=== PATIENT | female | born 1955 | race African-American/Black ===

== ENCOUNTER 2017-09-07 11:23 | Inpatient (IN) | payer OTHER ==
--- NOTE | 2017-09-07 12:08 | PDOC ---
History of Present Illness - General History Source: Patient Exam Limitations: No Limitations - History of Present Illness Initial Comments: 09/07/17 14:24 The patient is a 62 year old female with past medical history of hypertension, scleroderma, and emphysema who presents to the ED with complaints of chest pain for the past week. The patient complains of a sharp, burning pain to her left chest that is a 10/10 in severity and is felt upon movement of her left arm. She reports taking tramadol for her pain at 6 am today which gave no relief. She reports also a productive cough with thick green/yellow sputum for the past few days as well as decreased appetite and lethargy. The patient denies having any sick contacts and denies any fevers, chills, vomiting, diarrhea, SOB. She denies any urinary complaints. Patient is a former smoker who quit 20 years ago. She reports frequent marijuana use. No incarcerations or recent travel. <Jen Diaz - Last Filed: 09/07/17 16:53> <Vy Anne - Last Filed: 09/07/17 20:28> <Pernell Pope - Last Filed: 09/11/17 06:36> - General Chief Complaint: Chest Pain Stated Complaint: CHEST PAIN Time Seen by Provider: 09/07/17 12:08 Past History <Jen Diaz - Last Filed: 09/07/17 16:53> <Vy Anne - Last Filed: 09/07/17 20:28> - Past Medical History GI Disorders: Yes (gastric ulcer) HTN: Yes - Immunization History Immunization Up to Date: Yes - Suicide/Smoking/Psychosocial Hx Smoking History: Former smoker Have you smoked in the past 12 months: Yes Number of Cigarettes Smoked Daily: 15 If you are a former smoker, when did you quit?: t-10 Information on smoking cessation initiated: No 'Breaking Loose' booklet given: 10/07/14 Hx Alcohol Use: No Drug/Substance Use Hx: No Substance Use Type: Heroin, Marijuana Hx Substance Use Treatment: No <Pernell Pope - Last Filed: 09/11/17 06:36> - Past Medical History Allergies/Adverse Reactions: Allergies Allergy/AdvReac Type Severity Reaction Status Date / Time aspirin Allergy Mild n/v Verified 11/19/14 03:06 Home Medications: Ambulatory Orders Omeprazole [Prilosec (RX)] 40 mg PO DAILY 03/29/14 Hydroxychloroquine Sulfate 200 mg PO BID 10/07/14 Mycophenolate Mofetil [Cellcept -] 500 mg PO AM 10/07/14 Ondansetron [Zofran Odt -] 4 mg SL TID #10 od.tablet 11/19/14 Oxycodone HCl 20 mg PO Q4H PRN 11/19/14 traMADol HCL [Ultram] 50 mg PO Q6H PRN 11/19/14 traZODone HCL [Desyrel -] 50 mg PO HS 11/19/14 Gabapentin [Neurontin -] 200 mg PO Q8H 09/08/17 Losartan Potassium [Cozaar -] 12.5 mg PO DAILY 09/08/17 Amlodipine Besylate [Norvasc -] 5 mg PO DAILY 09/11/17 Methotrexate Sodium/Pf [Methotrexate 25 mg/ml Vial] 25 mg SQ WEEKLY 09/11/17 Umeclidinium [place] [Incruse Ellipta] 62.5 mcg IH DAILY 09/11/17 Review of Systems - Review of Systems Able to Perform ROS?: Yes Comments:: 09/07/17 14:24 GENERAL/CONSTITUTIONAL: No fever or chills. No weakness. HEAD, EYES, EARS, NOSE AND THROAT: No change in vision. No ear pain or discharge. No sore throat. GASTROINTESTINAL: Present: nausea No vomiting, diarrhea or constipation. GENITOURINARY: No dysuria, frequency, or change in urination. CARDIOVASCULAR: Present: chest pain No shortness of breath. RESPIRATORY: Present: productive cough No wheezing, or hemoptysis. MUSCULOSKELETAL: No joint or muscle swelling or pain. No neck or back pain. SKIN: No rash NEUROLOGIC: No headache, vertigo, loss of consciousness, or change in strength/ sensation. ENDOCRINE: No increased thirst. No abnormal weight change. HEMATOLOGIC/LYMPHATIC: No anemia, easy bleeding, or history of blood clots. ALLERGIC/IMMUNOLOGIC: No hives or skin allergy. All Other Systems: Reviewed and Negative <Jen Diaz - Last Filed: 09/07/17 16:53> *Physical Exam - Vital Signs Last Vital Signs Temp Pulse Resp BP Pulse Ox 98.1 F 129 H 24 111/70 98 09/07/17 11:52 09/07/17 11:52 09/07/17 11:52 09/07/17 11:52 09/07/17 11:52 - Physical Exam Comments: 09/07/17 14:25 GENERAL: Awake, alert, and fully oriented, in no acute distress HEAD: No signs of trauma EYES: PERRLA, EOMI, sclera anicteric, conjunctiva clear ENT: Auricles normal inspection, hearing grossly normal, nares patent, oropharynx clear without exudates. Moist mucosa NECK: Normal ROM, supple, no lymphadenopathy, JVD, or masses LUNGS: diminished BS on the L, no increased WOB HEART: Regular rate and rhythm, normal S1 and S2, no murmurs, rubs or gallops ABDOMEN: Soft, nontender, normoactive bowel sounds. No guarding, no rebound. No masses EXTREMITIES: Normal range of motion, no edema. No clubbing or cyanosis. No cords, erythema, or tenderness NEUROLOGICAL: Normal speech, cranial nerves intact, negative pronator drift, 5/ 5 strength in all 4 extremities, normal sensation to light touch in all 4 extremities, normal cerebellar exam, normal gait, normal reflexes and tone SKIN: Warm, Dry, normal turgor, no rashes or lesions noted. <Jen Diaz - Last Filed: 09/07/17 16:53> - Vital Signs Last Vital Signs Temp Pulse Resp BP Pulse Ox 98.1 F 129 H 24 111/70 98 09/07/17 11:52 09/07/17 11:52 09/07/17 11:52 09/07/17 11:52 09/07/17 11:52 <Vy Anne - Last Filed: 09/07/17 20:28> - Vital Signs Last Vital Signs Temp Pulse Resp BP Pulse Ox 98.1 F 129 H 24 111/70 98 09/07/17 11:52 09/07/17 11:52 09/07/17 11:52 09/07/17 11:52 09/07/17 11:52 <Pernell Pope - Last Filed: 09/11/17 06:36> ED Treatment Course - LABORATORY CBC & Chemistry Diagram: 09/07/17 13:30 09/07/17 15:33 - ADDITIONAL ORDERS Additional order review: 09/07/17 13:30 RBC 4.21 MCV 85.7 MCHC 33.1 RDW 14.9 MPV 9.4 Neutrophils % 93.4 H Lymphocytes % 3.5 L D Monocytes % 2.6 L Eosinophils % 0.0 D Basophils % 0.5 - RADIOLOGY Radiograph Interpretation: 09/07/17 15:07 Chest X-ray as reviewed by Dr. Jordan reports airspace disease/pneumonia with questionable cystic changes in the left upper lobe for which close follow up or correlation with CT scan of the chest is recommended. - Medications Given in the ED: ED Medications Discontinued Medications Generic Name Dose Route Start Last Admin Trade Name Saadq PRN Reason Stop Dose Admin Acetaminophen 1,000 mg 09/07/17 13:13 09/07/17 13:35 Ofirmev Injection - IVPB 09/07/17 13:14 1,000 mg ONCE ONE Administration Sodium Chloride 1,000 mls @ 1,000 mls/hr 09/07/17 12:09 09/07/17 13:35 Normal Saline - IV 09/07/17 13:08 1,000 mls/hr ASDIR STA Administration <Rust - Last Filed: 09/07/17 16:53> - LABORATORY CBC & Chemistry Diagram: 09/07/17 13:30 09/07/17 15:33 - ADDITIONAL ORDERS Additional order review: Laboratory Results 09/07/17 09/07/17 09/07/17 15:33 15:30 15:00 PT with INR INR PTT (Actin FS) VBG pH POC VBG pCO2 POC VBG pO2 Mixed VBG HCO3 Sodium 140 Potassium 4.0 Chloride 103 Carbon Dioxide 22 Anion Gap 15 BUN 38 H Creatinine 1.1 H Creat Clearance w eGFR 50.67 Random Glucose 146 H Lactic Acid 2.3 H* Calcium 7.8 L Total Bilirubin 2.2 H D AST 42 H ALT 23 Alkaline Phosphatase 178 H Troponin I B-Natriuretic Peptide Total Protein 5.7 L Albumin 1.6 L Urine Color Radha Urine Appearance Slcloudy Urine pH 5.0 Ur Specific [place] 1.023 Urine Protein 2+ H Urine Glucose (UA) Negative Urine Ketones Trace H Urine Blood Negative Urine Nitrite Negative Urine Bilirubin 4.0 Urine Urobilinogen 4.0 e.u/dl H Ur Leukocyte Esterase Negative Urine WBC (Auto) 2 Urine RBC (Auto) 21 Ur Epithelial Cells Rare Hyaline Casts 6 Granular Casts 17 Urine Mucus Rare 09/07/17 09/07/17 09/07/17 13:30 13:30 13:30 PT with INR 17.00 H INR 1.50 H PTT (Actin FS) 30.5 VBG pH 7.41 POC VBG pCO2 35.9 L POC VBG pO2 36.5 Mixed VBG HCO3 22.5 Sodium Cancelled Potassium Cancelled Chloride Cancelled Carbon Dioxide Cancelled Anion Gap Cancelled BUN Cancelled Creatinine Cancelled Creat Clearance w eGFR Cancelled Random Glucose Cancelled Lactic Acid Calcium Cancelled Total Bilirubin Cancelled AST Cancelled ALT Cancelled Alkaline Phosphatase Cancelled Troponin I Cancelled B-Natriuretic Peptide Cancelled Total Protein Cancelled Albumin Cancelled Urine Color Urine Appearance Urine pH Ur Specific [place] Urine Protein Urine Glucose (UA) Urine Ketones Urine Blood Urine Nitrite Urine Bilirubin Urine Urobilinogen Ur Leukocyte Esterase Urine WBC (Auto) Urine RBC (Auto) Ur Epithelial Cells Hyaline Casts Granular Casts Urine Mucus 09/07/17 13:00 PT with INR INR PTT (Actin FS) VBG pH POC VBG pCO2 POC VBG pO2 Mixed VBG HCO3 Sodium Potassium Chloride Carbon Dioxide Anion Gap BUN Creatinine Creat Clearance w eGFR Random Glucose Lactic Acid 2.3 H* Calcium Total Bilirubin AST ALT Alkaline Phosphatase Troponin I B-Natriuretic Peptide Total Protein Albumin Urine Color Urine Appearance Urine pH Ur Specific [place] Urine Protein Urine Glucose (UA) Urine Ketones Urine Blood Urine Nitrite Urine Bilirubin Urine Urobilinogen Ur Leukocyte Esterase Urine WBC (Auto) Urine RBC (Auto) Ur Epithelial Cells Hyaline Casts Granular Casts Urine Mucus 09/07/17 13:30 RBC 4.21 MCV 85.7 MCHC 33.1 RDW 14.9 MPV 9.4 Neutrophils % 93.4 H Lymphocytes % 3.5 L D Monocytes % 2.6 L Eosinophils % 0.0 D Basophils % 0.5 - Medications Given in the ED: ED Medications Discontinued Medications Generic Name Dose Route Start Last Admin Trade Name Freq PRN Reason Stop Dose Admin Acetaminophen 1,000 mg 09/07/17 13:13 09/07/17 13:35 Ofirmev Injection - IVPB 09/07/17 13:14 1,000 mg ONCE ONE Administration Sodium Chloride 1,000 mls @ 1,000 mls/hr 09/07/17 12:09 09/07/17 13:35 Normal Saline - IV 09/07/17 13:08 1,000 mls/hr ASDIR STA Administration Azithromycin 500 mg/ Dextrose 250 mls @ 250 mls/hr 09/07/17 14:43 09/07/17 15 :08 IVPB 09/07/17 15:42 250 mls/hr ONCE ONE Administration Ceftriaxone Sodium 1 gm/ 50 mls @ 100 mls/hr 09/07/17 14:43 09/07/17 15:23 Dextrose IVPB 09/07/17 15:12 100 mls/hr ONCE ONE Administration <Vy Anne - Last Filed: 09/07/17 20:28> - LABORATORY CBC & Chemistry Diagram: 09/10/17 06:30 09/10/17 06:30 - RADIOLOGY Radiology Studies Ordered: Category Date Time Status CHEST X-RAY PORTABLE* [RAD] Stat Radiology 09/07/17 12:06 Ordered <Pernell Pope - Last Filed: 09/11/17 06:36> Medical Decision Making - Medical Decision Making 09/11/17 06:35 CTA + for lobar infiltrate, neg for large PE. Pt admitted for further mgmt. <Pernell Pope - Last Filed: 09/11/17 06:36> *DC/Admit/Observation/Transfer - Attestations Scribe Attestion: 09/07/17 14:25 Documentation prepared by Jen Diaz, acting as lead medical technologist for Pernell Pope MD. <Jen Diaz - Last Filed: 09/07/17 16:53> - Discharge Dispostion Admit: Yes <Vy Anne - Last Filed: 09/07/17 20:28> <Pernell Pope - Last Filed: 09/11/17 06:36> Diagnosis at time of Disposition: Scleroderma Pneumonia Qualifiers: Pneumonia type: due to unspecified organism Laterality: unspecified laterality Lung location: lower lobe of lung Qualified Code(s): J18.1 - Lobar pneumonia, unspecified organism
[2017-09-07] MEDS ORDERED: SODIUM CHLORIDE 1,000 ML IV STA ×2 (12:09→21:14)
[2017-09-07] MEDS ORDERED: ACETAMINOPHEN 1000 MG/100 ML VIAL (NON FORMULARY) IVPB ONE (13:13)
[2017-09-07] MEDS ORDERED: ACETAMINOPHEN INJECTION 100 ML IVPB ONE (13:40)
[2017-09-07 13:49] LABS: BASO % 0.5 % (0-2.0); HEMATOCRIT 36.1 % (32.4-45.2); HEMOGLOBIN 11.9 GM/dL (10.7-15.3); LYMPH % 3.5 % (8-40); MCH 28.4 pg (25.7-33.7); MCHC 33.1 g/dl (32.0-36.0); MEAN CELL VOLUME 85.7 fl (80-96); MEAN PLT VOLUME 9.4 fl (7.5-11.1); MONO % 2.6 % (3.8-10.2); NEUT % 93.4 % (42.8-82.8); PLATELET COUNT 494 K/MM3 (134-434); RBC 4.21 M/mm3 (3.60-5.2); RDW 14.9 % (11.6-15.6); WHITE BLOOD COUNT 28.5 K/mm3 (4.0-10.0)
[2017-09-07 14:06] LABS: INR 1.5 (0.82-1.09)
[2017-09-07 14:09] LABS: ACTIVATED PTT 30.5 SECONDS (26.9-34.4)
[2017-09-07 14:43] LABS: VENOUS PC02 35.9 mmHg (38-52); VENOUS PH 7.41 (7.32-7.42); VENOUS PO2 36.5 mmHg (28-48)
[2017-09-07] MEDS ORDERED: AZITHROMYCIN IVPB 500 MG in DEXTROSE 5%-WATER - 250 ML IVPB ONE (14:43)
[2017-09-07] MEDS ORDERED: CEFTRIAXONE 1 GM in DEXTROSE 5%-WATER - 50 ML IVPB ONE (14:43)
[2017-09-07] MEDS ORDERED: CEFTRIAXONE 1 GM/50 ML BAG ONE ×2 (15:09→15:10)
[2017-09-07] MEDS ORDERED: AZITHROMYCIN IVPB 250 ML IVPB ONE (15:09)
[2017-09-07 15:31] LABS: URINE APPEARANCE SLCLOUDY; URINE COLOR AMBER; URINE GLUCOSE (UA) NEGATIVE (NEGATIVE); URINE KETONE TRACE (NEGATIVE); URINE LEUK ESTERASE NEGATIVE (NEGATIVE); URINE NITRITE NEGATIVE (NEGATIVE); URINE UROBILINOGEN 4.0 E.U/dl mg/dL (0.2-1.0)
[2017-09-07 15:33] LABS: URINE PROTEIN 2+ (NEGATIVE)
[2017-09-07 15:37] LABS: EPI CELLS RARE /HPF (FEW); GRANULAR CASTS 17 /lpf; URINE HYALINE CAST 6 /lpf; URINE MUCUS RARE
[2017-09-07 16:31] LABS: ALBUMIN 1.6 g/dl (3.4-5.0); ANION GAP 15 (8-16); BLOOD UREA NITROGEN 38 mg/dL (7-18); CALCIUM 7.8 mg/dL (8.5-10.1); CHLORIDE 103 mmol/L (98-107); CO2 22 mmol/L (21-32); CREATININE 1.1 mg/dL (0.55-1.02); GLUCOSE,RANDOM 146 mg/dL (74-106); SGPT/ALT 23 U/L (12-78); SODIUM 140 mmol/L (136-145)
[2017-09-07 16:32] LABS: ALK PHOS 178 U/L (45-117); BILIRUBIN,TOTAL 2.2 mg/dL (0.2-1.0); TOT PROT 5.7 g/dl (6.4-8.2)
[2017-09-07 16:40] LABS: SGOT/AST 42 U/L (15-37)
--- NOTE | 2017-09-07 16:53 | EKG ---
Test Reason : Blood Pressure : / mmHG Vent. Rate : 130 BPM Atrial Rate : 130 BPM P-R Int : 124 ms QRS Dur : 074 ms QT Int : 322 ms P-R-T Axes : 076 078 082 degrees QTc Int : 473 ms SINUS TACHYCARDIA SEPTAL INFARCT , AGE UNDETERMINED ABNORMAL ECG WHEN COMPARED WITH ECG OF 06-OCT-2014 20:33, VENT. RATE HAS INCREASED BY 48 BPM Confirmed by MD Lina, Yomi ([id number]) on 09/07/2017 4:53:28 PM Referred By: Confirmed By:Yomi Mills MD
[2017-09-07] MEDS ORDERED: morphine CARPU-JECT 2 MG/1 ML DISP.SYRIN IVPUSH ONE (20:38)
[2017-09-07] MEDS ORDERED: HEPARIN NA (PORCINE) 5,000 UNITS/ML 1ML VIAL ONE (20:44)
[2017-09-07] MEDS: HEPARIN NA (PORCINE) 5,000 UNITS/ML 1ML VIAL SQ SCH (21:00)
[2017-09-07] MEDS: SODIUM CHLORIDE 1,000 ML IV SCH (21:00)
[2017-09-07] MEDS ORDERED: PIPERACILLIN/TAZOB 4.5 GM/100 ML PRE-DOCKED IVPB SCH (21:15)
[2017-09-07] MEDS ORDERED: VANCOMYCIN 1,250 MG in DEXTROSE 5%-WATER - 250 ML IVPB SCH (21:15)
[2017-09-07] MEDS ORDERED: PIPERACILLIN/TAZOB 4.5 GM 4.5 GM/100 ML BAG IVPB ONE (21:22)
[2017-09-07] MEDS ORDERED: VANCOMYCIN 500 MG VIAL (RESTRICTED TO ID ONLY) ONE (21:22)
--- NOTE | 2017-09-07 21:22 | HP ---
CHIEF COMPLAINT: chest pain, cough PCP: none HISTORY OF PRESENT ILLNESS: 62 year old female with a past medical history of HTN, Scleroderma, emphysema presents to the hospital for 1 week history of L sided chest pain 10/10 in severity. The patient describes the pain as sharp, stabbing and pressure. Patient took tramadal at home with no symptom relief. Patient also reports 1 week history of cough productive of green/brown sputum. She arrived to the ED today because her chest pain became significantly worse this AM. She reports associated shortness of breath, decreased appetite, lethargy, nausea (no vomiting), abdominal pain with coughing. Denies fevers, chills, vomiting, headache, arm pain, neck pain. Patient is treated for scleroderma at [facility] with infusions every 6 months. She denies any acute skin conditions, current difficulty swallowing (but states that occasionally has issues when throat swells up). ER course was notable for: (1) WBC 28.5 (2) LA 2.3 (3) CXR YOKO infiltrate Recent Travel: none PAST MEDICAL HISTORY: HTN, Scleroderma, emphysema PAST SURGICAL HISTORY: none Social History: Smoking: quit 7 days ago, smoked 3 cigs a day Alcohol: unknown Drugs: unknown Family History: none Allergies aspirin Allergy (Mild, Verified 11/19/14 03:06) n/v HOME MEDICATIONS: Home Medications Medication Instructions Recorded Lisinopril [Prinivil] 10 mg PO DAILY 03/29/14 Omeprazole [Prilosec (RX)] 40 mg PO DAILY 03/29/14 Hydroxychloroquine Sulfate 200 mg PO BID 10/07/14 Mycophenolate Mofetil [Cellcept -] 2 tab PO AM 10/07/14 Metoclopramide HCl 5 mg PO Q6H PRN 11/19/14 Mycophenolate Mofetil [Cellcept -] 500 mg PO HS 11/19/14 Ondansetron [Zofran Odt -] 4 mg SL TID #10 od.tablet 11/19/14 Oxycodone HCl 20 mg PO Q4H PRN 11/19/14 traMADol HCL [Ultram] 50 mg PO Q6H PRN 11/19/14 traZODone HCL [Desyrel -] 50 mg PO HS 11/19/14 REVIEW OF SYSTEMS CONSTITUTIONAL: generalized weakness, loss of appetite Absent: fever, chills, diaphoresis, malaise, weight change HEENT: Absent: rhinorrhea, nasal congestion, throat pain, throat swelling, difficulty swallowing, mouth swelling, ear pain, eye pain, visual changes CARDIOVASCULAR: chest pain Absent:syncope, palpitations, irregular heart rate, lightheadedness, peripheral edema RESPIRATORY: cough, shortness of breath Absent: ,, dyspnea with exertion, orthopnea, wheezing, stridor, hemoptysis GASTROINTESTINAL: Absent: abdominal pain, abdominal distension, nausea, vomiting, diarrhea, constipation, melena, hematochezia GENITOURINARY: Absent: dysuria, frequency, urgency, hesitancy, hematuria, flank pain, genital pain MUSCULOSKELETAL: Absent: myalgia, arthralgia, joint swelling, back pain, neck pain SKIN: Absent: rash, itching, pallor HEMATOLOGIC/IMMUNOLOGIC: Absent: easy bleeding, easy bruising, lymphadenopathy, frequent infections ENDOCRINE: Absent: unexplained weight gain, unexplained weight loss, heat intolerance, cold intolerance NEUROLOGIC: Absent: headache, focal weakness or paresthesias, dizziness, unsteady gait, seizure, mental status changes, bladder or bowel incontinence PSYCHIATRIC: Absent: anxiety, depression, suicidal or homicidal ideation, hallucinations. PHYSICAL EXAMINATION Vital Signs - 24 hr 09/07/17 11:52 Temperature 98.1 F Pulse Rate 129 H Respiratory 24 Rate Blood Pressure 111/70 O2 Sat by Pulse 98 Oximetry (%) GENERAL: A&Ox3, no acute distress EYES: PERRLA, EOMI ENT: Dry mucus membranes NECK: No JVD LUNGS: Decreased breath sounds in [place], mild diffuse scattered rhales noted on exam HEART: tachycardic, no murmurs, PMI 5th intercostal space on L midclavicular line ABDOMEN: Soft, nontender, BS present MUSCULOSKELETAL: Mild chest wall tenderness noted on exam EXTREMITIES: 2+ pulses, no edema. NEUROLOGICAL: Cranial nerves II-XII intact. Laboratory Results - last 24 hr 09/07/17 09/07/17 09/07/17 13:00 13:30 13:30 WBC 28.5 H D RBC 4.21 Hgb 11.9 D Hct 36.1 D MCV 85.7 MCH 28.4 MCHC 33.1 RDW 14.9 Plt Count 494 H D MPV 9.4 Neutrophils % 93.4 H Lymphocytes % 3.5 L D Monocytes % 2.6 L Eosinophils % 0.0 D Basophils % 0.5 PT with INR 17.00 H INR 1.50 H PTT (Actin FS) 30.5 VBG pH POC VBG pCO2 POC VBG pO2 Mixed VBG HCO3 Sodium Potassium Chloride Carbon Dioxide Anion Gap BUN Creatinine Creat Clearance w eGFR Random Glucose Lactic Acid 2.3 H* Calcium Total Bilirubin AST ALT Alkaline Phosphatase Troponin I B-Natriuretic Peptide Total Protein Albumin Urine Color Urine Appearance Urine pH Ur Specific [place] Urine Protein Urine Glucose (UA) Urine Ketones Urine Blood Urine Nitrite Urine Bilirubin Urine Urobilinogen Ur Leukocyte Esterase Urine WBC (Auto) Urine RBC (Auto) Ur Epithelial Cells Hyaline Casts Granular Casts Urine Mucus 09/07/17 09/07/17 09/07/17 13:30 13:30 15:00 WBC RBC Hgb Hct MCV MCH MCHC RDW Plt Count MPV Neutrophils % Lymphocytes % Monocytes % Eosinophils % Basophils % PT with INR INR PTT (Actin FS) VBG pH 7.41 POC VBG pCO2 35.9 L POC VBG pO2 36.5 Mixed VBG HCO3 22.5 Sodium Cancelled Potassium Cancelled Chloride Cancelled Carbon Dioxide Cancelled Anion Gap Cancelled BUN Cancelled Creatinine Cancelled Creat Clearance w eGFR Cancelled Random Glucose Cancelled Lactic Acid Calcium Cancelled Total Bilirubin Cancelled AST Cancelled ALT Cancelled Alkaline Phosphatase Cancelled Troponin I Cancelled B-Natriuretic Peptide Cancelled Total Protein Cancelled Albumin Cancelled Urine Color Radha Urine Appearance Slcloudy Urine pH 5.0 Ur Specific [place] 1.023 Urine Protein 2+ H Urine Glucose (UA) Negative Urine Ketones Trace H Urine Blood Negative Urine Nitrite Negative Urine Bilirubin 4.0 Urine Urobilinogen 4.0 e.u/dl H Ur Leukocyte Esterase Negative Urine WBC (Auto) 2 Urine RBC (Auto) 21 Ur Epithelial Cells Rare Hyaline Casts 6 Granular Casts 17 Urine Mucus Rare 09/07/17 09/07/17 15:30 15:33 WBC RBC Hgb Hct MCV MCH MCHC RDW Plt Count MPV Neutrophils % Lymphocytes % Monocytes % Eosinophils % Basophils % PT with INR INR PTT (Actin FS) VBG pH POC VBG pCO2 POC VBG pO2 Mixed VBG HCO3 Sodium 140 Potassium 4.0 Chloride 103 Carbon Dioxide 22 Anion Gap 15 BUN 38 H Creatinine 1.1 H Creat Clearance w eGFR 50.67 Random Glucose 146 H Lactic Acid 2.3 H* Calcium 7.8 L Total Bilirubin 2.2 H D AST 42 H ALT 23 Alkaline Phosphatase 178 H Troponin I B-Natriuretic Peptide Total Protein 5.7 L Albumin 1.6 L Urine Color Urine Appearance Urine pH Ur Specific [place] Urine Protein Urine Glucose (UA) Urine Ketones Urine Blood Urine Nitrite Urine Bilirubin Urine Urobilinogen Ur Leukocyte Esterase Urine WBC (Auto) Urine RBC (Auto) Ur Epithelial Cells Hyaline Casts Granular Casts Urine Mucus IMAGING: CXR on admission: YOKO opacity suspect for pneumonia Chest CTA on admission: YOKO infiltrate, emphysematous changes noted bilaterally ASSESSMENT/PLAN: 62 year old female with a history of scleroderma, hypertension, and emphysema presented to the ED with chest pain, cough productive of green sputum, and admitted for the treatment of severe sepsis 2/2 pneumonia #Severe Sepsis 2/2 Pneumonia: patient has clinically improved since initial presentation, still tachycardic -admit to med-surg -WBC 28.5, monitor in AM -Lactate 2.3, repeat lactate now -ID consult Dr. Gan appreciated -repeat CXR in AM -sputum culture -blood culture -urine culture -1 liter of fluid in ED given, give 1 more bolus and then start 100cc/hr of NS maintenance -patient likely immunocompromised given scleroderma status, will cover broadly with Vancomycin 1250 QD and Zosyn 4.5g Q6H -strict I's/O's -2L nasal cannula if needed #ALLIE: likely prerenal due to severe sepsis -fluid hydration, repeat BMP in AM #Scleroderma: not an acute issue -continue chronic prednisone 20mg QD -previous visit had mycophenolate listed as well as hydroxychloroquine - please confirm medications in the morning #Emphysema: not an acute issue -patient is on Incruse Ellipta at home, consider starting during admission #Hypertension: patient is normotensive, however due to history of hypertension, her blood pressure is likely low compared to baseline, will hold antihypertensives in the setting of severe sepsis. -hold amlodipine 5mg QD -hold losartan 12.5 QD #Smoking Cessation: -nicotine patch #Nausea: no vomiting -hold antiemetics due to QTc -consider compazine #FEN NS @ 100cc/hr Replete lytes in AM Sodium controlled diet #Prophylaxis -heparin 5000 subq TID #Disposition -admit to med surg Visit type - Emergency Visit Emergency Visit: Yes Care time: The patient presented to the Emergency Department on the above date and was hospitalized for further evaluation of their emergent condition. - New Patient This patient is new to me today: Yes Date on this admission: 09/07/17 - Critical Care Critical Care patient: No Hospitalist Screening - Colonoscopy Questionnaire Colonoscopy Questionnaire: Colonoscopy Questionnaire - Patient: 50 - 75 years old and never had a screening colonoscopy: Unknown History of colon or rectal polyps, or CA: Unknown History of IBD, Crohn's disease or UC: Unknown History of abdominal radiation therapy as a child: Unknown - Relative: 1 with colon or rectal CA, or polyps at age 60 or younger: Unknown Colon or rectal CA diagnosed at age 45 or younger: Unknown Multiple relatives with colon or rectal CA: Unknown - Outcome: Screening Result: Negative Screen
[2017-09-07] MEDS ORDERED: VANCOMYCIN 1 GRAM (PRE-DOCKED) 1,000 MG/250 ML BAG IVPB ONE (21:23)
[2017-09-07] MEDS ORDERED: traMADol HCL 50 MG TABLET PO PRN (21:28)
[2017-09-07] MEDS ORDERED: MYCOPHENOLATE MOFETIL 500 MG TABLET PO SCH (22:00)
--- NOTE | 2017-09-07 22:21 | PN ---
Teaching Attending Note Name of Resident: Torsten Jauregui ATTENDING PHYSICIAN STATEMENT I saw and evaluated the patient. I reviewed the resident's note and discussed the case with the resident. I agree with the resident's findings and plan as documented. SUBJECTIVE: 62 F with pmhx of HTN, Scleroderma, empysema, who presents with 1 week of chest pain. Notes chest pain started on her left side. States pain is 10/10 in severity. Pain is sharp in nature and non-radiating. Also with associated cough and green sputum. States her chest pain worse upon inspiration and with associated shortness of breath. OBJECTIVE: Physical: VS: Initial Vital Signs Temp Pulse Resp BP Pulse Ox 98.1 F 129 H 24 111/70 98 09/07/17 11:52 09/07/17 11:52 09/07/17 11:52 09/07/17 11:52 09/07/17 11:52 GEN: NAD, Resting in bed, AA0X3 HEENT: NCAT, PERRl, Throat without erythema or exudates CARD: RRR S1, S2 RESP: Decreased breath sounds bases bilaterally ABD: BSx4, NTD to palpation EXT: - C/C/E CBCD WBC 28.5 K/mm3 (4.0-10.0) H D 09/07/17 13:30 RBC 4.21 M/mm3 (3.60-5.2) 09/07/17 13:30 Hgb 11.9 GM/dL (10.7-15.3) D 09/07/17 13:30 Hct 36.1 % (32.4-45.2) D 09/07/17 13:30 MCV 85.7 fl (80-96) 09/07/17 13:30 MCHC 33.1 g/dl (32.0-36.0) 09/07/17 13:30 RDW 14.9 % (11.6-15.6) 09/07/17 13:30 Plt Count 494 K/MM3 (134-434) H D 09/07/17 13:30 MPV 9.4 fl (7.5-11.1) 09/07/17 13:30 CMP Sodium 140 mmol/L (136-145) 09/07/17 15:33 Potassium 4.0 mmol/L (3.5-5.1) 09/07/17 15:33 Chloride 103 mmol/L (98-107) 09/07/17 15:33 Carbon Dioxide 22 mmol/L (21-32) 09/07/17 15:33 Anion Gap 15 (8-16) 09/07/17 15:33 BUN 38 mg/dL (7-18) H 09/07/17 15:33 Creatinine 1.1 mg/dL (0.55-1.02) H 09/07/17 15:33 Creat Clearance w eGFR 50.67 (>60) 09/07/17 15:33 Random Glucose 146 mg/dL (74-106) H 09/07/17 15:33 Calcium 7.8 mg/dL (8.5-10.1) L 09/07/17 15:33 Total Bilirubin 2.2 mg/dL (0.2-1.0) H D 09/07/17 15:33 AST 42 U/L (15-37) H 09/07/17 15:33 ALT 23 U/L (12-78) 09/07/17 15:33 Alkaline Phosphatase 178 U/L (45-117) H 09/07/17 15:33 Total Protein 5.7 g/dl (6.4-8.2) L 09/07/17 15:33 Albumin 1.6 g/dl (3.4-5.0) L 09/07/17 15:33 CARDIAC ENZYMES Troponin I Cancelled 09/07/17 13:30 Home Medications Medication Instructions Recorded Lisinopril [Prinivil] 10 mg PO DAILY 03/29/14 Omeprazole [Prilosec (RX)] 40 mg PO DAILY 03/29/14 Hydroxychloroquine Sulfate 200 mg PO BID 10/07/14 Mycophenolate Mofetil [Cellcept -] 2 tab PO AM 10/07/14 Metoclopramide HCl 5 mg PO Q6H PRN 11/19/14 Mycophenolate Mofetil [Cellcept -] 500 mg PO HS 11/19/14 Ondansetron [Zofran Odt -] 4 mg SL TID #10 od.tablet 11/19/14 Oxycodone HCl 20 mg PO Q4H PRN 11/19/14 traMADol HCL [Ultram] 50 mg PO Q6H PRN 11/19/14 traZODone HCL [Desyrel -] 50 mg PO HS 11/19/14 EKG:S Tach ASSESSMENT AND PLAN: 62 F with pmhx of HTN, Scleroderma, empysema, who presents with 1 week of chest pain, being admitted for pneumonia 1.) Sepsis due to Pneumonia in Immunocompromised pt. - Tinoo/Herven - Laws cx - IVF - REPEAT LA - ID consult 2.) Chest Pain- Atypical - Most likely from PNA - Trend Trop/EKG 2.) Scleroderma - C/W CellCept/Plaquenil 3.) HTN - BP controlled - Cont. in AM 5.) ALLIE - IVF - Trend - U lytes in Am 6.) Empysema - C/W Home meds 7.) Increase T. Bili - Check D. Dillon - Trend 8.) Hypoalbuminemia - Nutrition Consult 9.) Dvt Ppx - Heparin [address] in Med-Tele
[2017-09-07] MEDS ORDERED: PIPERACILLIN/TAZOB 4.5 GM/100 ML PRE-DOCKED IVPB ONE (22:29)
[2017-09-07] MEDS: NICOTINE 7 MG/24 HOURS TOPICAL PATCH TD SCH (23:20)
[2017-09-08] MEDS: HEPARIN NA (PORCINE) 5,000 UNITS/ML 1ML VIAL SQ SCH ×3 (01:58→14:44)
[2017-09-08] MEDS: traZODone HCL 50 MG TABLET (FP) PO SCH ×2 (03:05→21:24)
[2017-09-08] MEDS: PANTOPRAZOLE 40 MG TABLET (FP) PO SCH ×2 (03:05→10:03)
[2017-09-08] MEDS: BENZOCAINE/MENTH/CETYLPYRD CL 1 EACH LOZENGE MM PRN (04:31)
[2017-09-08] MEDS ORDERED: HEPARIN NA (PORCINE) 5,000 UNITS/ML 1ML VIAL ONE ×2 (05:58→14:46)
--- NOTE | 2017-09-08 06:28 | PN ---
Physical Exam: SUBJECTIVE: Patient seen and examined by me this AM - Pt complaining of L chest wall pain, with no radiation, 12/21. Endorses one week of productive cough, green sputum and occasional SOB; BL ab/back pain from persistent coughing; States she also experiences pain with crying but normally takes artifical tears for this OBJECTIVE: Vital Signs Intake & Output 09/05/17 09/06/17 09/07/17 09/08/17 23:59 23:59 23:59 23:59 Intake Total 1250 Balance 1250 Weight 68.039 kg Period Temp Pulse Resp BP Sys/Hoyt Pulse Ox Last 24 Hr 97.8 F-98.8 F 119-129 20-24 111-115/66-70 98-100 GENERAL: Elderly woman lying in bed, anxious, A&Ox3 HEAD: Normal with no signs of trauma. EYES: Pinpoint pupils. extraocular movements intact, sclera anicteric, conjunctiva clear. No ptosis. ENT: Ears normal, nares patent, oropharynx clear without exudates, moist mucous membranes, no exudate or erythema NECK: Trachea midline, full range of motion, supple. LUNGS: BL upper lung carckles, L>R. Trace wheezing noted BL in mid/upper lung emerson. HEART: Regular rate and rhythm, S1, S2 without murmur, rub or gallop. Pain on palpation of L chest wall inferior to L breast, no gross fx's noted. ABDOMEN: Mild ttp in all four quadrants. Soft, nondistended, normoactive bowel sounds, no guarding, no rebound, no hepatosplenomegaly, no masses. BL CVA tenderness+ EXTREMITIES: 2+ pulses, warm, well-perfused, no edema. NEUROLOGICAL: Cranial nerves II through XII grossly intact. Normal speech, gait not observed. PSYCH: Normal mood, normal affect. SKIN: Warm, dry, normal turgor, no rashes or lesions noted Laboratory Results - last 24 hr CBC, BMP 09/08/17 06:32 09/08/17 06:32 09/07/17 13:30 09/07/17 15:33 09/07/17 09/07/17 09/07/17 13:00 13:30 13:30 WBC 28.5 H D RBC 4.21 Hgb 11.9 D Hct 36.1 D MCV 85.7 MCH 28.4 MCHC 33.1 RDW 14.9 Plt Count 494 H D MPV 9.4 Neutrophils % 93.4 H Lymphocytes % 3.5 L D Monocytes % 2.6 L Eosinophils % 0.0 D Basophils % 0.5 PT with INR 17.00 H INR 1.50 H PTT (Actin FS) 30.5 VBG pH POC VBG pCO2 POC VBG pO2 Mixed VBG HCO3 Sodium Potassium Chloride Carbon Dioxide Anion Gap BUN Creatinine Creat Clearance w eGFR Random Glucose Lactic Acid 2.3 H* Calcium Total Bilirubin AST ALT Alkaline Phosphatase Troponin I B-Natriuretic Peptide Total Protein Albumin Urine Color Urine Appearance Urine pH Ur Specific [place] Urine Protein Urine Glucose (UA) Urine Ketones Urine Blood Urine Nitrite Urine Bilirubin Urine Urobilinogen Ur Leukocyte Esterase Urine WBC (Auto) Urine RBC (Auto) Ur Epithelial Cells Hyaline Casts Granular Casts Urine Mucus 09/07/17 09/07/17 09/07/17 13:30 13:30 15:00 WBC RBC Hgb Hct MCV MCH MCHC RDW Plt Count MPV Neutrophils % Lymphocytes % Monocytes % Eosinophils % Basophils % PT with INR INR PTT (Actin FS) VBG pH 7.41 POC VBG pCO2 35.9 L POC VBG pO2 36.5 Mixed VBG HCO3 22.5 Sodium Cancelled Potassium Cancelled Chloride Cancelled Carbon Dioxide Cancelled Anion Gap Cancelled BUN Cancelled Creatinine Cancelled Creat Clearance w eGFR Cancelled Random Glucose Cancelled Lactic Acid Calcium Cancelled Total Bilirubin Cancelled AST Cancelled ALT Cancelled Alkaline Phosphatase Cancelled Troponin I Cancelled B-Natriuretic Peptide Cancelled Total Protein Cancelled Albumin Cancelled Urine Color Radha Urine Appearance Slcloudy Urine pH 5.0 Ur Specific [place] 1.023 Urine Protein 2+ H Urine Glucose (UA) Negative Urine Ketones Trace H Urine Blood Negative Urine Nitrite Negative Urine Bilirubin 4.0 Urine Urobilinogen 4.0 e.u/dl H Ur Leukocyte Esterase Negative Urine WBC (Auto) 2 Urine RBC (Auto) 21 Ur Epithelial Cells Rare Hyaline Casts 6 Granular Casts 17 Urine Mucus Rare 09/07/17 09/07/17 15:30 15:33 WBC RBC Hgb Hct MCV MCH MCHC RDW Plt Count MPV Neutrophils % Lymphocytes % Monocytes % Eosinophils % Basophils % PT with INR INR PTT (Actin FS) VBG pH POC VBG pCO2 POC VBG pO2 Mixed VBG HCO3 Sodium 140 Potassium 4.0 Chloride 103 Carbon Dioxide 22 Anion Gap 15 BUN 38 H Creatinine 1.1 H Creat Clearance w eGFR 50.67 Random Glucose 146 H Lactic Acid 2.3 H* Calcium 7.8 L Total Bilirubin 2.2 H D AST 42 H ALT 23 Alkaline Phosphatase 178 H Troponin I B-Natriuretic Peptide Total Protein 5.7 L Albumin 1.6 L Urine Color Urine Appearance Urine pH Ur Specific [place] Urine Protein Urine Glucose (UA) Urine Ketones Urine Blood Urine Nitrite Urine Bilirubin Urine Urobilinogen Ur Leukocyte Esterase Urine WBC (Auto) Urine RBC (Auto) Ur Epithelial Cells Hyaline Casts Granular Casts Urine Mucus Active Medications Generic Name Dose Route Start Last Admin Trade Name Freq PRN Reason Stop Dose Admin Benzocaine/Menthol 1 each 09/08/17 03:24 09/08/17 04:31 Cepacol Lozenge - MM 1 each PRN PRN Administration SORE THROAT Heparin Sodium (Porcine) 5,000 unit 09/08/17 06:00 09/08/17 06:19 Heparin - SQ 5,000 unit TID ALEXIS Administration Sodium Chloride 1,000 mls @ 100 mls/hr 09/07/17 20:30 09/07/17 21:00 Normal Saline - IV 100 mls/hr ASDIR [facility] Administration Vancomycin HCl 1,250 mg/ 250 mls @ 250 mls/2 hr 09/07/17 21:15 09/07/17 21:45 Dextrose IVPB 250 mls/2 hr Q24H [facility] Administration Metoclopramide HCl 5 mg 09/07/17 21:28 Reglan - PO Q6H PRN NAUSEA AND/OR VOMITING Nicotine 7 mg 09/07/17 21:45 09/07/17 23:20 Nicoderm Patch - TD 7 mg DAILY [facility] Administration Oxycodone HCl 20 mg 09/07/17 21:28 Roxicodone - PO Q4H PRN PAIN LEVEL 7 - 10 Pantoprazole Sodium 40 mg 09/07/17 21:45 09/08/17 03:05 Protonix - PO Not Given DAILY [facility] Tramadol HCl 50 mg 09/07/17 21:28 Ultram - PO Q6H PRN PAIN LEVEL 4 - 6 Trazodone HCl 50 mg 09/07/17 22:00 09/08/17 03:05 Desyrel - PO Not Given [facility] Microbiology 09/08/17 20:16 Nasopharyngeal Swab Influenza Types A,B Antigen (ENRIQUE) - Final 09/08/17 20:16 Nasopharyngeal Swab - Final 09/08/17 06:45 Sputum - Expectorated Gram Stain - Final 09/07/17 12:06 Blood - Peripheral Venous Blood Culture - Preliminary NO GROWTH OBTAINED AFTER 24 HOURS, INCUBATION TO CONTINUE FOR 4 DAYS. 09/07/17 12:06 Blood - Peripheral Venous Blood Culture - Preliminary NO GROWTH OBTAINED AFTER 24 HOURS, INCUBATION TO CONTINUE FOR 4 DAYS. CXR 09/07 - YOKO opacity suspect for pneumonia Chest CTA 09/07 - YOKO infiltrate, emphysematous changes noted bilaterally CXR 09/08 - no change EKG: NSR, rate of 130, QTC 473 ASSESSMENT/PLAN: 62 year old female with a history of scleroderma, hypertension, and emphysema presented to the ED with chest pain, cough productive of green sputum, and admitted for the treatment of severe sepsis 2/2 pneumonia. Per ID, will treat as CAP with rocephin/AZA. #Severe Sepsis 2/2 Pneumonia - WBC decreased from 28 -> 18; no fever, tachy to 130s overnight; repeat LA 2.3 -> 1.2 today -ID consult, Dr. Gan - f/u alexander culture - flu negative -IVFs - Trend WBC, fever curve -hold cellcept/hydroxychloroquine -O2 support as needed - f/u urine PNA antigens - Rocephin/AZA day 1 for suspected CAP per ID #ALLIE - prerenal 2/2 sepsis; 1.1 -> 0.8; resolved - IVFs - Trend Cr #Scleroderma - chronic -unable to obtain record of immunomodulators at pharmacy, will need to confirm - hold cellcept/hydroxy currently #Emphysema-chronic -duonebs PRN - O2 support - consider pulm consult if symptoms still persist #Hypertension-holding antihypertensives in the setting of severe sepsis. -hold amlodipine 5mg QD -hold losartan 12.5 QD #GERD - PPI #Chronic pain -ultram - tylenol #Smoking Cessation: -nicotine patch - counseling #Nausea - well controlled -reglan #FEN NS @ 100cc/hr Daily lytes Sodium controlled diet #Prophylaxis Lovenox #Disposition M/S Plan discussed with attending, Dr. Boris Phelps, PGY1 Visit type - Emergency Visit Emergency Visit: Yes ED Registration Date: 09/07/17 Care time: The patient presented to the Emergency Department on the above date and was hospitalized for further evaluation of their emergent condition. - New Patient This patient is new to me today: Yes Date on this admission: 09/09/17 - Critical Care Critical Care patient: No
[2017-09-08] MEDS ORDERED: oxyCODONE HCL 5 MG TABLET ONE ×2 (06:40→14:50)
[2017-09-08] MEDS ORDERED: PANTOPRAZOLE 40 MG TABLET (FP) ONE ×2 (06:50→09:54)
[2017-09-08] MEDS: oxyCODONE HCL 5 MG TABLET PO PRN ×3 (06:52→21:24)
--- NOTE | 2017-09-08 07:48 | PN ---
Progress Note, Physician Chief Complaint: ID Full note dictated - Current Medication List Current Medications: Active Medications Benzocaine/Menthol (Cepacol Lozenge -) 1 each MM PRN PRN PRN Reason: SORE THROAT Last Admin: 09/08/17 04:31 Dose: 1 each Heparin Sodium (Porcine) (Heparin -) 5,000 unit SQ TID [facility] Last Admin: 09/08/17 06:19 Dose: 5,000 unit Sodium Chloride (Normal Saline -) 1,000 mls @ 100 mls/hr IV ASDIR [facility] Last Admin: 09/07/17 21:00 Dose: 100 mls/hr Vancomycin HCl 1,250 mg/ (Dextrose) 250 mls @ 250 mls/2 hr IVPB Q24H [facility] Last Admin: 09/07/17 21:45 Dose: 250 mls/2 hr Metoclopramide HCl (Reglan -) 5 mg PO Q6H PRN PRN Reason: NAUSEA AND/OR VOMITING Nicotine (Nicoderm Patch -) 7 mg TD DAILY [facility] Last Admin: 09/07/17 23:20 Dose: 7 mg Oxycodone HCl (Roxicodone -) 20 mg PO Q4H PRN PRN Reason: PAIN LEVEL 7 - 10 Last Admin: 09/08/17 06:52 Dose: 20 mg Pantoprazole Sodium (Protonix -) 40 mg PO DAILY [facility] Last Admin: 09/08/17 03:05 Dose: Not Given Tramadol HCl (Ultram -) 50 mg PO Q6H PRN PRN Reason: PAIN LEVEL 4 - 6 Trazodone HCl (Desyrel -) [address] [facility] Last Admin: 09/08/17 03:05 Dose: Not Given - Objective Vital Signs: Vital Signs Temperature 99.0 F 09/08/17 06:58 Pulse Rate 129 H 09/08/17 06:58 Respiratory Rate 16 09/08/17 06:58 Blood Pressure 128/67 09/08/17 06:58 O2 Sat by Pulse Oximetry (%) 99 09/08/17 06:58 Constitutional: Yes: No Distress Neck: Yes: WNL, Supple Cardiovascular: Yes: S1, S2 Respiratory: Yes: WNL, Regular, CTA Bilaterally Gastrointestinal: Yes: WNL, Normal Bowel Sounds, Soft Edema: No Labs: INR, PTT INR 1.50 (0.82-1.09) H 09/07/17 13:30 Problem List - Problems (1) Pneumonia Code(s): J18.9 - PNEUMONIA, UNSPECIFIED ORGANISM Qualifiers: Pneumonia type: due to unspecified organism Laterality: unspecified laterality Lung location: lower lobe of lung Qualified Code(s): J18.1 - Lobar pneumonia, unspecified organism (2) Scleroderma Code(s): M34.9 - SYSTEMIC SCLEROSIS, UNSPECIFIED Assessment/Plan Microbiology Laboratory Tests 09/07/17 09/07/17 13:30 15:33 WBC 28.5 H D Hgb 11.9 D Hct 36.1 D Plt Count 494 H D ALT 23 Alkaline Phosphatase 178 H Assessment Empysema smoker Pneumonia Scleroderma Plan Cultures sputum Ceftriaxone and Azithromycin LGA Sonogram liver Malik PATEL
[2017-09-08 07:54] LABS: HEMATOCRIT 35.1 % (32.4-45.2); HEMOGLOBIN 11.4 GM/dL (10.7-15.3); MCH 28.2 pg (25.7-33.7); MCHC 32.6 g/dl (32.0-36.0); MEAN CELL VOLUME 86.6 fl (80-96); MEAN PLT VOLUME 9.3 fl (7.5-11.1); PLATELET COUNT 467 K/MM3 (134-434); RBC 4.06 M/mm3 (3.60-5.2); RDW 14.9 % (11.6-15.6); WHITE BLOOD COUNT 17.7 K/mm3 (4.0-10.0)
[2017-09-08 08:11] LABS: ANION GAP 9 (8-16); BLOOD UREA NITROGEN 25 mg/dL (7-18); CALCIUM 7.8 mg/dL (8.5-10.1); CHLORIDE 108 mmol/L (98-107); CO2 24 mmol/L (21-32); CREATININE 0.8 mg/dL (0.55-1.02); GLUCOSE,RANDOM 95 mg/dL (74-106); PHOSPHOROUS 2.4 mg/dL (2.5-4.9); POTASSIUM 3.7 mmol/L (3.5-5.1); SODIUM 141 mmol/L (136-145)
--- NOTE | 2017-09-08 08:33 | CONS ---
DATE OF CONSULTATION: DATE OF DICTATION: 09/08/2017 INFECTIOUS DISEASE CONSULTATION HISTORY OF PRESENT ILLNESS: This is a 62-year-old -[place] female who presents with a 1-week history of increasing shortness of breath, productive cough, and pleuritic-type chest pain in her left side. She also noted fever with chills at home and thick green sputum production. She is a heavy smoker for many years, and denies substance abuse or alcohol history. She does have a past medical history of scleroderma, emphysema, hypertension. Here she was noted to have a large pulmonary infiltrate, and she was empirically treated with vancomycin and Zosyn in the emergency room. She has not been recently hospitalized. She lives at home with her children. No one else at home is sick. There is no known history of communicable illness, recent travel or unusual hobbies, and she is unemployed. PAST MEDICAL HISTORY: As noted above. MEDICATIONS: Lisinopril, omeprazole, Plaquenil, CellCept, tramadol. ALLERGIES: ASPIRIN. SOCIAL HISTORY: Smoker. No alcohol use. Occasional marijuana. FAMILY HISTORY: Reviewed and noncontributory. REVIEW OF SYSTEMS: Respiratory: Pleuritic pain, shortness of breath, productive cough with sputum. No hemoptysis. Cardiac: No palpitations or murmur. Gastrointestinal: No weight loss, abdominal pain, nausea, vomiting or diarrhea. Genitourinary: No dysuria or hematuria. PHYSICAL EXAMINATION: General: An alert woman sitting on a stretcher, in no acute distress. Vital Signs: Temperature 99, pulse 129, blood pressure 128/67, respirations 16, O2 saturation 99%. Neck: Supple. No adenopathy. Lungs: No wheezes, rales or rhonchi. Heart: S1, S2. Regular rhythm without audible. murmur. Abdomen: Soft, nontender. Normoactive bowel sounds. No guarding or rebound. Extremities: No clubbing, cyanosis or edema. DIAGNOSTIC STUDIES: White count 28.5, hemoglobin 11.9, platelets 494. INR 1.5. BUN 38, creatinine 1.1, lactic acid 2.3, total bilirubin 2.2, alkaline phosphatase 178, AST 42. Urinalysis with 2 WBCs, 21 RBCs. Two sets of blood cultures and urine culture pending. ASSESSMENT: A 62-year-old female with a history of scleroderma and emphysema, presents with respiratory complaints with leukocytosis and computerized axial tomography scan of the chest showing extensive cystic lung disease with consolidation throughout the majority of the left upper lobe. Elevated liver enzymes noted. RECOMMENDATIONS: I would treat for community-acquired pneumonia with a combination of ceftriaxone and azithromycin. Obtain cultures of blood, urine and sputum, Legionella urinary antigen with pneumococcal antigen, and sonogram of the liver. FOREST ANDREWS M.D. [id number]
[2017-09-08] MEDS ORDERED: AZITHROMYCIN IVPB 250 ML IVPB ONE (09:54)
[2017-09-08] MEDS ORDERED: CEFTRIAXONE 1 GM/50 ML BAG ONE (09:54)
[2017-09-08] MEDS: CEFTRIAXONE 1 GM in DEXTROSE 5%-WATER - 50 ML IVPB SCH (10:03)
[2017-09-08] MEDS: NICOTINE 7 MG/24 HOURS TOPICAL PATCH TD SCH (10:03)
[2017-09-08] MEDS: AZITHROMYCIN IVPB 500 MG in DEXTROSE 5%-WATER - 250 ML IVPB SCH (10:43)
[2017-09-08] MEDS ORDERED: ALBUTEROL SO4 2.5/IPRATROPIUM 0.5 INH SOL 3 ML VIAL.NEB. NEB PRN (14:21)
--- NOTE | 2017-09-08 18:10 | PN ---
Teaching Attending Note Name of Resident: Jenaro Phelps ATTENDING PHYSICIAN STATEMENT I saw and evaluated the patient. I reviewed the resident's note and discussed the case with the resident. I agree with the resident's findings and plan as documented with exceptions mentioned below. SUBJECTIVE: Patient seen and examined. breathing improved, still with cough, reports sick contact at home but no URI prodrome. No other complaints. OBJECTIVE: Vital Signs Period Temp Pulse Resp BP Sys/Hoyt Pulse Ox Last 24 Hr 97.8 F-99.0 F 119-129 16-20 112-128/66-68 99-100 Intake & Output 09/05/17 09/06/17 09/07/17 09/08/17 23:59 23:59 23:59 23:59 Intake Total 1250 Balance 1250 Weight 150 lb General: sitting in stretcher in no acute distress Chest: left upper rales, decreased air entry all over, no wheezing Abdomen: soft, NT, ND, positive bowel sounds Home Medication List Medication Instructions Recorded Confirmed Type Omeprazole [Prilosec (RX)] 40 mg PO DAILY 03/29/14 09/08/17 History Hydroxychloroquine Sulfate 200 mg PO BID 10/07/14 11/19/14 History Mycophenolate Mofetil [Cellcept -] 2 tab PO AM 10/07/14 11/19/14 History Mycophenolate Mofetil [Cellcept -] 500 mg PO HS 11/19/14 11/19/14 History Oxycodone HCl 20 mg PO Q4H PRN 11/19/14 09/08/17 History traMADol HCL [Ultram] 50 mg PO Q6H PRN 11/19/14 09/08/17 History traZODone HCL [Desyrel -] 50 mg PO HS 11/19/14 09/08/17 History Gabapentin [Neurontin -] 100 mg PO Q8H 09/08/17 09/08/17 History Losartan Potassium [Cozaar -] 25 mg PO DAILY 09/08/17 09/08/17 History Active Medications Generic Name Dose Route Start Last Admin Trade Name Freq PRN Reason Stop Dose Admin Albuterol/Ipratropium 1 amp 09/08/17 14:21 Duoneb - NEB Q4H PRN SHORTNESS OF BREATH Benzocaine/Menthol 1 each 09/08/17 03:24 09/08/17 04:31 Cepacol Lozenge - MM 1 each PRN PRN Administration SORE THROAT Enoxaparin Sodium 40 mg 09/09/17 10:00 Lovenox - SQ DAILY [facility] Sodium Chloride 1,000 mls @ 100 mls/hr 09/07/17 20:30 09/07/17 21:00 Normal Saline - IV 100 mls/hr ASDIR [facility]LEX[facility] Administration Ceftriaxone Sodium 1 gm/ 50 mls @ 100 mls/hr 09/08/17 10:00 09/08/17 10:03 Dextrose IVPB 100 mls/hr DAILY [facility] Administration Azithromycin 500 mg/ Dextrose 250 mls @ 250 mls/hr 09/08/17 10:00 09/08/17 10 :43 IVPB 250 mls/hr DAILY [facility] Administration Metoclopramide HCl 5 mg 09/07/17 21:28 Reglan - PO Q6H PRN NAUSEA AND/OR VOMITING Nicotine 7 mg 09/07/17 21:45 09/08/17 10:03 Nicoderm Patch - TD Not Given DAILY [facility] Oxycodone HCl 20 mg 09/07/17 21:28 09/08/17 14:56 Roxicodone - PO 20 mg Q4H PRN Administration PAIN LEVEL 7 - 10 Pantoprazole Sodium 40 mg 09/07/17 21:45 09/08/17 10:03 Protonix - PO 40 mg DAILY [facility] Administration Tramadol HCl 50 mg 09/07/17 21:28 Ultram - PO Q6H PRN PAIN LEVEL 4 - 6 Trazodone HCl 50 mg 09/07/17 22:00 09/08/17 03:05 Desyrel - PO Not Given [facility] Laboratory Results - last 24 hr 09/07/17 09/08/17 09/08/17 15:30 06:32 06:32 WBC 17.7 H D RBC 4.06 Hgb 11.4 Hct 35.1 MCV 86.6 MCH 28.2 MCHC 32.6 RDW 14.9 Plt Count 467 H MPV 9.3 Sodium 141 Potassium 3.7 Chloride 108 H Carbon Dioxide 24 Anion Gap 9 BUN 25 H Creatinine 0.8 Random Glucose 95 Lactic Acid 2.3 H* Calcium 7.8 L Phosphorus 2.4 L Magnesium 2.0 Troponin I 09/08/17 09/08/17 06:32 06:32 WBC RBC Hgb Hct MCV MCH MCHC RDW Plt Count MPV Sodium Potassium Chloride Carbon Dioxide Anion Gap BUN Creatinine Random Glucose Lactic Acid 1.2 Calcium Phosphorus Magnesium Troponin I < 0.02 Microbiology 09/08/17 06:45 Sputum - Expectorated Gram Stain - Final 09/07/17 12:06 Blood - Peripheral Venous Blood Culture - Preliminary NO GROWTH OBTAINED AFTER 24 HOURS, INCUBATION TO CONTINUE FOR 4 DAYS. 09/07/17 12:06 Blood - Peripheral Venous Blood Culture - Preliminary NO GROWTH OBTAINED AFTER 24 HOURS, INCUBATION TO CONTINUE FOR 4 DAYS. CTA results reviewed ASSESSMENT AND PLAN: 62 yof with PMHx of HTN, Scleroderma, emphysema, tobacco abuse, admitted with YOKO CAP with sepsis -YOKO CAP with sepsis -Elevated INR with mild LFT abnormalities -Scleroderma -COPD/emphysema -Tobacco abuse Plan: ID input appreciated. Ceftriaxone/azithromycin day 1. Follow up blood/sputum cultures, urine legionella ag/PNA studies. Flu swab but low suspicion. Abdominal ultrasound. Hold cellcept/plaquenil Smoking cessation counseling. Nebs prn, no indication for steroid currently [id number] with lovenox Dispo pending clinical improvement. Anticipate home d/c unless new events. Plan discussed with patient in detail, all questions answered.
[2017-09-08] MEDS ORDERED: SODIUM CHLORIDE 1,000 ML IV STA (21:06)
[2017-09-08] MEDS: ACETAMINOPHEN 325 MG TABLET (FP) PO PRN (21:24)
[2017-09-08] MEDS: SODIUM CHLORIDE 1,000 ML IV SCH (22:00)
[2017-09-09 00:47] VITALS: BMI 23.9
[2017-09-09] MEDS: oxyCODONE HCL 5 MG TABLET PO PRN ×3 (04:36→17:36)
--- NOTE | 2017-09-09 06:18 | PN ---
Physical Exam: SUBJECTIVE: Patient seen and examined by me this AM - Pt in more distress this morning; Complaining of pain "all over"; Still with persistent, productive cough, greenish sputum; Endorses diffuse pain in abdomen , back, chest and mouth with coughing; No BM overnight; fever overnight to 102.8 ; States that daughter will bring home weekly injection into hospital today for SS; pain controlled with oxycodone OBJECTIVE: Vital Signs Intake & Output 09/06/17 09/07/17 09/08/17 09/09/17 23:59 23:59 23:59 23:59 Intake Total 1250 1200 Output Total 200 Balance 1250 1000 Weight 68.039 kg 67.313 kg Period Temp Pulse Resp BP Sys/Hoyt Pulse Ox Last 24 Hr 98.8 F-102.8 F 110-129 16-20 94-128/54-67 95-99 GENERAL: Elderly woman lying in bed, mild distress, A&Ox3 HEAD: Normal with no signs of trauma. EYES: Still w/ Pinpoint pupils. extraocular movements intact, sclera anicteric, conjunctiva clear. No ptosis. ENT: Poor dentition. Ears normal, nares patent, oropharynx clear without exudates, moist mucous membranes, no exudate or erythema NECK: Trachea midline, full range of motion, supple. LUNGS: Trace BL upper lung crackles, L>R. No wheezing, rhonchi noted today HEART: Regular rate and rhythm, S1, S2 without murmur, rub or gallop. Pain on palpation of L chest wall inferior to L breast, no gross fx's noted. ABDOMEN: TTP in all four quadrants. Soft, nondistended, normoactive bowel sounds , no guarding, no rebound, no hepatosplenomegaly, no masses. BL CVA tenderness+ EXTREMITIES: 2+ pulses, warm, well-perfused, no edema. Desiccated skin BL in feet. NEUROLOGICAL: Cranial nerves II through XII grossly intact. Normal speech, gait not observed. PSYCH: Normal mood, normal affect. SKIN: Warm, dry, normal turgor, no rashes or lesions noted Laboratory Results - last 24 hr CBC, BMP 09/08/17 06:32 09/08/17 06:32 09/08/17 09/08/17 09/08/17 06:32 06:32 06:32 WBC 17.7 H D RBC 4.06 Hgb 11.4 Hct 35.1 MCV 86.6 MCH 28.2 MCHC 32.6 RDW 14.9 Plt Count 467 H MPV 9.3 Sodium 141 Potassium 3.7 Chloride 108 H Carbon Dioxide 24 Anion Gap 9 BUN 25 H Creatinine 0.8 Random Glucose 95 Lactic Acid 1.2 Calcium 7.8 L Phosphorus 2.4 L Magnesium 2.0 Troponin I 09/08/17 09/08/17 06:32 22:00 WBC RBC Hgb Hct MCV MCH MCHC RDW Plt Count MPV Sodium Potassium Chloride Carbon Dioxide Anion Gap BUN Creatinine Random Glucose Lactic Acid 1.5 Calcium Phosphorus Magnesium Troponin I < 0.02 Active Medications Generic Name Dose Route Start Last Admin Trade Name Freq PRN Reason Stop Dose Admin Acetaminophen 650 mg 09/08/17 21:07 09/08/17 21:24 Tylenol - PO 650 mg Q4H PRN Administration FEVER Albuterol/Ipratropium 1 amp 09/08/17 14:21 Duoneb - NEB Q4H PRN SHORTNESS OF BREATH Benzocaine/Menthol 1 each 09/08/17 03:24 09/08/17 04:31 Cepacol Lozenge - MM 1 each PRN PRN Administration SORE THROAT Enoxaparin Sodium 40 mg 09/09/17 10:00 Lovenox - SQ DAILY [facility] Sodium Chloride 1,000 mls @ 100 mls/hr 09/07/17 20:30 09/08/17 22:00 Normal Saline - IV 100 mls/hr ASDIR [facility] Administration Ceftriaxone Sodium 1 gm/ 50 mls @ 100 mls/hr 09/08/17 10:00 09/08/17 10:03 Dextrose IVPB 100 mls/hr DAILY [facility] Administration Azithromycin 500 mg/ Dextrose 250 mls @ 250 mls/hr 09/08/17 10:00 09/08/17 10 :43 IVPB 250 mls/hr DAILY [facility] Administration Metoclopramide HCl 5 mg 09/07/17 21:28 Reglan - PO Q6H PRN NAUSEA AND/OR VOMITING Nicotine 7 mg 09/07/17 21:45 09/08/17 10:03 Nicoderm Patch - TD Not Given DAILY [facility] Oxycodone HCl 20 mg 09/07/17 21:28 09/09/17 04:36 Roxicodone - PO 20 mg Q4H PRN Administration PAIN LEVEL 7 - 10 Pantoprazole Sodium 40 mg 09/07/17 21:45 09/08/17 10:03 Protonix - PO 40 mg DAILY [facility] Administration Tramadol HCl 50 mg 09/07/17 21:28 Ultram - PO Q6H PRN PAIN LEVEL 4 - 6 Trazodone HCl 50 mg 09/07/17 22:00 09/08/17 21:24 Desyrel - PO 50 mg HS [facility] Administration Microbiology 09/08/17 20:16 Nasopharyngeal Swab Influenza Types A,B Antigen (ENRIQUE) - Final 09/08/17 20:16 Nasopharyngeal Swab - Final 09/08/17 06:45 Sputum - Expectorated Gram Stain - Final 09/07/17 12:06 Blood - Peripheral Venous Blood Culture - Preliminary NO GROWTH OBTAINED AFTER 24 HOURS, INCUBATION TO CONTINUE FOR 4 DAYS. 09/07/17 12:06 Blood - Peripheral Venous Blood Culture - Preliminary NO GROWTH OBTAINED AFTER 24 HOURS, INCUBATION TO CONTINUE FOR 4 DAYS. CXR 09/07 - YOKO opacity suspect for pneumonia Chest CTA 09/07 - YOKO infiltrate, emphysematous changes noted bilaterally CXR 09/08 - YOKO infiltrate EKG: NSR, rate of 130, QTC 473 ASSESSMENT/PLAN: 62 year old female with a history of scleroderma, hypertension, and emphysema presented to the ED with chest pain, cough productive of green sputum, and admitted for the treatment of severe sepsis 2/2 pneumonia. Per ID, will treat as CAP with rocephin/AZA. Pt still with significant productive cough and dyspnea , consider expanding abx coverage but will defer to ID recs. #Severe Sepsis 2/2 Pneumonia - WBC 18 today; fever to 102.8 overnight with bp in 90s systolic; consider fluid bolus and expanding abx -ID consult, Dr. Gan - will f/u recs - monitor for hypotension - f/u alexander culture - flu negative -IVFs - Trend WBC, fever curve -hold cellcept/hydroxychloroquine -O2 support as needed - urine PNA antigens negative - Rocephin/AZA day 2 for suspected CAP per ID #ALLIE - prerenal 2/2 sepsis; 1.1 -> 0.8; resolved - IVFs - Trend Cr #Scleroderma - chronic -unable to obtain record of immunomodulators at pharmacy, will need to confirm - hold cellcept/hydroxy currently #Emphysema-chronic -duonebs PRN - O2 support - consider pulm consult if symptoms still persist #Hypertension-holding antihypertensives in the setting of severe sepsis. -hold amlodipine 5mg QD -hold losartan 12.5 QD #GERD - PPI #Chronic pain -ultram - tylenol #Smoking Cessation: -nicotine patch - counseling #Nausea - well controlled -reglan #FEN NS @ 100cc/hr Daily lytes Sodium controlled diet #Prophylaxis Lovenox #Disposition M/S Plan discussed with attending, Dr. Boris Phelps, PGY1 Visit type - Emergency Visit Emergency Visit: Yes ED Registration Date: 09/07/17 Care time: The patient presented to the Emergency Department on the above date and was hospitalized for further evaluation of their emergent condition. - New Patient This patient is new to me today: No - Critical Care Critical Care patient: No
[2017-09-09] MEDS ORDERED: SODIUM CHLORIDE 1,000 ML IV STA (07:49)
--- NOTE | 2017-09-09 07:51 | PN ---
Teaching Attending Note Name of Resident: Jenaro Phelps ATTENDING PHYSICIAN STATEMENT I saw and evaluated the patient. I reviewed the resident's note and discussed the case with the resident. I agree with the resident's findings and plan as documented with exceptions mentioned below. SUBJECTIVE: Patient seen and examined.breathing a little better, overall pain with coughing left sided unchanged.positive greenish yellow sputum. OBJECTIVE: Vital Signs Period Temp Pulse Resp BP Sys/Hoyt Pulse Ox Last 24 Hr 98.8 F-102.8 F 110-129 20-20 94-122/54-61 95 Intake & Output 09/06/17 09/07/17 09/08/17 09/09/17 23:59 23:59 23:59 23:59 Intake Total 1250 1200 760 Output Total 200 300 Balance 1250 1000 460 Weight 150 lb 148 lb 6.4 oz General sitting in bed, mild use of acessory muscles of respiration Chest Left upper and basilar rales, no wheezing, decreased air entry all over. Abdomen soft, NT, ND Extremities no edema CVS S1S2 regular, tachycardic Home Medication List Medication Instructions Recorded Confirmed Type Omeprazole [Prilosec (RX)] 40 mg PO DAILY 03/29/14 09/08/17 History Hydroxychloroquine Sulfate 200 mg PO BID 10/07/14 11/19/14 History Mycophenolate Mofetil [Cellcept -] 2 tab PO AM 10/07/14 11/19/14 History Mycophenolate Mofetil [Cellcept -] 500 mg PO HS 11/19/14 11/19/14 History Oxycodone HCl 20 mg PO Q4H PRN 11/19/14 09/08/17 History traMADol HCL [Ultram] 50 mg PO Q6H PRN 11/19/14 09/08/17 History traZODone HCL [Desyrel -] 50 mg PO HS 11/19/14 09/08/17 History Gabapentin [Neurontin -] 100 mg PO Q8H 09/08/17 09/08/17 History Losartan Potassium [Cozaar -] 25 mg PO DAILY 09/08/17 09/08/17 History Active Medications Generic Name Dose Route Start Last Admin Trade Name Freq PRN Reason Stop Dose Admin Acetaminophen 650 mg 09/08/17 21:07 09/08/17 21:24 Tylenol - PO 650 mg Q4H PRN Administration FEVER Albuterol/Ipratropium 1 amp 09/08/17 14:21 09/09/17 07:38 Duoneb - NEB 1 amp Q4H PRN Administration SHORTNESS OF BREATH Benzocaine/Menthol 1 each 09/08/17 03:24 09/08/17 04:31 Cepacol Lozenge - MM 1 each PRN PRN Administration SORE THROAT Enoxaparin Sodium 40 mg 09/09/17 10:00 Lovenox - SQ DAILY ALEXIS Sodium Chloride 1,000 mls @ 100 mls/hr 09/07/17 20:30 09/08/17 22:00 Normal Saline - IV 100 mls/hr ASDIR ALEXIS Administration Ceftriaxone Sodium 1 gm/ 50 mls @ 100 mls/hr 09/08/17 10:00 09/08/17 10:03 Dextrose IVPB 100 mls/hr DAILY ALEXIS Administration Azithromycin 500 mg/ Dextrose 250 mls @ 250 mls/hr 09/08/17 10:00 09/08/17 10 :43 IVPB 250 mls/hr DAILY ALEXIS Administration Sodium Chloride 1,000 mls @ 1,000 mls/hr 09/09/17 07:49 Normal Saline - IV 09/09/17 08:48 ASDIR STA Metoclopramide HCl 5 mg 09/07/17 21:28 Reglan - PO Q6H PRN NAUSEA AND/OR VOMITING Nicotine 7 mg 09/07/17 21:45 09/08/17 10:03 Nicoderm Patch - TD Not Given DAILY ALEXIS Oxycodone HCl 20 mg 09/07/17 21:28 09/09/17 04:36 Roxicodone - PO 20 mg Q4H PRN Administration PAIN LEVEL 7 - 10 Pantoprazole Sodium 40 mg 09/07/17 21:45 09/08/17 10:03 Protonix - PO 40 mg DAILY ALEXIS Administration Tramadol HCl 50 mg 09/07/17 21:28 Ultram - PO Q6H PRN PAIN LEVEL 4 - 6 Trazodone HCl 50 mg 09/07/17 22:00 09/08/17 21:24 Desyrel - PO 50 mg HS ALEXIS Administration Microbiology 09/08/17 20:16 Nasopharyngeal Swab Influenza Types A,B Antigen (ENRIQUE) - Final 09/08/17 20:16 Nasopharyngeal Swab - Final 09/08/17 06:45 Sputum - Expectorated Gram Stain - Final 09/07/17 12:06 Blood - Peripheral Venous Blood Culture - Preliminary NO GROWTH OBTAINED AFTER 24 HOURS, INCUBATION TO CONTINUE FOR 4 DAYS. 09/07/17 12:06 Blood - Peripheral Venous Blood Culture - Preliminary NO GROWTH OBTAINED AFTER 24 HOURS, INCUBATION TO CONTINUE FOR 4 DAYS. ASSESSMENT AND PLAN: 62 yof with PMHx of HTN, Scleroderma, emphysema, tobacco abuse, admitted with YOKO CAP with sepsis -YOKO CAP with severe sepsis -Elevated INR with mild LFT abnormalities -Scleroderma -COPD/emphysema -Tobacco abuse Plan: ID input appreciated. Ceftriaxone/azithromycin day 2. Follow up blood/sputum cultures, urine legionella ag/PNA studies. Flu swab neg. Aggressive hydration, low threshold to broaden antibiotic coverage. Pulmonary consult. Follow up with ID for antibiotic escalation based on clinical course. Abdominal ultrasound. Hold cellcept/plaquenil Smoking cessation counseling. Nebs prn, change to standing and prn address steroids if persistent dyspnea/ tachypnea. DVTPPX with lovenox Dispo pending clinical improvement. Plan discussed with patient in detail, all questions answered
[2017-09-09 08:54] LABS: HEMATOCRIT 30.5 % (32.4-45.2); HEMOGLOBIN 10.2 GM/dL (10.7-15.3); MCH 28.8 pg (25.7-33.7); MCHC 33.4 g/dl (32.0-36.0); MEAN CELL VOLUME 86.1 fl (80-96); MEAN PLT VOLUME 8.9 fl (7.5-11.1); PLATELET COUNT 493 K/MM3 (134-434); RBC 3.55 M/mm3 (3.60-5.2); RDW 15.1 % (11.6-15.6); WHITE BLOOD COUNT 18.5 K/mm3 (4.0-10.0)
[2017-09-09 09:19] LABS: ANION GAP 7 (8-16); BLOOD UREA NITROGEN 18 mg/dL (7-18); CALCIUM 7.7 mg/dL (8.5-10.1); CHLORIDE 108 mmol/L (98-107); CO2 24 mmol/L (21-32); CREATININE 0.8 mg/dL (0.55-1.02); GLUCOSE,RANDOM 96 mg/dL (74-106); POTASSIUM 3.9 mmol/L (3.5-5.1); SODIUM 139 mmol/L (136-145)
[2017-09-09] MEDS ORDERED: PT OWN MED DRAWER 7, Y5N ONE (09:44)
[2017-09-09] MEDS ORDERED: cefTRIAXone SODIUM 1 GM VIAL ONE (09:45)
[2017-09-09] MEDS ORDERED: DEXTROSE 5%-WATER - 50 ML IVPB ONE (09:45)
[2017-09-09] MEDS: CEFTRIAXONE 1 GM in DEXTROSE 5%-WATER - 50 ML IVPB SCH (10:12)
[2017-09-09] MEDS: ENOXAPARIN NA (PORCINE) 40 MG/0.4 ML DISP.SYRIN SQ SCH (10:13)
[2017-09-09] MEDS: NICOTINE 7 MG/24 HOURS TOPICAL PATCH TD SCH (10:13)
[2017-09-09] MEDS: PANTOPRAZOLE 40 MG TABLET (FP) PO SCH (10:14)
[2017-09-09] MEDS: AZITHROMYCIN IVPB 500 MG in DEXTROSE 5%-WATER - 250 ML IVPB SCH (11:42)
--- NOTE | 2017-09-09 13:41 | CON.PULM ---
Consult Consult Specialty:: PULMONARY Referred by:: Dr. Escalante Reason for Consultation:: pneumonia - History of Present Illness Chief Complaint: left sided chest pain History of Present Illness: 62yo female with h/o HTN, scleroderma, COPD who was admitted with left sided chest pain x 1 week. Reports subjective fevers and chills. Also with a cough productive of green/brown sputum which is now thick yellow. Some shortness of breath, wheezing and a decreased appetite. CXR showing a left upper lobe infiltrate confirmed by CT chest. She is on immunosuppressive therapy with cellcept. Last pneumonia was remote, no recent hospitalizations or antibiotic course. Stopped smoking 7 days ago, started as a teenager, smoked 3 cigarettes/ day when she quit. Recently started on Incruse as an outpt. No family history of lung cancer, brother of colon cancer. - History Source History Provided By: Patient, Medical Record Limitations to Obtaining History: No Limitations - Past Medical History Cardio/Vascular: Yes: HTN Gastrointestinal: Yes: GERD, Peptic Ulcer Disease Dermatology: Yes: Other (Scleroderma) - Past Surgical History Past Surgical History: Yes: None - Alcohol/Substance Use Hx Alcohol Use: No History of Substance Use: reports: None - Smoking History Smoking history: Former smoker Have you smoked in the past 12 months: Yes Aproximately how many cigarettes per day: 15 If you are a former smoker, when did you quit?: 7 days ago - Social History ADL: Independent History of Recent Travel: No Home Medications - Allergies Allergies/Adverse Reactions: Allergies Allergy/AdvReac Type Severity Reaction Status Date / Time aspirin Allergy Mild n/v Verified 11/19/14 03:06 - Home Medications Home Medications: Ambulatory Orders Omeprazole [Prilosec (RX)] 40 mg PO DAILY 03/29/14 Hydroxychloroquine Sulfate 200 mg PO BID 10/07/14 Mycophenolate Mofetil [Cellcept -] 2 tab PO AM 10/07/14 Mycophenolate Mofetil [Cellcept -] 500 mg PO HS 11/19/14 Ondansetron [Zofran Odt -] 4 mg SL TID #10 od.tablet 11/19/14 Oxycodone HCl 20 mg PO Q4H PRN 11/19/14 traMADol HCL [Ultram] 50 mg PO Q6H PRN 11/19/14 traZODone HCL [Desyrel -] 50 mg PO HS 11/19/14 Gabapentin [Neurontin -] 100 mg PO Q8H 09/08/17 Losartan Potassium [Cozaar -] 25 mg PO DAILY 09/08/17 Review of Systems - Review of Systems Constitutional: reports: Chills, Fever, Malaise, Weakness Eyes: denies: Recent Change in Vision HENT: denies: Nasal Congestion, Throat Pain Neck: denies: Stiffness, Tenderness Cardiovascular: reports: Chest Pain, Shortness of Breath. denies: Edema, Palpitations Respiratory: reports: Cough, SOB on Exertion, Wheezing. denies: Hemoptysis Gastrointestinal: denies: Abdominal Pain, Nausea, Vomiting Genitourinary: denies: Dysuria, Hematuria Neurological: denies: Dizziness, Headache Physical Exam Vital Sings: Vital Signs Temperature 98.8 F 09/09/17 06:00 Pulse Rate 129 H 09/09/17 06:00 Respiratory Rate 20 09/09/17 06:00 Blood Pressure 113/61 09/09/17 06:00 O2 Sat by Pulse Oximetry (%) 95 09/08/17 21:00 Constitutional: Yes: Anxious Eyes: Yes: Conjunctiva Clear, EOM Intact HENT: Yes: Atraumatic, Normocephalic Neck: Yes: Supple, Trachea Midline Cardiovascular: Yes: Regular Rate and Rhythm Respiratory: Yes: Rales (left), Rhonchi ...Clubbing: No Gastrointestinal: Yes: Normal Bowel Sounds, Soft. No: Tenderness Edema: No Labs: CBC, BMP 09/09/17 07:46 09/09/17 07:46 Imaging - Results Cat Scan: Report Reviewed, Image Reviewed (extensive YOKO infiltrate/ consolidation) Problem List - Problems (1) Pneumonia Code(s): J18.9 - PNEUMONIA, UNSPECIFIED ORGANISM Qualifiers: Pneumonia type: due to unspecified organism Laterality: unspecified laterality Lung location: lower lobe of lung Qualified Code(s): J18.1 - Lobar pneumonia, unspecified organism (2) Sepsis Code(s): A41.9 - SEPSIS, UNSPECIFIED ORGANISM (3) COPD (chronic obstructive pulmonary disease) Code(s): J44.9 - CHRONIC OBSTRUCTIVE PULMONARY DISEASE, UNSPECIFIED (4) Hypertension Code(s): I10 - ESSENTIAL (PRIMARY) HYPERTENSION Qualifiers: Hypertension type: essential hypertension Qualified Code(s): I10 - Essential (primary) hypertension Assessment/Plan Left Upper Lobe Pneumonia Sepsis Lactic Acidosis resolved Scleroderma on Immunosuppressives HTN COPD - agree with community acquired coverage - f/u sputum cultures - inhaled bronchodilators, will change to standing and PRN - if remains short of breath, can start systemic steroids 24-48hrs - O2 to keep SpO2 >90% - IVF - PO as tolerated - DVT prophylaxis - will need outpt f/u of chest imaging in 6-8 weeks to ensure resolution of infiltrate - outpt PFTs Thank you for this consult Bigg Ramirez MD
[2017-09-09] MEDS ORDERED: ALBUTEROL SO4 0.083% IH SOL 2.5 MG/3 ML VIAL.NEB. NEB PRN (13:55)
[2017-09-09] MEDS: ACETAMINOPHEN 325 MG TABLET (FP) PO PRN ×2 (14:45→19:33)
[2017-09-09] MEDS: ALBUTEROL SO4 2.5/IPRATROPIUM 0.5 INH SOL 3 ML VIAL.NEB. NEB SCH ×2 (15:00→19:05)
[2017-09-09 15:35] LABS: ALBUMIN 1.6 g/dl (3.4-5.0); MAGNESIUM 1.6 mg/dL (1.8-2.4)
[2017-09-09 15:39] LABS: ALK PHOS 186 U/L (45-117); BILIRUBIN,DIRECT 1.2 mg/dL (0.0-0.2); BILIRUBIN,TOTAL 1.4 mg/dL (0.2-1.0); SGOT/AST 34 U/L (15-37); SGPT/ALT 22 U/L (12-78); TOT PROT 5.3 g/dl (6.4-8.2)
--- NOTE | 2017-09-09 16:12 | PN ---
Progress Note, Physician History of Present Illness: Temp now 102.9 C/O cough productive of green sputum, L pleuritic chest pain Slightly tachypneic at rest WBC remains elevated Cultures pending - Current Medication List Current Medications: Active Medications Acetaminophen (Tylenol -) 650 mg PO Q4H PRN PRN Reason: FEVER Last Admin: 09/09/17 14:45 Dose: 650 mg Albuterol Sulfate (Ventolin 0.083% Nebulizer Soln -) 1 amp NEB Q4H PRN PRN Reason: SHORT OF BREATH/WHEEZING Albuterol/Ipratropium (Duoneb -) 1 amp NEB RQID ALEXIS Benzocaine/Menthol (Cepacol Lozenge -) 1 each MM PRN PRN PRN Reason: SORE THROAT Last Admin: 09/08/17 04:31 Dose: 1 each Enoxaparin Sodium (Lovenox -) 40 mg SQ DAILY [facility] Last Admin: 09/09/17 10:13 Dose: 40 mg Sodium Chloride (Normal Saline -) 1,000 mls @ 100 mls/hr IV ASDIR [facility] Last Admin: 09/08/17 22:00 Dose: 100 mls/hr Ceftriaxone Sodium 1 gm/ (Dextrose) 50 mls @ 100 mls/hr IVPB DAILY [facility] Last Admin: 09/09/17 10:12 Dose: 100 mls/hr Azithromycin 500 mg/ Dextrose 250 mls @ 250 mls/hr IVPB DAILY [facility] Last Admin: 09/09/17 11:42 Dose: 250 mls/hr Metoclopramide HCl (Reglan -) 5 mg PO Q6H PRN PRN Reason: NAUSEA AND/OR VOMITING Nicotine (Nicoderm Patch -) 7 mg TD DAILY [facility] Last Admin: 09/09/17 10:13 Dose: 7 mg Oxycodone HCl (Roxicodone -) 20 mg PO Q4H PRN PRN Reason: PAIN LEVEL 7 - 10 Last Admin: 09/09/17 10:14 Dose: 20 mg Pantoprazole Sodium (Protonix -) 40 mg PO DAILY [facility] Last Admin: 09/09/17 10:14 Dose: 40 mg Trazodone HCl (Desyrel -) 50 mg PO HS [facility] Last Admin: 09/08/17 21:24 Dose: 50 mg - Objective Vital Signs: Vital Signs Temperature 102.9 F H 09/09/17 15:00 Pulse Rate 123 H 09/09/17 15:00 Respiratory Rate 18 09/09/17 15:00 Blood Pressure 123/67 09/09/17 15:00 O2 Sat by Pulse Oximetry (%) 96 09/09/17 09:00 Constitutional: Yes: No Distress, Thin Eyes: Yes: Conjunctiva Clear Cardiovascular: Yes: Regular Rate and Rhythm, S1, S2 Respiratory: Yes: Rhonchi Gastrointestinal: Yes: Normal Bowel Sounds, Soft. No: Tenderness Edema: No Labs: CBC, BMP 09/09/17 07:46 09/09/17 07:46 INR, PTT INR 1.50 (0.82-1.09) H 09/07/17 13:30 Assessment/Plan YOKO pneumonia Possible sepsis secondary to pneumonia COPD Scleroderma Will substitute zosyn pending c/s
[2017-09-09] MEDS: PIPERACILLIN/TAZOB 3.375 GM 50 ML IVPB SCH (17:36)
[2017-09-09] MEDS: SODIUM CHLORIDE 1,000 ML IV SCH (21:54)
[2017-09-09] MEDS: traZODone HCL 50 MG TABLET (FP) PO SCH (21:55)
[2017-09-10] MEDS ORDERED: PT OWN MED DRAWER 7, Y5N ONE ×4 (01:12→20:00)
[2017-09-10] MEDS ORDERED: guaiFENesin 200 MG/10 ML 10 ML UNIT-DOSE CUPS PO ONE (01:42)
[2017-09-10] MEDS: oxyCODONE HCL 5 MG TABLET PO PRN ×5 (01:51→22:24)
[2017-09-10] MEDS: PIPERACILLIN/TAZOB 3.375 GM 50 ML IVPB SCH ×3 (01:52→17:14)
[2017-09-10] MEDS: ACETAMINOPHEN 325 MG TABLET (FP) PO PRN ×2 (05:45→15:09)
[2017-09-10] MEDS ORDERED: MAGNESIUM SULF 50% (8.12 MEQ/2 ML-1 GM VIAL) IVPB ONE (06:00)
--- NOTE | 2017-09-10 06:22 | PN ---
Physical Exam: SUBJECTIVE: Patient seen and examined by me this AM - Febrile to 102.9 overnight again. Still with persistent productive cough, copious green sputum. Endorses pain in anterior chest, back, abdomen and mouth with persistent coughing. Pt states she has pain in eyes with tearing, ordered for artificial tears. Denies n/v/d, KELLY, dizziness, dysuria, rashes, peripheral numbness/weakness. No BM for last two days. OBJECTIVE: Vital Signs Intake & Output 09/07/17 09/08/17 09/09/17 09/10/17 23:59 23:59 23:59 23:59 Intake Total 1250 1200 2570 850 Output Total 200 1100 Balance 1250 1000 1470 850 Weight 68.039 kg 67.313 kg Period Temp Pulse Resp BP Sys/Hoyt Pulse Ox Last 24 Hr 98.1 F-102.9 F 108-125 18-20 102-123/55-72 96-96 GENERAL: Elderly woman lying in bed, appears uncomfotable, A&Ox3 HEAD: Normal with no signs of trauma. EYES: Pinpoint pupils, extraocular movements intact, sclera anicteric, conjunctiva clear. No ptosis. ENT: Poor dentition. Ears normal, nares patent, oropharynx clear without exudates, moist mucous membranes, no exudate or erythema NECK: Trachea midline, full range of motion, supple. LUNGS: Trace YOKO crackles, good air entry, No wheezing, rhonchi noted. HEART: Regular rate and rhythm, S1, S2 without murmur, rub or gallop. Still with pain on palpation of anterior chest wall. ABDOMEN: Slight discomfort to deep palpation of abdomen. Soft, nondistended, normoactive bowel sounds, no guarding, no rebound, no hepatosplenomegaly, no masses. Mild BL CVA tenderness+ EXTREMITIES: 2+ pulses, warm, well-perfused, no edema. Dry skin in feet BL. NEUROLOGICAL: Cranial nerves II through XII grossly intact. Normal speech, gait not observed. PSYCH: Normal mood, normal affect. SKIN: Warm, dry, normal turgor, no rashes or lesions noted Laboratory Results - last 24 hr CBC, BMP 09/10/17 06:30 09/10/17 06:30 09/09/17 07:46 09/09/17 07:46 09/09/17 09/09/1718 07:46 07:46 07:46 WBC 18.5 H RBC 3.55 L Hgb 10.2 L D Hct 30.5 L MCV 86.1 MCH 28.8 MCHC 33.4 RDW 15.1 Plt Count 493 H MPV 8.9 Sodium 139 Potassium 3.9 Chloride 108 H Carbon Dioxide 24 Anion Gap 7 L BUN 18 Creatinine 0.8 Random Glucose 96 Calcium 7.7 L Magnesium 1.6 L Cancelled Total Bilirubin 1.4 H D Cancelled Direct Bilirubin 1.2 H Cancelled AST 34 Cancelled ALT 22 Cancelled Alkaline Phosphatase 186 H Cancelled Total Protein 5.3 L Cancelled Albumin 1.6 L Cancelled Active Medications Generic Name Dose Route Start Last Admin Trade Name Freq PRN Reason Stop Dose Admin Acetaminophen 650 mg 09/08/17 21:07 09/10/17 05:45 Tylenol - PO 650 mg Q4H PRN Administration FEVER Albuterol Sulfate 1 amp 09/09/17 13:55 Ventolin 0.083% Nebulizer Soln - NEB Q4H PRN SHORT OF BREATH/WHEEZING Albuterol/Ipratropium 1 amp 09/09/17 16:00 09/09/17 19:05 Duoneb - NEB 1 amp RQID ALEXIS Administration Benzocaine/Menthol 1 each 09/08/17 03:24 09/08/17 04:31 Cepacol Lozenge - MM 1 each PRN PRN Administration SORE THROAT Enoxaparin Sodium 40 mg 09/09/17 10:00 09/09/17 10:13 Lovenox - SQ 40 mg DAILY ALEXIS Administration Sodium Chloride 1,000 mls @ 100 mls/hr 09/07/17 20:30 09/09/17 21:54 Normal Saline - IV 100 mls/hr ASDIR ALEXIS Administration Azithromycin 500 mg/ Dextrose 250 mls @ 250 mls/hr 09/08/17 10:00 09/09/17 11 :42 IVPB 250 mls/hr DAILY ALEXIS Administration Piperacillin/Tazobactam/Dextrose 50 mls @ 100 mls/hr 09/09/17 18:00 09/10/17 01:52 Zosyn 3.375gm Ivpb (Premix) IVPB 100 mls/hr Q8H-IV ALEXIS Administration Protocol Metoclopramide HCl 5 mg 09/07/17 21:28 Reglan - PO Q6H PRN NAUSEA AND/OR VOMITING Nicotine 7 mg 09/07/17 21:45 09/09/17 10:13 Nicoderm Patch - TD 7 mg DAILY ALEXIS Administration Oxycodone HCl 20 mg 09/07/17 21:28 09/10/17 01:51 Roxicodone - PO 20 mg Q4H PRN Administration PAIN LEVEL 7 - 10 Pantoprazole Sodium 40 mg 09/07/17 21:45 09/09/17 10:14 Protonix - PO 40 mg DAILY ALEXIS Administration Trazodone HCl 50 mg 09/07/17 22:00 09/09/17 21:55 Desyrel - PO 50 mg HS ALEXIS Administration Microbiology 09/08/17 22:00 Blood - Peripheral Venous Blood Culture - Preliminary NO GROWTH OBTAINED AFTER 24 HOURS, INCUBATION TO CONTINUE FOR 4 DAYS. 09/07/17 12:06 Blood - Peripheral Venous Blood Culture - Preliminary NO GROWTH OBTAINED AFTER 48 HOURS, INCUBATION TO CONTINUE FOR 3 DAYS. 09/07/17 12:06 Blood - Peripheral Venous Blood Culture - Preliminary NO GROWTH OBTAINED AFTER 48 HOURS, INCUBATION TO CONTINUE FOR 3 DAYS. 09/08/17 06:45 Sputum - Expectorated Gram Stain - Final 09/08/17 06:45 Sputum - Expectorated Sputum Culture - Preliminary NORMAL RESPIRATORY FABIAN 09/07/17 15:00 Urine - Urine Clean Catch Urine Culture - Final 09/08/17 23:00 Urine - Urine Clean Catch Legionella Antigen - Final 09/08/17 23:00 Urine - Urine Clean Catch Streptococcus pneumoniae Antigen ( M - Final 09/08/17 20:16 Nasopharyngeal Swab Influenza Types A,B Antigen (ENRIQUE) - Final 09/08/17 20:16 Nasopharyngeal Swab - Final CXR 09/07 - YOKO opacity suspect for pneumonia Chest CTA 09/07 - YOKO infiltrate, emphysematous changes noted bilaterally CXR 09/08 - YOKO infiltrate EKG: NSR, rate of 130, QTC 473 RUQ US 09/09 - Biliary sludge, no stones noted, mild hepatomegaly CXR 09/10 - Persistent YOKO infiltrate with increased vascular markings at bases. ASSESSMENT/PLAN: 62 year old female with a history of scleroderma, hypertension, and emphysema presented to the ED with chest pain, cough productive of green sputum, and admitted for the treatment of severe sepsis 2/2 pneumonia. Per ID, started on Zosyn today, day 3 AZA. Pulm following. Pt with increase in WBC, fevers overnight. Cultures pending. Still with persistent CP, ab pain secondary to coughing. Hemo stable. #Severe Sepsis 2/2 Pneumonia - WBC increased from 18 -> 23 today; fever to 102.9 overnight, BP stable; lactate normalized -ID following, recs apprecaited - monitor for hypotension; if BP <90, bolus 1L - f/u cultures, pending - flu negative - c/w IVFs - Trend WBC, fever curve -hold cellcept/hydroxychloroquine/methotrexate. Will call timber surveyor to confirm outpt regimen, as pharmacy with incomplete record -O2 support as needed - urine PNA antigens negative - AZA day 3. Zosyn added today per ID recs; will adjust to sensitivities - Pulm consulted, recs appreciated; recommend again bronch at this point. - short course of IV steroids per pulm recs; recommend repeat imaging in 48 hours #ALLIE - resolved; cr 0,7 today - IVFs - Trend Cr #Chest pain secondary to chronic cough - robitussin PRN - oxy 20mg for breakthrough pain - tylenol prn #elevated Alk phos - RUQ u/s with hepatomeagly, biliary sludge; likely secondary to decreased Po intake - trend #Scleroderma - chronic -unable to obtain record of immunomodulators at pharmacy, will need to confirm - hold cellcept/hydroxy/methotrexate currently #Emphysema-chronic -duonebs QID; ventolin q4h PRN - O2 support - Pulm consulted #Hypertension-cont holding home HTN meds -hold amlodipine 5mg QD -hold losartan 12.5 QD #GERD - PPI #Chronic pain -ultram - tylenol #Smoking Cessation: -nicotine patch - counseling #Nausea - well controlled -reglan prn #FEN NS @ 100cc/hr Daily lytes Sodium controlled diet #Prophylaxis Lovenox #Disposition M/S Plan discussed with attending, Dr. Boris Phelps, PGY1 Visit type - Emergency Visit Emergency Visit: Yes ED Registration Date: 09/07/17 Care time: The patient presented to the Emergency Department on the above date and was hospitalized for further evaluation of their emergent condition. - New Patient This patient is new to me today: No - Critical Care Critical Care patient: No - Discharge Referral Referred to [facility] Med P.C.: No
[2017-09-10] MEDS: ALBUTEROL SO4 2.5/IPRATROPIUM 0.5 INH SOL 3 ML VIAL.NEB. NEB SCH ×4 (07:32→20:30)
[2017-09-10 08:07] LABS: HEMATOCRIT 28.2 % (32.4-45.2); HEMOGLOBIN 9.2 GM/dL (10.7-15.3); MCH 28.1 pg (25.7-33.7); MCHC 32.6 g/dl (32.0-36.0); MEAN CELL VOLUME 86.1 fl (80-96); MEAN PLT VOLUME 8.5 fl (7.5-11.1); PLATELET COUNT 416 K/MM3 (134-434); RBC 3.27 M/mm3 (3.60-5.2); RDW 15.4 % (11.6-15.6); WHITE BLOOD COUNT 23.6 K/mm3 (4.0-10.0)
[2017-09-10 08:40] LABS: CHLORIDE 107 mmol/L (98-107); POTASSIUM 3.8 mmol/L (3.5-5.1); SODIUM 143 mmol/L (136-145)
[2017-09-10 08:53] LABS: ALBUMIN 1.4 g/dl (3.4-5.0); ALK PHOS 190 U/L (45-117); ANION GAP 13 (8-16); BILIRUBIN,TOTAL 1.4 mg/dL (0.2-1.0); BLOOD UREA NITROGEN 10 mg/dL (7-18); CALCIUM 7.6 mg/dL (8.5-10.1); CO2 23 mmol/L (21-32); CREATININE 0.7 mg/dL (0.55-1.02); GLUCOSE,RANDOM 79 mg/dL (74-106); MAGNESIUM 2.6 mg/dL (1.8-2.4); PHOSPHOROUS 1.8 mg/dL (2.5-4.9); SGOT/AST 67 U/L (15-37); SGPT/ALT 27 U/L (12-78); TOT PROT 5.1 g/dl (6.4-8.2)
[2017-09-10] MEDS: NICOTINE 7 MG/24 HOURS TOPICAL PATCH TD SCH (09:31)
[2017-09-10] MEDS: PANTOPRAZOLE 40 MG TABLET (FP) PO SCH (09:31)
[2017-09-10] MEDS: ENOXAPARIN NA (PORCINE) 40 MG/0.4 ML DISP.SYRIN SQ SCH (09:31)
[2017-09-10] MEDS: AZITHROMYCIN IVPB 500 MG in DEXTROSE 5%-WATER - 250 ML IVPB SCH (09:32)
[2017-09-10 11:04] LABS: ANISOCYTOSIS 1+; PLATELET ESTIMATE NORMAL; TARGET CELLS 2+
--- NOTE | 2017-09-10 12:20 | PN ---
Progress Note, Physician History of Present Illness: pulmonary alert,c/o sob,+ cough - Current Medication List Current Medications: Active Medications Acetaminophen (Tylenol -) 650 mg PO Q4H PRN PRN Reason: FEVER Last Admin: 09/10/17 05:45 Dose: 650 mg Albuterol Sulfate (Ventolin 0.083% Nebulizer Soln -) 1 amp NEB Q4H PRN PRN Reason: SHORT OF BREATH/WHEEZING Albuterol/Ipratropium (Duoneb -) 1 amp NEB RQID [facility] Last Admin: 09/10/17 11:08 Dose: 1 amp Benzocaine/Menthol (Cepacol Lozenge -) 1 each MM PRN PRN PRN Reason: SORE THROAT Last Admin: 09/08/17 04:31 Dose: 1 each Enoxaparin Sodium (Lovenox -) 40 mg SQ DAILY [facility] Last Admin: 09/10/17 09:31 Dose: 40 mg Sodium Chloride (Normal Saline -) 1,000 mls @ 100 mls/hr IV ASDIR [facility] Last Admin: 09/09/17 21:54 Dose: 100 mls/hr Azithromycin 500 mg/ Dextrose 250 mls @ 250 mls/hr IVPB DAILY [facility] Last Admin: 09/10/17 09:32 Dose: 250 mls/hr Piperacillin/Tazobactam/Dextrose (Zosyn 3.375gm Ivpb (Premix)) 50 mls @ 100 mls /hr IVPB Q8H-IV ALEXIS PRN Reason: Protocol Last Admin: 09/10/17 11:58 Dose: 100 mls/hr Metoclopramide HCl (Reglan -) 5 mg PO Q6H PRN PRN Reason: NAUSEA AND/OR VOMITING Nicotine (Nicoderm Patch -) 7 mg TD DAILY [facility] Last Admin: 09/10/17 09:31 Dose: 7 mg Oxycodone HCl (Roxicodone -) 20 mg PO Q4H PRN PRN Reason: PAIN LEVEL 7 - 10 Last Admin: 09/10/17 08:16 Dose: 20 mg Pantoprazole Sodium (Protonix -) 40 mg PO DAILY [facility] Last Admin: 09/10/17 09:31 Dose: 40 mg Trazodone HCl (Desyrel -) 50 mg PO HS [facility] Last Admin: 09/09/17 21:55 Dose: 50 mg - Objective Vital Signs: Vital Signs Temperature 98.1 F 09/10/17 11:21 Pulse Rate 118 H 09/10/17 11:21 Respiratory Rate 23 09/10/17 11:21 Blood Pressure 112/68 09/10/17 11:21 O2 Sat by Pulse Oximetry (%) 90 L 09/10/17 09:00 Constitutional: Yes: Well Nourished, Calm Eyes: Yes: WNL HENT: Yes: WNL Neck: Yes: WNL Cardiovascular: Yes: Regular Rate and Rhythm, S1, S2 Respiratory: Yes: Rhonchi (scattered pedro rhonchi) Gastrointestinal: Yes: Normal Bowel Sounds, Soft Extremities: Yes: WNL Edema: No Labs: CBC, BMP 09/10/17 06:30 09/10/17 06:30 INR, PTT INR 1.50 (0.82-1.09) H 09/07/17 13:30 - ....Imaging Chest X-ray: Report Reviewed, Image Reviewed Assessment/Plan bertinm List - Problems (1) Pneumonia Code(s): J18.9 - PNEUMONIA, UNSPECIFIED ORGANISM Qualifiers: Pneumonia type: due to unspecified organism Laterality: unspecified laterality Lung location: lower lobe of lung Qualified Code(s): J18.1 - Lobar pneumonia, unspecified organism (2) Sepsis Code(s): A41.9 - SEPSIS, UNSPECIFIED ORGANISM (3) COPD (chronic obstructive pulmonary disease) Code(s): J44.9 - CHRONIC OBSTRUCTIVE PULMONARY DISEASE, UNSPECIFIED (4) Hypertension Code(s): I10 - ESSENTIAL (PRIMARY) HYPERTENSION Qualifiers: Hypertension type: essential hypertension Qualified Code(s): I10 - Essential (primary) hypertension Assessment/Plan Left Upper Lobe Pneumonia Sepsis Lactic Acidosis resolved Scleroderma on Immunosuppressives HTN COPD - abx - inhaled bronchodilators, will change to standing and PRN - medrol x 24-48hrs - O2 to keep SpO2 >90% - IVF - PO as tolerated - DVT prophylaxis - outpt f/u of chest imaging in 6-8 weeks to ensure resolution of infiltrate - PFTs DR GALLEGO
--- NOTE | 2017-09-10 13:11 | PN ---
Progress Note, Physician History of Present Illness: Reports feeling better today remains febrile C/O cough productive of green sputum, L pleuritic chest pain Slightly tachypneic at rest WBC increased BC no growth Sputum c/s nornmal sangeetha - Current Medication List Current Medications: Active Medications Acetaminophen (Tylenol -) 650 mg PO Q4H PRN PRN Reason: FEVER Last Admin: 09/10/17 05:45 Dose: 650 mg Albuterol Sulfate (Ventolin 0.083% Nebulizer Soln -) 1 amp NEB Q4H PRN PRN Reason: SHORT OF BREATH/WHEEZING Albuterol/Ipratropium (Duoneb -) 1 amp NEB RQID [facility] Last Admin: 09/10/17 11:08 Dose: 1 amp Benzocaine/Menthol (Cepacol Lozenge -) 1 each MM PRN PRN PRN Reason: SORE THROAT Last Admin: 09/08/17 04:31 Dose: 1 each Enoxaparin Sodium (Lovenox -) 40 mg SQ DAILY [facility] Last Admin: 09/10/17 09:31 Dose: 40 mg Sodium Chloride (Normal Saline -) 1,000 mls @ 100 mls/hr IV ASDIR [facility] Last Admin: 09/09/17 21:54 Dose: 100 mls/hr Azithromycin 500 mg/ Dextrose 250 mls @ 250 mls/hr IVPB DAILY [facility] Last Admin: 09/10/17 09:32 Dose: 250 mls/hr Piperacillin/Tazobactam/Dextrose (Zosyn 3.375gm Ivpb (Premix)) 50 mls @ 100 mls /hr IVPB Q8H-IV [facility] PRN Reason: Protocol Last Admin: 09/10/17 11:58 Dose: 100 mls/hr Methylprednisolone Sodium Succinate (Solu-Medrol -) 40 mg IVPUSH Q6H-IV [facility] Metoclopramide HCl (Reglan -) 5 mg PO Q6H PRN PRN Reason: NAUSEA AND/OR VOMITING Nicotine (Nicoderm Patch -) 7 mg TD DAILY [facility] Last Admin: 09/10/17 09:31 Dose: 7 mg Oxycodone HCl (Roxicodone -) 20 mg PO Q4H PRN PRN Reason: PAIN LEVEL 7 - 10 Last Admin: 09/10/17 08:16 Dose: 20 mg Pantoprazole Sodium (Protonix -) 40 mg PO DAILY [facility] Last Admin: 09/10/17 09:31 Dose: 40 mg Trazodone HCl (Desyrel -) 50 mg PO [facility] Last Admin: 09/09/17 21:55 Dose: 50 mg - Objective Vital Signs: Vital Signs Temperature 98.1 F 09/10/17 11:21 Pulse Rate 118 H 09/10/17 11:21 Respiratory Rate 23 09/10/17 11:21 Blood Pressure 112/68 09/10/17 11:21 O2 Sat by Pulse Oximetry (%) 90 L 09/10/17 09:00 Constitutional: Yes: No Distress, Thin Eyes: Yes: Conjunctiva Clear Cardiovascular: Yes: Regular Rate and Rhythm, S1, S2 Respiratory: Yes: Rhonchi (L Upper lung field) Gastrointestinal: Yes: Normal Bowel Sounds, Soft Edema: No Labs: CBC, BMP 09/10/17 06:30 09/10/17 06:30 INR, PTT INR 1.50 (0.82-1.09) H 09/07/17 13:30 Assessment/Plan YOKO pneumonia Possible sepsis secondary to pneumonia COPD Scleroderma Continue zosyn/ zithromax Quantiferon Declines HIV testing
[2017-09-10] MEDS ORDERED: POTASSIUM PHOSPHATE 15 MM in DEXTROSE 5%-WATER - 250 ML IVPB ONE (14:02)
--- NOTE | 2017-09-10 14:25 | PN ---
Teaching Attending Note Name of Resident: Jenaro Phelps ATTENDING PHYSICIAN STATEMENT I saw and evaluated the patient. I reviewed the resident's note and discussed the case with the resident. I agree with the resident's findings and plan as documented with exceptions mentioned below. SUBJECTIVE: Patient seen and examined. breathing overall unchanged, still with coughing and left sided chest pain related the same. OBJECTIVE: Vital Signs Period Temp Pulse Resp BP Sys/Hoyt Pulse Ox Last 24 Hr 98.1 F-102.9 F 108-125 18-23 105-123/55-72 90-96 Intake & Output 09/07/17 09/08/17 09/09/17 09/10/17 23:59 23:59 23:59 23:59 Intake Total 1250 1200 2570 1050 Output Total 200 1100 Balance 1250 1000 1470 1050 Weight 150 lb 148 lb 6.4 oz General: sitting in bed in no acute distress Chest: left upper and lower basilar rales, improved air entry, no wheezing today Tenderness over left chest wall area ( reports from coughing) Home Medication List Medication Instructions Recorded Confirmed Type Omeprazole [Prilosec (RX)] 40 mg PO DAILY 03/29/14 09/08/17 History Hydroxychloroquine Sulfate 200 mg PO BID 10/07/14 11/19/14 History Mycophenolate Mofetil [Cellcept -] 2 tab PO AM 10/07/14 11/19/14 History Mycophenolate Mofetil [Cellcept -] 500 mg PO HS 11/19/14 11/19/14 History Oxycodone HCl 20 mg PO Q4H PRN 11/19/14 09/08/17 History traMADol HCL [Ultram] 50 mg PO Q6H PRN 11/19/14 09/08/17 History traZODone HCL [Desyrel -] 50 mg PO HS 11/19/14 09/08/17 History Gabapentin [Neurontin -] 100 mg PO Q8H 09/08/17 09/08/17 History Losartan Potassium [Cozaar -] 25 mg PO DAILY 09/08/17 09/08/17 History Active Medications Generic Name Dose Route Start Last Admin Trade Name Freq PRN Reason Stop Dose Admin Acetaminophen 650 mg 09/08/17 21:07 09/10/17 05:45 Tylenol - PO 650 mg Q4H PRN Administration FEVER Albuterol Sulfate 1 amp 09/09/17 13:55 Ventolin 0.083% Nebulizer Soln - NEB Q4H PRN SHORT OF BREATH/WHEEZING Albuterol/Ipratropium 1 amp 09/09/17 16:00 09/10/17 11:08 Duoneb - NEB 1 amp RQID [facility] Administration Benzocaine/Menthol 1 each 09/08/17 03:24 09/08/17 04:31 Cepacol Lozenge - MM 1 each PRN PRN Administration SORE THROAT Enoxaparin Sodium 40 mg 09/09/17 10:00 09/10/17 09:31 Lovenox - SQ 40 mg DAILY [facility] Administration Sodium Chloride 1,000 mls @ 100 mls/hr 09/07/17 20:30 09/09/17 21:54 Normal Saline - IV 100 mls/hr ASDIR [facility] Administration Azithromycin 500 mg/ Dextrose 250 mls @ 250 mls/hr 09/08/17 10:00 09/10/17 09 :32 IVPB 250 mls/hr DAILY [facility] Administration Piperacillin/Tazobactam/Dextrose 50 mls @ 100 mls/hr 09/09/17 18:00 09/10/17 11:58 Zosyn 3.375gm Ivpb (Premix) IVPB 100 mls/hr Q8H-IV [facility] Administration Protocol Potassium Phosphate 15 mm/ 255 mls @ 62.5 mls/hr 09/10/17 14:02 Dextrose IVPB 09/10/17 18:06 ONCE ONE Methylprednisolone Sodium Succinate 40 mg 09/10/17 12:30 Solu-Medrol - IVPUSH Q6H-IV [facility] Metoclopramide HCl 5 mg 09/07/17 21:28 Reglan - PO Q6H PRN NAUSEA AND/OR VOMITING Nicotine 7 mg 09/07/17 21:45 09/10/17 09:31 Nicoderm Patch - TD 7 mg DAILY [facility] Administration Oxycodone HCl 20 mg 09/07/17 21:28 09/10/17 13:23 Roxicodone - PO 20 mg Q4H PRN Administration PAIN LEVEL 7 - 10 Pantoprazole Sodium 40 mg 09/07/17 21:45 09/10/17 09:31 Protonix - PO 40 mg DAILY [facility] Administration Trazodone HCl 50 mg 09/07/17 22:00 09/09/17 21:55 Desyrel - PO 50 mg HS [facility] Administration Laboratory Results - last 24 hr 09/09/17 09/10/17 09/10/17 07:46 06:30 06:30 WBC 23.6 H RBC 3.27 L Hgb 9.2 L Hct 28.2 L MCV 86.1 MCH 28.1 MCHC 32.6 RDW 15.4 Plt Count 416 MPV 8.5 Neutrophils % No Result Required. Neutrophils % (Manual) 89.9 H Band Neutrophils % 1.0 Lymphocytes % No Result Required. Lymphocytes % (Manual) 5.1 L Monocytes % (Manual) 4 Eosinophils % (Manual) 0.0 Basophils % (Manual) 0.0 Myelocytes % (Man) 0 Promyelocytes % (Man) 0 Blast Cells % (Manual) 0 Nucleated RBC % 0 Metamyelocytes 0 Hypochromia 2+ Platelet Estimate Normal Anisocytosis 1+ Microcytosis 1+ Target Cells 2+ Sodium 143 Potassium 3.8 Chloride 107 Carbon Dioxide 23 Anion Gap 13 BUN 10 Creatinine 0.7 Creat Clearance w eGFR > 60 Random Glucose 79 Calcium 7.6 L Phosphorus 1.8 L Magnesium 1.6 L 2.6 H Total Bilirubin 1.4 H D 1.4 H Direct Bilirubin 1.2 H AST 34 67 H ALT 22 27 Alkaline Phosphatase 186 H 190 H Total Protein 5.3 L 5.1 L Albumin 1.6 L 1.4 L Microbiology 09/07/17 12:06 Blood - Peripheral Venous Blood Culture - Preliminary NO GROWTH OBTAINED AFTER 72 HOURS, INCUBATION TO CONTINUE FOR 2 DAYS. 09/07/17 12:06 Blood - Peripheral Venous Blood Culture - Preliminary NO GROWTH OBTAINED AFTER 72 HOURS, INCUBATION TO CONTINUE FOR 2 DAYS. 09/08/17 06:45 Sputum - Expectorated Gram Stain - Final 09/08/17 06:45 Sputum - Expectorated Sputum Culture - Final NORMAL RESPIRATORY FABIAN 09/08/17 23:00 Sputum - Expectorated Sputum Culture - Preliminary NORMAL RESPIRATORY FABIAN 09/08/17 23:00 Urine - Urine Clean Catch Urine Culture - Final NO GROWTH OBTAINED 09/08/17 22:00 Blood - Peripheral Venous Blood Culture - Preliminary NO GROWTH OBTAINED AFTER 24 HOURS, INCUBATION TO CONTINUE FOR 4 DAYS. 09/07/17 15:00 Urine - Urine Clean Catch Urine Culture - Final 09/08/17 23:00 Urine - Urine Clean Catch Legionella Antigen - Final 09/08/17 23:00 Urine - Urine Clean Catch Streptococcus pneumoniae Antigen ( M - Final 09/08/17 20:16 Nasopharyngeal Swab Influenza Types A,B Antigen (ENRIQUE) - Final 09/08/17 20:16 Nasopharyngeal Swab - Final ASSESSMENT AND PLAN: 62 yof with PMHx of HTN, Scleroderma, emphysema, tobacco abuse, admitted with YOKO CAP with sepsis -YOKO CAP with severe sepsis -Elevated INR with mild LFT abnormalities -Scleroderma -COPD/emphysema -Tobacco abuse Plan: ID input appreciated. zosyn day 1, azithromycin day 3. sputum cultures noted, follow up with ID ? Vancomycin. Pulmonary input noted. Placed on solumedrol. Standing nebs. Will need bronchoscopy if fails to improve. Flu swab neg. Aggressive hydration, low threshold to broaden antibiotic coverage. Abdominal ultrasound noted, monitor LFts. Hold cellcept/plaquenil. ?patient on methotrexate. Discuss with outpatient tool dispatcher. Smoking cessation counseling. DVTPPX with lovenox Dispo pending clinical improvement. Plan discussed with patient in detail, all questions answered
[2017-09-10] MEDS: methylPREDNISolone NA SUCC 40 MG/1 ML VIAL IVPUSH SCH ×3 (14:36→21:07)
[2017-09-10] MEDS ORDERED: ARTIFICIAL TEARS (POLYVINYL ALCOHOL 1.4%) OPTH DROPS OU PRN (16:38)
[2017-09-10] MEDS: METOCLOPRAMIDE HCL 10 MG TABLET (FP) PO PRN (17:53)
[2017-09-10] MEDS: traZODone HCL 50 MG TABLET (FP) PO SCH (21:08)
[2017-09-10] MEDS: SODIUM CHLORIDE 1,000 ML IV SCH (21:08)
[2017-09-11] MEDS ORDERED: PT OWN MED DRAWER 7, Y5N ONE ×3 (00:53→16:39)
[2017-09-11] MEDS: PIPERACILLIN/TAZOB 3.375 GM 50 ML IVPB SCH ×3 (01:10→17:23)
[2017-09-11] MEDS: methylPREDNISolone NA SUCC 40 MG/1 ML VIAL IVPUSH SCH ×3 (03:08→17:23)
[2017-09-11] MEDS: oxyCODONE HCL 5 MG TABLET PO PRN ×4 (03:32→20:20)
--- NOTE | 2017-09-11 06:41 | PN ---
Physical Exam: SUBJECTIVE: Patient seen and examined - no overnight events. fever to 101.4. States cough is improved, pain is better controlled with oxy. Endorses mild nausea after eating dinner, resolved after taking reglan. Still with cp, ab pain and back pain with cough, but improved. Artificial tears ordered, less eye pain with tearing. OBJECTIVE: Vital Signs Intake & Output 09/08/17 09/09/17 09/10/17 09/11/17 23:59 23:59 23:59 23:59 Intake Total 1200 2570 3070 Output Total 200 1100 Balance 1000 1470 3070 Weight 67.313 kg Period Temp Pulse Resp BP Sys/Hoyt Pulse Ox Last 24 Hr 97.9 F-101.4 F 88-118 20-23 110-131/64-83 90-92 GENERAL: Elderly woman lying in bed, NAD, A&Ox3 HEAD: Normal with no signs of trauma. EYES: Pinpoint pupils, extraocular movements intact, sclera anicteric, conjunctiva clear. No ptosis. ENT: Poor dentition. Ears normal, nares patent, oropharynx clear without exudates, moist mucous membranes, no exudate or erythema NECK: Trachea midline, full range of motion, supple. LUNGS: trace crackles in L upper and mid lung field, good air entry, No wheezing , rhonchi noted. HEART: Regular rate and rhythm, S1, S2 without murmur, rub or gallop. Still with pain on palpation of anterior chest wall. ABDOMEN: Tender to deep palpation of abdomen. Soft, nondistended, normoactive bowel sounds, no guarding, no rebound, no hepatosplenomegaly, no masses. still with BL CVA tenderness+ EXTREMITIES: 2+ pulses, warm, well-perfused, no edema. Dry skin in feet BL. NEUROLOGICAL: Cranial nerves II through XII grossly intact. Normal speech, gait not observed. PSYCH: Normal mood, normal affect. SKIN: Warm, dry, normal turgor, no rashes or lesions noted Laboratory Results - last 24 hr CBC, BMP 09/11/17 06:00 09/11/17 06:00 09/10/17 06:30 09/10/17 06:30 09/10/17 09/10/17 06:30 06:30 WBC 23.6 H RBC 3.27 L Hgb 9.2 L Hct 28.2 L MCV 86.1 MCH 28.1 MCHC 32.6 RDW 15.4 Plt Count 416 MPV 8.5 Neutrophils % No Result Required. Neutrophils % (Manual) 89.9 H Band Neutrophils % 1.0 Lymphocytes % No Result Required. Lymphocytes % (Manual) 5.1 L Monocytes % (Manual) 4 Eosinophils % (Manual) 0.0 Basophils % (Manual) 0.0 Myelocytes % (Man) 0 Promyelocytes % (Man) 0 Blast Cells % (Manual) 0 Nucleated RBC % 0 Metamyelocytes 0 Hypochromia 2+ Platelet Estimate Normal Anisocytosis 1+ Microcytosis 1+ Target Cells 2+ Sodium 143 Potassium 3.8 Chloride 107 Carbon Dioxide 23 Anion Gap 13 BUN 10 Creatinine 0.7 Creat Clearance w eGFR > 60 Random Glucose 79 Calcium 7.6 L Phosphorus 1.8 L Magnesium 2.6 H Total Bilirubin 1.4 H AST 67 H ALT 27 Alkaline Phosphatase 190 H Total Protein 5.1 L Albumin 1.4 L Active Medications Generic Name Dose Route Start Last Admin Trade Name Freq PRN Reason Stop Dose Admin Acetaminophen 650 mg 09/08/17 21:07 09/10/17 15:09 Tylenol - PO 650 mg Q4H PRN Administration FEVER Albuterol Sulfate 1 amp 09/09/17 13:55 Ventolin 0.083% Nebulizer Soln - NEB Q4H PRN SHORT OF BREATH/WHEEZING Albuterol/Ipratropium 1 amp 09/09/17 16:00 09/10/17 20:30 Duoneb - NEB 1 amp RQID [facility] Administration Artificial Tears 1 drop 09/10/17 16:38 Artificial Tears OU BID PRN DRY EYES Benzocaine/Menthol 1 each 09/08/17 03:24 09/08/17 04:31 Cepacol Lozenge - MM 1 each PRN PRN Administration SORE THROAT Enoxaparin Sodium 40 mg 09/09/17 10:00 09/10/17 09:31 Lovenox - SQ 40 mg DAILY [facility] Administration Guaifenesin 10 ml 09/10/17 22:33 Robitussin - PO Q6H PRN COUGH Sodium Chloride 1,000 mls @ 100 mls/hr 09/07/17 20:30 09/10/17 21:08 Normal Saline - IV 100 mls/hr ASDIR [facility] Administration Azithromycin 500 mg/ Dextrose 250 mls @ 250 mls/hr 09/08/17 10:00 09/10/17 09 :32 IVPB 250 mls/hr DAILY [facility] Administration Piperacillin/Tazobactam/Dextrose 50 mls @ 100 mls/hr 09/09/17 18:00 09/11/17 01:10 Zosyn 3.375gm Ivpb (Premix) IVPB 100 mls/hr Q8H-IV [facility] Administration Protocol Methylprednisolone Sodium Succinate 40 mg 09/10/17 12:30 09/11/17 03:08 Solu-Medrol - IVPUSH 40 mg Q6H-IV [facility] Administration Metoclopramide HCl 5 mg 09/07/17 21:28 09/10/17 17:53 Reglan - PO 5 mg Q6H PRN Administration NAUSEA AND/OR VOMITING Nicotine 7 mg 09/07/17 21:45 09/10/17 09:31 Nicoderm Patch - TD 7 mg DAILY [facility] Administration Oxycodone HCl 20 mg 09/07/17 21:28 09/11/17 03:32 Roxicodone - PO 20 mg Q4H PRN Administration PAIN LEVEL 7 - 10 Pantoprazole Sodium 40 mg 09/07/17 21:45 09/10/17 09:31 Protonix - PO 40 mg DAILY [facility] Administration Trazodone HCl 50 mg 09/07/17 22:00 09/10/17 21:08 Desyrel - PO 50 mg HS [facility] Administration Microbiology 09/08/17 22:00 Blood - Peripheral Venous Blood Culture - Preliminary NO GROWTH OBTAINED AFTER 48 HOURS, INCUBATION TO CONTINUE FOR 3 DAYS. 09/08/17 23:00 Sputum - Expectorated Gram Stain - Final 09/08/17 23:00 Sputum - Expectorated Sputum Culture - Preliminary NORMAL RESPIRATORY FABIAN 09/07/17 12:06 Blood - Peripheral Venous Blood Culture - Preliminary NO GROWTH OBTAINED AFTER 72 HOURS, INCUBATION TO CONTINUE FOR 2 DAYS. 09/07/17 12:06 Blood - Peripheral Venous Blood Culture - Preliminary NO GROWTH OBTAINED AFTER 72 HOURS, INCUBATION TO CONTINUE FOR 2 DAYS. 09/08/17 06:45 Sputum - Expectorated Gram Stain - Final 09/08/17 06:45 Sputum - Expectorated Sputum Culture - Final NORMAL RESPIRATORY FABIAN 09/08/17 23:00 Urine - Urine Clean Catch Urine Culture - Final NO GROWTH OBTAINED 09/07/17 15:00 Urine - Urine Clean Catch Urine Culture - Final 09/08/17 23:00 Urine - Urine Clean Catch Legionella Antigen - Final 09/08/17 23:00 Urine - Urine Clean Catch Streptococcus pneumoniae Antigen ( M - Final 09/08/17 20:16 Nasopharyngeal Swab Influenza Types A,B Antigen (ENRIQUE) - Final 09/08/17 20:16 Nasopharyngeal Swab - Final CXR 09/07 - YOKO opacity suspect for pneumonia Chest CTA 09/07 - YOKO infiltrate, emphysematous changes noted bilaterally CXR 09/08 - YOKO infiltrate EKG: NSR, rate of 130, QTC 473 RUQ US 09/09 - Biliary sludge, no stones noted, mild hepatomegaly CXR 09/10 - Persistent YOKO infiltrate with increased vascular markings at bases. ASSESSMENT/PLAN: 62 year old female with a history of scleroderma, hypertension, and emphysema presented to the ED with chest pain, cough productive of green sputum, and admitted for the treatment of severe sepsis 2/2 pneumonia. Pt improved today, pain better controlled, WBC downtrending. Per ID, c/w zosyn, AZA. Repeat imaging tomorrow. #Severe Sepsis 2/2 Pneumonia - WBC 23-> 18 today; fever to 101.4 overnight, BP stable -ID following, recs appreciated - monitor for hypotension; if BP <90, bolus 1L - f/u cultures still pending, no growth - flu negative - c/w IVFs - Trend WBC, fever curve - hold cellcept/hydroxychloroquine/methotrexate. Will call tooling specialist to confirm outpt regimen, as pharmacy with incomplete record - O2 support as needed - urine PNA antigens negative - AZA day 4. Zosyn day 2 per ID recs; will adjust to sensitivities - Pulm consulted, recs appreciated; will possibly need bronch if no improvement - short course of IV steroids per pulm recs; recommend repeat imaging in 48 hours #ALLIE - resolved; cr 0.6 today - IVFs - Trend Cr #Chest pain secondary to chronic cough - robitussin PRN - oxy 20mg for breakthrough pain - tylenol prn #elevated Alk phos/T bili - RUQ u/s with hepatomeagly, biliary sludge; likely secondary to decreased Po intake - T bili 0.8 today; resolved - Alk phos 190; trend #Scleroderma - chronic -unable to obtain record of immunomodulators at pharmacy, will need to confirm - hold cellcept/hydroxy/methotrexate currently - Will need to f/u with outpt tooling specialist of actual regimen #Emphysema-chronic -duonebs QID; ventolin q4h PRN - O2 support - Pulm consulted #Hypertension-cont holding home HTN meds as still normotensive -hold amlodipine 5mg QD -hold losartan 12.5 QD #GERD - PPI #Chronic pain -ultram - tylenol #Smoking Cessation: -nicotine patch - counseling #Nausea - well controlled -reglan prn #FEN NS @ 100cc/hr Daily lytes Sodium controlled diet #Prophylaxis Lovenox #Disposition M/S Plan discussed with attending, Dr. Boris Phelps, PGY1 Visit type - Emergency Visit Emergency Visit: Yes ED Registration Date: 09/07/17 Care time: The patient presented to the Emergency Department on the above date and was hospitalized for further evaluation of their emergent condition. - New Patient This patient is new to me today: No - Critical Care Critical Care patient: No
[2017-09-11 07:22] LABS: BASO % 0.1 % (0-2.0); HEMOGLOBIN 9.8 GM/dL (10.7-15.3); LYMPH % 3.2 % (8-40); MCH 28.7 pg (25.7-33.7); MCHC 32.8 g/dl (32.0-36.0); MEAN CELL VOLUME 87.4 fl (80-96); MEAN PLT VOLUME 8.6 fl (7.5-11.1); MONO % 2.2 % (3.8-10.2); NEUT % 94.5 % (42.8-82.8); PLATELET COUNT 424 K/MM3 (134-434); RBC 3.44 M/mm3 (3.60-5.2); RDW 15.8 % (11.6-15.6); WHITE BLOOD COUNT 18.6 K/mm3 (4.0-10.0)
[2017-09-11 07:49] LABS: ALBUMIN 1.5 g/dl (3.4-5.0); ALK PHOS 197 U/L (45-117); ANION GAP 8 (8-16); BILIRUBIN,TOTAL 0.8 mg/dL (0.2-1.0); BLOOD UREA NITROGEN 11 mg/dL (7-18); CALCIUM 7.3 mg/dL (8.5-10.1); CHLORIDE 107 mmol/L (98-107); CO2 25 mmol/L (21-32); CREATININE 0.6 mg/dL (0.55-1.02); GLUCOSE,RANDOM 150 mg/dL (74-106); MAGNESIUM 1.8 mg/dL (1.8-2.4); PHOSPHOROUS 2.6 mg/dL (2.5-4.9); POTASSIUM 4.3 mmol/L (3.5-5.1); SGOT/AST 55 U/L (15-37); SGPT/ALT 32 U/L (12-78); SODIUM 140 mmol/L (136-145)
[2017-09-11] MEDS: ALBUTEROL SO4 2.5/IPRATROPIUM 0.5 INH SOL 3 ML VIAL.NEB. NEB SCH ×4 (07:50→20:25)
[2017-09-11] MEDS: PANTOPRAZOLE 40 MG TABLET (FP) PO SCH (09:28)
[2017-09-11] MEDS: METOCLOPRAMIDE HCL 10 MG TABLET (FP) PO PRN ×2 (09:28→21:15)
[2017-09-11] MEDS: NICOTINE 7 MG/24 HOURS TOPICAL PATCH TD SCH (09:29)
[2017-09-11] MEDS: AZITHROMYCIN IVPB 500 MG in DEXTROSE 5%-WATER - 250 ML IVPB SCH (09:29)
[2017-09-11] MEDS: ENOXAPARIN NA (PORCINE) 40 MG/0.4 ML DISP.SYRIN SQ SCH (09:30)
--- NOTE | 2017-09-11 10:38 | PN ---
Progress Note, Physician History of Present Illness: Reports feeling better today remains febrile C/O cough productive of green sputum, L pleuritic chest pain Slightly tachypneic at rest WBC increased BC no growth Sputum c/s nornmal sangeetha - Current Medication List Current Medications: Active Medications Acetaminophen (Tylenol -) 650 mg PO Q4H PRN PRN Reason: FEVER Last Admin: 09/10/17 15:09 Dose: 650 mg Albuterol Sulfate (Ventolin 0.083% Nebulizer Soln -) 1 amp NEB Q4H PRN PRN Reason: SHORT OF BREATH/WHEEZING Albuterol/Ipratropium (Duoneb -) 1 amp NEB RQID [facility] Last Admin: 09/10/17 20:30 Dose: 1 amp Artificial Tears (Artificial Tears) 1 drop OU BID PRN PRN Reason: DRY EYES Benzocaine/Menthol (Cepacol Lozenge -) 1 each MM PRN PRN PRN Reason: SORE THROAT Last Admin: 09/08/17 04:31 Dose: 1 each Enoxaparin Sodium (Lovenox -) 40 mg SQ DAILY [facility] Last Admin: 09/11/17 09:30 Dose: 40 mg Guaifenesin (Robitussin -) 10 ml PO Q6H PRN PRN Reason: COUGH Sodium Chloride (Normal Saline -) 1,000 mls @ 100 mls/hr IV ASDIR [facility] Last Admin: 09/10/17 21:08 Dose: 100 mls/hr Azithromycin 500 mg/ Dextrose 250 mls @ 250 mls/hr IVPB DAILY [facility] Last Admin: 09/11/17 09:29 Dose: 250 mls/hr Piperacillin/Tazobactam/Dextrose (Zosyn 3.375gm Ivpb (Premix)) 50 mls @ 100 mls /hr IVPB Q8H-IV [facility] PRN Reason: Protocol Last Admin: 09/11/17 09:29 Dose: 100 mls/hr Methylprednisolone Sodium Succinate (Solu-Medrol -) 40 mg IVPUSH Q6H-IV [facility] Last Admin: 09/11/17 09:29 Dose: 40 mg Metoclopramide HCl (Reglan -) 5 mg PO Q6H PRN PRN Reason: NAUSEA AND/OR VOMITING Last Admin: 09/11/17 09:28 Dose: 5 mg Nicotine (Nicoderm Patch -) 7 mg TD DAILY [facility] Last Admin: 09/11/17 09:29 Dose: 7 mg Oxycodone HCl (Roxicodone -) 20 mg PO Q4H PRN PRN Reason: PAIN LEVEL 7 - 10 Last Admin: 09/11/17 07:44 Dose: 20 mg Pantoprazole Sodium (Protonix -) 40 mg PO DAILY [facility] Last Admin: 09/11/17 09:28 Dose: 40 mg Trazodone HCl (Desyrel -) 50 mg PO HS [facility] Last Admin: 09/10/17 21:08 Dose: 50 mg - Objective Vital Signs: Vital Signs Temperature 98.2 F 09/11/17 09:25 Pulse Rate 90 09/11/17 09:25 Respiratory Rate 19 09/11/17 09:25 Blood Pressure 133/69 09/11/17 09:25 O2 Sat by Pulse Oximetry (%) 92 L 09/10/17 21:00 Labs: CBC, BMP 09/11/17 06:00 09/11/17 06:00 INR, PTT INR 1.50 (0.82-1.09) H 09/07/17 13:30
--- NOTE | 2017-09-11 10:42 | PN ---
Progress Note, Physician History of Present Illness: Sitting upright in bed Reports less cough, now productive of brownish sputum L pleuritic chest pain with cough Less tachypneic at rest Temps down WBC improved BC no growth Sputum c/s nornmal sangeetha - Current Medication List Current Medications: Active Medications Acetaminophen (Tylenol -) 650 mg PO Q4H PRN PRN Reason: FEVER Last Admin: 09/10/17 15:09 Dose: 650 mg Albuterol Sulfate (Ventolin 0.083% Nebulizer Soln -) 1 amp NEB Q4H PRN PRN Reason: SHORT OF BREATH/WHEEZING Albuterol/Ipratropium (Duoneb -) 1 amp NEB RQID [facility] Last Admin: 09/10/17 20:30 Dose: 1 amp Artificial Tears (Artificial Tears) 1 drop OU BID PRN PRN Reason: DRY EYES Benzocaine/Menthol (Cepacol Lozenge -) 1 each MM PRN PRN PRN Reason: SORE THROAT Last Admin: 09/08/17 04:31 Dose: 1 each Enoxaparin Sodium (Lovenox -) 40 mg SQ DAILY [facility] Last Admin: 09/11/17 09:30 Dose: 40 mg Guaifenesin (Robitussin -) 10 ml PO Q6H PRN PRN Reason: COUGH Sodium Chloride (Normal Saline -) 1,000 mls @ 100 mls/hr IV ASDIR [facility] Last Admin: 09/10/17 21:08 Dose: 100 mls/hr Azithromycin 500 mg/ Dextrose 250 mls @ 250 mls/hr IVPB DAILY [facility] Last Admin: 09/11/17 09:29 Dose: 250 mls/hr Piperacillin/Tazobactam/Dextrose (Zosyn 3.375gm Ivpb (Premix)) 50 mls @ 100 mls /hr IVPB Q8H-IV [facility] PRN Reason: Protocol Last Admin: 09/11/17 09:29 Dose: 100 mls/hr Methylprednisolone Sodium Succinate (Solu-Medrol -) 40 mg IVPUSH Q6H-IV [facility] Last Admin: 09/11/17 09:29 Dose: 40 mg Metoclopramide HCl (Reglan -) 5 mg PO Q6H PRN PRN Reason: NAUSEA AND/OR VOMITING Last Admin: 09/11/17 09:28 Dose: 5 mg Nicotine (Nicoderm Patch -) 7 mg TD DAILY [facility] Last Admin: 09/11/17 09:29 Dose: 7 mg Oxycodone HCl (Roxicodone -) 20 mg PO Q4H PRN PRN Reason: PAIN LEVEL 7 - 10 Last Admin: 09/11/17 07:44 Dose: 20 mg Pantoprazole Sodium (Protonix -) 40 mg PO DAILY [facility] Last Admin: 09/11/17 09:28 Dose: 40 mg Trazodone HCl (Desyrel -) 50 mg PO HS [facility] Last Admin: 09/10/17 21:08 Dose: 50 mg - Objective Vital Signs: Vital Signs Temperature 98.2 F 09/11/17 09:25 Pulse Rate 90 09/11/17 09:25 Respiratory Rate 19 09/11/17 09:25 Blood Pressure 133/69 09/11/17 09:25 O2 Sat by Pulse Oximetry (%) 92 L 09/10/17 21:00 Constitutional: Yes: No Distress Eyes: Yes: Conjunctiva Clear Cardiovascular: Yes: Regular Rate and Rhythm, S1, S2 Respiratory: Yes: Rhonchi Gastrointestinal: Yes: Normal Bowel Sounds, Soft. No: Tenderness Edema: No Labs: CBC, BMP 09/11/17 06:00 09/11/17 06:00 INR, PTT INR 1.50 (0.82-1.09) H 09/07/17 13:30 Assessment/Plan YOKO pneumonia Possible sepsis secondary to pneumonia COPD Scleroderma Continue zosyn/ zithromax Quantiferon Declines HIV testing
[2017-09-11] MEDS ORDERED: KETOROLAC TROMETHAMINE 15 MG/ML VIAL IVPUSH PRN (10:52)
--- NOTE | 2017-09-11 10:54 | PN ---
Teaching Attending Note Name of Resident: Jenaro Phelps ATTENDING PHYSICIAN STATEMENT I saw and evaluated the patient. I reviewed the resident's note and discussed the case with the resident. I agree with the resident's findings and plan as documented with exceptions below. SUBJECTIVE: patient seen and examined, breathing improved, coughing sputum, overall with improvement, worried that with her scleroderma meds off, increased symptoms in her extremities, explained risks of continuation in the setting of concerning PNA/sepsis and assured will be monitoring her closely. OBJECTIVE: Vital Signs Period Temp Pulse Resp BP Sys/Hoyt Pulse Ox Last 24 Hr 97.9 F-101.4 F 88-118 19-23 110-133/64-83 92 Intake & Output 09/08/17 09/09/17 09/10/17 09/11/17 23:59 23:59 23:59 23:59 Intake Total 1200 2570 3070 1280 Output Total 200 1100 Balance 1000 1470 3070 1280 Weight 148 lb 6.4 oz General: sitting in bed in no acute distress Chest: improved rales, and air entry, no wheezing today Abdomen:soft, NT, ND extremities: no edema Home Medication List Medication Instructions Recorded Confirmed Type Omeprazole [Prilosec (RX)] 40 mg PO DAILY 03/29/14 09/08/17 History Hydroxychloroquine Sulfate 200 mg PO BID 10/07/14 09/11/17 History Mycophenolate Mofetil [Cellcept -] 500 mg PO AM 10/07/14 09/11/17 History Oxycodone HCl 20 mg PO Q4H PRN 11/19/14 09/08/17 History traMADol HCL [Ultram] 50 mg PO Q6H PRN 11/19/14 09/08/17 History traZODone HCL [Desyrel -] 50 mg PO HS 11/19/14 09/08/17 History Gabapentin [Neurontin -] 200 mg PO Q8H 09/08/17 09/11/17 History Losartan Potassium [Cozaar -] 12.5 mg PO DAILY 09/08/17 09/11/17 History Amlodipine Besylate [Norvasc -] 5 mg PO DAILY 09/11/17 09/11/17 History Methotrexate Sodium/Pf 25 mg SQ WEEKLY 09/11/17 09/11/17 History [Methotrexate 25 mg/ml Vial] Umeclidinium [place] [Incruse 62.5 mcg IH DAILY 09/11/17 09/11/17 History Ellipta] Active Medications Generic Name Dose Route Start Last Admin Trade Name Freq PRN Reason Stop Dose Admin Acetaminophen 650 mg 09/08/17 21:07 09/10/17 15:09 Tylenol - PO 650 mg Q4H PRN Administration FEVER Albuterol Sulfate 1 amp 09/09/17 13:55 Ventolin 0.083% Nebulizer Soln - NEB Q4H PRN SHORT OF BREATH/WHEEZING Albuterol/Ipratropium 1 amp 09/09/17 16:00 09/10/17 20:30 Duoneb - NEB 1 amp RQID ALEXIS Administration Artificial Tears 1 drop 09/10/17 16:38 Artificial Tears OU BID PRN DRY EYES Benzocaine/Menthol 1 each 09/08/17 03:24 09/08/17 04:31 Cepacol Lozenge - MM 1 each PRN PRN Administration SORE THROAT Enoxaparin Sodium 40 mg 09/09/17 10:00 09/11/17 09:30 Lovenox - SQ 40 mg DAILY A[facility]IS Administration Guaifenesin 10 ml 09/10/17 22:33 Robitussin - PO Q6H PRN COUGH Sodium Chloride 1,000 mls @ 100 mls/hr 09/07/17 20:30 09/10/17 21:08 Normal Saline - IV 100 mls/hr ASDIR ALEXIS Administration Azithromycin 500 mg/ Dextrose 250 mls @ 250 mls/hr 09/08/17 10:00 09/11/17 09 :29 IVPB 250 mls/hr DAILY ALEXIS Administration Piperacillin/Tazobactam/Dextrose 50 mls @ 100 mls/hr 09/09/17 18:00 09/11/17 09:29 Zosyn 3.375gm Ivpb (Premix) IVPB 100 mls/hr Q8H-IV A[facility]IS Administration Protocol Methylprednisolone Sodium Succinate 40 mg 09/11/17 11:00 Solu-Medrol - IVPUSH Q8H A[facility]IS Metoclopramide HCl 5 mg 09/07/17 21:28 09/11/17 09:28 Reglan - PO 5 mg Q6H PRN Administration NAUSEA AND/OR VOMITING Nicotine 7 mg 09/07/17 21:45 09/11/17 09:29 Nicoderm Patch - TD 7 mg DAILY [facility] Administration Oxycodone HCl 20 mg 09/07/17 21:28 09/11/17 07:44 Roxicodone - PO 20 mg Q4H PRN Administration PAIN LEVEL 7 - 10 Pantoprazole Sodium 40 mg 09/07/17 21:45 09/11/17 09:28 Protonix - PO 40 mg DAILY A[facility]IS Administration Trazodone HCl 50 mg 09/07/17 22:00 09/10/17 21:08 Desyrel - PO 50 mg HS ALEXIS Administration Laboratory Results - last 24 hr 09/10/17 09/11/17 09/11/17 06:30 06:00 06:00 WBC 18.6 H RBC 3.44 L Hgb 9.8 L Hct 30.0 L MCV 87.4 MCH 28.7 MCHC 32.8 RDW 15.8 H Plt Count 424 MPV 8.6 Neutrophils % 94.5 H Neutrophils % (Manual) 89.9 H Band Neutrophils % 1.0 Lymphocytes % 3.2 L Lymphocytes % (Manual) 5.1 L Monocytes % 2.2 L Monocytes % (Manual) 4 Eosinophils % 0.0 Eosinophils % (Manual) 0.0 Basophils % 0.1 Basophils % (Manual) 0.0 Myelocytes % (Man) 0 Promyelocytes % (Man) 0 Blast Cells % (Manual) 0 Nucleated RBC % 0 Metamyelocytes 0 Hypochromia 2+ Platelet Estimate Normal Anisocytosis 1+ Microcytosis 1+ Target Cells 2+ Sodium 140 Potassium 4.3 Chloride 107 Carbon Dioxide 25 Anion Gap 8 BUN 11 Creatinine 0.6 Creat Clearance w eGFR > 60 Random Glucose 150 H Calcium 7.3 L Phosphorus 2.6 Magnesium 1.8 Total Bilirubin 0.8 D AST 55 H ALT 32 Alkaline Phosphatase 197 H Total Protein 5.0 L Albumin 1.5 L Microbiology 09/08/17 22:00 Blood - Peripheral Venous Blood Culture - Preliminary NO GROWTH OBTAINED AFTER 48 HOURS, INCUBATION TO CONTINUE FOR 3 DAYS. 09/08/17 23:00 Sputum - Expectorated Gram Stain - Final 09/08/17 23:00 Sputum - Expectorated Sputum Culture - Preliminary NORMAL RESPIRATORY FABIAN 09/07/17 12:06 Blood - Peripheral Venous Blood Culture - Preliminary NO GROWTH OBTAINED AFTER 72 HOURS, INCUBATION TO CONTINUE FOR 2 DAYS. 09/07/17 12:06 Blood - Peripheral Venous Blood Culture - Preliminary NO GROWTH OBTAINED AFTER 72 HOURS, INCUBATION TO CONTINUE FOR 2 DAYS. 09/08/17 06:45 Sputum - Expectorated Gram Stain - Final 09/08/17 06:45 Sputum - Expectorated Sputum Culture - Final NORMAL RESPIRATORY FABIAN 09/08/17 23:00 Urine - Urine Clean Catch Urine Culture - Final NO GROWTH OBTAINED 09/07/17 15:00 Urine - Urine Clean Catch Urine Culture - Final 09/08/17 23:00 Urine - Urine Clean Catch Legionella Antigen - Final 09/08/17 23:00 Urine - Urine Clean Catch Streptococcus pneumoniae Antigen ( M - Final 09/08/17 20:16 Nasopharyngeal Swab Influenza Types A,B Antigen (ENRIQUE) - Final 09/08/17 20:16 Nasopharyngeal Swab - Final ASSESSMENT AND PLAN: 62 yof with PMHx of HTN, Scleroderma, emphysema, tobacco abuse, admitted with YOKO CAP with sepsis -YOKO CAP with severe sepsis -Elevated INR with mild LFT abnormalities -Scleroderma -COPD/emphysema -Tobacco abuse Plan: ID input appreciated. zosyn day 2, azithromycin day 4. sputum cultures noted, clinically improved. WBC improved inspite of steroids. Pulmonary input noted. Change solumedrol to 40 mg IV q8h, standing and prn nebs. Humidified air. Will need bronchoscopy if fails to improve. Flu swab neg. Aggressive hydration, low threshold to broaden antibiotic coverage. Pain control with oxycodone/tylenol. Abdominal ultrasound noted, monitor LFts. Hold cellcept/plaquenil. ?patient on methotrexate. Discuss with outpatient supervisor machine workers. Hold for now. Smoking cessation counseling. DVTPPX with lovenox Dispo pending clinical improvement. Plan discussed with patient in detail, all questions answered
[2017-09-11] MEDS ORDERED: oxyCODONE HCL 5 MG TABLET PO ONE (14:45)
--- NOTE | 2017-09-11 15:25 | PN ---
Progress Note (short form) - Note Progress Note: PULMONARY States breathing is improving. +cough now with yellow sputum. Fever curve trending down. Last Vital Signs Temp Pulse Resp BP Pulse Ox 98.2 F 90 19 133/69 96 09/11/17 09:25 09/11/17 09:25 09/11/17 09:25 09/11/17 09:25 09/11/17 09:30 Intake & Output 09/08/17 09/09/17 09/10/17 09/11/17 23:59 23:59 23:59 23:59 Intake Total 1200 2570 3070 1680 Output Total 200 1100 Balance 1000 1470 3070 1680 Weight 67.313 kg Gen: NAD at rest Heart: RRR Lung: less rhonchi Abd: soft, nontender Ext: no edema CBC, BMP 09/11/17 06:00 09/11/17 06:00 Active Medications Acetaminophen (Tylenol -) 650 mg PO Q4H PRN PRN Reason: FEVER Last Admin: 09/10/17 15:09 Dose: 650 mg Albuterol Sulfate (Ventolin 0.083% Nebulizer Soln -) 1 amp NEB Q4H PRN PRN Reason: SHORT OF BREATH/WHEEZING Albuterol/Ipratropium (Duoneb -) 1 amp NEB RQID [facility] Last Admin: 09/11/17 12:40 Dose: 1 amp Artificial Tears (Artificial Tears) 1 drop OU BID PRN PRN Reason: DRY EYES Benzocaine/Menthol (Cepacol Lozenge -) 1 each MM PRN PRN PRN Reason: SORE THROAT Last Admin: 09/08/17 04:31 Dose: 1 each Enoxaparin Sodium (Lovenox -) 40 mg SQ DAILY [facility] Last Admin: 09/11/17 09:30 Dose: 40 mg Guaifenesin (Robitussin -) 10 ml PO Q6H PRN PRN Reason: COUGH Sodium Chloride (Normal Saline -) 1,000 mls @ 100 mls/hr IV ASDIR [facility] Last Admin: 09/10/17 21:08 Dose: 100 mls/hr Azithromycin 500 mg/ Dextrose 250 mls @ 250 mls/hr IVPB DAILY [facility] Last Admin: 09/11/17 09:29 Dose: 250 mls/hr Piperacillin/Tazobactam/Dextrose (Zosyn 3.375gm Ivpb (Premix)) 50 mls @ 100 mls /hr IVPB Q8H-IV ALEXIS PRN Reason: Protocol Last Admin: 09/11/17 09:29 Dose: 100 mls/hr Methylprednisolone Sodium Succinate (Solu-Medrol -) 40 mg IVPUSH Q8H-IV [facility]IS Metoclopramide HCl (Reglan -) 5 mg PO Q6H PRN PRN Reason: NAUSEA AND/OR VOMITING Last Admin: 09/11/17 09:28 Dose: 5 mg Nicotine (Nicoderm Patch -) 7 mg TD DAILY [facility] Last Admin: 09/11/17 09:29 Dose: 7 mg Oxycodone HCl (Roxicodone -) 20 mg PO Q4H PRN PRN Reason: PAIN LEVEL 7 - 10 Last Admin: 09/11/17 11:55 Dose: 20 mg Pantoprazole Sodium (Protonix -) 40 mg PO DAILY [facility] Last Admin: 09/11/17 09:28 Dose: 40 mg Trazodone HCl (Desyrel -) 50 mg PO HS [facility] Last Admin: 09/10/17 21:08 Dose: 50 mg A/P Left Upper Lobe Pneumonia Sepsis Lactic Acidosis resolved Scleroderma on Immunosuppressives HTN COPD - continue antibiotics - f/u sputum cultures - inhaled bronchodilators, will change to standing and PRN - continue medrol - O2 to keep SpO2 >90% - IVF - PO as tolerated - DVT prophylaxis - will need outpt f/u of chest imaging in 6-8 weeks to ensure resolution of infiltrate - outpt PFTs Problem List - Problems (1) Pneumonia Code(s): J18.9 - PNEUMONIA, UNSPECIFIED ORGANISM Qualifiers: Pneumonia type: due to unspecified organism Laterality: unspecified laterality Lung location: lower lobe of lung Qualified Code(s): J18.1 - Lobar pneumonia, unspecified organism (2) Sepsis Code(s): A41.9 - SEPSIS, UNSPECIFIED ORGANISM (3) COPD (chronic obstructive pulmonary disease) Code(s): J44.9 - CHRONIC OBSTRUCTIVE PULMONARY DISEASE, UNSPECIFIED (4) Hypertension Code(s): I10 - ESSENTIAL (PRIMARY) HYPERTENSION Qualifiers: Hypertension type: essential hypertension Qualified Code(s): I10 - Essential (primary) hypertension
[2017-09-11] MEDS: SODIUM CHLORIDE 1,000 ML IV SCH ×2 (17:23→21:15)
[2017-09-11] MEDS: traZODone HCL 50 MG TABLET (FP) PO SCH (21:15)
[2017-09-12] MEDS: oxyCODONE HCL 5 MG TABLET PO PRN ×6 (00:49→22:09)
[2017-09-12] MEDS: methylPREDNISolone NA SUCC 40 MG/1 ML VIAL IVPUSH SCH ×3 (00:59→17:11)
[2017-09-12] MEDS: PIPERACILLIN/TAZOB 3.375 GM 50 ML IVPB SCH ×3 (02:16→17:11)
[2017-09-12] MEDS: guaiFENesin 200 MG/10 ML 10 ML UNIT-DOSE CUPS PO PRN (02:17)
[2017-09-12] MEDS: BENZOCAINE/MENTH/CETYLPYRD CL 1 EACH LOZENGE MM PRN (02:17)
[2017-09-12] MEDS: METOCLOPRAMIDE HCL 10 MG TABLET (FP) PO PRN (04:36)
[2017-09-12] MEDS: ALBUTEROL SO4 2.5/IPRATROPIUM 0.5 INH SOL 3 ML VIAL.NEB. NEB SCH ×4 (08:00→20:00)
--- NOTE | 2017-09-12 08:23 | PN ---
Teaching Attending Note Name of Resident: Jenaro Phelps SUBJECTIVE: Patient seen and examined. breathing improved, reports constipation, no c/o dizziness, palpitations, chest pain or concerns while straining at stool earlier today. OBJECTIVE: Vital Signs Period Temp Pulse Resp BP Sys/Hoyt Pulse Ox Last 24 Hr 97 F-98.2 F 84-93 19-20 108-133/69-86 95-96 Intake & Output 09/09/17 09/10/17 09/11/17 09/12/17 23:59 23:59 23:59 23:59 Intake Total 2570 3070 3550 870 Output Total 1100 Balance 1470 3070 3550 870 General sitting in bed, improved, Chest left sided rales and air entry improved Abdomen soft, NT, ND, positive bowel sounds Extremities no edema Home Medication List Medication Instructions Recorded Confirmed Type Omeprazole [Prilosec (RX)] 40 mg PO DAILY 03/29/14 09/08/17 History Hydroxychloroquine Sulfate 200 mg PO BID 10/07/14 09/11/17 History Mycophenolate Mofetil [Cellcept -] 500 mg PO AM 10/07/14 09/11/17 History Oxycodone HCl 20 mg PO Q4H PRN 11/19/14 09/08/17 History traMADol HCL [Ultram] 50 mg PO Q6H PRN 11/19/14 09/08/17 History traZODone HCL [Desyrel -] 50 mg PO HS 11/19/14 09/08/17 History Gabapentin [Neurontin -] 200 mg PO Q8H 09/08/17 09/11/17 History Losartan Potassium [Cozaar -] 12.5 mg PO DAILY 09/08/17 09/11/17 History Amlodipine Besylate [Norvasc -] 5 mg PO DAILY 09/11/17 09/11/17 History Methotrexate Sodium/Pf 25 mg SQ WEEKLY 09/11/17 09/11/17 History [Methotrexate 25 mg/ml Vial] Umeclidinium [place] [Incruse 62.5 mcg IH DAILY 09/11/17 09/11/17 History Ellipta] Active Medications Generic Name Dose Route Start Last Admin Trade Name Freq PRN Reason Stop Dose Admin Acetaminophen 650 mg 09/08/17 21:07 09/10/17 15:09 Tylenol - PO 650 mg Q4H PRN Administration FEVER Albuterol Sulfate 1 amp 09/09/17 13:55 Ventolin 0.083% Nebulizer Soln - NEB Q4H PRN SHORT OF BREATH/WHEEZING Albuterol/Ipratropium 1 amp 09/09/17 16:00 09/11/17 20:25 Duoneb - NEB 1 amp RQID ALEXIS Administration Artificial Tears 1 drop 09/10/17 16:38 09/12/17 02:17 Artificial Tears OU 1 drop BID PRN Administration DRY EYES Benzocaine/Menthol 1 each 09/08/17 03:24 09/12/17 02:17 Cepacol Lozenge - MM 1 each PRN PRN Administration SORE THROAT Enoxaparin Sodium 40 mg 09/09/17 10:00 09/11/17 09:30 Lovenox - SQ 40 mg DAILY ALEXIS Administration Guaifenesin 10 ml 09/10/17 22:33 09/12/17 02:17 Robitussin - PO 10 ml Q6H PRN Administration COUGH Sodium Chloride 1,000 mls @ 100 mls/hr 09/07/17 20:30 09/11/17 21:15 Normal Saline - IV 100 mls/hr ASDIR ALEXIS Administration Azithromycin 500 mg/ Dextrose 250 mls @ 250 mls/hr 09/08/17 10:00 09/11/17 09 :29 IVPB 250 mls/hr DAILY ALEXIS Administration Piperacillin/Tazobactam/Dextrose 50 mls @ 100 mls/hr 09/09/17 18:00 09/12/17 02:16 Zosyn 3.375gm Ivpb (Premix) IVPB 100 mls/hr Q8H-IV ALEXIS Administration Protocol Methylprednisolone Sodium Succinate 40 mg 09/11/17 18:00 09/12/17 00:59 Solu-Medrol - IVPUSH 40 mg Q8H-IV ALEXIS Administration Metoclopramide HCl 5 mg 09/07/17 21:28 09/12/17 04:36 Reglan - PO 5 mg Q6H PRN Administration NAUSEA AND/OR VOMITING Nicotine 7 mg 09/07/17 21:45 09/11/17 09:29 Nicoderm Patch - TD 7 mg DAILY ALEXIS Administration Oxycodone HCl 20 mg 09/07/17 21:28 09/12/17 04:36 Roxicodone - PO 20 mg Q4H PRN Administration PAIN LEVEL 7 - 10 Pantoprazole Sodium 40 mg 09/07/17 21:45 09/11/17 09:28 Protonix - PO 40 mg DAILY ALEXIS Administration Trazodone HCl 50 mg 09/07/17 22:00 09/11/17 21:15 Desyrel - PO 50 mg HS ALEXIS Administration Laboratory Results - last 24 hr 09/12/17 09/12/17 08:00 08:00 WBC 18.8 H RBC 3.34 L Hgb 9.4 L Hct 28.7 L MCV 85.9 MCH 28.3 MCHC 32.9 RDW 15.3 Plt Count 631 H D MPV 8.4 Neutrophils % 88.5 H Lymphocytes % 6.1 L D Monocytes % 5.2 D Eosinophils % 0.0 Basophils % 0.2 Sodium 142 Potassium 4.1 Chloride 110 H Carbon Dioxide 24 Anion Gap 8 BUN 15 Creatinine 0.5 L Creat Clearance w eGFR > 60 Random Glucose 127 H Calcium 8.1 L Total Bilirubin 0.6 D AST 119 H ALT 58 Alkaline Phosphatase 223 H Total Protein 5.2 L Albumin 1.7 L Microbiology 09/08/17 22:00 Blood - Peripheral Venous Blood Culture - Preliminary NO GROWTH OBTAINED AFTER 72 HOURS, INCUBATION TO CONTINUE FOR 2 DAYS. 09/07/17 12:06 Blood - Peripheral Venous Blood Culture - Preliminary NO GROWTH OBTAINED AFTER 96 HOURS, INCUBATION TO CONTINUE FOR 1 DAYS. 09/07/17 12:06 Blood - Peripheral Venous Blood Culture - Preliminary NO GROWTH OBTAINED AFTER 96 HOURS, INCUBATION TO CONTINUE FOR 1 DAYS. 09/08/17 23:00 Sputum - Expectorated Gram Stain - Final 09/08/17 23:00 Sputum - Expectorated Sputum Culture - Final NORMAL RESPIRATORY FABIAN 09/08/17 06:45 Sputum - Expectorated Gram Stain - Final 09/08/17 06:45 Sputum - Expectorated Sputum Culture - Final NORMAL RESPIRATORY FABIAN 09/08/17 23:00 Urine - Urine Clean Catch Urine Culture - Final NO GROWTH OBTAINED 09/07/17 15:00 Urine - Urine Clean Catch Urine Culture - Final 09/08/17 23:00 Urine - Urine Clean Catch Legionella Antigen - Final 09/08/17 23:00 Urine - Urine Clean Catch Streptococcus pneumoniae Antigen ( M - Final 09/08/17 20:16 Nasopharyngeal Swab Influenza Types A,B Antigen (ENRIQUE) - Final 09/08/17 20:16 Nasopharyngeal Swab - Final ASSESSMENT AND PLAN: 62 yof with PMHx of HTN, Scleroderma, emphysema, tobacco abuse, admitted with YOKO CAP with sepsis -YOKO CAP with severe sepsis -NSVT while straining at stool on 09/12 -Thrombocytosis,likely from infection, ?from underlying rheumatological process -Elevated INR with mild LFT abnormalities -Scleroderma -COPD/emphysema -Tobacco abuse -Constipation Plan: ID input appreciated. zosyn day 3, azithromycin day 5. Sputum cultures noted, clinically improved. Pulmonary input noted.Solumedrol to 40 mg IV q8h, standing and prn nebs. Humidified air. Will need bronchoscopy if fails to improve. Flu swab neg. Pain control with oxycodone/tylenol. Asymptomatic NSVT while straining at stools today. Check 2D echo, continue Telemetry. Trend platelets, hematology input if fails to improve. Abdominal ultrasound noted, monitor LFts. Hold cellcept/plaquenil. ?patient on methotrexate. Discuss with outpatient business development recruiter. Hold for now. Smoking cessation counseling. Dulcolax per patient request. DVTPPX with lovenox Dispo pending clinical improvement. Will need oxygen needs assessment prior to d/c and follow up imaging in 6-8 weeks to ensure resolution. Plan discussed with patient in detail, all questions answered
[2017-09-12 08:38] LABS: BASO % 0.2 % (0-2.0); HEMATOCRIT 28.7 % (32.4-45.2); HEMOGLOBIN 9.4 GM/dL (10.7-15.3); LYMPH % 6.1 % (8-40); MCH 28.3 pg (25.7-33.7); MCHC 32.9 g/dl (32.0-36.0); MEAN CELL VOLUME 85.9 fl (80-96); MEAN PLT VOLUME 8.4 fl (7.5-11.1); MONO % 5.2 % (3.8-10.2); NEUT % 88.5 % (42.8-82.8); RBC 3.34 M/mm3 (3.60-5.2); RDW 15.3 % (11.6-15.6); WHITE BLOOD COUNT 18.8 K/mm3 (4.0-10.0)
[2017-09-12 08:45] LABS: ALBUMIN 1.7 g/dl (3.4-5.0); ALK PHOS 223 U/L (45-117); ANION GAP 8 (8-16); BILIRUBIN,TOTAL 0.6 mg/dL (0.2-1.0); BLOOD UREA NITROGEN 15 mg/dL (7-18); CALCIUM 8.1 mg/dL (8.5-10.1); CHLORIDE 110 mmol/L (98-107); CO2 24 mmol/L (21-32); CREATININE 0.5 mg/dL (0.55-1.02); GLUCOSE,RANDOM 127 mg/dL (74-106); POTASSIUM 4.1 mmol/L (3.5-5.1); SGOT/AST 119 U/L (15-37); SGPT/ALT 58 U/L (12-78); SODIUM 142 mmol/L (136-145); TOT PROT 5.2 g/dl (6.4-8.2)
[2017-09-12 09:14] LABS: PLATELET COUNT 631 K/MM3 (134-434)
--- NOTE | 2017-09-12 09:50 | PN ---
Progress Note, Physician History of Present Illness: Sitting upright in bed Feeling better Reports less cough and L pleuritic chest pain Breathing non-labored at rest Temps down on steroids WBC remains elevated BC no growth Sputum c/s nornmal sangeetha - Current Medication List Current Medications: Active Medications Acetaminophen (Tylenol -) 650 mg PO Q4H PRN PRN Reason: FEVER Last Admin: 09/10/17 15:09 Dose: 650 mg Albuterol Sulfate (Ventolin 0.083% Nebulizer Soln -) 1 amp NEB Q4H PRN PRN Reason: SHORT OF BREATH/WHEEZING Albuterol/Ipratropium (Duoneb -) 1 amp NEB RQID [facility] Last Admin: 09/11/17 20:25 Dose: 1 amp Artificial Tears (Artificial Tears) 1 drop OU BID PRN PRN Reason: DRY EYES Last Admin: 09/12/17 02:17 Dose: 1 drop Benzocaine/Menthol (Cepacol Lozenge -) 1 each MM PRN PRN PRN Reason: SORE THROAT Last Admin: 09/12/17 02:17 Dose: 1 each Enoxaparin Sodium (Lovenox -) 40 mg SQ DAILY [facility] Last Admin: 09/11/17 09:30 Dose: 40 mg Guaifenesin (Robitussin -) 10 ml PO Q6H PRN PRN Reason: COUGH Last Admin: 09/12/17 02:17 Dose: 10 ml Sodium Chloride (Normal Saline -) 1,000 mls @ 100 mls/hr IV ASDIR [facility] Last Admin: 09/11/17 21:15 Dose: 100 mls/hr Azithromycin 500 mg/ Dextrose 250 mls @ 250 mls/hr IVPB DAILY [facility] Last Admin: 09/11/17 09:29 Dose: 250 mls/hr Piperacillin/Tazobactam/Dextrose (Zosyn 3.375gm Ivpb (Premix)) 50 mls @ 100 mls /hr IVPB Q8H-IV ALEXIS PRN Reason: Protocol Last Admin: 09/12/17 02:16 Dose: 100 mls/hr Methylprednisolone Sodium Succinate (Solu-Medrol -) 40 mg IVPUSH Q8H-IV [facility] Last Admin: 09/12/17 00:59 Dose: 40 mg Metoclopramide HCl (Reglan -) 5 mg PO Q6H PRN PRN Reason: NAUSEA AND/OR VOMITING Last Admin: 09/12/17 04:36 Dose: 5 mg Nicotine (Nicoderm Patch -) 7 mg TD DAILY [facility] Last Admin: 09/11/17 09:29 Dose: 7 mg Oxycodone HCl (Roxicodone -) 20 mg PO Q4H PRN PRN Reason: PAIN LEVEL 7 - 10 Last Admin: 09/12/17 08:28 Dose: 20 mg Pantoprazole Sodium (Protonix -) 40 mg PO DAILY [facility] Last Admin: 09/11/17 09:28 Dose: 40 mg Trazodone HCl (Desyrel -) 50 mg PO HS [facility] Last Admin: 09/11/17 21:15 Dose: 50 mg - Objective Vital Signs: Vital Signs Temperature 97.4 F L 09/12/17 06:46 Pulse Rate 85 09/12/17 06:46 Respiratory Rate 20 09/12/17 06:46 Blood Pressure 133/86 09/12/17 06:46 O2 Sat by Pulse Oximetry (%) 95 09/11/17 21:00 Constitutional: Yes: No Distress Eyes: Yes: Conjunctiva Clear Cardiovascular: Yes: Regular Rate and Rhythm, S1, S2 Respiratory: Yes: Rhonchi Gastrointestinal: Yes: Normal Bowel Sounds, Soft. No: Tenderness Edema: Yes Edema: LLE: 1+, RLE: 1+ Labs: CBC, BMP 09/12/17 08:00 09/12/17 08:00 INR, PTT INR 1.50 (0.82-1.09) H 09/07/17 13:30 Assessment/Plan YOKO pneumonia Possible sepsis secondary to pneumonia COPD Scleroderma Continue zosyn/ zithromax Quantiferon
[2017-09-12] MEDS ORDERED: PT OWN MED DRAWER 7, Y5N ONE ×2 (10:17→16:45)
[2017-09-12] MEDS: NICOTINE 7 MG/24 HOURS TOPICAL PATCH TD SCH (10:18)
[2017-09-12] MEDS: ENOXAPARIN NA (PORCINE) 40 MG/0.4 ML DISP.SYRIN SQ SCH (10:18)
[2017-09-12] MEDS: AZITHROMYCIN IVPB 500 MG in DEXTROSE 5%-WATER - 250 ML IVPB SCH (10:18)
[2017-09-12] MEDS: PANTOPRAZOLE 40 MG TABLET (FP) PO SCH (10:18)
--- NOTE | 2017-09-12 13:31 | PN ---
Progress Note (short form) - Note Progress Note: PULMONARY States breathing is slowly improving. +cough with yellow sputum. No further fevers. Last Vital Signs Temp Pulse Resp BP Pulse Ox 98.2 F 92 H 19 129/72 98 09/12/17 09:10 09/12/17 09:10 09/12/17 09:10 09/12/17 09:10 09/12/17 09:10 Gen: NAD at rest Heart: RRR Lung: less YOKO rhonchi Abd: soft, nontender Ext: no edema CBC, BMP 09/12/17 08:00 09/12/17 08:00 Active Medications Acetaminophen (Tylenol -) 650 mg PO Q4H PRN PRN Reason: FEVER Last Admin: 09/10/17 15:09 Dose: 650 mg Albuterol Sulfate (Ventolin 0.083% Nebulizer Soln -) 1 amp NEB Q4H PRN PRN Reason: SHORT OF BREATH/WHEEZING Albuterol/Ipratropium (Duoneb -) 1 amp NEB RQID [facility] Last Admin: 09/12/17 08:00 Dose: 1 amp Artificial Tears (Artificial Tears) 1 drop OU BID PRN PRN Reason: DRY EYES Last Admin: 09/12/17 02:17 Dose: 1 drop Benzocaine/Menthol (Cepacol Lozenge -) 1 each MM PRN PRN PRN Reason: SORE THROAT Last Admin: 09/12/17 02:17 Dose: 1 each Enoxaparin Sodium (Lovenox -) 40 mg SQ DAILY [facility] Last Admin: 09/12/17 10:18 Dose: 40 mg Guaifenesin (Robitussin -) 10 ml PO Q6H PRN PRN Reason: COUGH Last Admin: 09/12/17 02:17 Dose: 10 ml Sodium Chloride (Normal Saline -) 1,000 mls @ 100 mls/hr IV ASDIR [facility] Last Admin: 09/11/17 21:15 Dose: 100 mls/hr Azithromycin 500 mg/ Dextrose 250 mls @ 250 mls/hr IVPB DAILY [facility] Last Admin: 09/12/17 10:18 Dose: 250 mls/hr Piperacillin/Tazobactam/Dextrose (Zosyn 3.375gm Ivpb (Premix)) 50 mls @ 100 mls /hr IVPB Q8H-IV [facility] PRN Reason: Protocol Last Admin: 09/12/17 10:18 Dose: 100 mls/hr Methylprednisolone Sodium Succinate (Solu-Medrol -) 40 mg IVPUSH Q8H-IV [facility] Last Admin: 09/12/17 10:18 Dose: 40 mg Metoclopramide HCl (Reglan -) 5 mg PO Q6H PRN PRN Reason: NAUSEA AND/OR VOMITING Last Admin: 09/12/17 04:36 Dose: 5 mg Nicotine (Nicoderm Patch -) 7 mg TD DAILY [facility] Last Admin: 09/12/17 10:18 Dose: 7 mg Oxycodone HCl (Roxicodone -) 20 mg PO Q4H PRN PRN Reason: PAIN LEVEL 7 - 10 Last Admin: 09/12/17 12:32 Dose: 20 mg Pantoprazole Sodium (Protonix -) 40 mg PO DAILY [facility] Last Admin: 09/12/17 10:18 Dose: 40 mg Trazodone HCl (Desyrel -) 50 mg PO HS [facility] Last Admin: 09/11/17 21:15 Dose: 50 mg A/P Left Upper Lobe Pneumonia Sepsis Lactic Acidosis resolved Scleroderma on Immunosuppressives HTN COPD - continue antibiotics - f/u sputum cultures - inhaled bronchodilators - continue medrol, can start to taper in AM if continues to improve - O2 to keep SpO2 >90% - IVF - PO as tolerated - DVT prophylaxis - will need outpt f/u of chest imaging in 6-8 weeks to ensure resolution of infiltrate - outpt PFTs Problem List - Problems (1) Pneumonia Code(s): J18.9 - PNEUMONIA, UNSPECIFIED ORGANISM Qualifiers: Pneumonia type: due to unspecified organism Laterality: unspecified laterality Lung location: lower lobe of lung Qualified Code(s): J18.1 - Lobar pneumonia, unspecified organism (2) Sepsis Code(s): A41.9 - SEPSIS, UNSPECIFIED ORGANISM (3) COPD (chronic obstructive pulmonary disease) Code(s): J44.9 - CHRONIC OBSTRUCTIVE PULMONARY DISEASE, UNSPECIFIED (4) Hypertension Code(s): I10 - ESSENTIAL (PRIMARY) HYPERTENSION Qualifiers: Hypertension type: essential hypertension Qualified Code(s): I10 - Essential (primary) hypertension
[2017-09-12] MEDS ORDERED: BISACODYL 10 MG SUPP.RECT RC ONE (14:32)
[2017-09-12] MEDS: SODIUM CHLORIDE 1,000 ML IV SCH ×2 (18:03→21:47)
[2017-09-12] MEDS ORDERED: PROCHLORPERAZINE MALEATE 5 MG TABLET PO ONE (20:49)
[2017-09-12] MEDS ORDERED: MELATONIN 5 MG TABLETS PO ONE (20:51)
[2017-09-12] MEDS: traZODone HCL 50 MG TABLET (FP) PO SCH (21:47)
[2017-09-12] MEDS: MAG HYDROX/AL HYDROX/SIMETH 30 ML UNIT-DOSE CUP PO PRN (21:47)
[2017-09-13] MEDS ORDERED: PT OWN MED DRAWER 7, Y5N ONE ×4 (00:27→17:05)
[2017-09-13] MEDS: PIPERACILLIN/TAZOB 3.375 GM 50 ML IVPB SCH ×3 (02:51→17:08)
[2017-09-13] MEDS: methylPREDNISolone NA SUCC 40 MG/1 ML VIAL IVPUSH SCH ×3 (02:51→21:24)
[2017-09-13] MEDS: oxyCODONE HCL 5 MG TABLET PO PRN ×4 (04:54→20:03)
--- NOTE | 2017-09-13 05:51 | PN ---
Physical Exam: SUBJECTIVE: Patient seen and examined - Pt coughing up foaming expectorate overnight per nursing. Ordered for compazine, mylanta by night team. Pt also complaining of insomnia, order melatonin 10mg. Afebrile, VSS. Pt with persistent Oxycodone use for pain control overnight. All cultures negative to date, still with elevated WBC 18. - Still with cough, less sputum production; endorses less chest, ab pain with coughing; multiple BMs overnight; Endorsing some subjective chills, dry throat and LE swelling; denies f/n/v/d, SOB, dizziness, KELLY, vision changes, dysuria, peripheral numbness/weakness OBJECTIVE: Vital Signs Intake & Output 09/10/17 09/11/17 09/12/17 09/13/17 23:59 23:59 23:59 23:59 Intake Total 3070 3550 3283 Balance 3070 3550 3283 Period Temp Pulse Resp BP Sys/Hoyt Pulse Ox Last 24 Hr 97.4 F-98.7 F 82-92 19-20 112-133/59-86 98-98 GENERAL: Elderly woman lying in bed, NAD, A&Ox3 HEAD: Normal with no signs of trauma. EYES: Pinpoint pupils, extraocular movements intact, sclera anicteric, conjunctiva clear. No ptosis. ENT: Poor dentition. Ears normal, nares patent, oropharynx clear without exudates, moist mucous membranes, no exudate or erythema NECK: Trachea midline, full range of motion, supple. LUNGS: Trace crackles in YOKO, trace expiratory in LLL, good air entry, No wheezing, rhonchi noted. HEART: Regular rate and rhythm, S1, S2 without murmur, rub or gallop. Still with pain on palpation of anterior chest wall. ABDOMEN: Slightly TTP in all 4 quadrants. Soft, nondistended, normoactive bowel sounds, no guarding, no rebound, no hepatosplenomegaly, no masses. Mild BL CVA tenderness EXTREMITIES: 2+ pulses, warm, well-perfused. Dry skin in feet BL. 1+ BL nonpitting edema in LEs. NEUROLOGICAL: Cranial nerves II through XII grossly intact. Normal speech, gait not observed. PSYCH: Normal mood, normal affect. Pleasant SKIN: Warm, dry, normal turgor, no rashes or lesions noted Laboratory Results - last 24 hr CBC, BMP 09/13/17 07:35 09/13/17 07:35 09/12/17 08:00 09/12/17 08:00 09/12/17 09/12/17 08:00 08:00 WBC 18.8 H RBC 3.34 L Hgb 9.4 L Hct 28.7 L MCV 85.9 MCH 28.3 MCHC 32.9 RDW 15.3 Plt Count 631 H D MPV 8.4 Neutrophils % 88.5 H Lymphocytes % 6.1 L D Monocytes % 5.2 D Eosinophils % 0.0 Basophils % 0.2 Sodium 142 Potassium 4.1 Chloride 110 H Carbon Dioxide 24 Anion Gap 8 BUN 15 Creatinine 0.5 L Creat Clearance w eGFR > 60 Random Glucose 127 H Calcium 8.1 L Total Bilirubin 0.6 D AST 119 H ALT 58 Alkaline Phosphatase 223 H Total Protein 5.2 L Albumin 1.7 L Active Medications Generic Name Dose Route Start Last Admin Trade Name Freq PRN Reason Stop Dose Admin Acetaminophen 650 mg 09/08/17 21:07 09/10/17 15:09 Tylenol - PO 650 mg Q4H PRN Administration FEVER Al Hydroxide/Mg Hydroxide 30 ml 09/12/17 20:49 09/12/17 21:47 Mylanta Oral Suspension - PO 30 ml Q6H PRN Administration DYSPEPSIA Albuterol Sulfate 1 amp 09/09/17 13:55 Ventolin 0.083% Nebulizer Soln - NEB Q4H PRN SHORT OF BREATH/WHEEZING Albuterol/Ipratropium 1 amp 09/09/17 16:00 09/12/17 20:00 Duoneb - NEB 1 amp RQID ALEXIS Administration Artificial Tears 1 drop 09/10/17 16:38 09/12/17 02:17 Artificial Tears OU 1 drop BID PRN Administration DRY EYES Benzocaine/Menthol 1 each 09/08/17 03:24 09/12/17 02:17 Cepacol Lozenge - MM 1 each PRN PRN Administration SORE THROAT Enoxaparin Sodium 40 mg 09/09/17 10:00 09/12/17 10:18 Lovenox - SQ 40 mg DAILY ALEXIS Administration Guaifenesin 10 ml 09/10/17 22:33 09/12/17 02:17 Robitussin - PO 10 ml Q6H PRN Administration COUGH Sodium Chloride 1,000 mls @ 100 mls/hr 09/07/17 20:30 09/12/17 21:47 Normal Saline - IV 100 mls/hr ASDIR ALEXIS Administration Azithromycin 500 mg/ Dextrose 250 mls @ 250 mls/hr 09/08/17 10:00 09/12/17 10 :18 IVPB 250 mls/hr DAILY ALEXIS Administration Piperacillin/Tazobactam/Dextrose 50 mls @ 100 mls/hr 09/09/17 18:00 09/13/17 02:51 Zosyn 3.375gm Ivpb (Premix) IVPB 100 mls/hr Q8H-IV ALEXIS Administration Protocol Methylprednisolone Sodium Succinate 40 mg 09/11/17 18:00 09/13/17 02:51 Solu-Medrol - IVPUSH 40 mg Q8H-IV ALEXIS Administration Metoclopramide HCl 5 mg 09/07/17 21:28 09/12/17 04:36 Reglan - PO 5 mg Q6H PRN Administration NAUSEA AND/OR VOMITING Nicotine 7 mg 09/07/17 21:45 09/12/17 10:18 Nicoderm Patch - TD 7 mg DAILY ALEXIS Administration Oxycodone HCl 20 mg 09/07/17 21:28 09/13/17 04:54 Roxicodone - PO 20 mg Q4H PRN Administration PAIN LEVEL 7 - 10 Pantoprazole Sodium 40 mg 09/07/17 21:45 09/12/17 10:18 Protonix - PO 40 mg DAILY ALEXIS Administration Trazodone HCl 50 mg 09/07/17 22:00 09/12/17 21:47 Desyrel - PO 50 mg HS ALEXIS Administration Microbiology 09/08/17 22:00 Blood - Peripheral Venous Blood Culture - Preliminary NO GROWTH OBTAINED AFTER 96 HOURS, INCUBATION TO CONTINUE FOR 1 DAYS. 09/07/17 12:06 Blood - Peripheral Venous Blood Culture - Final NO GROWTH AFTER 5 DAYS INCUBATION 09/07/17 12:06 Blood - Peripheral Venous Blood Culture - Final NO GROWTH AFTER 5 DAYS INCUBATION 09/08/17 23:00 Sputum - Expectorated Gram Stain - Final 09/08/17 23:00 Sputum - Expectorated Sputum Culture - Final NORMAL RESPIRATORY FABIAN 09/08/17 06:45 Sputum - Expectorated Gram Stain - Final 09/08/17 06:45 Sputum - Expectorated Sputum Culture - Final NORMAL RESPIRATORY FABIAN 09/08/17 23:00 Urine - Urine Clean Catch Urine Culture - Final NO GROWTH OBTAINED 09/07/17 15:00 Urine - Urine Clean Catch Urine Culture - Final 09/08/17 23:00 Urine - Urine Clean Catch Legionella Antigen - Final 09/08/17 23:00 Urine - Urine Clean Catch Streptococcus pneumoniae Antigen ( M - Final 09/08/17 20:16 Nasopharyngeal Swab Influenza Types A,B Antigen (ENRIQUE) - Final 09/08/17 20:16 Nasopharyngeal Swab - Final CXR 09/07 - YOKO opacity suspect for pneumonia Chest CTA 09/07 - YOKO infiltrate, emphysematous changes noted bilaterally CXR 09/08 - YOKO infiltrate EKG: NSR, rate of 130, QTC 473 RUQ US 09/09 - Biliary sludge, no stones noted, mild hepatomegaly CXR 09/10 - Persistent YOKO infiltrate with increased vascular markings at bases. CXR 09/12 - Still with YOKO infiltrate ASSESSMENT/PLAN: 62 year old female with a history of scleroderma, hypertension, and emphysema presented to the ED with chest pain, cough productive of green sputum, and admitted for the treatment of severe sepsis 2/2 pneumonia. Pt continues improving, however possible AI flare in setting of held IS. #Severe Sepsis 2/2 Pneumonia - No fever overnight; still with productive cough -ID following, recs appreciated - monitor for hypotension; if BP <90, bolus 1L - all cultures negative to date - flu negative - c/w IVFs - Trend WBC, fever curve - hold cellcept/hydroxychloroquine/methotrexate - O2 support as needed - urine PNA antigens negative - Zosyn day 4, completed 5 day course of AZA - Pulm consulted, recs appreciated; will possibly need bronch if no improvement - short course of IV steroids; switch to PO steroids tomorrow - repeat outpt cxr in 6-8 weeks #Chest pain secondary to chronic cough - robitussin PRN - cepacol lozenges - oxy 20mg prn for breakthrough pain - tylenol prn #elevated Alk phos/T bili - RUQ u/s with hepatomeagay, biliary sludge; likely secondary to decreased Po intake - T bili normalized, LFTs uptrending - continue to monitor #Scleroderma - chronic -Rheum consulted - trial of flexeril - hold cellcept/hydroxy/methotrexate currently - Will need to f/u with outpt labor and delivery nurse for further management #Emphysema-chronic -duonebs QID; ventolin q4h PRN - O2 support - Pulm consulted #Hypertension-cont holding home HTN meds as still normotensive -hold amlodipine 5mg QD -hold losartan 12.5 QD #constipation -dulcolax #GERD - PPI #Chronic pain -ultram - tylenol #Smoking Cessation: -nicotine patch - counseling #Nausea - well controlled -reglan prn #FEN PO hydration Daily lytes Sodium controlled diet #Prophylaxis Lovenox #Disposition M/S Plan discussed with attending, Dr. Boris Phelps, PGY1 Visit type - Emergency Visit Emergency Visit: Yes ED Registration Date: 09/07/17 Care time: The patient presented to the Emergency Department on the above date and was hospitalized for further evaluation of their emergent condition. - New Patient This patient is new to me today: No - Critical Care Critical Care patient: No
[2017-09-13 08:07] LABS: BASO % 0.5 % (0-2.0); HEMATOCRIT 27.4 % (32.4-45.2); LYMPH % 6.7 % (8-40); MCH 28.6 pg (25.7-33.7); MCHC 32.7 g/dl (32.0-36.0); MEAN CELL VOLUME 87.2 fl (80-96); MEAN PLT VOLUME 8.3 fl (7.5-11.1); NEUT % 87.8 % (42.8-82.8); PLATELET COUNT 578 K/MM3 (134-434); RBC 3.14 M/mm3 (3.60-5.2); WHITE BLOOD COUNT 14.3 K/mm3 (4.0-10.0)
--- NOTE | 2017-09-13 08:10 | PN ---
Teaching Attending Note Name of Resident: Jenaro Phelps ATTENDING PHYSICIAN STATEMENT I saw and evaluated the patient. I reviewed the resident's note and discussed the case with the resident. I agree with the resident's findings and plan as documented with exceptions mentioned below. SUBJECTIVE: Patient seen and examined. reports generalized pain and spasms which are intermittent and attributes to her autoimmune disease and improved with ambulation. breathing has improved. OBJECTIVE: Vital Signs Period Temp Pulse Resp BP Sys/Hoyt Pulse Ox Last 24 Hr 98 F-98.7 F 80-92 19-20 112-129/59-74 98-98 Intake & Output 09/10/17 09/11/17 09/12/17 09/13/17 23:59 23:59 23:59 23:59 Intake Total 3070 3550 3283 870 Balance 3070 3550 3283 870 General: sitting in bed in no acute distress Chest: improved rales and air entry Abdomen: soft, NT, ND, positive bowel sounds, Neg Marks's sign Home Medication List Medication Instructions Recorded Confirmed Type Omeprazole [Prilosec (RX)] 40 mg PO DAILY 03/29/14 09/08/17 History Hydroxychloroquine Sulfate 200 mg PO BID 10/07/14 09/11/17 History Mycophenolate Mofetil [Cellcept -] 500 mg PO AM 10/07/14 09/11/17 History Oxycodone HCl 20 mg PO Q4H PRN 11/19/14 09/08/17 History traMADol HCL [Ultram] 50 mg PO Q6H PRN 11/19/14 09/08/17 History traZODone HCL [Desyrel -] 50 mg PO HS 11/19/14 09/08/17 History Gabapentin [Neurontin -] 200 mg PO Q8H 09/08/17 09/11/17 History Losartan Potassium [Cozaar -] 12.5 mg PO DAILY 09/08/17 09/11/17 History Amlodipine Besylate [Norvasc -] 5 mg PO DAILY 09/11/17 09/11/17 History Methotrexate Sodium/Pf 25 mg SQ WEEKLY 09/11/17 09/11/17 History [Methotrexate 25 mg/ml Vial] Umeclidinium [place] [Incruse 62.5 mcg IH DAILY 09/11/17 09/11/17 History Ellipta] Active Medications Generic Name Dose Route Start Last Admin Trade Name Freq PRN Reason Stop Dose Admin Acetaminophen 650 mg 09/08/17 21:07 09/10/17 15:09 Tylenol - PO 650 mg Q4H PRN Administration FEVER Al Hydroxide/Mg Hydroxide 30 ml 09/12/17 20:49 09/12/17 21:47 Mylanta Oral Suspension - PO 30 ml Q6H PRN Administration DYSPEPSIA Albuterol Sulfate 1 amp 09/09/17 13:55 Ventolin 0.083% Nebulizer Soln - NEB Q4H PRN SHORT OF BREATH/WHEEZING Albuterol/Ipratropium 1 amp 09/09/17 16:00 09/12/17 20:00 Duoneb - NEB 1 amp RQID ALEXIS Administration Artificial Tears 1 drop 09/10/17 16:38 09/12/17 02:17 Artificial Tears OU 1 drop BID PRN Administration DRY EYES Benzocaine/Menthol 1 each 09/08/17 03:24 09/12/17 02:17 Cepacol Lozenge - MM 1 each PRN PRN Administration SORE THROAT Enoxaparin Sodium 40 mg 09/09/17 10:00 09/12/17 10:18 Lovenox - SQ 40 mg DAILY ALEXIS Administration Guaifenesin 10 ml 09/10/17 22:33 09/12/17 02:17 Robitussin - PO 10 ml Q6H PRN Administration COUGH Azithromycin 500 mg/ Dextrose 250 mls @ 250 mls/hr 09/08/17 10:00 09/12/17 10 :18 IVPB 250 mls/hr DAILY ALEXIS Administration Piperacillin/Tazobactam/Dextrose 50 mls @ 100 mls/hr 09/09/17 18:00 09/13/17 02:51 Zosyn 3.375gm Ivpb (Premix) IVPB 100 mls/hr Q8H-IV ALEXIS Administration Protocol Methylprednisolone Sodium Succinate 40 mg 09/13/17 08:15 Solu-Medrol - IVPUSH Q12H ALEXIS Metoclopramide HCl 5 mg 09/07/17 21:28 09/12/17 04:36 Reglan - PO 5 mg Q6H PRN Administration NAUSEA AND/OR VOMITING Nicotine 7 mg 09/07/17 21:45 09/12/17 10:18 Nicoderm Patch - TD 7 mg DAILY ALEXIS Administration Oxycodone HCl 20 mg 09/07/17 21:28 09/13/17 04:54 Roxicodone - PO 20 mg Q4H PRN Administration PAIN LEVEL 7 - 10 Pantoprazole Sodium 40 mg 09/07/17 21:45 09/12/17 10:18 Protonix - PO 40 mg DAILY ALEXIS Administration Trazodone HCl 50 mg 09/07/17 22:00 09/12/17 21:47 Desyrel - PO 50 mg HS ALEXIS Administration Microbiology 09/08/17 22:00 Blood - Peripheral Venous Blood Culture - Preliminary NO GROWTH OBTAINED AFTER 96 HOURS, INCUBATION TO CONTINUE FOR 1 DAYS. 09/07/17 12:06 Blood - Peripheral Venous Blood Culture - Final NO GROWTH AFTER 5 DAYS INCUBATION 09/07/17 12:06 Blood - Peripheral Venous Blood Culture - Final NO GROWTH AFTER 5 DAYS INCUBATION 09/08/17 23:00 Sputum - Expectorated Gram Stain - Final 09/08/17 23:00 Sputum - Expectorated Sputum Culture - Final NORMAL RESPIRATORY FABIAN 09/08/17 06:45 Sputum - Expectorated Gram Stain - Final 09/08/17 06:45 Sputum - Expectorated Sputum Culture - Final NORMAL RESPIRATORY FABIAN 09/08/17 23:00 Urine - Urine Clean Catch Urine Culture - Final NO GROWTH OBTAINED 09/07/17 15:00 Urine - Urine Clean Catch Urine Culture - Final 09/08/17 23:00 Urine - Urine Clean Catch Legionella Antigen - Final 09/08/17 23:00 Urine - Urine Clean Catch Streptococcus pneumoniae Antigen ( M - Final 09/08/17 20:16 Nasopharyngeal Swab Influenza Types A,B Antigen (ENRIQUE) - Final 09/08/17 20:16 Nasopharyngeal Swab - Final ASSESSMENT AND PLAN: 62 yof with PMHx of HTN, Scleroderma, emphysema, tobacco abuse, admitted with YOKO CAP with sepsis -YOKO CAP with severe sepsis -NSVT while straining at stool on 09/12 -Thrombocytosis,likely from infection, ?from underlying rheumatological process -Elevated INR with mild LFT abnormalities -Scleroderma -COPD/emphysema -Tobacco abuse -Constipation Plan: ID input appreciated. zosyn day 4, s/p 5 days of azithromycin. Sputum cultures noted, clinically improved. Pulmonary input noted.Change Solumedrol to 40 mg IV q12h, standing and prn nebs. Humidified air. Transition to PO prednisone in AM. No ambulatory oxygen needs currently Flu swab neg. Pain control with oxycodone/tylenol. Asymptomatic NSVT while straining at stools 09/12. Follow up 2D echo, continue Telemetry. Trend platelets, hematology input if fails to improve. Abdominal ultrasound noted, monitor LFts. Hold cellcept/plaquenil. ?patient on methotrexate. ?autoimmune disease flare in the absence of meds. Per ID, plan to hold immunosuppressants. Discuss with outpatient Rv Repairer. trial with flexeril. Smoking cessation counseling. Dulcolax per patient request. DVTPPX with lovenox Dispo in 24-48 hours on oral antibiotics per ID if continues to improve with outpatient rheumatology follow up. Follow up imaging in 6-8 weeks to ensure resolution. Plan discussed with patient in detail, all questions answered
[2017-09-13 08:24] LABS: ALBUMIN 1.7 g/dl (3.4-5.0); BILIRUBIN,TOTAL 0.4 mg/dL (0.2-1.0); CHLORIDE 110 mmol/L (98-107); CREATININE 0.5 mg/dL (0.55-1.02); POTASSIUM 4.5 mmol/L (3.5-5.1); SGOT/AST 121 U/L (15-37); SODIUM 143 mmol/L (136-145); TOT PROT 4.9 g/dl (6.4-8.2)
[2017-09-13] MEDS: MAG HYDROX/AL HYDROX/SIMETH 30 ML UNIT-DOSE CUP PO PRN ×2 (08:35→21:24)
[2017-09-13 08:47] LABS: ALK PHOS 225 U/L (45-117); ANION GAP 10 (8-16); BLOOD UREA NITROGEN 14 mg/dL (7-18); CALCIUM 7.7 mg/dL (8.5-10.1); CO2 23 mmol/L (21-32); GLUCOSE,RANDOM 119 mg/dL (74-106); SGPT/ALT 81 U/L (12-78)
[2017-09-13] MEDS: ALBUTEROL SO4 2.5/IPRATROPIUM 0.5 INH SOL 3 ML VIAL.NEB. NEB SCH ×4 (09:00→21:15)
[2017-09-13] MEDS: NICOTINE 7 MG/24 HOURS TOPICAL PATCH TD SCH (09:43)
[2017-09-13] MEDS: PANTOPRAZOLE 40 MG TABLET (FP) PO SCH (09:43)
[2017-09-13] MEDS: ENOXAPARIN NA (PORCINE) 40 MG/0.4 ML DISP.SYRIN SQ SCH (09:43)
[2017-09-13] MEDS: AZITHROMYCIN IVPB 500 MG in DEXTROSE 5%-WATER - 250 ML IVPB SCH (09:44)
--- NOTE | 2017-09-13 11:56 | PN ---
Progress Note (short form) - Note Progress Note: complains of bodyaches and spasms notes edema in her legs cough with yellow sputum Vital Signs Period Temp Pulse Resp BP Sys/Hoyt Pulse Ox Last 24 Hr 98 F-98.7 F 80-102 19-20 112-128/56-74 94-98 cor-rrr lungs decreased bs at bases abd soft,nt ext +trace edema both legs CBC, BMP 09/13/17 07:35 09/13/17 07:35 Microbiology 09/08/17 22:00 Blood - Peripheral Venous Blood Culture - Preliminary NO GROWTH OBTAINED AFTER 96 HOURS, INCUBATION TO CONTINUE FOR 1 DAYS. 09/07/17 12:06 Blood - Peripheral Venous Blood Culture - Final NO GROWTH AFTER 5 DAYS INCUBATION 09/07/17 12:06 Blood - Peripheral Venous Blood Culture - Final NO GROWTH AFTER 5 DAYS INCUBATION 09/08/17 23:00 Sputum - Expectorated Gram Stain - Final 09/08/17 23:00 Sputum - Expectorated Sputum Culture - Final NORMAL RESPIRATORY FABIAN 09/08/17 06:45 Sputum - Expectorated Gram Stain - Final 09/08/17 06:45 Sputum - Expectorated Sputum Culture - Final NORMAL RESPIRATORY FABIAN 09/08/17 23:00 Urine - Urine Clean Catch Urine Culture - Final NO GROWTH OBTAINED 09/07/17 15:00 Urine - Urine Clean Catch Urine Culture - Final 09/08/17 23:00 Urine - Urine Clean Catch Legionella Antigen - Final 09/08/17 23:00 Urine - Urine Clean Catch Streptococcus pneumoniae Antigen ( M - Final 09/08/17 20:16 Nasopharyngeal Swab Influenza Types A,B Antigen (ENRIQUE) - Final 09/08/17 20:16 Nasopharyngeal Swab - Final cxray persistent YOKO infiltrate- looks less dense a/p pneumonia- ccontinue zosyn,day #4 zosyn, d/c zithromax, day #6 zithromax history of scleroderma- immunosuppressives on hold clinically improving leukocytosis- infection/steroids
--- NOTE | 2017-09-13 12:00 | PN ---
Progress Note, Physician History of Present Illness: pulmonary alert,less dyspneic,c/o generalizes pain - Current Medication List Current Medications: Active Medications Acetaminophen (Tylenol -) 650 mg PO Q4H PRN PRN Reason: FEVER Last Admin: 09/10/17 15:09 Dose: 650 mg Al Hydroxide/Mg Hydroxide (Mylanta Oral Suspension -) 30 ml PO Q6H PRN PRN Reason: DYSPEPSIA Last Admin: 09/13/17 08:35 Dose: 30 ml Albuterol Sulfate (Ventolin 0.083% Nebulizer Soln -) 1 amp NEB Q4H PRN PRN Reason: SHORT OF BREATH/WHEEZING Albuterol/Ipratropium (Duoneb -) 1 amp NEB RQID ALEXIS Last Admin: 09/12/17 20:00 Dose: 1 amp Artificial Tears (Artificial Tears) 1 drop OU BID PRN PRN Reason: DRY EYES Last Admin: 09/12/17 02:17 Dose: 1 drop Benzocaine/Menthol (Cepacol Lozenge -) 1 each MM PRN PRN PRN Reason: SORE THROAT Last Admin: 09/12/17 02:17 Dose: 1 each Cyclobenzaprine HCl (Flexeril -) 5 mg PO TID [facility] Enoxaparin Sodium (Lovenox -) 40 mg SQ DAILY [facility] Last Admin: 09/13/17 09:43 Dose: 40 mg Guaifenesin (Robitussin -) 10 ml PO Q6H PRN PRN Reason: COUGH Last Admin: 09/12/17 02:17 Dose: 10 ml Piperacillin/Tazobactam/Dextrose (Zosyn 3.375gm Ivpb (Premix)) 50 mls @ 100 mls /hr IVPB Q8H-IV ALEXIS PRN Reason: Protocol Last Admin: 09/13/17 09:43 Dose: 100 mls/hr Methylprednisolone Sodium Succinate (Solu-Medrol -) 40 mg IVPUSH BID [facility] Last Admin: 09/13/17 09:42 Dose: 40 mg Metoclopramide HCl (Reglan -) 5 mg PO Q6H PRN PRN Reason: NAUSEA AND/OR VOMITING Last Admin: 09/12/17 04:36 Dose: 5 mg Nicotine (Nicoderm Patch -) 7 mg TD DAILY [facility] Last Admin: 09/13/17 09:43 Dose: 7 mg Oxycodone HCl (Roxicodone -) 20 mg PO Q4H PRN PRN Reason: PAIN LEVEL 7 - 10 Last Admin: 09/13/17 09:42 Dose: 20 mg Pantoprazole Sodium (Protonix -) 40 mg PO DAILY [facility] Last Admin: 09/13/17 09:43 Dose: 40 mg Trazodone HCl (Desyrel -) 50 mg PO HS [facility] Last Admin: 09/12/17 21:47 Dose: 50 mg - Objective Vital Signs: Vital Signs Temperature 98 F 09/13/17 08:35 Pulse Rate 102 H 09/13/17 10:57 Respiratory Rate 20 09/13/17 09:00 Blood Pressure 128/56 09/13/17 08:35 O2 Sat by Pulse Oximetry (%) 94 L 09/13/17 10:57 Constitutional: Yes: Well Nourished, Calm Eyes: Yes: WNL HENT: Yes: WNL Neck: Yes: WNL Cardiovascular: Yes: Regular Rate and Rhythm, S1, S2 Respiratory: Yes: On BiPap (few rhonchi), Rhonchi Gastrointestinal: Yes: Normal Bowel Sounds, Soft Extremities: Yes: WNL Edema: Yes Labs: CBC, BMP 09/13/17 07:35 09/13/17 07:35 INR, PTT INR 1.50 (0.82-1.09) H 09/07/17 13:30 - ....Imaging Chest X-ray: Report Reviewed, Image Reviewed (jordan infiltrate less dense) Assessment/Plan roblem List - Problems (1) Pneumonia Code(s): J18.9 - PNEUMONIA, UNSPECIFIED ORGANISM Qualifiers: Pneumonia type: due to unspecified organism Laterality: unspecified laterality Lung location: lower lobe of lung Qualified Code(s): J18.1 - Lobar pneumonia, unspecified organism (2) Sepsis Code(s): A41.9 - SEPSIS, UNSPECIFIED ORGANISM (3) COPD (chronic obstructive pulmonary disease) Code(s): J44.9 - CHRONIC OBSTRUCTIVE PULMONARY DISEASE, UNSPECIFIED (4) Hypertension Code(s): I10 - ESSENTIAL (PRIMARY) HYPERTENSION Qualifiers: Hypertension type: essential hypertension Qualified Code(s): I10 - Essential (primary) hypertension Assessment/Plan Left Upper Lobe Pneumonia improving Sepsis Lactic Acidosis resolved Scleroderma on Immunosuppressives HTN COPD - abx as per ID - inhaled bronchodilators, will change to standing and PRN - medrol taper - O2 to keep SpO2 >90% - IVF - PO as tolerated - DVT prophylaxis - outpt f/u of chest imaging in 6-8 weeks to ensure resolution of infiltrate - PFTs DR GALLEGO
[2017-09-13] MEDS: CYCLOBENZAPRINE HCL 10 MG TABLET (FP) PO SCH ×2 (13:01→21:25)
--- NOTE | 2017-09-13 13:44 | MSN ---
Progress Note (SOAP) - Subjective Chief Complaint: sepsis 2/2 PNA History of Present Illness: Eleni Roy is a 62 year old female with a PMHx of HTN, scleroderma, and emphysema who presented to the hospital after developing a cough productive of green/brown sputum for one week, as well as chest pain with cough, shortness of breath. Patient endorsed decreased appetite, lethargy, nausea. It was noted that she had an increased WBC at 28.5, lactic acid at 2.3, and CXR showing YOKO infiltrate. Patient has a minor history of smoking and recently quit. The patient was admitted to telemetry and started on Vancomycin and Zosyn and given fluids. Home medications for scleroderma and HTN were held. Cultures were obtained and did not show any growth. Repeat CXRs showed improvement in infiltrate. Antibiotic regimen was switched to Azithromycin and Zosyn. Patient has since completed 6 day course of Azithromycin and is currently on day 4 of Zosyn. Patient is on Solu-Medrol taper as per pulmonology. Overnight patient had insomnia for which melatonin was ordered. Additionally, patient had a cough productive of foamy sputum for which she was given compazine and mylanta. Patient continued to take oxycodone for pain overnight. Today, patient was seen and examined at the bedside. Patient continue to report a productive cough with associated chest and abdominal pain when coughing. Additionally, patient reported severe myalgias in arms and legs especially with palpation. Patient reported swelling of her legs. Patient reported a headache which has since resolved and some chills. Patient endorsed nausea with no vomiting and stated that the nausea and GI upset had improved since being placed on Protonix and mylanta. Patient stated that she had minimal shortness of breath that only appeared when she was walking with physical therapy when she uses oxygen. Patient stated that when in bed, she does not have a nasal cannula on. Patient was requesting medication for the pain in her arms and legs. Patient denied dizziness, blurry vision, constipation, diarrhea, fevers. - Current Medications Current Medications: Active Medications Acetaminophen (Tylenol -) 650 mg PO Q4H PRN PRN Reason: FEVER Last Admin: 09/10/17 15:09 Dose: 650 mg Al Hydroxide/Mg Hydroxide (Mylanta Oral Suspension -) 30 ml PO Q6H PRN PRN Reason: DYSPEPSIA Last Admin: 09/13/17 08:35 Dose: 30 ml Albuterol Sulfate (Ventolin 0.083% Nebulizer Soln -) 1 amp NEB Q4H PRN PRN Reason: SHORT OF BREATH/WHEEZING Albuterol/Ipratropium (Duoneb -) 1 amp NEB RQID [facility] Last Admin: 09/13/17 09:00 Dose: 1 amp Artificial Tears (Artificial Tears) 1 drop OU BID PRN PRN Reason: DRY EYES Last Admin: 09/12/17 02:17 Dose: 1 drop Benzocaine/Menthol (Cepacol Lozenge -) 1 each MM PRN PRN PRN Reason: SORE THROAT Last Admin: 09/12/17 02:17 Dose: 1 each Cyclobenzaprine HCl (Flexeril -) 5 mg PO TID [facility] Last Admin: 09/13/17 13:01 Dose: 5 mg Enoxaparin Sodium (Lovenox -) 40 mg SQ DAILY [facility] Last Admin: 09/13/17 09:43 Dose: 40 mg Guaifenesin (Robitussin -) 10 ml PO Q6H PRN PRN Reason: COUGH Last Admin: 09/12/17 02:17 Dose: 10 ml Piperacillin/Tazobactam/Dextrose (Zosyn 3.375gm Ivpb (Premix)) 50 mls @ 100 mls /hr IVPB Q8H-IV [facility] PRN Reason: Protocol Last Admin: 09/13/17 09:43 Dose: 100 mls/hr Methylprednisolone Sodium Succinate (Solu-Medrol -) 40 mg IVPUSH BID [facility] Last Admin: 09/13/17 09:42 Dose: 40 mg Metoclopramide HCl (Reglan -) 5 mg PO Q6H PRN PRN Reason: NAUSEA AND/OR VOMITING Last Admin: 09/12/17 04:36 Dose: 5 mg Nicotine (Nicoderm Patch -) 7 mg TD DAILY [facility] Last Admin: 09/13/17 09:43 Dose: 7 mg Oxycodone HCl (Roxicodone -) 20 mg PO Q4H PRN PRN Reason: PAIN LEVEL 7 - 10 Last Admin: 09/13/17 09:42 Dose: 20 mg Pantoprazole Sodium (Protonix -) 40 mg PO DAILY [facility] Last Admin: 09/13/17 09:43 Dose: 40 mg Trazodone HCl (Desyrel -) 50 mg PO HS [facility] Last Admin: 09/12/17 21:47 Dose: 50 mg - Objective Vital Signs: Vital Signs Temperature 98 F 09/13/17 08:35 Pulse Rate 102 H 09/13/17 10:57 Respiratory Rate 20 09/13/17 09:00 Blood Pressure 128/56 09/13/17 08:35 O2 Sat by Pulse Oximetry (%) 94 L 09/13/17 10:57 Constitutional: Yes: Well Nourished, Moderate Distress Eyes: Yes: WNL, Conjunctiva Clear, EOM Intact HENT: Yes: WNL, Atraumatic, Normocephalic Neck: Yes: WNL, Supple, Trachea Midline Cardiovascular: Yes: WNL, Regular Rate and Rhythm, S1, S2 Respiratory: Yes: Cough, Wheezes, Other (coarse breath sounds in [place] lobe) Gastrointestinal: Yes: WNL, Normal Bowel Sounds, Soft Musculoskeletal: Yes: Muscle Pain, Other (generalized pain in extremeties, abdominal pain 2/2 cough) Extremities: Yes: WNL Edema: Yes Edema: LLE: Trace, RLE: Trace Integumentary: Yes: Other (dry skin) Neurological: Yes: WNL, Alert, Oriented ...Motor Strength: Yes: WNL Psychiatric: Yes: WNL, Alert, Oriented Labs Lab Results: CBC, BMP 09/13/17 07:35 09/13/17 07:35 Problem List - Problems (1) COPD (chronic obstructive pulmonary disease) Code(s): J44.9 - CHRONIC OBSTRUCTIVE PULMONARY DISEASE, UNSPECIFIED (2) Pneumonia Code(s): J18.9 - PNEUMONIA, UNSPECIFIED ORGANISM Qualifiers: Pneumonia type: due to unspecified organism Laterality: unspecified laterality Lung location: lower lobe of lung Qualified Code(s): J18.1 - Lobar pneumonia, unspecified organism (3) Scleroderma Code(s): M34.9 - SYSTEMIC SCLEROSIS, UNSPECIFIED (4) Sepsis Code(s): A41.9 - SEPSIS, UNSPECIFIED ORGANISM (5) Gastritis Code(s): K29.70 - GASTRITIS, UNSPECIFIED, WITHOUT BLEEDING (6) Hypertension Code(s): I10 - ESSENTIAL (PRIMARY) HYPERTENSION Qualifiers: Hypertension type: essential hypertension Qualified Code(s): I10 - Essential (primary) hypertension (7) Total body pain Code(s): R52 - PAIN, UNSPECIFIED Assessment/Plan Patient is a 62 year old female with a PMHx of HTn, scleroderma, emphysema who was admitted after developing a cough and shortness of breath and found with a PNA. Severe Sepsis 2/2 Pneumonia -admitted to telemetry -original WBC 28.5, since trended down to 18.8 and 14.3 -Lactate 2.3 repeat lactate 1.2, 1.5 -ID consult Dr. Gan/Dr Michaels appreciated -sputum culture grew normal respiratory sangeetha -blood culture did not grow any organisms -urine culture did not grow any organisms -patient completed 6 day course of Azithromycin, currently on day 4 of Zosyn course -2L nasal cannula if needed to maintain Sat>90 -Repeat CXR shows improvement -patient has remained afebrile ALLIE -fluid hydration -repeat BMP shows resolution, on 09/13 BUN 14, CRE 0.5 Scleroderma -previous visit had mycophenolate listed as well as hydroxychloroquine -meds held per ID -Flexeril and oxycodone for pain Emphysema -IV solumedrol 40mg bid -Duoneb qid -Ventolin q4h prn -Pre and post showed good O2 sat with exercise -Patient may require home O2 for sleep Hypertension -hold amlodipine 5mg QD -hold losartan 12.5 QD Smoking Cessation -nicotine patch Acute Dyspepsia -Protonix IV 40mg -Mylanta 30mL q6h prn F/E/N -Sodium controlled diet -Patient given dulcolax and colace and had bowel movement 09/12 after previous complaints of constipation DVT Prophylaxis -Lovenox 40mg Disposition -admitted to telemetry
[2017-09-13] MEDS: ACETAMINOPHEN 325 MG TABLET (FP) PO PRN (20:05)
[2017-09-13] MEDS: traZODone HCL 50 MG TABLET (FP) PO SCH (21:24)
[2017-09-14] MEDS: PIPERACILLIN/TAZOB 3.375 GM 50 ML IVPB SCH ×3 (01:37→17:08)
[2017-09-14] MEDS ORDERED: PT OWN MED DRAWER 7, Y5N ONE ×3 (01:49→17:00)
[2017-09-14] MEDS: oxyCODONE HCL 5 MG TABLET PO PRN ×4 (01:59→21:44)
--- NOTE | 2017-09-14 06:14 | PN ---
Physical Exam: SUBJECTIVE: Patient seen and examined by me this AM - No overnight events. Still with productive cough. no fevers, VSS. Continues to endorse CP, ab pain with coughing, however states it is improved. No chills, N/v, diarrhea, KELLY, dizziness, sob, focal neuro deficits. One formed, nonbloody BM overnight. Appetite improving. OBJECTIVE: Vital Signs Intake & Output 09/11/17 09/12/17 09/13/17 09/14/17 23:59 23:59 23:59 23:59 Intake Total 3550 3283 1800 Balance 3550 3283 1800 Period Temp Pulse Resp BP Sys/Hoyt Pulse Ox Last 24 Hr 93 F-98.1 F 77-102 18-20 128-142/56-82 94-98 GENERAL: Elderly woman, NAD, A&Ox3 HEAD: Normal with no signs of trauma. EYES: extraocular movements intact, sclera anicteric, conjunctiva clear. No ptosis. ENT: Poor dentition. Ears normal, nares patent, oropharynx clear without exudates, moist mucous membranes, no exudate or erythema NECK: Trachea midline, full range of motion, supple. LUNGS: Trace crackles in YOKO, BL expiratory wheezing, No wheezing, rhonchi noted. HEART: Regular rate and rhythm, S1, S2 without murmur, rub or gallop. Still with pain on palpation of anterior chest wall. ABDOMEN: TTP in all 4 quads. Soft, nondistended, normoactive bowel sounds, no guarding, no rebound, no hepatosplenomegaly, no masses. CVA tenderness BL. EXTREMITIES: 2+ pulses, warm, well-perfused. Dry skin in feet BL. 1+ BL nonpitting edema in LEs up to knees. NEUROLOGICAL: Cranial nerves II through XII grossly intact. Normal speech, gait not observed. PSYCH: Normal mood, normal affect. Pleasant SKIN: Warm, dry, normal turgor, no rashes or lesions noted Laboratory Results - last 24 hr CBC, BMP 09/14/17 05:35 09/14/17 05:35 09/13/17 07:35 09/13/17 07:35 09/13/17 09/13/17 07:35 07:35 WBC 14.3 H RBC 3.14 L Hgb 9.0 L Hct 27.4 L MCV 87.2 MCH 28.6 MCHC 32.7 RDW 16.0 H Plt Count 578 H MPV 8.3 Neutrophils % 87.8 H Lymphocytes % 6.7 L Monocytes % 5.0 Eosinophils % 0.0 Basophils % 0.5 Sodium 143 Potassium 4.5 Chloride 110 H Carbon Dioxide 23 Anion Gap 10 BUN 14 Creatinine 0.5 L Creat Clearance w eGFR > 60 Random Glucose 119 H Calcium 7.7 L Total Bilirubin 0.4 D AST 121 H ALT 81 H Alkaline Phosphatase 225 H Total Protein 4.9 L Albumin 1.7 L Active Medications Generic Name Dose Route Start Last Admin Trade Name Freq PRN Reason Stop Dose Admin Acetaminophen 650 mg 09/08/17 21:07 09/13/17 20:05 Tylenol - PO 650 mg Q4H PRN Administration FEVER Al Hydroxide/Mg Hydroxide 30 ml 09/12/17 20:49 09/13/17 21:24 Mylanta Oral Suspension - PO 30 ml Q6H PRN Administration DYSPEPSIA Albuterol Sulfate 1 amp 09/09/17 13:55 Ventolin 0.083% Nebulizer Soln - NEB Q4H PRN SHORT OF BREATH/WHEEZING Albuterol/Ipratropium 1 amp 09/09/17 16:00 09/13/17 21:15 Duoneb - NEB 1 amp RQID [facility] Administration Artificial Tears 1 drop 09/10/17 16:38 09/12/17 02:17 Artificial Tears OU 1 drop BID PRN Administration DRY EYES Benzocaine/Menthol 1 each 09/08/17 03:24 09/12/17 02:17 Cepacol Lozenge - MM 1 each PRN PRN Administration SORE THROAT Cyclobenzaprine HCl 5 mg 09/13/17 14:00 09/13/17 21:25 Flexeril - PO 5 mg TID [facility] Administration Enoxaparin Sodium 40 mg 09/09/17 10:00 09/13/17 09:43 Lovenox - SQ 40 mg DAILY [facility] Administration Guaifenesin 10 ml 09/10/17 22:33 09/12/17 02:17 Robitussin - PO 10 ml Q6H PRN Administration COUGH Piperacillin/Tazobactam/Dextrose 50 mls @ 100 mls/hr 09/09/17 18:00 09/14/17 01:37 Zosyn 3.375gm Ivpb (Premix) IVPB 100 mls/hr Q8H-IV [facility] Administration Protocol Methylprednisolone Sodium Succinate 40 mg 09/13/17 10:00 09/13/17 21:24 Solu-Medrol - IVPUSH 40 mg BID [facility] Administration Metoclopramide HCl 5 mg 09/07/17 21:28 09/12/17 04:36 Reglan - PO 5 mg Q6H PRN Administration NAUSEA AND/OR VOMITING Nicotine 7 mg 09/07/17 21:45 09/13/17 09:43 Nicoderm Patch - TD 7 mg DAILY [facility] Administration Oxycodone HCl 20 mg 09/07/17 21:28 09/14/17 01:59 Roxicodone - PO 20 mg Q4H PRN Administration PAIN LEVEL 7 - 10 Pantoprazole Sodium 40 mg 09/07/17 21:45 09/13/17 09:43 Protonix - PO 40 mg DAILY [facility] Administration Trazodone HCl 50 mg 09/07/17 22:00 09/13/17 21:24 Desyrel - PO 50 mg HS [facility] Administration Microbiology 09/08/17 22:00 Blood - Peripheral Venous Blood Culture - Final NO GROWTH AFTER 5 DAYS INCUBATION 09/07/17 12:06 Blood - Peripheral Venous Blood Culture - Final NO GROWTH AFTER 5 DAYS INCUBATION 09/07/17 12:06 Blood - Peripheral Venous Blood Culture - Final NO GROWTH AFTER 5 DAYS INCUBATION 09/08/17 23:00 Sputum - Expectorated Gram Stain - Final 09/08/17 23:00 Sputum - Expectorated Sputum Culture - Final NORMAL RESPIRATORY FABIAN 09/08/17 06:45 Sputum - Expectorated Gram Stain - Final 09/08/17 06:45 Sputum - Expectorated Sputum Culture - Final NORMAL RESPIRATORY FABIAN 09/08/17 23:00 Urine - Urine Clean Catch Urine Culture - Final NO GROWTH OBTAINED 09/07/17 15:00 Urine - Urine Clean Catch Urine Culture - Final 09/08/17 23:00 Urine - Urine Clean Catch Legionella Antigen - Final 09/08/17 23:00 Urine - Urine Clean Catch Streptococcus pneumoniae Antigen ( M - Final 09/08/17 20:16 Nasopharyngeal Swab Influenza Types A,B Antigen (ENRIQUE) - Final 09/08/17 20:16 Nasopharyngeal Swab - Final CXR 09/07 - YOKO opacity suspect for pneumonia Chest CTA 09/07 - YOKO infiltrate, emphysematous changes noted bilaterally CXR 09/08 - YOKO infiltrate EKG: NSR, rate of 130, QTC 473 RUQ US 09/09 - Biliary sludge, no stones noted, mild hepatomegaly CXR 09/10 - Persistent YOKO infiltrate with increased vascular markings at bases. CXR 09/12 - Still with YOKO infiltrate ASSESSMENT/PLAN: 62 year old female with a history of scleroderma, hypertension, and emphysema presented to the ED with chest pain, cough productive of green sputum, and admitted for the treatment of severe sepsis 2/2 pneumonia. Pt for discharge home tomorrow after one more day of IV abx. WIll d/c on home PO steroid taper and PO abx. #Severe Sepsis 2/2 Pneumonia - No fever overnight; still with productive cough -ID following, recs appreciated - monitor for hypotension; if BP <90, bolus 1L - all cultures negative to date - flu negative - PO hydration - Trend WBC, fever curve - hold cellcept/hydroxychloroquine/methotrexate - O2 support as needed - urine PNA antigens negative - Zosyn day 5; finish one more day of abx then d/c home tomorrow - Prednisone 60mg; taper on d/c - repeat outpt cxr in 6-8 weeks #Chest pain secondary to chronic cough - robitussin PRN - cepacol lozenges - oxy 20mg prn for breakthrough pain - tylenol prn #elevated Alk phos/T bili - RUQ u/s with hepatomeagay, biliary sludge; likely secondary to decreased Po intake - T bili normalized, LFTs improving today - continue to monitor #Scleroderma - chronic -Rheum consulted - hold cellcept/hydroxy/methotrexate currently - Will need to f/u with outpt talent analyst for further management #Emphysema-chronic -duonebs QID; ventolin q4h PRN; will d/c with duonebs QID for short course - O2 support - Pulm consulted #Hypertension-cont holding home HTN meds as still normotensive -hold amlodipine 5mg QD -hold losartan 12.5 QD #constipation -dulcolax #GERD - PPI #Chronic pain -ultram - tylenol #Smoking Cessation: -nicotine patch - counseling #Nausea - well controlled -reglan prn #FEN PO hydration Daily lytes Sodium controlled diet #Prophylaxis Lovenox #Disposition M/S Plan discussed with attending, Dr. Sunshine Phelps, PGY1 Visit type - Emergency Visit Emergency Visit: Yes ED Registration Date: 09/07/17 Care time: The patient presented to the Emergency Department on the above date and was hospitalized for further evaluation of their emergent condition. - New Patient This patient is new to me today: No - Critical Care Critical Care patient: No
[2017-09-14] MEDS: CYCLOBENZAPRINE HCL 10 MG TABLET (FP) PO SCH ×3 (06:40→21:43)
[2017-09-14 07:36] LABS: CHLORIDE 107 mmol/L (98-107); SODIUM 141 mmol/L (136-145)
[2017-09-14 07:51] LABS: ALBUMIN 1.7 g/dl (3.4-5.0); ALK PHOS 220 U/L (45-117); ANION GAP 8 (8-16); BILIRUBIN,TOTAL 0.4 mg/dL (0.2-1.0); BLOOD UREA NITROGEN 12 mg/dL (7-18); CALCIUM 7.7 mg/dL (8.5-10.1); CO2 26 mmol/L (21-32); CREATININE 0.6 mg/dL (0.55-1.02); GLUCOSE,RANDOM 145 mg/dL (74-106); SGPT/ALT 84 U/L (12-78); TOT PROT 4.7 g/dl (6.4-8.2)
[2017-09-14 08:02] LABS: HEMOGLOBIN 9.7 GM/dL (10.7-15.3); MCH 28.4 pg (25.7-33.7); MCHC 32.3 g/dl (32.0-36.0); MEAN CELL VOLUME 87.8 fl (80-96); MEAN PLT VOLUME 8.2 fl (7.5-11.1); PLATELET COUNT 616 K/MM3 (134-434); RBC 3.42 M/mm3 (3.60-5.2); WHITE BLOOD COUNT 16.6 K/mm3 (4.0-10.0)
[2017-09-14] MEDS: ALBUTEROL SO4 2.5/IPRATROPIUM 0.5 INH SOL 3 ML VIAL.NEB. NEB SCH ×2 (08:05→12:00)
[2017-09-14 08:08] LABS: POTASSIUM 4.9 mmol/L (3.5-5.1); SGOT/AST 90 U/L (15-37)
[2017-09-14] MEDS: ENOXAPARIN NA (PORCINE) 40 MG/0.4 ML DISP.SYRIN SQ SCH (09:43)
[2017-09-14] MEDS: PANTOPRAZOLE 40 MG TABLET (FP) PO SCH (09:44)
[2017-09-14] MEDS: NICOTINE 7 MG/24 HOURS TOPICAL PATCH TD SCH (09:44)
[2017-09-14] MEDS: predniSONE 20 MG TABLET (UD) PO SCH (09:50)
--- NOTE | 2017-09-14 12:18 | PN ---
Progress Note (short form) - Note Progress Note: PULMONARY Breathing continues to slowly improve. +coughing less with yellow sputum. No further fevers. Last Vital Signs Temp Pulse Resp BP Pulse Ox 98.2 F 83 16 145/76 95 09/14/17 06:43 09/14/17 06:43 09/14/17 06:43 09/14/17 06:43 09/13/17 21:00 Gen: NAD at rest Heart: RRR Lung: less YOKO rhonchi Abd: soft, nontender Ext: no edema CBC, BMP 09/14/17 05:35 09/14/17 05:35 Active Medications Acetaminophen (Tylenol -) 650 mg PO Q4H PRN PRN Reason: FEVER Last Admin: 09/13/17 20:05 Dose: 650 mg Al Hydroxide/Mg Hydroxide (Mylanta Oral Suspension -) 30 ml PO Q6H PRN PRN Reason: DYSPEPSIA Last Admin: 09/13/17 21:24 Dose: 30 ml Albuterol Sulfate (Ventolin 0.083% Nebulizer Soln -) 1 amp NEB Q4H PRN PRN Reason: SHORT OF BREATH/WHEEZING Albuterol/Ipratropium (Duoneb -) 1 amp NEB RQID [facility] Last Admin: 09/14/17 08:05 Dose: 1 amp Artificial Tears (Artificial Tears) 1 drop OU BID PRN PRN Reason: DRY EYES Last Admin: 09/12/17 02:17 Dose: 1 drop Benzocaine/Menthol (Cepacol Lozenge -) 1 each MM PRN PRN PRN Reason: SORE THROAT Last Admin: 09/12/17 02:17 Dose: 1 each Cyclobenzaprine HCl (Flexeril -) 5 mg PO TID [facility] Last Admin: 09/14/17 06:40 Dose: 5 mg Enoxaparin Sodium (Lovenox -) 40 mg SQ DAILY [facility] Last Admin: 09/14/17 09:43 Dose: 40 mg Guaifenesin (Robitussin -) 10 ml PO Q6H PRN PRN Reason: COUGH Last Admin: 09/12/17 02:17 Dose: 10 ml Piperacillin/Tazobactam/Dextrose (Zosyn 3.375gm Ivpb (Premix)) 50 mls @ 100 mls /hr IVPB Q8H-IV [facility] PRN Reason: Protocol Last Admin: 09/14/17 09:43 Dose: 100 mls/hr Metoclopramide HCl (Reglan -) 5 mg PO Q6H PRN PRN Reason: NAUSEA AND/OR VOMITING Last Admin: 09/12/17 04:36 Dose: 5 mg Nicotine (Nicoderm Patch -) 7 mg TD DAILY [facility] Last Admin: 09/14/17 09:44 Dose: 7 mg Oxycodone HCl (Roxicodone -) 20 mg PO Q4H PRN PRN Reason: PAIN LEVEL 7 - 10 Last Admin: 09/14/17 08:38 Dose: 20 mg Pantoprazole Sodium (Protonix -) 40 mg PO DAILY [facility] Last Admin: 09/14/17 09:44 Dose: 40 mg Prednisone (Deltasone -) 60 mg PO DAILY [facility] Last Admin: 09/14/17 09:50 Dose: 60 mg Trazodone HCl (Desyrel -) 50 mg PO HS [facility] Last Admin: 09/13/17 21:24 Dose: 50 mg A/P Left Upper Lobe Pneumonia Sepsis Lactic Acidosis resolved Scleroderma on Immunosuppressives HTN COPD - continue antibiotics per ID - inhaled bronchodilators - prednisone taper - O2 to keep SpO2 >90% - IVF - PO as tolerated - DVT prophylaxis - will need outpt f/u of chest imaging in 6-8 weeks to ensure resolution of infiltrate - outpt PFTs Problem List - Problems (1) Pneumonia Code(s): J18.9 - PNEUMONIA, UNSPECIFIED ORGANISM Qualifiers: Pneumonia type: due to unspecified organism Laterality: unspecified laterality Lung location: lower lobe of lung Qualified Code(s): J18.1 - Lobar pneumonia, unspecified organism (2) Sepsis Code(s): A41.9 - SEPSIS, UNSPECIFIED ORGANISM (3) COPD (chronic obstructive pulmonary disease) Code(s): J44.9 - CHRONIC OBSTRUCTIVE PULMONARY DISEASE, UNSPECIFIED (4) Hypertension Code(s): I10 - ESSENTIAL (PRIMARY) HYPERTENSION Qualifiers: Hypertension type: essential hypertension Qualified Code(s): I10 - Essential (primary) hypertension
--- NOTE | 2017-09-14 13:04 | PN ---
Teaching Attending Note Name of Resident: Jenaro Phelps ATTENDING PHYSICIAN STATEMENT I saw and evaluated the patient. I reviewed the resident's note and discussed the case with the resident. I agree with the resident's findings and plan as documented. SUBJECTIVE:states coughing is improved with less yellow productive sputum. some chest discomfort with coughing. notes swelling in legs improved. denies Cp, SOB , fever. chills, N/V/C/D OBJECTIVE: Last Vital Signs Temp Pulse Resp BP Pulse Ox 98.2 F 83 16 145/76 95 09/14/17 06:43 09/14/17 06:43 09/14/17 06:43 09/14/17 06:43 09/13/17 21:00 General NAD CV S1 S2 RRR no murmur/rub/gallop Lungs coarse breath sounds Abdomen soft NT/ND Extremities 1+ pitting edema B/L ASSESSMENT AND PLAN: 62 yo F with PMHx of HTN, Scleroderma, emphysema, tobacco abuse, admitted with YOKO CAP with sepsis 1. severe sepsis due to YOKO CAP- clinically improved. completed course of azithromycin. on Zosyn day 5. on medrol 40mg BID now switched to po. will need a slow taper. evaluated for home o2 but did not qualify. will need repeat CXR in 6 weeks. outpatient PFT and polysomography. cont inhalers. nebulizer n discharge 2. NSVT while straining at stool on 09/12- no repeat episodes. 3. leukocytosis- worsening due to steroids. on abx 4. Thrombophilia- stable. likely due to rheum proces while medications are on hold 5. Transaminitis- possible due to azithromycin. now trending down. slight hepatomegaly on imaging can have monitoring done as outpatient 6. Scleroderma- holding MTX and cellcept. multiple attempts to reach private fish boning machine feeder without response. rheum with privledges here away on vacation. encouraged pt to reach out rheum to notify of current condition and when medications should be restarted. 7. Continuous nicotine dependence- counselled on smoking cessation 8. pedal edema- likely due to steroids. now improved per pt. was on norvasc at home but its held here and started on this admission. leg elevation. compression stockings.no calf tenderness and symmetric b/l swelling with low suspicion for DVT 9. DVT ppx- lovenox 10. clinically improved anticipate discharge today or tomorrow pending ID recommendations.
--- NOTE | 2017-09-14 13:36 | MSN ---
Progress Note (SOAP) - Subjective Chief Complaint: sepsis 2/2 PNA History of Present Illness: Patient was seen and examined at the bedside. Overnight, patient did not have any acute events. Echo was performed and showed EF 55-60% with small pericardial effusion. Patient underwent pre and post exercise O2 measurements and showed good oxygenation. Patient walked 300 feet with physical therapy. Patient still complains of a cough with yellow sputum, mild shortness of breath improved from previous day, chest and abdominal pain associated with coughing, mild headaches that resolved, diffuse myalgias, swelling, and GI upset. She stated that pain medication and ambulation improved myalgia symptoms and that Protonix and Mylanta improved GI symptoms. - Current Medications Current Medications: Active Medications Acetaminophen (Tylenol -) 650 mg PO Q4H PRN PRN Reason: FEVER Last Admin: 09/13/17 20:05 Dose: 650 mg Al Hydroxide/Mg Hydroxide (Mylanta Oral Suspension -) 30 ml PO Q6H PRN PRN Reason: DYSPEPSIA Last Admin: 09/13/17 21:24 Dose: 30 ml Albuterol Sulfate (Ventolin 0.083% Nebulizer Soln -) 1 amp NEB Q4H PRN PRN Reason: SHORT OF BREATH/WHEEZING Albuterol/Ipratropium (Duoneb -) 1 amp NEB RQID [facility] Last Admin: 09/14/17 08:05 Dose: 1 amp Artificial Tears (Artificial Tears) 1 drop OU BID PRN PRN Reason: DRY EYES Last Admin: 09/12/17 02:17 Dose: 1 drop Benzocaine/Menthol (Cepacol Lozenge -) 1 each MM PRN PRN PRN Reason: SORE THROAT Last Admin: 09/12/17 02:17 Dose: 1 each Cyclobenzaprine HCl (Flexeril -) 5 mg PO TID [facility] Last Admin: 09/14/17 13:18 Dose: 5 mg Enoxaparin Sodium (Lovenox -) 40 mg SQ DAILY [facility] Last Admin: 09/14/17 09:43 Dose: 40 mg Guaifenesin (Robitussin -) 10 ml PO Q6H PRN PRN Reason: COUGH Last Admin: 09/12/17 02:17 Dose: 10 ml Piperacillin/Tazobactam/Dextrose (Zosyn 3.375gm Ivpb (Premix)) 50 mls @ 100 mls /hr IVPB Q8H-IV ALEXIS PRN Reason: Protocol Last Admin: 09/14/17 09:43 Dose: 100 mls/hr Metoclopramide HCl (Reglan -) 5 mg PO Q6H PRN PRN Reason: NAUSEA AND/OR VOMITING Last Admin: 09/12/17 04:36 Dose: 5 mg Nicotine (Nicoderm Patch -) 7 mg TD DAILY [facility] Last Admin: 09/14/17 09:44 Dose: 7 mg Oxycodone HCl (Roxicodone -) 20 mg PO Q4H PRN PRN Reason: PAIN LEVEL 7 - 10 Last Admin: 09/14/17 13:18 Dose: 20 mg Pantoprazole Sodium (Protonix -) 40 mg PO DAILY [facility] Last Admin: 09/14/17 09:44 Dose: 40 mg Prednisone (Deltasone -) 60 mg PO DAILY [facility] Last Admin: 09/14/17 09:50 Dose: 60 mg Trazodone HCl (Desyrel -) 50 mg PO HS [facility] Last Admin: 09/13/17 21:24 Dose: 50 mg - Objective Vital Signs: Vital Signs Temperature 97.4 F L 09/14/17 13:29 Pulse Rate 98 H 09/14/17 13:29 Respiratory Rate 20 09/14/17 13:29 Blood Pressure 131/76 09/14/17 13:29 O2 Sat by Pulse Oximetry (%) 96 09/14/17 09:00 Constitutional: Yes: Well Nourished, No Distress, Calm Eyes: Yes: WNL, Conjunctiva Clear, EOM Intact HENT: Yes: WNL, Atraumatic, Normocephalic Neck: Yes: WNL, Supple, Trachea Midline Cardiovascular: Yes: WNL, Regular Rate and Rhythm, S1, S2 Respiratory: Yes: Wheezes (mild expiratory wheezes), Other (mild coarse breath sounds in left upper lobe) Gastrointestinal: Yes: WNL, Normal Bowel Sounds, Soft Musculoskeletal: Yes: Muscle Pain Extremities: Yes: WNL Edema: Yes Edema: LLE: Trace, RLE: Trace Integumentary: Yes: Other (dry skin) Neurological: Yes: WNL, Alert, Oriented, Cran Nerves II-XII Intact ...Motor Strength: Yes: WNL Psychiatric: Yes: WNL, Alert, Oriented Labs Lab Results: CBC, BMP 09/14/17 05:35 09/14/17 05:35 Problem List - Problems (1) COPD (chronic obstructive pulmonary disease) Code(s): J44.9 - CHRONIC OBSTRUCTIVE PULMONARY DISEASE, UNSPECIFIED (2) Pneumonia Code(s): J18.9 - PNEUMONIA, UNSPECIFIED ORGANISM Qualifiers: Pneumonia type: due to unspecified organism Laterality: unspecified laterality Lung location: lower lobe of lung Qualified Code(s): J18.1 - Lobar pneumonia, unspecified organism (3) Scleroderma Code(s): M34.9 - SYSTEMIC SCLEROSIS, UNSPECIFIED (4) Sepsis Code(s): A41.9 - SEPSIS, UNSPECIFIED ORGANISM (5) Gastritis Code(s): K29.70 - GASTRITIS, UNSPECIFIED, WITHOUT BLEEDING (6) Hypertension Code(s): I10 - ESSENTIAL (PRIMARY) HYPERTENSION Qualifiers: Hypertension type: essential hypertension Qualified Code(s): I10 - Essential (primary) hypertension (7) Total body pain Code(s): R52 - PAIN, UNSPECIFIED Assessment/Plan Patient is a 62 year old female with a PMHx of HTN, scleroderma, emphysema who was admitted after developing a cough and shortness of breath and found with a PNA. Severe Sepsis 2/2 Pneumonia -admitted to telemetry -original WBC 28.5, since trended down to 18.8 and 14.3 -Lactate 2.3 repeat lactate 1.2, 1.5 -ID consult Dr. Gan/Dr Michaels appreciated -sputum culture grew normal respiratory sangeetha -blood culture did not grow any organisms -urine culture did not grow any organisms -patient completed 6 day course of Azithromycin, currently on day 5 of Zosyn course -2L nasal cannula if needed to maintain Sat>90 -Repeat CXR shows improvement -patient has remained afebrile -patient clinically improved to continue IV abx 24-48hrs per ID recommendations ALLIE -fluid hydration -repeat BMP shows resolution, on 09/13 BUN 14, CRE 0.5 Scleroderma -previous visit had mycophenolate listed as well as hydroxychloroquine -meds held per ID -Flexeril and oxycodone for pain Emphysema -IV solumedrol 40mg bid transitioned to oral prednisone 60mg daily -Duoneb qid -Ventolin q4h prn -Pre and post showed good O2 sat with exercise Hypertension -hold amlodipine 5mg QD -hold losartan 12.5 QD Smoking Cessation -nicotine patch Acute Dyspepsia -Protonix IV 40mg -Mylanta 30mL q6h prn F/E/N -Sodium controlled diet -Patient given dulcolax and colace and had bowel movement 4 after previous complaints of constipation DVT Prophylaxis -Lovenox 40mg Disposition -on telemetry unit
--- NOTE | 2017-09-14 14:11 | PN ---
Progress Note (short form) - Note Progress Note: less bodyaches today notes edema in her legs cough with yellow sputum Vital Signs Period Temp Pulse Resp BP Sys/Hoyt Pulse Ox Last 24 Hr 93 F-98.3 F 77-98 16-20 128-145/68-79 95-96 cor-rrr lungs scattered rhonchi abd soft,nt ext +edema CBC, BMP 09/14/17 05:35 09/14/17 05:35 Microbiology 09/08/17 22:00 Blood - Peripheral Venous Blood Culture - Final NO GROWTH AFTER 5 DAYS INCUBATION 09/07/17 12:06 Blood - Peripheral Venous Blood Culture - Final NO GROWTH AFTER 5 DAYS INCUBATION 09/07/17 12:06 Blood - Peripheral Venous Blood Culture - Final NO GROWTH AFTER 5 DAYS INCUBATION 09/08/17 23:00 Sputum - Expectorated Gram Stain - Final 09/08/17 23:00 Sputum - Expectorated Sputum Culture - Final NORMAL RESPIRATORY FABIAN 09/08/17 06:45 Sputum - Expectorated Gram Stain - Final 09/08/17 06:45 Sputum - Expectorated Sputum Culture - Final NORMAL RESPIRATORY FABIAN 09/08/17 23:00 Urine - Urine Clean Catch Urine Culture - Final NO GROWTH OBTAINED 09/07/17 15:00 Urine - Urine Clean Catch Urine Culture - Final 09/08/17 23:00 Urine - Urine Clean Catch Legionella Antigen - Final 09/08/17 23:00 Urine - Urine Clean Catch Streptococcus pneumoniae Antigen ( M - Final 09/08/17 20:16 Nasopharyngeal Swab Influenza Types A,B Antigen (ENRIQUE) - Final 09/08/17 20:16 Nasopharyngeal Swab - Final cxray persistent YOKO infiltrate- looks less dense a/p pneumonia- ccontinue zosyn,day #5 ton, would favor continuing iv antibiotics another 24 to 48 hours based on clinical improvement before switch to po history of scleroderma- immunosuppressives on hold clinically improving leukocytosis- infection/steroids
[2017-09-14 14:39] LABS: ANISOCYTOSIS 1+; PLATELET ESTIMATE INCREASED
[2017-09-14] MEDS: MAG HYDROX/AL HYDROX/SIMETH 30 ML UNIT-DOSE CUP PO PRN (15:46)
[2017-09-14] MEDS: POLYETHYLENE GLYCOL 3350 119 GM BTL PO ONE ×2 (17:08→17:27)
[2017-09-14] MEDS: traZODone HCL 50 MG TABLET (FP) PO SCH (21:43)
[2017-09-15] MEDS: PIPERACILLIN/TAZOB 3.375 GM 50 ML IVPB SCH ×3 (01:37→17:00)
[2017-09-15] MEDS ORDERED: PT OWN MED DRAWER 7, Y5N ONE ×3 (01:37→16:32)
[2017-09-15] MEDS: BENZOCAINE/MENTH/CETYLPYRD CL 1 EACH LOZENGE MM PRN (01:37)
[2017-09-15] MEDS: guaiFENesin 200 MG/10 ML 10 ML UNIT-DOSE CUPS PO PRN (01:37)
[2017-09-15] MEDS: oxyCODONE HCL 5 MG TABLET PO PRN ×4 (04:32→19:43)
[2017-09-15] MEDS: CYCLOBENZAPRINE HCL 10 MG TABLET (FP) PO SCH ×3 (05:54→21:17)
[2017-09-15 06:06] LABS: HEP.C VIRUS AB 0.1 s/co ratio (0.0-0.9)
--- NOTE | 2017-09-15 06:34 | PN ---
Physical Exam: SUBJECTIVE: Patient seen and examined - No major overnight events. Afebrile, VSS. Will d/c home today with outpt f/u with pulm group in two weeks and repeat imaging in 6-8 weeks - Denies f/c/n/v/d, ceballos, vision changes, rashes, focal neuro deficits; Still with mild productive cough, improved; occasionally SOB, complaining of MSK cp, back pain and ab pain but much better since admission; tolerating feeds with BM overnight OBJECTIVE: Vital Signs Intake & Output 09/12/17 09/13/17 09/14/17 09/15/17 23:59 23:59 23:59 23:59 Intake Total 3283 2190 1300 200 Balance 3283 2190 1300 200 Period Temp Pulse Resp BP Sys/Hoyt Pulse Ox Last 24 Hr 97.4 F-98.3 F 77-98 16-20 127-148/65-84 96-96 GENERAL: Elderly woman, NAD, A&Ox3 HEAD: Normal with no signs of trauma. EYES: extraocular movements intact, sclera anicteric, conjunctiva clear. No ptosis. ENT: Poor dentition. Ears normal, nares patent, oropharynx clear without exudates, moist mucous membranes, no exudate or erythema NECK: Trachea midline, full range of motion, supple. LUNGS: Trace crackles in YOKO, no wheezing, rhonchi noted. HEART: Regular rate and rhythm, S1, S2 without murmur, rub or gallop. No pain on palpation of anterior chest wall. ABDOMEN: No tenderness to palpation. Soft, nondistended, normoactive bowel sounds, no guarding, no rebound, no hepatosplenomegaly, no masses. No CVA tenderness noted. EXTREMITIES: 2+ pulses, warm, well-perfused. Dry skin in feet BL. Still with 1+ BL nonpitting edema in LE, improving NEUROLOGICAL: Cranial nerves II through XII grossly intact. Normal speech, gait not observed. PSYCH: Normal mood, normal affect. Pleasant SKIN: Warm, dry, normal turgor, no rashes or lesions noted Laboratory Results - last 24 hr CBC, BMP 09/15/17 05:35 09/15/17 05:35 09/11/17 09/14/17 09/14/17 11:35 05:35 05:35 WBC 16.6 H RBC 3.42 L Hgb 9.7 L Hct 30.0 L MCV 87.8 MCH 28.4 MCHC 32.3 RDW 16.0 H Plt Count 616 H MPV 8.2 Neutrophils % No Result Required. Neutrophils % (Manual) 87.0 H Band Neutrophils % 2.0 Lymphocytes % No Result Required. Lymphocytes % (Manual) 8.0 D Monocytes % (Manual) 3 L Hypochromia 1+ Platelet Estimate Increased Platelet Comment No clumping noted Anisocytosis 1+ Sodium Potassium Chloride Carbon Dioxide Anion Gap BUN Creatinine Creat Clearance w eGFR Random Glucose Calcium Total Bilirubin AST ALT Alkaline Phosphatase Total Protein Albumin Hepatitis A IgM Ab Negative Hep Bs Antigen Negative Hep B Core IgM Ab Negative Hepatitis C Antibody 0.1 TB Test (QFT) Indeterminate 09/14/17 05:35 WBC RBC Hgb Hct MCV MCH MCHC RDW Plt Count MPV Neutrophils % Neutrophils % (Manual) Band Neutrophils % Lymphocytes % Lymphocytes % (Manual) Monocytes % (Manual) Hypochromia Platelet Estimate Platelet Comment Anisocytosis Sodium 141 Potassium 4.9 Chloride 107 Carbon Dioxide 26 Anion Gap 8 BUN 12 Creatinine 0.6 Creat Clearance w eGFR > 60 Random Glucose 145 H Calcium 7.7 L Total Bilirubin 0.4 AST 90 H ALT 84 H Alkaline Phosphatase 220 H Total Protein 4.7 L Albumin 1.7 L Hepatitis A IgM Ab Hep Bs Antigen Hep B Core IgM Ab Hepatitis C Antibody TB Test (QFT) Active Medications Generic Name Dose Route Start Last Admin Trade Name Freq PRN Reason Stop Dose Admin Acetaminophen 650 mg 09/08/17 21:07 09/13/17 20:05 Tylenol - PO 650 mg Q4H PRN Administration FEVER Al Hydroxide/Mg Hydroxide 30 ml 09/12/17 20:49 09/14/17 15:46 Mylanta Oral Suspension - PO 30 ml Q6H PRN Administration DYSPEPSIA Artificial Tears 1 drop 09/10/17 16:38 09/12/17 02:17 Artificial Tears OU 1 drop BID PRN Administration DRY EYES Benzocaine/Menthol 1 each 09/08/17 03:24 09/15/17 01:37 Cepacol Lozenge - MM 1 each PRN PRN Administration SORE THROAT Cyclobenzaprine HCl 5 mg 09/13/17 14:00 09/15/17 05:54 Flexeril - PO 5 mg TID ALEXIS Administration Enoxaparin Sodium 40 mg 09/09/17 10:00 09/14/17 09:43 Lovenox - SQ 40 mg DAILY ALEXIS Administration Guaifenesin 10 ml 09/10/17 22:33 09/15/17 01:37 Robitussin - PO 10 ml Q6H PRN Administration COUGH Piperacillin/Tazobactam/Dextrose 50 mls @ 100 mls/hr 09/09/17 18:00 09/15/17 01:37 Zosyn 3.375gm Ivpb (Premix) IVPB 100 mls/hr Q8H-IV ALEXIS Administration Protocol Metoclopramide HCl 5 mg 09/07/17 21:28 09/12/17 04:36 Reglan - PO 5 mg Q6H PRN Administration NAUSEA AND/OR VOMITING Nicotine 7 mg 09/07/17 21:45 09/14/17 09:44 Nicoderm Patch - TD 7 mg DAILY ALEXIS Administration Oxycodone HCl 20 mg 09/07/17 21:28 09/15/17 04:32 Roxicodone - PO 20 mg Q4H PRN Administration PAIN LEVEL 7 - 10 Pantoprazole Sodium 40 mg 09/07/17 21:45 09/14/17 09:44 Protonix - PO 40 mg DAILY ALEXIS Administration Prednisone 60 mg 09/14/17 10:00 09/14/17 09:50 Deltasone - PO 60 mg DAILY ALEXIS Administration Trazodone HCl 50 mg 09/07/17 22:00 09/14/17 21:43 Desyrel - PO 50 mg HS ALEXIS Administration Microbiology 09/08/17 22:00 Blood - Peripheral Venous Blood Culture - Final NO GROWTH AFTER 5 DAYS INCUBATION 09/07/17 12:06 Blood - Peripheral Venous Blood Culture - Final NO GROWTH AFTER 5 DAYS INCUBATION 09/07/17 12:06 Blood - Peripheral Venous Blood Culture - Final NO GROWTH AFTER 5 DAYS INCUBATION 09/08/17 23:00 Sputum - Expectorated Gram Stain - Final 09/08/17 23:00 Sputum - Expectorated Sputum Culture - Final NORMAL RESPIRATORY FABIAN 09/08/17 06:45 Sputum - Expectorated Gram Stain - Final 09/08/17 06:45 Sputum - Expectorated Sputum Culture - Final NORMAL RESPIRATORY FABIAN 09/08/17 23:00 Urine - Urine Clean Catch Urine Culture - Final NO GROWTH OBTAINED 09/07/17 15:00 Urine - Urine Clean Catch Urine Culture - Final 09/08/17 23:00 Urine - Urine Clean Catch Legionella Antigen - Final 09/08/17 23:00 Urine - Urine Clean Catch Streptococcus pneumoniae Antigen ( M - Final 09/08/17 20:16 Nasopharyngeal Swab Influenza Types A,B Antigen (ENRIQUE) - Final 09/08/17 20:16 Nasopharyngeal Swab - Final CXR 09/07 - YOKO opacity suspect for pneumonia Chest CTA 09/07 - YOKO infiltrate, emphysematous changes noted bilaterally CXR 09/08 - YOKO infiltrate EKG: NSR, rate of 130, QTC 473 RUQ US 09/09 - Biliary sludge, no stones noted, mild hepatomegaly CXR 09/10 - Persistent YOKO infiltrate with increased vascular markings at bases. CXR 09/12 - Still with YOKO infiltrate Echo 09/14 - Normal LV/RV size and function; EF 55-60%; trace MR ASSESSMENT/PLAN: 62 year old female with a history of scleroderma, hypertension, and emphysema presented to the ED with chest pain, cough productive of green sputum, and admitted for the treatment of severe sepsis 2/2 pneumonia. Pt will go home tomorrow after completing 7 day IV abx course, d/c with PO abx per ID recommendations. Pt to received CXR in 6-8 weeks with outpt f/u with pulm team and motors and generators inspector. #Severe Sepsis 2/2 Pneumonia - No fever overnight; cough, breathing continue to improve - ID following, recs appreciated - monitor for hypotension; if BP <90, bolus 1L - all cultures negative to date - flu negative - PO hydration - Trend WBC, fever curve - hold cellcept/hydroxychloroquine/methotrexate; multiple attempts to contact outpt motors and generators inspector, inpt motors and generators inspector away on vacation; - O2 support as needed - urine PNA antigens negative - Zosyn day 6; last day of IV abx tomorrow, then PO meds on d/c - Prednisone 60mg; quick taper; will confirm with pulm group - repeat outpt cxr in 6-8 weeks #Chest pain secondary to chronic cough - improving, pain better controlled today - robitussin PRN - cepacol lozenges - oxy 20mg prn for breakthrough pain - tylenol prn #elevated Alk phos/T bili - RUQ u/s with hepatomegaly, biliary sludge; likely secondary to decreased PO intake - T bili normalized, LFTs stable - continue to monitor #Scleroderma - chronic - Rheum consulted; away on vacation; outpt motors and generators inspector unavailable - hold cellcept/hydroxy/methotrexate currently - Will need to f/u with outpt motors and generators inspector for further management #Emphysema-chronic -duonebs Q6h PRN; will d/c with duonebs QID for short course - O2 support - Pulm consulted #Hypertension-cont holding home HTN meds as still normotensive -restart home HTN meds tomorrow; trend BP #constipation -dulcolax prn #GERD - PPI - mylanta #Chronic pain - tylenol, oxy for pain #Smoking Cessation: -nicotine patch - counseling #Nausea - well controlled -reglan prn #FEN PO hydration Daily lytes Sodium controlled diet #Prophylaxis Lovenox #Disposition M/S Plan discussed with attending, Dr. Sunshine Phelps, PGY1 Visit type - Emergency Visit Emergency Visit: Yes ED Registration Date: 09/07/17 Care time: The patient presented to the Emergency Department on the above date and was hospitalized for further evaluation of their emergent condition. - New Patient This patient is new to me today: No - Critical Care Critical Care patient: No - Discharge Referral Referred to [facility] Med [facility] No
[2017-09-15 06:41] LABS: BASO % 0.2 % (0-2.0); EOS % 0.5 % (0-4.5); HEMATOCRIT 28.7 % (32.4-45.2); HEMOGLOBIN 9.6 GM/dL (10.7-15.3); MCH 29.2 pg (25.7-33.7); MCHC 33.5 g/dl (32.0-36.0); MEAN CELL VOLUME 87.2 fl (80-96); MEAN PLT VOLUME 7.9 fl (7.5-11.1); MONO % 7.5 % (3.8-10.2); NEUT % 79.8 % (42.8-82.8); PLATELET COUNT 689 K/MM3 (134-434); RBC 3.29 M/mm3 (3.60-5.2); RDW 15.7 % (11.6-15.6); WHITE BLOOD COUNT 16.5 K/mm3 (4.0-10.0)
[2017-09-15 07:05] LABS: CHLORIDE 105 mmol/L (98-107); POTASSIUM 4.6 mmol/L (3.5-5.1); SODIUM 140 mmol/L (136-145)
[2017-09-15 07:13] LABS: ANION GAP 5 (8-16); BLOOD UREA NITROGEN 12 mg/dL (7-18); CALCIUM 8.3 mg/dL (8.5-10.1); CO2 30 mmol/L (21-32); CREATININE 0.6 mg/dL (0.55-1.02); GLUCOSE,RANDOM 122 mg/dL (74-106)
[2017-09-15] MEDS: PANTOPRAZOLE 40 MG TABLET (FP) PO SCH (09:36)
[2017-09-15] MEDS: ENOXAPARIN NA (PORCINE) 40 MG/0.4 ML DISP.SYRIN SQ SCH (09:36)
[2017-09-15] MEDS: predniSONE 20 MG TABLET (UD) PO SCH (09:36)
[2017-09-15] MEDS: NICOTINE 7 MG/24 HOURS TOPICAL PATCH TD SCH (09:37)
--- NOTE | 2017-09-15 10:31 | PN ---
Teaching Attending Note Name of Resident: Jenaro Phelps ATTENDING PHYSICIAN STATEMENT I saw and evaluated the patient. I reviewed the resident's note and discussed the case with the resident. I agree with the resident's findings and plan as documented. SUBJECTIVE:breathing improved. continues to have cough. no difficulty ambulating the hallway. denies Cp, fever, chills, N/V/C/D. states pedal swelling is slightly improved OBJECTIVE: Last Vital Signs Temp Pulse Resp BP Pulse Ox 98.1 F 77 16 148/80 96 09/15/17 05:56 09/15/17 05:56 09/15/17 08:26 09/15/17 05:56 09/15/17 08:26 General NAD CV S1 S2 RRR no murmur/rub/gallop Lungs improved inspiratory effort Abdomen soft NT/ND Extremities 1+ pitting edema B/L ASSESSMENT AND PLAN: 62 yo F with PMHx of HTN, Scleroderma, emphysema, tobacco abuse, admitted with YOKO CAP with sepsis 1. severe sepsis due to YOKO CAP- clinically improved. on zosyn day 6. will complete day course. d/w ID about transitioning over to po abx if necessary. on pred 60mg po. quick taper. does not require home o2. will need repeat CXR in 6 weeks. outpatient PFT and polysomography. cont inhalers. nebulizer n discharge 2. NSVT while straining at stool on 09/12- no repeat episodes. 3. leukocytosis- worsening due to steroids. on abx 4. Thrombophilia- stable. likely due to rheum proces while medications are on hold 5. Transaminitis- possible due to azithromycin. now trending down. slight hepatomegaly on imaging can have monitoring done as outpatient 6. Scleroderma- holding MTX and cellcept. multiple attempts to reach private bus van driver without response. rheum with privledges here away on vacation. encouraged pt to reach out rheum to notify of current condition and when medications should be restarted. 7. Continuous nicotine dependence- counselled on smoking cessation 8. pedal edema- likely due to steroids. now improved per pt. place MONTSE stockings. elevate legs. should improve. 9. DVT ppx- lovenox 10. clinically improved anticipate discharge tomorrow
--- NOTE | 2017-09-15 10:40 | MSN ---
Progress Note (SOAP) - Subjective Chief Complaint: sepsis 2/2 PNA History of Present Illness: Patient was seen and examined at the bedside. Patient did not have any acute overnight events. Patient ambulated 300 feet with physical therapy yesterday. Patient stated that she continued to have a cough productive of sputum that she stated was improved from yesterday. Patient stated she continued to have bilateral pain in her legs and arms that was improved with Flexeril, oxycodone, and ambulation. Patient continued to have chest and abdominal pain secondary to cough. Some GI upset was reported that was alleviated with Protonix and Mylanta. Patient did endorse some shortness of breath which she stated was improved from previous day. Patient also endorsed leg swelling. Denied headaches , fever, chills, nausea, vomiting. - Current Medications Current Medications: Active Medications Acetaminophen (Tylenol -) 650 mg PO Q4H PRN PRN Reason: FEVER Last Admin: 09/13/17 20:05 Dose: 650 mg Al Hydroxide/Mg Hydroxide (Mylanta Oral Suspension -) 30 ml PO Q6H PRN PRN Reason: DYSPEPSIA Last Admin: 09/14/17 15:46 Dose: 30 ml Albuterol/Ipratropium (Duoneb -) 1 amp NEB Q6H PRN PRN Reason: SHORTNESS OF BREATH Artificial Tears (Artificial Tears) 1 drop OU BID PRN PRN Reason: DRY EYES Last Admin: 09/12/17 02:17 Dose: 1 drop Benzocaine/Menthol (Cepacol Lozenge -) 1 each MM PRN PRN PRN Reason: SORE THROAT Last Admin: 09/15/17 01:37 Dose: 1 each Cyclobenzaprine HCl (Flexeril -) 5 mg PO TID ALEXIS Last Admin: 09/15/17 05:54 Dose: 5 mg Enoxaparin Sodium (Lovenox -) 40 mg SQ DAILY ALEXIS Last Admin: 09/15/17 09:36 Dose: 40 mg Guaifenesin (Robitussin -) 10 ml PO Q6H PRN PRN Reason: COUGH Last Admin: 09/15/17 01:37 Dose: 10 ml Piperacillin/Tazobactam/Dextrose (Zosyn 3.375gm Ivpb (Premix)) 50 mls @ 100 mls /hr IVPB Q8H-IV ALEXIS PRN Reason: Protocol Last Admin: 09/15/17 09:38 Dose: 100 mls/hr Metoclopramide HCl (Reglan -) 5 mg PO Q6H PRN PRN Reason: NAUSEA AND/OR VOMITING Last Admin: 09/12/17 04:36 Dose: 5 mg Nicotine (Nicoderm Patch -) 7 mg TD DAILY [facility] Last Admin: 09/15/17 09:37 Dose: 7 mg Oxycodone HCl (Roxicodone -) 20 mg PO Q4H PRN PRN Reason: PAIN LEVEL 7 - 10 Last Admin: 09/15/17 09:37 Dose: 20 mg Pantoprazole Sodium (Protonix -) 40 mg PO DAILY [facility] Last Admin: 09/15/17 09:36 Dose: 40 mg Prednisone (Deltasone -) 60 mg PO DAILY [facility] Last Admin: 09/15/17 09:36 Dose: 60 mg Trazodone HCl (Desyrel -) 50 mg PO HS [facility] Last Admin: 09/14/17 21:43 Dose: 50 mg - Objective Vital Signs: Vital Signs Temperature 98.1 F 09/15/17 05:56 Pulse Rate 77 09/15/17 05:56 Respiratory Rate 16 09/15/17 08:26 Blood Pressure 148/80 09/15/17 05:56 O2 Sat by Pulse Oximetry (%) 96 09/15/17 08:26 Constitutional: Yes: Well Nourished, No Distress, Calm Eyes: Yes: WNL, Conjunctiva Clear, EOM Intact, PERRL HENT: Yes: WNL, Atraumatic, Normocephalic Neck: Yes: WNL, Supple, Trachea Midline Cardiovascular: Yes: WNL, Regular Rate and Rhythm, S1, S2 Respiratory: Yes: Wheezes (mild expiratory wheezes), Other (mild crackles in left upper lobe) Gastrointestinal: Yes: WNL, Normal Bowel Sounds, Soft Musculoskeletal: Yes: Muscle Pain (tender to palpation of legs and arms) Extremities: Yes: WNL Peripheral Pulses WNL: Yes Peripheral Pulses: Left Radial: 2+, Right Radial: 2+, Left Doralis Pedis: 2+, Right Dorsalis Pedis: 2+ Edema: Yes Edema: LLE: 1+, RLE: 1+ Integumentary: Yes: WNL Neurological: Yes: WNL, Alert, Oriented ...Motor Strength: Yes: WNL Psychiatric: Yes: WNL, Alert, Oriented Labs Lab Results: CBC, BMP 09/15/17 05:35 09/15/17 05:35 Problem List - Problems (1) COPD (chronic obstructive pulmonary disease) Code(s): J44.9 - CHRONIC OBSTRUCTIVE PULMONARY DISEASE, UNSPECIFIED (2) Pneumonia Code(s): J18.9 - PNEUMONIA, UNSPECIFIED ORGANISM Qualifiers: Pneumonia type: due to unspecified organism Laterality: unspecified laterality Lung location: lower lobe of lung Qualified Code(s): J18.1 - Lobar pneumonia, unspecified organism (3) Scleroderma Code(s): M34.9 - SYSTEMIC SCLEROSIS, UNSPECIFIED (4) Sepsis Code(s): A41.9 - SEPSIS, UNSPECIFIED ORGANISM (5) Gastritis Code(s): K29.70 - GASTRITIS, UNSPECIFIED, WITHOUT BLEEDING (6) Hypertension Code(s): I10 - ESSENTIAL (PRIMARY) HYPERTENSION Qualifiers: Hypertension type: essential hypertension Qualified Code(s): I10 - Essential (primary) hypertension (7) Total body pain Code(s): R52 - PAIN, UNSPECIFIED Assessment/Plan Patient is a 62 year old female with a PMHx of HTN, scleroderma, emphysema who was admitted after developing a cough and shortness of breath and found with a PNA. Severe Sepsis 2/2 Pneumonia -admitted to telemetry -original WBC 28.5, since trended down to 18.8 and 14.3 -Lactate 2.3 repeat lactate 1.2, 1.5 -ID consult Dr. Gan/Dr Michaels appreciated -sputum culture grew normal respiratory sangeetha -blood culture did not grow any organisms -urine culture did not grow any organisms -patient completed 6 day course of Azithromycin, currently on day 6 of Zosyn course -2L nasal cannula if needed to maintain Sat>90 -Repeat CXR shows improvement -patient has remained afebrile -patient clinically improved to continue IV abx 24 per ID recommendations -Hepatic serology negative ALLIE -fluid hydration -repeat BMP shows resolution, on 09/13 BUN 14, CRE 0.5 Scleroderma -previous visit had mycophenolate listed as well as hydroxychloroquine -meds held per ID -Flexeril and oxycodone for pain -ambulation as tolerated for pain alleviation Emphysema -IV solumedrol 40mg bid transitioned to oral prednisone 60mg daily with taper -Taper prednisone done by 5mg every 3 days until 20mg and follow up with rheumatology and primary care -Duoneb q6h prn -Pre and post showed good O2 sat with exercise Hypertension -hold amlodipine 5mg QD -hold losartan 12.5 QD Smoking Cessation -nicotine patch Acute Dyspepsia -Protonix IV 40mg -Mylanta 30mL q6h prn Leg Swelling -Compression stockings F/E/N -Sodium controlled diet -Patient given dulcolax and colace and had bowel movement 09/12 after previous complaints of constipation DVT Prophylaxis -Lovenox 40mg Disposition -on telemetry unit
--- NOTE | 2017-09-15 13:11 | PN ---
Progress Note, Physician History of Present Illness: PULMONARY ALERT,SITTING UP IN BED FEELING BETTER,DYSPNEA IMPROVING,LESS COUGH - Current Medication List Current Medications: Active Medications Acetaminophen (Tylenol -) 650 mg PO Q4H PRN PRN Reason: FEVER Last Admin: 09/13/17 20:05 Dose: 650 mg Al Hydroxide/Mg Hydroxide (Mylanta Oral Suspension -) 30 ml PO Q6H PRN PRN Reason: DYSPEPSIA Last Admin: 09/14/17 15:46 Dose: 30 ml Albuterol/Ipratropium (Duoneb -) 1 amp NEB Q6H PRN PRN Reason: SHORTNESS OF BREATH Artificial Tears (Artificial Tears) 1 drop OU BID PRN PRN Reason: DRY EYES Last Admin: 09/12/17 02:17 Dose: 1 drop Benzocaine/Menthol (Cepacol Lozenge -) 1 each MM PRN PRN PRN Reason: SORE THROAT Last Admin: 09/15/17 01:37 Dose: 1 each Cyclobenzaprine HCl (Flexeril -) 5 mg PO TID [facility] Last Admin: 09/15/17 05:54 Dose: 5 mg Enoxaparin Sodium (Lovenox -) 40 mg SQ DAILY [facility] Last Admin: 09/15/17 09:36 Dose: 40 mg Guaifenesin (Robitussin -) 10 ml PO Q6H PRN PRN Reason: COUGH Last Admin: 09/15/17 01:37 Dose: 10 ml Piperacillin/Tazobactam/Dextrose (Zosyn 3.375gm Ivpb (Premix)) 50 mls @ 100 mls /hr IVPB Q8H-IV ALEXIS PRN Reason: Protocol Last Admin: 09/15/17 09:38 Dose: 100 mls/hr Metoclopramide HCl (Reglan -) 5 mg PO Q6H PRN PRN Reason: NAUSEA AND/OR VOMITING Last Admin: 09/12/17 04:36 Dose: 5 mg Nicotine (Nicoderm Patch -) 7 mg TD DAILY [facility] Last Admin: 09/15/17 09:37 Dose: 7 mg Oxycodone HCl (Roxicodone -) 20 mg PO Q4H PRN PRN Reason: PAIN LEVEL 7 - 10 Last Admin: 09/15/17 09:37 Dose: 20 mg Pantoprazole Sodium (Protonix -) 40 mg PO DAILY [facility] Last Admin: 09/15/17 09:36 Dose: 40 mg Prednisone (Deltasone -) 60 mg PO DAILY [facility] Last Admin: 09/15/17 09:36 Dose: 60 mg Trazodone HCl (Desyrel -) 50 mg PO HS [facility] Last Admin: 09/14/17 21:43 Dose: 50 mg - Objective Vital Signs: Vital Signs Temperature 98.1 F 09/15/17 05:56 Pulse Rate 77 09/15/17 05:56 Respiratory Rate 16 09/15/17 08:26 Blood Pressure 148/80 09/15/17 05:56 O2 Sat by Pulse Oximetry (%) 96 09/15/17 08:26 Constitutional: Yes: Well Nourished, Calm Eyes: Yes: WNL HENT: Yes: WNL Neck: Yes: WNL Cardiovascular: Yes: Regular Rate and Rhythm, S1, S2 Respiratory: Yes: Rhonchi (FEW RHONCHI LEFT) Gastrointestinal: Yes: Normal Bowel Sounds, Soft Extremities: Yes: WNL Edema: No Labs: CBC, BMP 09/15/17 05:35 09/15/17 05:35 INR, PTT INR 1.50 (0.82-1.09) H 09/07/17 13:30 Assessment/Plan roblem List - Problems (1) Pneumonia Code(s): J18.9 - PNEUMONIA, UNSPECIFIED ORGANISM Qualifiers: Pneumonia type: due to unspecified organism Laterality: unspecified laterality Lung location: lower lobe of lung Qualified Code(s): J18.1 - Lobar pneumonia, unspecified organism (2) Sepsis Code(s): A41.9 - SEPSIS, UNSPECIFIED ORGANISM (3) COPD (chronic obstructive pulmonary disease) Code(s): J44.9 - CHRONIC OBSTRUCTIVE PULMONARY DISEASE, UNSPECIFIED (4) Hypertension Code(s): I10 - ESSENTIAL (PRIMARY) HYPERTENSION Qualifiers: Hypertension type: essential hypertension Qualified Code(s): I10 - Essential (primary) hypertension Assessment/Plan Left Upper Lobe Pneumonia improving Sepsis Lactic Acidosis resolved Scleroderma on Immunosuppressives HTN COPD - abx as per ID - inhaled bronchodilators, will change to standing and PRN - prednisone - O2 to keep SpO2 >90% - IVF - PO as tolerated - DVT prophylaxis - outpt f/u of chest imaging in 6-8 weeks to ensure resolution of infiltrate - PFTs DR GALLEGO
[2017-09-15] MEDS: ALBUTEROL SO4 2.5/IPRATROPIUM 0.5 INH SOL 3 ML VIAL.NEB. NEB PRN ×2 (13:45→20:45)
--- NOTE | 2017-09-15 18:34 | PN ---
Progress Note (short form) - Note Progress Note: less bodyaches today cough much improved, less chest discomfort- almost gone Vital Signs Period Temp Pulse Resp BP Sys/Hoyt Pulse Ox Last 24 Hr 97.6 F-98.1 F 77-95 16-20 126-148/75-84 96-96 cor-rrr llungs decreased bs at bases abd soft,nt ext no edema CBC, BMP 09/15/17 05:35 09/15/17 05:35 cxray persistent YOKO infiltrate- looks less dense a/p pneumonia- doing well, day #6 zosyn, no objection to switch to po augmentin in am for another 7 days 875 bid overall clinically much improved will need f/u chest imaging as an outpt history of scleroderma- immunosuppressives on hold leukocytosis- infection/steroids d/w hospitalist service plese call back if needed
[2017-09-15] MEDS: traZODone HCL 50 MG TABLET (FP) PO SCH (21:17)
[2017-09-16] MEDS ORDERED: PT OWN MED DRAWER 7, Y5N ONE ×2 (01:03→09:49)
[2017-09-16] MEDS: oxyCODONE HCL 5 MG TABLET PO PRN ×3 (01:06→10:06)
[2017-09-16] MEDS: PIPERACILLIN/TAZOB 3.375 GM 50 ML IVPB SCH (01:07)
[2017-09-16] MEDS: ALBUTEROL SO4 2.5/IPRATROPIUM 0.5 INH SOL 3 ML VIAL.NEB. NEB PRN ×2 (01:18→07:34)
[2017-09-16] MEDS: CYCLOBENZAPRINE HCL 10 MG TABLET (FP) PO SCH (05:48)
--- NOTE | 2017-09-16 07:18 | PN ---
Physical Exam: SUBJECTIVE: Patient seen and examined OBJECTIVE: Vital Signs Intake & Output 09/13/17 09/14/17 09/15/17 09/16/17 23:59 23:59 23:59 23:59 Intake Total 2190 1300 1120 50 Balance 2190 1300 1120 50 Period Temp Pulse Resp BP Sys/Hoyt Pulse Ox Last 24 Hr 97.6 F-98.4 F 75-95 16-20 126-141/70-85 96 GENERAL: Elderly woman, NAD, A&Ox3 HEAD: Normal with no signs of trauma. EYES: extraocular movements intact, sclera anicteric, conjunctiva clear. No ptosis. ENT: Poor dentition. Ears normal, nares patent, oropharynx clear without exudates, moist mucous membranes, no exudate or erythema NECK: Trachea midline, full range of motion, supple. LUNGS: Trace crackles in YOKO, no wheezing, rhonchi noted. HEART: Regular rate and rhythm, S1, S2 without murmur, rub or gallop. No pain on palpation of anterior chest wall. ABDOMEN: No tenderness to palpation. Soft, nondistended, normoactive bowel sounds, no guarding, no rebound, no hepatosplenomegaly, no masses. No CVA tenderness noted. EXTREMITIES: 2+ pulses, warm, well-perfused. Dry skin in feet BL. Still with 1+ BL nonpitting edema in LE, improving NEUROLOGICAL: Cranial nerves II through XII grossly intact. Normal speech, gait not observed. PSYCH: Normal mood, normal affect. Pleasant SKIN: Warm, dry, normal turgor, no rashes or lesions noted Laboratory Results - last 24 hr CBC, BMP CBC, BMP 09/15/17 05:35 09/15/17 05:35 09/15/17 05:35 09/15/17 05:35 09/11/17 09/14/17 09/15/17 11:35 05:35 05:35 Sodium 140 Potassium 4.6 Chloride 105 Carbon Dioxide 30 Anion Gap 5 L BUN 12 Creatinine 0.6 Random Glucose 122 H Calcium 8.3 L Hepatitis A IgM Ab Negative Hep Bs Antigen Negative Hep B Core IgM Ab Negative Hepatitis C Antibody 0.1 TB Test (QFT) Indeterminate Active Medications Generic Name Dose Route Start Last Admin Trade Name Freq PRN Reason Stop Dose Admin Acetaminophen 650 mg 09/08/17 21:07 09/13/17 20:05 Tylenol - PO 650 mg Q4H PRN Administration FEVER Al Hydroxide/Mg Hydroxide 30 ml 09/12/17 20:49 09/14/17 15:46 Mylanta Oral Suspension - PO 30 ml Q6H PRN Administration DYSPEPSIA Albuterol/Ipratropium 1 amp 09/15/17 10:19 09/16/17 01:18 Duoneb - NEB 1 amp Q6H PRN Administration SHORTNESS OF BREATH Artificial Tears 1 drop 09/10/17 16:38 09/12/17 02:17 Artificial Tears OU 1 drop BID PRN Administration DRY EYES Benzocaine/Menthol 1 each 09/08/17 03:24 09/15/17 01:37 Cepacol Lozenge - MM 1 each PRN PRN Administration SORE THROAT Cyclobenzaprine HCl 5 mg 09/13/17 14:00 09/16/17 05:48 Flexeril - PO 5 mg TID ALEXIS Administration Enoxaparin Sodium 40 mg 09/09/17 10:00 09/15/17 09:36 Lovenox - SQ 40 mg DAILY ALEXIS Administration Guaifenesin 10 ml 09/10/17 22:33 09/15/17 01:37 Robitussin - PO 10 ml Q6H PRN Administration COUGH Piperacillin/Tazobactam/Dextrose 50 mls @ 100 mls/hr 09/09/17 18:00 09/16/17 01:07 Zosyn 3.375gm Ivpb (Premix) IVPB 100 mls/hr Q8H-IV ALEXIS Administration Protocol Metoclopramide HCl 5 mg 09/07/17 21:28 09/12/17 04:36 Reglan - PO 5 mg Q6H PRN Administration NAUSEA AND/OR VOMITING Nicotine 7 mg 09/07/17 21:45 09/15/17 09:37 Nicoderm Patch - TD 7 mg DAILY ALEXIS Administration Oxycodone HCl 20 mg 09/07/17 21:28 09/16/17 05:50 Roxicodone - PO 20 mg Q4H PRN Administration PAIN LEVEL 7 - 10 Pantoprazole Sodium 40 mg 09/07/17 21:45 09/15/17 09:36 Protonix - PO 40 mg DAILY ALEXIS Administration Prednisone 60 mg 09/14/17 10:00 09/15/17 09:36 Deltasone - PO 60 mg DAILY ALEXIS Administration Trazodone HCl 50 mg 09/07/17 22:00 09/15/17 21:17 Desyrel - PO 50 mg HS ALEXIS Administration XR 09/07 - YOKO opacity suspect for pneumonia Chest CTA 09/07 - YOKO infiltrate, emphysematous changes noted bilaterally CXR 09/08 - YOKO infiltrate EKG: NSR, rate of 130, QTC 473 RUQ US 09/09 - Biliary sludge, no stones noted, mild hepatomegaly CXR 09/10 - Persistent YOKO infiltrate with increased vascular markings at bases. CXR 09/12 - Still with YOKO infiltrate Echo 09/14 - Normal LV/RV size and function; EF 55-60%; trace MR ASSESSMENT/PLAN: 62 year old female with a history of scleroderma, hypertension, and emphysema presented to the ED with chest pain, cough productive of green sputum, and admitted for the treatment of severe sepsis 2/2 pneumonia. Pt will go home tomorrow after completing 7 day IV abx course, d/c with PO abx per ID recommendations. Pt to received CXR in 6-8 weeks with outpt f/u with pulm team and director of accounts payable. #Severe Sepsis 2/2 Pneumonia - No fever overnight; cough, breathing continue to improve - ID following, recs appreciated - monitor for hypotension; if BP <90, bolus 1L - all cultures negative to date - flu negative - PO hydration - Trend WBC, fever curve - hold cellcept/hydroxychloroquine/methotrexate; multiple attempts to contact outpt director of accounts payable, inpt director of accounts payable away on vacation; - O2 support as needed - urine PNA antigens negative - Zosyn day 6; last day of IV abx tomorrow, then PO meds on d/c - Prednisone 60mg; quick taper; will confirm with pulm group - repeat outpt cxr in 6-8 weeks #Chest pain secondary to chronic cough - improving, pain better controlled today - robitussin PRN - cepacol lozenges - oxy 20mg prn for breakthrough pain - tylenol prn #elevated Alk phos/T bili - RUQ u/s with hepatomegaly, biliary sludge; likely secondary to decreased PO intake - T bili normalized, LFTs stable - continue to monitor #Scleroderma - chronic - Rheum consulted; away on vacation; outpt director of accounts payable unavailable - hold cellcept/hydroxy/methotrexate currently - Will need to f/u with outpt director of accounts payable for further management #Emphysema-chronic -duonebs Q6h PRN; will d/c with duonebs QID for short course - O2 support - Pulm consulted #Hypertension-cont holding home HTN meds as still normotensive -restart home HTN meds tomorrow; trend BP #constipation -dulcolax prn #GERD - PPI - mylanta #Chronic pain - tylenol, oxy for pain #Smoking Cessation: -nicotine patch - counseling #Nausea - well controlled -reglan prn #FEN PO hydration Daily lytes Sodium controlled diet #Prophylaxis Lovenox #Disposition M/S Plan discussed with attending, Dr. Sunshine Phelps, PGY1
[2017-09-16] MEDS ORDERED: PIPERACILLIN/TAZOB 3.375 GM 3.375 GM in DEXTROSE 5%-WATER - 50 ML IVPB SCH (10:00)
[2017-09-16] MEDS: predniSONE 20 MG TABLET (UD) PO SCH (10:06)
[2017-09-16] MEDS: NICOTINE 7 MG/24 HOURS TOPICAL PATCH TD SCH (10:07)
[2017-09-16] MEDS: PANTOPRAZOLE 40 MG TABLET (FP) PO SCH (10:07)
[2017-09-16 10:13] VITALS: BP 130/73; PULSE 100; TEMP 98
--- NOTE | 2017-09-16 12:10 | PN ---
Teaching Attending Note Name of Resident: Jenaro Phelps ATTENDING PHYSICIAN STATEMENT I saw and evaluated the patient. I reviewed the resident's note and discussed the case with the resident. I agree with the resident's findings and plan as documented. SUBJECTIVE:asymptomatic. states breathing has improved. less cough. denies CP, SOB, fever, chills, N/V/c/D OBJECTIVE: Last Vital Signs Temp Pulse Resp BP Pulse Ox 98 F 100 H 20 130/73 96 09/16/17 10:00 09/16/17 10:09/16/17 10:09/16/17 10:09/15/17 08:26 General NAD CV S1 S2 RRR no murmur/rub/gallop Lungs CTA B/L no wheezing/rales/rhonchi Abdomen soft NT/ND Extremities 1+ pitting edema B/L ASSESSMENT AND PLAN: 62 yo F with PMHx of HTN, Scleroderma, emphysema, tobacco abuse, admitted with YOKO CAP with sepsis 1. severe sepsis due to YOKO CAP- clinically improved. on zosyn day 7. will transition to augmentin for y days. slow steroid taper. pulmonary follow up. will need repeat CXR in 6 weeks. outpatient PFT and polysomography. cont inhalers. nebulizer n discharge 2. NSVT while straining at stool on 09/12- no repeat episodes. 3. leukocytosis- worsening due to steroids. on abx 4. Thrombophilia- stable. likely due to rheum process while medications are on hold 5. Transaminitis- possible due to azithromycin. now trending down. slight hepatomegaly on imaging can have monitoring done as outpatient 6. Scleroderma- holding MTX and cellcept. multiple attempts to reach private movie operator without response. rheum with privledges here away on vacation. encouraged pt to reach out rheum to notify of current condition and when medications should be restarted. 7. Continuous nicotine dependence- counselled on smoking cessation 8. pedal edema- likely due to steroids. now improved per pt. place MONTSE stockings. elevate legs. should improve. 9. DVT ppx- lovenox 10. d/c home. instructed to f/u with PMD and Rheum next week. verbalized understanding and agreement
--- NOTE | 2017-09-16 12:39 | DS ---
Physical Exam: SUBJECTIVE: Patient seen and examined - no overnight events. breathing, cough continue to improved. CP improving. Denies f/c/n/v/d. One BM overnight. Tolerating diet well. OBJECTIVE: Vital Signs Period Temp Pulse Resp BP Sys/Hoyt Pulse Ox Last 24 Hr 97.6 F-98.4 F 75-100 18-20 126-141/70-85 PHYSICAL EXAM GENERAL: Elderly woman, NAD, A&Ox3 HEAD: Normal with no signs of trauma. EYES: extraocular movements intact, sclera anicteric, conjunctiva clear. No ptosis. ENT: Poor dentition. Ears normal, nares patent, oropharynx clear without exudates, moist mucous membranes, no exudate or erythema NECK: Trachea midline, full range of motion, supple. LUNGS: Trace crackles in YOKO, no wheezing, rhonchi noted. HEART: Regular rate and rhythm, S1, S2 without murmur, rub or gallop. No pain on palpation of anterior chest wall. ABDOMEN: No tenderness to palpation. Soft, nondistended, normoactive bowel sounds, no guarding, no rebound, no hepatosplenomegaly, no masses. No CVA tenderness noted. EXTREMITIES: 2+ pulses, warm, well-perfused. Dry skin in feet BL. Still with 1+ BL nonpitting edema in LE, improving NEUROLOGICAL: Cranial nerves II through XII grossly intact. Normal speech, gait not observed. PSYCH: Normal mood, normal affect. Pleasant SKIN: Warm, dry, normal turgor, no rashes or lesions noted LABS Laboratory Last Values WBC 16.5 K/mm3 (4.0-10.0) H 09/15/17 05:35 RBC 3.29 M/mm3 (3.60-5.2) L 09/15/17 05:35 Hgb 9.6 GM/dL (10.7-15.3) L 09/15/17 05:35 Hct 28.7 % (32.4-45.2) L 09/15/17 05:35 MCV 87.2 fl (80-96) 09/15/17 05:35 MCH 29.2 pg (25.7-33.7) 09/15/17 05:35 MCHC 33.5 g/dl (32.0-36.0) 09/15/17 05:35 RDW 15.7 % (11.6-15.6) H 09/15/17 05:35 Plt Count 689 K/MM3 (134-434) H 09/15/17 05:35 MPV 7.9 fl (7.5-11.1) 09/15/17 05:35 Neutrophils % 79.8 % (42.8-82.8) 09/15/17 05:35 Neutrophils % (Manual) 87.0 % (42.8-82.8) H 09/14/17 05:35 Band Neutrophils % 2.0 % 09/14/17 05:35 Lymphocytes % 12.0 % (8-40) D 09/15/17 05:35 Lymphocytes % (Manual) 8.0 % (8-40) D 09/14/17 05:35 Monocytes % 7.5 % (3.8-10.2) 09/15/17 05:35 Monocytes % (Manual) 3 % (3.8-10.2) L 09/14/17 05:35 Eosinophils % 0.5 % (0-4.5) D 09/15/17 05:35 Eosinophils % (Manual) 0.0 % (0-4.5) 09/10/17 06:30 Basophils % 0.2 % (0-2.0) 09/15/17 05:35 Basophils % (Manual) 0.0 % (0-2.0) 09/10/17 06:30 Myelocytes % (Man) 0 % (0-2) 09/10/17 06:30 Promyelocytes % (Man) 0 % (0-2) 09/10/17 06:30 Blast Cells % (Manual) 0 % (0-0) 09/10/17 06:30 Nucleated RBC % 0 % (0-0) 09/10/17 06:30 Metamyelocytes 0 % (0-2) 09/10/17 06:30 Hypochromia 1+ 09/14/17 05:35 Platelet Estimate Increased 09/14/17 05:35 Platelet Comment No clumping noted 09/14/17 05:35 Anisocytosis 1+ 09/14/17 05:35 Microcytosis 1+ 09/10/17 06:30 Target Cells 2+ 09/10/17 06:30 PT with INR 17.00 SEC (9.98-11.88) H 09/07/17 13:30 INR 1.50 (0.82-1.09) H 09/07/17 13:30 PTT (Actin FS) 30.5 SECONDS (26.9-34.4) 09/07/17 13:30 VBG pH 7.41 (7.32-7.42) 09/07/17 13:30 POC VBG pCO2 35.9 mmHg (38-52) L 09/07/17 13:30 POC VBG pO2 36.5 mmHg (28-48) 09/07/17 13:30 Mixed VBG HCO3 22.5 meq/L (19-25) 09/07/17 13:30 Sodium 140 mmol/L (136-145) 09/15/17 05:35 Potassium 4.6 mmol/L (3.5-5.1) 09/15/17 05:35 Chloride 105 mmol/L (98-107) 09/15/17 05:35 Carbon Dioxide 30 mmol/L (21-32) 09/15/17 05:35 Anion Gap 5 (8-16) L 09/15/17 05:35 BUN 12 mg/dL (7-18) 09/15/17 05:35 Creatinine 0.6 mg/dL (0.55-1.02) 09/15/17 05:35 Creat Clearance w eGFR > 60 (>60) 09/14/17 05:35 Random Glucose 122 mg/dL (74-106) H 09/15/17 05:35 Lactic Acid 1.5 mmol/L (0.0-2.0) 09/08/17 22:00 Calcium 8.3 mg/dL (8.5-10.1) L 09/15/17 05:35 Phosphorus 2.6 mg/dL (2.5-4.9) 09/11/17 06:00 Magnesium 1.8 mg/dL (1.8-2.4) 09/11/17 06:00 Total Bilirubin 0.4 mg/dL (0.2-1.0) 09/14/17 05:35 Direct Bilirubin 1.2 mg/dL (0.0-0.2) H 09/09/17 07:46 AST 90 U/L (15-37) H 09/14/17 05:35 ALT 84 U/L (12-78) H 09/14/17 05:35 Alkaline Phosphatase 220 U/L (45-117) H 09/14/17 05:35 Troponin I < 0.02 ng/ml (0.00-0.05) 09/08/17 06:32 B-Natriuretic Peptide Cancelled 09/07/17 13:30 Total Protein 4.7 g/dl (6.4-8.2) L 09/14/17 05:35 Albumin 1.7 g/dl (3.4-5.0) L 09/14/17 05:35 Urine Color Radha 09/07/17 15:00 Urine Appearance Slcloudy 09/07/17 15:00 Urine pH 5.0 (5.0-8.0) 09/07/17 15:00 Ur Specific Rosebud 1.023 (1.001-1.035) 09/07/17 15:00 Urine Protein 2+ (NEGATIVE) H 09/07/17 15:00 Urine Glucose (UA) Negative (NEGATIVE) 09/07/17 15:00 Urine Ketones Trace (NEGATIVE) H 09/07/17 15:00 Urine Blood Negative (NEGATIVE) 09/07/17 15:00 Urine Nitrite Negative (NEGATIVE) 09/07/17 15:00 Urine Bilirubin 4.0 (<2.0 mg/dL) 09/07/17 15:00 Urine Urobilinogen 4.0 e.u/dl mg/dL (0.2-1.0) H 09/07/17 15:00 Ur Leukocyte Esterase Negative (NEGATIVE) 09/07/17 15:00 Urine WBC (Auto) 2 /hpf (3-5) 09/07/17 15:00 Urine RBC (Auto) 21 /hpf (0-3) 09/07/17 15:00 Ur Epithelial Cells Rare /HPF (FEW) 09/07/17 15:00 Hyaline Casts 6 /lpf 09/07/17 15:00 Granular Casts 17 /lpf 09/07/17 15:00 Urine Mucus Rare 09/07/17 15:00 Hepatitis A IgM Ab Negative (Negative) 09/14/17 05:35 Hep Bs Antigen Negative (Negative) 09/14/17 05:35 Hep B Core IgM Ab Negative (Negative) 09/14/17 05:35 Hepatitis C Antibody 0.1 s/co ratio (0.0-0.9) 09/14/17 05:35 TB Test (QFT) Indeterminate (Negative) 09/11/17 11:35 Microbiology 09/08/17 22:00 Blood - Peripheral Venous Blood Culture - Final NO GROWTH AFTER 5 DAYS INCUBATION 09/07/17 12:06 Blood - Peripheral Venous Blood Culture - Final NO GROWTH AFTER 5 DAYS INCUBATION 09/07/17 12:06 Blood - Peripheral Venous Blood Culture - Final NO GROWTH AFTER 5 DAYS INCUBATION 09/08/17 23:00 Sputum - Expectorated Gram Stain - Final 09/08/17 23:00 Sputum - Expectorated Sputum Culture - Final NORMAL RESPIRATORY FABIAN 09/08/17 06:45 Sputum - Expectorated Gram Stain - Final 09/08/17 06:45 Sputum - Expectorated Sputum Culture - Final NORMAL RESPIRATORY FABIAN 09/08/17 23:00 Urine - Urine Clean Catch Urine Culture - Final NO GROWTH OBTAINED 09/07/17 15:00 Urine - Urine Clean Catch Urine Culture - Final 09/08/17 23:00 Urine - Urine Clean Catch Legionella Antigen - Final 09/08/17 23:00 Urine - Urine Clean Catch Streptococcus pneumoniae Antigen ( M - Final 09/08/17 20:16 Nasopharyngeal Swab Influenza Types A,B Antigen (ENRIQUE) - Final 09/08/17 20:16 Nasopharyngeal Swab - Final XR 09/07 - YOKO opacity suspect for pneumonia Chest CTA 09/07 - YOKO infiltrate, emphysematous changes noted bilaterally CXR 09/08 - YOKO infiltrate EKG: NSR, rate of 130, QTC 473 RUQ US 09/09 - Biliary sludge, no stones noted, mild hepatomegaly CXR 09/10 - Persistent YOKO infiltrate with increased vascular markings at bases. CXR 09/12 - Still with YOKO infiltrate Echo 09/14 - Normal LV/RV size and function; EF 55-60%; trace MR Consults: ID - seen by Dr. Michaels Pulmonology - Seen by Dr. Ramirez HOSPITAL COURSE: Prehospital course: 62 year old female with a past medical history of HTN, Scleroderma, emphysema presents to the hospital for 1 week history of L sided chest pain 10/10 in severity. The patient describes the pain as sharp, stabbing and pressure. Patient took tramadal at home with no symptom relief. Patient also reports 1 week history of cough productive of green/brown sputum. She arrived to the ED today because her chest pain became significantly worse this AM. She reports associated shortness of breath, decreased appetite, lethargy, nausea (no vomiting), abdominal pain with coughing. Denies fevers, chills, vomiting, headache, arm pain, neck pain. Patient is treated for scleroderma at [facility] with infusions every 6 months. She denies any acute skin conditions, current difficulty swallowing (but states that occasionally has issues when throat swells up). Hospital course: In the ED, pt with LA 2.3, elevated WBC of 28.5 and CXR with YOKO infiltrate. Chest CTA with no PE, however comfirmed YOKO infiltrate and BL emphesema as noted above. Pt pancultured, ID consulted. Treated with fluids, empiric abx and HTN meds were held. Pt scleroderma immunosuppressive meds were held for scleroderma. Pt with persistent cough, severe MSK chest, ab and back pain secondary to persistent cough and chronic scleroderma. Pt placed on pain regimen with good control during admission. Per ID, pt placed on AZA initially, then augmented with zosyn on day 3 of presentation. Pt initially with persistent overnight fevers, productive cough, BL wheezing and intermittent subjective SOB. Pulm consulted, pt started on duonebs, IV medrol and O2 support. Pt gradually improved with abx coverage and IV steroids, with downtrending WBC, less febrile episodes and improvement in cough and pain. Pt initally with ALLIE on admission, normalized with IVFs, however had some residual LE edema due to fluid resuscitation and immobility. Pt complete 5 day course of AZA, continued on zosyn for 7 days per ID. Pt continued to improve consistently from a pulmonary standpoint, cleared for discharge to home by PT mayraal and ID approved one week of PO augmentin BID for continued coverage of resolving PNA. Pt discharge with outpt f/u with intelligence analyst and PCP, with instructions to immediately follow up on when to restart immunomodulator tx with intelligence analyst and/or PCP. Date of Admission:09/07/17 Date of Discharge: 09/16/17 Pt is medically stable and cleared for discharge with outpt f/u with PCP, intelligence analyst and skeet operator. Minutes to complete discharge: 35 Discharge Summary Reason For Visit: SYSTEMIC SCLEROSIS, PNEUMONIA Condition: Stable - Instructions Diet, Activity, Other Instructions: During your stay at [facility], you were treated for a pneumonia. You were seen by our pulmonary and infectious disease teams and treating with antibiotics and medications to support your breathing, with significant improvement in your symptoms. Medications: The following medications were added to your home regimen. Please take them as specified below: Prednisone 60mg, take 12 pills by mouth once a day, for the next one day (09/17) Prednisone 55mg, take 11 pills by mouth once a day, for the next three days (09/18 -09/20) Prednisone 50mg, take 10 pills by mouth once a day, for the next three days (-09/23) Prednisone 45mg, take 9 pills by mouth once a day, for the next three days (09/24 -09/26) Prednisone 40mg, take 8 pills by mouth once a day, for the next three days (09/27 -09/29) Prednisone 35mg, take 7 pills by mouth once a day, for the next three days (09/30 -10/02) Prednisone 30mg, take 6 pills by mouth once a day, for the next three days (10/03 -10/05) Prednisone 25mg, take 5 pills by mouth once a day, for the next three days (10/06 -10/08) Prednisone 20mg, take 4 pills by mouth once a day, for the next three days (10/09 -10/11) Then stop taking this medication Duonebs, 1 amp by nebulizer four times a day, until your breathing improves Augmentin 875mg, take one pill by mouth twice, for one week (09/17-09/23). Then you have finished your course of abx. Please continue to take all other home medications as previously directed. Follow-ups: Please follow-up with your primary care physician in one week for further management of your medications. Please call their office to schedule an appointment. If you require a referral for a primary care physician, contact information has been provided for the resident clinic with Dr. Duffy. Please call within one week to schedule an appointment. Please follow-up with our skeet operator, Dr. Ramirez, in one week for further management of your pulmonary medication. His contact number has been provided in this packet. Please call his office to make an appointment. Follow up with your intelligence analyst. Ensure that he is aware that some of your medications were held in the hospital and discuss with them about re-starting them. Please obtain a repeat chest xray in six to eight weeks to confirm resolution of your pneumonia. Please bring this to the attention of your primary care provider. Diet/exercise: You are approved for a diet low in sodium. You were approved for unassisted ambulation by our physical therapy team. Please return to the hospital if you experience any of the following symptoms: - Worsening, productive cough - Persistent fevers/chills - Prolonged shortness of breath or trouble breathing for >3 days - Any new or concerning symptoms Referrals: Declan Duffy MD [Staff Physician] - 1 Week Bigg Ramirez MD, MD [Staff Physician] - 2 Weeks Disposition: HOME - Home Medications Comprehensive Discharge Medication List: Ambulatory Orders Omeprazole [Prilosec (RX)] 40 mg PO DAILY 03/29/14 Hydroxychloroquine Sulfate 200 mg PO BID 10/07/14 Mycophenolate Mofetil [Cellcept -] 500 mg PO AM 10/07/14 Ondansetron [Zofran Odt -] 4 mg SL TID #10 od.tablet 11/19/14 Oxycodone HCl 20 mg PO Q4H PRN 11/19/14 traMADol HCL [Ultram -] 50 mg PO Q6H PRN 11/19/14 traZODone HCL [Desyrel -] 50 mg PO HS 11/19/14 Gabapentin [Neurontin -] 200 mg PO Q8H 09/08/17 Losartan Potassium [Cozaar -] 12.5 mg PO DAILY 09/08/17 Amlodipine Besylate [Norvasc -] 5 mg PO DAILY 09/11/17 Methotrexate Sodium/Pf [Methotrexate 25 mg/ml Vial] 25 mg SQ WEEKLY 09/11/17 Umeclidinium [place] [Incruse Ellipta] 62.5 mcg IH DAILY 09/11/17 Albuterol 2.5/Ipratropium 0.5 [Duoneb -] 1 amp NEB RQID #120 amp 09/14/17 Amox-Tr/K Cl [Augmentin - 875Mg Tablet] 1 tab PO BID #14 tablet 09/16/17 Miscellaneous Drug Not in Syst 1 each NEB ASDIR #1 each 09/16/17 Prednisone 5 mg PO ASDIR #72 tablet 09/16/17 This patient is new to me today: No Emergency Visit: Yes ED Registration Date: 09/07/17 Care time: The patient presented to the Emergency Department on the above date and was hospitalized for further evaluation of their emergent condition. Critical Care patient: No - Discharge Referral Referred to [facility] Med P.C.: No
== END 2017-09-16 11:47 | disposition home or self-care (01) | DRG 720 ==
LOC: JER 11:23 → JERBED 20:28 → J4S 09-08 20:48
PROVIDERS: ADMIT Internal Medicine; ATTEND Internal Medicine
DX: A41.9 Sepsis, unspecified organism (principal); I10 Essential (primary) hypertension; M34.9 Systemic sclerosis, unspecified; J18.9 Pneumonia, unspecified organism; R00.0 Tachycardia, unspecified; N17.9 Acute kidney failure, unspecified; R11.0 Nausea; E88.09 Other disorders of plasma-protein metabolism, not elsewhere classified; R07.89 Other chest pain; K21.9 Gastro-esophageal reflux disease without esophagitis; G89.29 Other chronic pain; J44.9 Chronic obstructive pulmonary disease, unspecified; D72.829 Elevated white blood cell count, unspecified; E87.2 Acidosis; D47.3 Essential (hemorrhagic) thrombocythemia; K59.00 Constipation, unspecified; R10.13 Epigastric pain; D68.59 Other primary thrombophilia; R16.0 Hepatomegaly, not elsewhere classified; Z87.11 Personal history of peptic ulcer disease; Z87.891 Personal history of nicotine dependence
CPT/HCPCS: 36415; 71045-TC-FY; 71275-TC; 76700-TC; 80048; 80053; 80074; 80076; 81003; 81015; 82803; 83605; 83735; 84100; 84484; 85025; 85027; 85610; 85730; 86480; 87040; 87070; 87086; 87205; 87804; 87899; 93005; 93010; 93306-TC; 94640; 94761; 97116-GP; 97161-GP; 99285-25; J0131; J1644; J7030; J7620

== ENCOUNTER 2018-06-28 09:29 | Inpatient (IN) | payer OTHER ==
[2018-06-28] MEDS ORDERED: oxyCODONE HCL 5 MG TABLET PO ONE (10:19)
[2018-06-28] MEDS ORDERED: DOCUSATE SODIUM 100 MG CAPSULE (FP) PO ONE ×2 (10:19→10:51)
[2018-06-28] MEDS ORDERED: ONDANSETRON 4 MG/2 ML VIAL IVPUSH ONE ×2 (10:26→15:47)
[2018-06-28] MEDS ORDERED: ALBUTEROL SO4 2.5/IPRATROPIUM 0.5 INH SOL 3 ML VIAL.NEB. NEB ONE (10:26)
[2018-06-28] MEDS ORDERED: ONDANSETRON *ODT* 4 MG TABLET SL ONE (10:45)
[2018-06-28] MEDS ORDERED: oxyCODONE HCL 5 MG TABLET ONE (10:50)
[2018-06-28] MEDS ORDERED: ONDANSETRON *ODT* 4 MG TABLET ONE (10:51)
--- NOTE | 2018-06-28 11:04 | PDOC ---
Attending Attestation - Resident Resident Name: Rob Shaikh - ED Attending Attestation I have performed the following: I have examined & evaluated the patient, The case was reviewed & discussed with the resident, I agree w/resident's findings & plan - HPI HPI: 06/28/18 11:01 62-year-old female with history of scleroderma on chronic pain meds now off meds since May presents with generalized body pain typical of her scleroderma but also with 1 week of right-sided lower lung pain/chest pain with cough and subjective shortness of breath, no fevers or chills or night sweats. This pain is new to her, but reminds her of prior episode of pneumonia last year. - Physicial Exam PE: 06/28/18 11:02 Afebrile, slight tachycardia, O2 sat 94% on room air Alert, speaking full sentences, in mild to moderate distress secondary to pain Heart is regular slight tachycardia, lungs are clear to auscultation without focally decreased breath sounds or crackles or wheezes Abdomen is benign Slight right popliteal discomfort without leg swelling or calf tenderness, neurovascularly intact distally - Medical Decision Making 06/28/18 11:03 62-year-old female with history of scleroderma presents with various muscular skeletal complaints, likely scleroderma exacerbation in the setting of not having her pain medications, but with somewhat newer chest complaints with shortness of breath, rule out pneumonia but consider PE given history. Labs, urinalysis EKG, chest x-ray, we'll perform CTA chest if no clear pneumonia on chest x-ray to explain her symptoms Pain control Reassess Heart Score/ECG Review #1 ECG reviewed & interpreted by me at: 10:07 General ECG Interpretation: Sinus Rhythm (slight tachy at 108), Normal Intervals (qtc 444), No acute ischemic changes (PRWP, no acute ST changes)
--- NOTE | 2018-06-28 11:05 | PDOC ---
History of Present Illness - General Chief Complaint: Nausea/Vomiting Stated Complaint: WEAKNESS Time Seen by Provider: 06/28/18 09:55 History Source: Patient Exam Limitations: No Limitations - History of Present Illness Initial Comments: 06/28/18 10:56 62 yo F with a hx of scleroderma, HTN, and emphysema presents to the emergency department with multiple complaints including N/V (8-9x NBNB), right chest and back pain with associative SOB. Per the patient, she has been having 1 week of right upper back pain that worsens with movement and breathing that feels like a stabbing pain. In addition, she has developed 2 days of SOB with right chest pain that is non radiating, sharp, 10/10, worsens with breathing, and is new quality to her. States the pain is similar to when she had pneumonia on her last admission August 2017. Concurrently, she has generalized body pain that is consistent with her usual scleroderma pain and has "run out of" her oxycodone which she takes 20 mg QID last month with her new supply coming in tomorrow. She has been having new right popliteal pain that has been ongoing for 1 week with swelling. In the meanwhile, she has been taking tramadol and had her last dose of medications yesterday morning. Endorses the following: throat pain. Denies the following: fever, chills, visual changes, ears and nose pain, dysuria , hematuria, hematochezia, diarrhea, melena. Denies recent travels, hx of PE and DVT, recent immobilization, recent surgeries, anti-coagulation use, and hx of malignancy. Shx: None Meds: methotrexate, folic acid, tramadol, methocarbamol, prednisone 20 mg, losartan, and amlodipine. Allergies: ASA (describes anaphylaxis with use) Social: Endorses tobacco and marijuana use (2x per day). Denies alcohol use. Past History - Past Medical History Allergies/Adverse Reactions: Allergies Allergy/AdvReac Type Severity Reaction Status Date / Time aspirin Allergy Mild n/v Verified 06/28/18 09:39 Home Medications: Ambulatory Orders Gabapentin 300 mg PO TID 06/28/18 Methotrexate Sodium/Pf [Methotrexate 25 mg/ml Vial] 25 mg IJ WEEKLY 06/28/18 COPD: No GI Disorders: Yes (gastric ulcer) HTN: Yes - Immunization History Immunization Up to Date: Yes - Suicide/Smoking/Psychosocial Hx Smoking History: Current some day smoker Have you smoked in the past 12 months: Yes Number of Cigarettes Smoked Daily: 2 If you are a former smoker, when did you quit?: t-10 Information on smoking cessation initiated: No 'Breaking Loose' booklet given: 10/07/14 Hx Alcohol Use: No Drug/Substance Use Hx: No Substance Use Type: Heroin, Marijuana Hx Substance Use Treatment: No Review of Systems - Review of Systems Able to Perform ROS?: Yes Is the patient limited Citizen [place] proficient: No Constitutional: No: Chills, Diaphoresis, Fever, Weakness HEENTM: Yes: Throat Pain. No: Eye Pain, Recent change in vision, Ear Pain, Nose Pain, Mouth Pain Respiratory: Yes: Shortness of Breath. No: Cough, Productive cough, Hemoptysis Cardiac (ROS): Yes: Chest Pain. No: Lightheadedness, Palpitations, Syncope, Chest Tightness ABD/GI: Yes: Nausea, Vomiting. No: Constipated, Diarrhea, Poor Appetite, Poor Fluid Intake, Rectal Bleeding, Tarry Stools : No: Burning, Dysuria, Hematuria, Urgency Musculoskeletal: Yes: Joint Pain (right popliteal), Muscle Pain (generalized). No: Back Pain, Neck Pain Integumentary: No: Bruising, Flushing, Lesions, Lumps, Pruritus, Rash Neurological: No: Headache, Numbness, Tingling, Tremors, Ataxia, Dizziness Psychiatric: No: Change in Appetite Endocrine: No: Unexplained Weight Gain Hematologic/Lymphatic: No: Anemia *Physical Exam - Vital Signs Last Vital Signs Temp Pulse Resp BP Pulse Ox 98.8 F 106 H 24 H 133/75 94 L 06/28/18 09:39 06/28/18 09:39 06/28/18 09:39 06/28/18 09:39 06/28/18 09:39 - Physical Exam General Appearance: Yes: Nourished, Appropriately Dressed. No: Apparent Distress, Intoxicated HEENT: positive: EOMI, DANE, Normal Voice, Pharynx Normal, Nasal Congestion, Hearing Grossly Normal. negative: Pale Conjunctivae, Scleral Icterus (R), Scleral Icterus (L), Muffled/Hoarse voice, Rhinorrhea, Sinus Tenderness, Excessive drooling Neck: positive: Trachea midline. negative: Tender, Lymphadenopathy (R), Lymphadenopathy (L), Tender lateral, Tender midline Respiratory/Chest: positive: Chest Tender (throughout and reproduces the chest and upper back pain), Lungs Clear, Rhonchi (mild rhonchi bilaterally). negative : Respiratory Distress, Accessory Muscle Use, Crackles, Rales, Stridor, Wheezing , Hyperresonant Cardiovascular: positive: Regular Rhythm, S1, S2, Tachycardia, Systolic Murmur ( grade 1) Gastrointestinal/Abdominal: positive: Normal Bowel Sounds, Tender (epigastric), Flat, Soft. negative: Distended, Rebound, Tenderness, Hernia Lymphatic: negative: Adenopathy Musculoskeletal: positive: Normal Inspection. negative: CVA Tenderness, Vertebral Tenderness Extremity: positive: Normal Capillary Refill, Normal Inspection, Normal Range of Motion, Tender, Other (right popliteal tenderness with palpation) Integumentary: positive: Normal Color, Dry, Warm Neurologic: positive: prescription clerk lenses II-XII NML intact, Fully Oriented, Alert, Normal Mood/ Affect, Normal Response, Motor Strength 5/5. negative: Facial Droop, Sensory Deficit Moderate Sedation - Procedure Monitoring Vital Signs: Procedure Monitoring Vital Signs Temperature 98.8 F 06/28/18 09:39 Pulse Rate 106 H 06/28/18 09:39 Respiratory Rate 24 H 06/28/18 09:39 Blood Pressure 133/75 06/28/18 09:39 O2 Sat by Pulse Oximetry (%) 94 L 06/28/18 09:39 Heart Score/ECG Review - ECG Intrepretation Comment:: 06/28/18 12:55 ventricular rate is 108 bpm, FL is 134 ms, QRS is 78 ms, QTc is 444 ms. sinus tachycardia. t wave inversion in v3 new from previous. poor QRS progression in lateral leads compared to previous. ED Treatment Course - LABORATORY CBC & Chemistry Diagram: 06/28/18 10:38 06/28/18 10:38 - RADIOLOGY Radiology Studies Ordered: Category Date Time Status CHEST PA & LAT [RAD] Stat Radiology 06/28/18 10:19 Ordered DUPLEX VASCUL US-1 LEG [US] Stat Ultrasound 06/28/18 10:19 Ordered - Medications Given in the ED: ED Medications Discontinued Medications Generic Name Dose Route Start Last Admin Trade Name Freq PRN Reason Stop Dose Admin Ondansetron HCl 4 mg 06/28/18 10:45 06/28/18 10:47 Zofran Odt - SL 06/28/18 10:46 4 mg ONCE ONE Administration Medical Decision Making - Medical Decision Making 06/28/18 11:08 62 yo F with a hx of scleroderma, HTN, and emphysema presents to the emergency department with multiple complaints including N/V (8-9x NBNB), right chest and back pain with associative SOB. Initial vitals: Initial Vital Signs Temp Pulse Resp BP Pulse Ox 98.8 F 106 H 24 H 133/75 94 L 06/28/18 09:39 06/28/18 09:39 06/28/18 09:39 06/28/18 09:39 06/28/18 09:39 Work up: ddx: Patient presents with multiple chief complaints presenting with SOB, chest pain (similar to her PNA), and new right popliteal pain. Concerns exist for DVT vs PE. ddx includes PNA, pleuritis vs URI vs ACS vs costochrondritis vs PE vs DVT vs COPD exacerbation vs acute scleroderma pain vs undermanaged pain control. interventions: zofran, duoneb, oxycodone (20 mg), Laboratory Tests 06/28/18 06/28/18 06/28/18 10:38 10:38 10:39 WBC 37.6 H* RBC 4.68 Hgb 13.4 Hct 41.9 D MCV 89.5 MCH 28.5 MCHC 31.9 L RDW 14.8 Plt Count 636 H MPV 8.5 Absolute Neuts (auto) 34.5 H Neutrophils % 91.9 H Lymphocytes % 5.0 L D Monocytes % 2.6 L Eosinophils % 0.0 D Basophils % 0.5 Nucleated RBC % 0 PT with INR 15.30 H INR 1.29 H PTT (Actin FS) 35.3 Sodium 139 Potassium 4.3 Chloride 104 Carbon Dioxide 24 Anion Gap 11 BUN 11 Creatinine 0.7 Creat Clearance w eGFR > 60 Random Glucose 92 Calcium 9.0 Total Bilirubin 0.6 AST 11 L ALT 23 Alkaline Phosphatase 240 H Creatine Kinase 29 Troponin I < 0.02 Total Protein 7.4 Albumin 2.8 L Lipase 74 labs show leukocytosis of 37.6. trops negative. lipase negative. duplex negative for dvt, positive for bakers cyst on right side. CXR shows right sided pneumonia. will admit, get blood cultures, 1L of NS, and give 1 gram ceftriaxone and 500 mg of azithromycin. Dispo Admit *DC/Admit/Observation/Transfer Diagnosis at time of Disposition: Pneumonia Qualifiers: Pneumonia type: due to unspecified organism Laterality: right Lung location: unspecified part of lung Qualified Code(s): J18.9 - Pneumonia, unspecified organism - Referrals - Patient Instructions - Post Discharge Activity
[2018-06-28 11:20] LABS: BASO % 0.5 % (0-2.0); HEMATOCRIT 41.9 % (32.4-45.2); HEMOGLOBIN 13.4 GM/dL (10.7-15.3); MCH 28.5 pg (25.7-33.7); MCHC 31.9 g/dl (32.0-36.0); MEAN CELL VOLUME 89.5 fl (80-96); MEAN PLT VOLUME 8.5 fl (7.5-11.1); MONO % 2.6 % (3.8-10.2); NEUT % 91.9 % (42.8-82.8); PLATELET COUNT 636 K/MM3 (134-434); RBC 4.68 M/mm3 (3.60-5.2); RDW 14.8 % (11.6-15.6)
[2018-06-28 11:24] LABS: WHITE BLOOD COUNT 37.6 K/mm3 (4.0-10.0)
[2018-06-28 12:08] LABS: ALBUMIN 2.8 g/dl (3.4-5.0); ALK PHOS 240 U/L (45-117); ANION GAP 11 MMOL/L (8-16); BILIRUBIN,TOTAL 0.6 mg/dL (0.2-1); BLOOD UREA NITROGEN 11 mg/dL (7-18); CHLORIDE 104 mmol/L (98-107); CO2 24 mmol/L (21-32); CREATININE 0.7 mg/dL (0.55-1.3); GLUCOSE,RANDOM 92 mg/dL (74-106); LIPASE 74 U/L (73-393); POTASSIUM 4.3 mmol/L (3.5-5.1); SGOT/AST 11 U/L (15-37); SGPT/ALT 23 U/L (13-61); SODIUM 139 mmol/L (136-145); TOT PROT 7.4 g/dl (6.4-8.2)
[2018-06-28 12:10] LABS: INR 1.29 (0.83-1.09); PROTHROMBIN TIME (PATIENT) 15.3 SEC (9.7-13.0)
[2018-06-28 12:13] LABS: ACTIVATED PTT 35.3 SECONDS (25.2-36.5)
[2018-06-28] MEDS ORDERED: AZITHROMYCIN IVPB 500 MG in DEXTROSE 5%-WATER - 250 ML IVPB ONE (12:48)
[2018-06-28] MEDS ORDERED: CEFTRIAXONE 1,000 MG in DEXTROSE 5%-WATER - 50 ML IVPB ONE (12:48)
[2018-06-28] MEDS ORDERED: SODIUM CHLORIDE 1,000 ML IV STA ×2 (12:50→17:35)
[2018-06-28] MEDS ORDERED: CEFTRIAXONE 1 GM/50 ML BAG ONE (13:05)
[2018-06-28] MEDS ORDERED: AZITHROMYCIN IVPB 500 MG/250 ML BAG IVPB ONE (13:05)
[2018-06-28 14:33] LABS: ANISOCYTOSIS 0; MACROCYTOSIS 0; PLATELET ESTIMATE INCREASED
[2018-06-28] MEDS ORDERED: ACETAMINOPHEN 1000 MG/100 ML VIAL (NON FORMULARY) IVPB ONE (15:49)
[2018-06-28] MEDS ORDERED: ACETAMINOPHEN INJECTION 100 ML IVPB ONE (16:05)
[2018-06-28] MEDS ORDERED: ONDANSETRON 4 MG/2 ML VIAL ONE (16:05)
[2018-06-28] MEDS ORDERED: morphine SULFATE 4 MG/ML VIAL IVPUSH ONE (17:27)
[2018-06-28] MEDS ORDERED: SENNOSIDES 8.6MG TABLET (FP) PO PRN (17:45)
[2018-06-28] MEDS ORDERED: OXYCODONE HCL 20 MG PO SCH (17:45)
[2018-06-28] MEDS ORDERED: DOCUSATE SODIUM 100 MG CAPSULE (FP) PO PRN (17:45)
[2018-06-28] MEDS ORDERED: ONDANSETRON 4 MG/2 ML VIAL IVPUSH PRN (17:46)
[2018-06-28] MEDS ORDERED: oxyCODONE HCL 5 MG TABLET PO PRN (17:58)
--- NOTE | 2018-06-28 18:11 | EKG ---
Test Reason : Blood Pressure : / mmHG Vent. Rate : 108 BPM Atrial Rate : 108 BPM P-R Int : 134 ms QRS Dur : 078 ms QT Int : 332 ms P-R-T Axes : 055 -10 058 degrees QTc Int : 444 ms SINUS TACHYCARDIA POSSIBLE LEFT ATRIAL ENLARGEMENT ANTEROSEPTAL INFARCT (CITED ON OR BEFORE 07-SEP-2017) ABNORMAL ECG Confirmed by MD YESSY, MEL ([id number]) on 06/28/2018 6:10:46 PM Referred By: Confirmed By:MEL KRISHNAMURTHY MD
[2018-06-28] MEDS ORDERED: morphine SULFATE 4 MG/ML VIAL ONE (18:40)
--- NOTE | 2018-06-28 22:06 | HP ---
Admitting History and Physical - Primary Care Physician PCP: none - Admission Chief Complaint: Mid back pain, N/V History of Present Illness: 62 year old F with h/o scleroderma, HTN, and emphysema presents to the emergency department with myalgias, N/V, and upper back pain with associative SOB. Symptoms have progressively worsening over the course of 1 week and she decided to present to ED for evaluation due to persistent nausea/vomiting over the course of the last 24hours. Vitals in ED: HR 106bpm, BP 133/75, RR 24, O2 sat 94%, T 98.8 (101.7 6hours later-->APAP 1gm given) CXR demonstrates new RUL infiltrate and WBC 37 on STAT CBC. Pt started on ceftriaxone and azithromycin in ED. decision made to admit for further management. History Source: Patient Limitations to Obtaining History: No Limitations - Past Medical History Cardiovascular: Yes: HTN Gastrointestinal: Yes: GERD, Peptic Ulcer Disease ...: No ...Para: 4 Psych: Yes: Anxiety Musculoskeletal: Yes: Chronic low back pain Rheumatology: Yes: Other (scleroderma) Dermatology: Yes: Other - Past Surgical History Past Surgical History: Yes: None - Smoking History Smoking history: Current some day smoker Have you smoked in the past 12 months: Yes Aproximately how many cigarettes per day: 2 - Alcohol/Substance Use Hx Alcohol Use: No History of Substance Use: reports: Marijuana Date of Last Use: 06/27/18 - Social History Usual Living Arrangement: Yes: With Child (son) ADL: Independent Occupation: on disability History of Recent Travel: No Other Social History: [employer]: 7hrs x [employer]dys Home Medications - Allergies Allergies/Adverse Reactions: Allergies Allergy/AdvReac Type Severity Reaction Status Date / Time aspirin Allergy Mild n/v Verified 06/28/18 09:39 - Home Medications Home Medications: Ambulatory Orders Amlodipine Besylate 5 mg PO DAILY 06/28/18 Gabapentin 300 mg PO TID 06/28/18 Losartan Potassium 12.5 mg PO DAILY 06/28/18 Methocarbamol 750 mg PO TID 06/28/18 Methotrexate Sodium/Pf [Methotrexate 25 mg/ml Vial] 25 mg IJ WEEKLY 06/28/18 Omeprazole 40 mg PO DAILY 06/28/18 Ondansetron [Zofran *Odt*] 8 mg SL TID PRN 06/28/18 Oxycodone HCl [Roxicodone] 20 mg PO ASDIR 06/28/18 Umeclidinium [place] [Incruse Ellipta] 1 puff IH DAILY 06/28/18 traMADol HCL [Ultram] 50 mg PO Q8H PRN 06/28/18 traZODone HCL [Trazodone HCl] 50 mg PO HS 06/28/18 Family Disease History - Family Disease History Family Disease History: Diabetes: Mother ( 50 HTN), Other: Father ( 60s HTN), Mother, Sister (alive HTN, DMII) Other Family History: sister alive 60s HTN, DMII Review of Systems - Review of Systems Constitutional: reports: Diaphoresis, Loss of Appetite, Weakness Eyes: reports: No Symptoms Neck: reports: No Symptoms Cardiovascular: reports: No Symptoms Respiratory: reports: Cough Gastrointestinal: reports: Abdominal Pain, Nausea, Vomiting Genitourinary: reports: No Symptoms Breasts: reports: No Symptoms Reported Musculoskeletal: reports: Back Pain, Extremity Pain, Muscle Pain, Muscle Weakness Integumentary: reports: No Symptoms Neurological: reports: No Symptoms Endocrine: reports: Excessive Sweating Psychiatric: reports: Anxiety Pain Intensity: 10 Physical Examination Vital Signs: Vital Signs Temperature 97.8 F 06/28/18 19:05 Pulse Rate 98 H 06/28/18 19:05 Respiratory Rate 18 06/28/18 19:05 Blood Pressure 123/83 06/28/18 19:05 O2 Sat by Pulse Oximetry (%) 95 06/28/18 19:05 Constitutional: Yes: Well Nourished, Anxious Eyes: Yes: Conjunctiva Clear, PERRL HENT: Yes: Atraumatic, Normocephalic, Other Neck: Yes: Supple, Trachea Midline Cardiovascular: Yes: Regular Rate and Rhythm Respiratory: Yes: Regular, CTA Bilaterally Gastrointestinal: Yes: Normal Bowel Sounds, Soft, Other (mild tenderness RLQ) ...Rectal Exam: Yes: Deferred Musculoskeletal: Yes: Back Pain, Muscle Pain, Muscle Weakness Extremities: Yes: WNL Edema: No Peripheral Pulses WNL: Yes Peripheral Pulses: Left Radial: 2+, Right Radial: 2+, Left Doralis Pedis: 2+, Right Dorsalis Pedis: 2+ Neurological: Yes: Alert, Oriented ...Motor Strength: WNL Psychiatric: Yes: Agitated Labs: CBC, BMP 06/28/18 10:38 06/28/18 10:38 Imaging - Results X-ray: Report Reviewed (CXR 06/28/18: new right lung changes- New Right upper lobe infiltrate with some adenopathy in the right hilum. Bones and soft tissue are intact.) Ultrasound: Report Reviewed (RLE doppler 06/28/2018: No evidence of DVT. Small bakers cyst.) EKG: Report Reviewed (EKG 06/28/2018: ST 108bpm. Anteroseptal infarct cited on or before 09/07/2017) Problem List - Problems (1) Pneumonia Assessment/Plan: azithromycin 500mg daily x 5days ceftriaxone 1gm q24hrs f/u sputum culture trend WBC and temp curve Code(s): J18.9 - PNEUMONIA, UNSPECIFIED ORGANISM Qualifiers: Pneumonia type: due to unspecified organism Laterality: right Lung location: unspecified part of lung Qualified Code(s): J18.9 - Pneumonia, unspecified organism (2) COPD (chronic obstructive pulmonary disease) Assessment/Plan: nebs q6hrs IC OOB to chair Chest PT Code(s): J44.9 - CHRONIC OBSTRUCTIVE PULMONARY DISEASE, UNSPECIFIED (3) GERD (gastroesophageal reflux disease) Assessment/Plan: pepcid BID Code(s): K21.9 - GASTRO-ESOPHAGEAL REFLUX DISEASE WITHOUT ESOPHAGITIS (4) Hypertension Assessment/Plan: norvasc 5mg daily cardiac diet Code(s): I10 - ESSENTIAL (PRIMARY) HYPERTENSION Qualifiers: Hypertension type: essential hypertension Qualified Code(s): I10 - Essential (primary) hypertension (5) Nausea and vomiting in adult Assessment/Plan: reglan PRN advance diet as tolerated Code(s): R11.2 - NAUSEA WITH VOMITING, UNSPECIFIED (6) Scleroderma Assessment/Plan: pain control with PRN oxycodone and APAP neurontin 300mg TID Cozaar 12.5mg daily Code(s): M34.9 - SYSTEMIC SCLEROSIS, UNSPECIFIED Assessment/Plan Bowel regimen with senna and colace Anxiety: trazodone 50mg qhs DVT PPX: SC heparin Full code Visit type - Emergency Visit Emergency Visit: Yes ED Registration Date: 06/28/18 Care time: The patient presented to the Emergency Department on the above date and was hospitalized for further evaluation of their emergent condition. - New Patient This patient is new to me today: Yes Date on this admission: 06/28/18 - Critical Care Critical Care patient: No
[2018-06-28] MEDS: FAMOTIDINE 20 MG/50 ML IVPB 20 MG/50 ML MG IVPB SCH (22:10)
[2018-06-28] MEDS: GABAPENTIN 100 MG CAPSULE (FP) PO SCH (22:10)
[2018-06-28] MEDS: traZODone HCL 50 MG TABLET (FP) PO SCH (22:10)
[2018-06-28] MEDS ORDERED: FAMOTIDINE 20 MG/50 ML IVPB 20 MG/50 ML MG IVPB ONE (22:25)
[2018-06-28] MEDS ORDERED: GABAPENTIN 100 MG CAPSULE (FP) ONE (22:25)
[2018-06-29] MEDS ORDERED: HEPARIN NA (PORCINE) 5,000 UNITS/ML 1ML VIAL ONE (00:01)
[2018-06-29] MEDS: HEPARIN NA (PORCINE) 5,000 UNITS/ML 1ML VIAL SQ SCH ×3 (05:11→21:59)
[2018-06-29] MEDS ORDERED: oxyCODONE HCL 5 MG TABLET ONE (06:26)
[2018-06-29] MEDS: GABAPENTIN 300 MG CAPSULE (FP) PO SCH ×3 (06:32→21:59)
[2018-06-29] MEDS ORDERED: CEFTRIAXONE 1 GM/50 ML BAG ONE (09:04)
[2018-06-29] MEDS ORDERED: AZITHROMYCIN IVPB 500 MG/250 ML BAG IVPB ONE (09:04)
[2018-06-29] MEDS: amLODIPine BESYLATE 5 MG TABLET (FP) PO SCH ×2 (09:14→09:23)
[2018-06-29] MEDS: CEFTRIAXONE 1 GM in DEXTROSE 5%-WATER - 50 ML IVPB SCH (09:14)
[2018-06-29] MEDS: FAMOTIDINE 20 MG/50 ML IVPB 20 MG/50 ML MG IVPB SCH ×2 (09:14→22:00)
[2018-06-29] MEDS: AZITHROMYCIN IVPB 500 MG/250 ML BAG IVPB SCH (09:23)
[2018-06-29] MEDS ORDERED: PANTOPRAZOLE 40 MG TABLET (FP) PO SCH (10:00)
[2018-06-29 10:54] LABS: BASO % 0.2 % (0-2.0); EOS % 0.3 % (0-4.5); HEMATOCRIT 34.6 % (32.4-45.2); HEMOGLOBIN 11.4 GM/dL (10.7-15.3); LYMPH % 6.4 % (8-40); MCH 29.5 pg (25.7-33.7); MEAN CELL VOLUME 89.3 fl (80-96); MEAN PLT VOLUME 8.2 fl (7.5-11.1); MONO % 2.6 % (3.8-10.2); NEUT % 90.5 % (42.8-82.8); PLATELET COUNT 539 K/MM3 (134-434); RBC 3.88 M/mm3 (3.60-5.2); RDW 14.8 % (11.6-15.6)
[2018-06-29 10:58] LABS: WHITE BLOOD COUNT 34.5 K/mm3 (4.0-10.0)
[2018-06-29 11:30] LABS: ALBUMIN 2.2 g/dl (3.4-5.0); ALK PHOS 195 U/L (45-117); ANION GAP 8 MMOL/L (8-16); BILIRUBIN,TOTAL 0.3 mg/dL (0.2-1); BLOOD UREA NITROGEN 10 mg/dL (7-18); CALCIUM 8.5 mg/dL (8.5-10.1); CHLORIDE 107 mmol/L (98-107); CO2 27 mmol/L (21-32); CREATININE 0.8 mg/dL (0.55-1.3); GLUCOSE,RANDOM 164 mg/dL (74-106); MAGNESIUM 2.4 mg/dL (1.8-2.4); PHOSPHOROUS 2.5 mg/dL (2.5-4.9); POTASSIUM 4.1 mmol/L (3.5-5.1); SGOT/AST 10 U/L (15-37); SGPT/ALT 15 U/L (13-61); SODIUM 142 mmol/L (136-145); TOT PROT 5.9 g/dl (6.4-8.2)
[2018-06-29] MEDS: LOSARTAN POTASSIUM 25 MG TABLET PO SCH (12:22)
[2018-06-29 12:30] LABS: ACANTHOCYTES 0; ANISOCYTOSIS 0; HELMET CELLS 0; HOWELL-JOLLY BODIES 0; MACROCYTOSIS 0; OVALOCYTE 0; PLATELET ESTIMATE INCREASED; ROULEAU 0; SICKELED CELLS 0; TARGET CELLS 0; TEAR DROP CELLS 0; TOXIC GRANULATION 0
[2018-06-29] MEDS: oxyCODONE HCL 5 MG TABLET PO PRN ×2 (13:20→20:18)
[2018-06-29] MEDS: GABAPENTIN 100 MG CAPSULE (FP) PO SCH (14:58)
[2018-06-29] MEDS: METOCLOPRAMIDE HCL INJECTION 10 MG/2 ML VIAL IVPUSH PRN (18:09)
--- NOTE | 2018-06-29 20:01 | PN ---
Progress Note, Physician Chief Complaint: upper back pain History of Present Illness: 24HR events: pt admitted from ED for RUL PNA. started on azithromycin and ceftriaxone. reports chronic generalized pain treated with neurontin and oxycodone. Blood cultures sent and are negative to date. - Current Medication List Current Medications: Active Medications Acetaminophen (Tylenol -) 1,000 mg PO Q8H PRN PRN Reason: FEVER Al Hydroxide/Mg Hydroxide (Mylanta Oral Suspension -) 30 ml PO Q6H PRN PRN Reason: DYSPEPSIA Albuterol/Ipratropium (Duoneb -) 1 amp NEB Q6H PRN PRN Reason: SHORTNESS OF BREATH Amlodipine Besylate (Norvasc -) 5 mg PO DAILY ALEXIS Docusate Sodium (Colace -) 100 mg PO Q8H PRN PRN Reason: CONSTIPATION Gabapentin (Neurontin -) 300 mg PO TID [facility] Last Admin: 06/29/18 13:52 Dose: 300 mg Heparin Sodium (Porcine) (Heparin -) 5,000 unit SQ BID [facility] Last Admin: 06/29/18 09:14 Dose: 5,000 unit Azithromycin (Zithromax 500mg Ivpb (Pre-Docked)) 500 mg in 250 mls @ 250 mls/ hr IVPB DAILY [facility] Last Admin: 06/29/18 09:23 Dose: 250 mls/hr Ceftriaxone Sodium 1 gm/ (Dextrose) 50 mls @ 100 mls/hr IVPB DAILY [facility]; Protocol Last Admin: 06/29/18 09:14 Dose: 100 mls/hr Famotidine/Sodium Chloride (Pepcid 20 Mg Premixed Ivpb -) 20 mg in 50 mls @ 100 mls/hr IVPB BID [facility] Last Admin: 06/29/18 09:14 Dose: 100 mls/hr Losartan Potassium (Cozaar -) 12.5 mg PO DAILY [facility] Last Admin: 06/29/18 12:22 Dose: 12.5 mg Methotrexate Sodium (Mexate Injection -) 25 mg IM Mo@1000 [facility] Metoclopramide HCl (Reglan Injection -) 10 mg IVPUSH Q8H PRN PRN Reason: NAUSEA AND/OR VOMITING Last Admin: 06/29/18 18:09 Dose: 10 mg Oxycodone HCl (Roxicodone -) 15 mg PO Q6H PRN PRN Reason: PAIN LEVEL 7 - 10 Last Admin: 06/29/18 13:20 Dose: 15 mg Senna (Senna -) 2 tab PO HS PRN PRN Reason: CONSTIPATION Trazodone HCl (Desyrel -) 50 mg PO HS ALEXIS Last Admin: 06/28/18 22:10 Dose: 50 mg - Objective Vital Signs: Vital Signs Temperature 97.5 F L 06/29/18 15:48 Pulse Rate 97 H 06/29/18 15:48 Respiratory Rate 20 06/29/18 15:48 Blood Pressure 120/70 06/29/18 15:48 O2 Sat by Pulse Oximetry (%) 95 06/29/18 13:50 Constitutional: Yes: Well Nourished, No Distress, Calm Eyes: Yes: Conjunctiva Clear, PERRL HENT: Yes: Atraumatic, Normocephalic Neck: Yes: Supple, Trachea Midline Cardiovascular: Yes: Regular Rate and Rhythm Respiratory: Yes: Regular, Diminished (Left lung emerson) Gastrointestinal: Yes: Soft, Hypoactive Bowel Sounds Musculoskeletal: Yes: WNL Edema: No Peripheral Pulses WNL: Yes Integumentary: Yes: Other (skin discolorations to upper extremities) Neurological: Yes: Alert, Oriented ...Motor Strength: WNL Labs: CBC, BMP 06/29/18 10:45 06/29/18 10:45 INR, PTT INR 1.29 (0.83-1.09) H 06/28/18 10:39 Problem List - Problems (1) Pneumonia Assessment/Plan: ID consult azithromycin 500mg daily ceftriaxone 1gm q24hrs f/u sputum culture trend WBC and temp curve Code(s): J18.9 - PNEUMONIA, UNSPECIFIED ORGANISM Qualifiers: Pneumonia type: due to unspecified organism Laterality: right Lung location: unspecified part of lung Qualified Code(s): J18.9 - Pneumonia, unspecified organism (2) COPD (chronic obstructive pulmonary disease) Assessment/Plan: nebs q6hrs IC OOB to chair Chest PT Code(s): J44.9 - CHRONIC OBSTRUCTIVE PULMONARY DISEASE, UNSPECIFIED (3) GERD (gastroesophageal reflux disease) Assessment/Plan: pepcid BID PRN maalox Code(s): K21.9 - GASTRO-ESOPHAGEAL REFLUX DISEASE WITHOUT ESOPHAGITIS (4) Hypertension Assessment/Plan: norvasc 5mg daily cardiac diet Cozaar 12.5mg daily Code(s): I10 - ESSENTIAL (PRIMARY) HYPERTENSION Qualifiers: Hypertension type: essential hypertension Qualified Code(s): I10 - Essential (primary) hypertension (5) Nausea and vomiting in adult Assessment/Plan: reglan PRN advance diet as tolerated Code(s): R11.2 - NAUSEA WITH VOMITING, UNSPECIFIED (6) Scleroderma Assessment/Plan: pain control with PRN oxycodone and APAP neurontin 300mg TID Code(s): M34.9 - SYSTEMIC SCLEROSIS, UNSPECIFIED Impression/Plan Impression/Plan: Bowel regimen with senna and colace Anxiety: trazodone 50mg qhs DVT PPX: SC heparin Full code Visit type - Emergency Visit Emergency Visit: Yes ED Registration Date: 06/28/18 Care time: The patient presented to the Emergency Department on the above date and was hospitalized for further evaluation of their emergent condition. - New Patient This patient is new to me today: No - Critical Care Critical Care patient: No - Discharge Referral Referred to [facility] Med P.C.: No
[2018-06-29] MEDS: traZODone HCL 50 MG TABLET (FP) PO SCH (21:59)
[2018-06-29] MEDS: ALBUTEROL SO4 2.5/IPRATROPIUM 0.5 INH SOL 3 ML VIAL.NEB. NEB PRN (21:59)
[2018-06-30] MEDS: oxyCODONE HCL 5 MG TABLET PO PRN ×4 (03:30→21:56)
[2018-06-30] MEDS: ALBUTEROL SO4 2.5/IPRATROPIUM 0.5 INH SOL 3 ML VIAL.NEB. NEB PRN ×5 (03:35→23:43)
[2018-06-30] MEDS: MAG HYDROX/AL HYDROX/SIMETH 30 ML UNIT-DOSE CUP PO PRN (03:35)
[2018-06-30] MEDS: GABAPENTIN 300 MG CAPSULE (FP) PO SCH ×3 (06:11→21:56)
[2018-06-30 07:14] LABS: BASO % 1.2 % (0-2.0); EOS % 1.1 % (0-4.5); HEMATOCRIT 34.1 % (32.4-45.2); HEMOGLOBIN 11.4 GM/dL (10.7-15.3); LYMPH % 15.3 % (8-40); MCH 29.8 pg (25.7-33.7); MCHC 33.3 g/dl (32.0-36.0); MEAN CELL VOLUME 89.5 fl (80-96); MEAN PLT VOLUME 8.7 fl (7.5-11.1); MONO % 3.5 % (3.8-10.2); NEUT % 78.9 % (42.8-82.8); PLATELET COUNT 561 K/MM3 (134-434); RBC 3.81 M/mm3 (3.60-5.2); WHITE BLOOD COUNT 15.8 K/mm3 (4.0-10.0)
[2018-06-30 08:08] LABS: ANION GAP 10 MMOL/L (8-16); BLOOD UREA NITROGEN 8 mg/dL (7-18); CALCIUM 8.2 mg/dL (8.5-10.1); CHLORIDE 106 mmol/L (98-107); CO2 25 mmol/L (21-32); CREATININE 0.6 mg/dL (0.55-1.3); GLUCOSE,RANDOM 90 mg/dL (74-106); MAGNESIUM 2.5 mg/dL (1.8-2.4); POTASSIUM 4.1 mmol/L (3.5-5.1); SODIUM 142 mmol/L (136-145)
[2018-06-30] MEDS ORDERED: DEXTROSE 5%-WATER - 50 ML IVPB ONE (09:12)
[2018-06-30] MEDS ORDERED: cefTRIAXone SODIUM 1 GM VIAL ONE (09:12)
[2018-06-30] MEDS: AZITHROMYCIN IVPB 500 MG/250 ML BAG IVPB SCH (09:18)
[2018-06-30] MEDS: FAMOTIDINE 20 MG/50 ML IVPB 20 MG/50 ML MG IVPB SCH ×2 (09:18→21:56)
[2018-06-30] MEDS: CEFTRIAXONE 1 GM in DEXTROSE 5%-WATER - 50 ML IVPB SCH (09:19)
[2018-06-30] MEDS: amLODIPine BESYLATE 5 MG TABLET (FP) PO SCH (09:19)
[2018-06-30] MEDS: LOSARTAN POTASSIUM 25 MG TABLET PO SCH (09:19)
[2018-06-30] MEDS: HEPARIN NA (PORCINE) 5,000 UNITS/ML 1ML VIAL SQ SCH ×2 (09:19→21:56)
--- NOTE | 2018-06-30 12:07 | PN ---
Physical Exam: History of Present Illness: 62 year old F with h/o scleroderma, HTN, and emphysema presents to the emergency department with myalgias, N/V, and upper back pain with associative SOB. Symptoms have progressively worsening over the course of 1 week and she decided to present to ED for evaluation due to persistent nausea/vomiting over the course of the last 24hours. Vitals in ED: HR 106bpm, BP 133/75, RR 24, O2 sat 94%, T 98.8 (101.7 6hours later-->APAP 1gm given) CXR demonstrates new RUL infiltrate and WBC 37 on STAT CBC. Pt started on ceftriaxone and azithromycin in ED. Subjective : Breathing better . coughing less. Other zavala No acute distress. OBJECTIVE: Vital Signs Period Temp Pulse Resp BP Sys/Hoyt Pulse Ox Last 24 Hr 97.5 F-98.1 F 95-100 17-20 98-126/60-78 95 GENERAL: The patient is awake, alert, and fully oriented, in no acute distress. HEAD: Normal with no signs of trauma. EYES: PERRL, extraocular movements intact, sclera anicteric, conjunctiva clear. No ptosis. ENT: Ears normal, nares patent, oropharynx clear without exudates, moist mucous membranes. NECK: Trachea midline, full range of motion, supple. LUNGS: Breath sounds equal, clear to auscultation bilaterally, no wheezes, no crackles, no accessory muscle use. HEART: Regular rate and rhythm, S1, S2 without murmur, rub or gallop. ABDOMEN: Soft, nontender, nondistended, normoactive bowel sounds, no guarding, no rebound, no hepatosplenomegaly, no masses. EXTREMITIES: 2+ pulses, warm, well-perfused, no edema. NEUROLOGICAL: Cranial nerves II through XII grossly intact. Normal speech, gait not observed. PSYCH: Normal mood, normal affect. SKIN: Warm, dry, normal turgor, no rashes or lesions noted Laboratory Results - last 24 hr 06/29/18 06/30/18 06/30/18 10:45 06:00 06:00 WBC 15.8 H RBC 3.81 Hgb 11.4 Hct 34.1 MCV 89.5 MCH 29.8 MCHC 33.3 RDW 15.0 Plt Count 561 H MPV 8.7 Absolute Neuts (auto) 12.5 H Neutrophils % 78.9 Neutrophils % (Manual) 95.1 H Band Neutrophils % 0.0 Lymphocytes % 15.3 D Lymphocytes % (Manual) 3.9 L D Monocytes % 3.5 L Monocytes % (Manual) 1 L D Eosinophils % 1.1 D Eosinophils % (Manual) 0.0 Basophils % 1.2 D Basophils % (Manual) 0.0 Myelocytes % (Man) 0 Promyelocytes % (Man) 0 Blast Cells % (Manual) 0 Nucleated RBC % 0 Metamyelocytes 0 Hypochromia 0 Toxic Granulation 0 Dohle Bodies 0 Platelet Estimate Increased Polychromasia 0 Poikilocytosis 0 Basophilic Stippling 0 Anisocytosis 0 Microcytosis 0 Macrocytosis 0 Spherocytes 0 Sickle Cells 0 Target Cells 0 Tear Drop Cells 0 Ovalocytes 0 Stomatocytes 0 Helmet Cells 0 [place] Bodies 0 [place] Rings 0 [place] Cells 0 Acanthocytes (Spur) 0 Rouleaux 0 Fragmented RBCs 0 Schistocytes 0 Sodium 142 Potassium 4.1 Chloride 106 Carbon Dioxide 25 Anion Gap 10 BUN 8 Creatinine 0.6 Creat Clearance w eGFR > 60 Random Glucose 90 Calcium 8.2 L Magnesium 2.5 H Active Medications Generic Name Dose Route Start Last Admin Trade Name Freq PRN Reason Stop Dose Admin Acetaminophen 1,000 mg 06/28/18 17:46 Tylenol - PO Q8H PRN FEVER Al Hydroxide/Mg Hydroxide 30 ml 06/29/18 14:53 06/30/18 03:35 Mylanta Oral Suspension - PO 30 ml Q6H PRN Administration DYSPEPSIA Albuterol/Ipratropium 1 amp 06/28/18 17:46 06/30/18 08:04 Duoneb - NEB 1 amp Q6H PRN Administration SHORTNESS OF BREATH Amlodipine Besylate 5 mg 06/29/18 10:00 06/30/18 09:19 Norvasc - PO 5 mg DAILY ALEXIS Administration Docusate Sodium 100 mg 06/28/18 17:45 Colace - PO Q8H PRN CONSTIPATION Gabapentin 300 mg 06/29/18 06:15 06/30/18 06:11 Neurontin - PO 300 mg TID ALEXIS Administration Heparin Sodium (Porcine) 5,000 unit 06/28/18 22:30 06/30/18 09:19 Heparin - SQ 5,000 unit BID ALEXIS Administration Azithromycin 500 mg in 250 mls @ 250 mls/hr 06/29/18 10:00 06/30/18 09:18 Zithromax 500mg Ivpb (Pre-Docked) IVPB 250 mls/hr DAILY ALEXIS Administration Ceftriaxone Sodium 1 gm/ 50 mls @ 100 mls/hr 06/29/18 10:00 06/30/18 09:19 Dextrose IVPB 100 mls/hr DAILY ALEXIS Administration Protocol Famotidine/Sodium Chloride 20 mg in 50 mls @ 100 mls/hr 06/28/18 22:00 09:18 Pepcid 20 Mg Premixed Ivpb - IVPB 100 mls/hr BID ALEXIS Administration Losartan Potassium 12.5 mg 06/29/18 13:00 06/30/18 09:19 Cozaar - PO 12.5 mg DAILY ALEXIS Administration Methotrexate Sodium 25 mg 07/04/18 10:00 Mexate Injection - IM Mo@1000 ALEXIS Metoclopramide HCl 10 mg 06/28/18 17:57 06/29/18 18:09 Reglan Injection - IVPUSH 10 mg Q8H PRN Administration NAUSEA AND/OR VOMITING Oxycodone HCl 15 mg 06/29/18 13:09 06/30/18 09:50 Roxicodone - PO 15 mg Q6H PRN Administration PAIN LEVEL 7 - 10 Senna 2 tab 06/28/18 17:45 Senna - PO HS PRN CONSTIPATION Trazodone HCl 50 mg 06/28/18 22:00 06/29/18 21:59 Desyrel - PO 50 mg HS ALEXIS Administration ASSESSMENT/PLAN: (1) Pneumonia azithromycin 500mg daily ceftriaxone 1gm q24hrs f/u sputum culture trend WBC and temp curve Improving clinically. (2) COPD (chronic obstructive pulmonary disease) Assessment/Plan: nebs q6hrs IC OOB to chair Chest PT Code(s): J44.9 - CHRONIC OBSTRUCTIVE PULMONARY DISEASE, UNSPECIFIED (3) GERD (gastroesophageal reflux disease) Assessment/Plan: pepcid BID PRN maalox Code(s): K21.9 - GASTRO-ESOPHAGEAL REFLUX DISEASE WITHOUT ESOPHAGITIS (4) Hypertension Assessment/Plan: norvasc 5mg daily cardiac diet Cozaar 12.5mg daily Code(s): I10 - ESSENTIAL (PRIMARY) HYPERTENSION Qualifiers: Hypertension type: essential hypertension Qualified Code(s): I10 - Essential (primary) hypertension (5) Nausea and vomiting in adult Assessment/Plan: reglan PRN advance diet as tolerated Code(s): R11.2 - NAUSEA WITH VOMITING, UNSPECIFIED (6) Scleroderma Assessment/Plan: pain control with PRN oxycodone and APAP neurontin 300mg TID, Flexeril. Code(s): M34.9 - SYSTEMIC SCLEROSIS, UNSPECIFIED Impression/Plan Impression/Plan: Leucocytosis : Improving >> Blood cx negative so far. Bowel regimen with senna and colace Anxiety: trazodone 50mg qhs DVT PPX: SC heparin Full code The plan was d/w the patient at bedside. Visit type - Emergency Visit Emergency Visit: Yes ED Registration Date: 06/28/18 Care time: The patient presented to the Emergency Department on the above date and was hospitalized for further evaluation of their emergent condition. - New Patient This patient is new to me today: Yes Date on this admission: 06/30/18 - Critical Care Critical Care patient: No - Discharge Referral Referred to [facility] Med P.C.: No
--- NOTE | 2018-06-30 15:36 | PN ---
Progress Note (short form) - Note Progress Note: ID CONSULT DICTATED COMMUNITY ACQ V. ATYPICAL RUL PNEUMONIA EXAC COPD MARKED LEUKOCYTOSIS- IMPROVED HX SCLERODERMA OBTAIN SPUTUM C/S, LEGIONELLA/ PNEUMOCOCCAL AG QUANTIFERON CT CHEST CONTINUE ZITHROMAX/ CEFTRIAXONE DECLINES HIV TEST
--- NOTE | 2018-06-30 16:38 | CONS ---
DATE OF CONSULTATION: DATE OF DICTATION: 06/30/2018 HISTORY OF PRESENT ILLNESS: The patient is a 62-year-old female with a history of scleroderma on methotrexate. She is HIV negative per the patient. She is being evaluated for pneumonia. The patient was admitted to the hospital on June 28, 2018 with complaints of pleuritic-type right-sided chest and back pain associated with shortness of breath and cough productive of yellowish sputum. A chest x-ray shows a large right upper lobe infiltrate as well as hilar adenopathy. She was empirically treated with Zithromax and ceftriaxone. On admission, the patient was found to have a markedly elevated white blood cell count of 37,000. The patient lives at home. She reports being in contact with young children with respiratory tract illnesses. She did not receive an influenza vaccine. She is currently a smoker. She denies any recent travel. No recent hospitalizations. She states she tested negative for HIV in the recent past. PAST MEDICAL HISTORY: Positive for scleroderma, COPD, hypertension, gastroesophageal reflux disease. ALLERGIES: ASPIRIN. HOME MEDICATIONS: Methotrexate, folic acid, tramadol, methocarbamol, prednisone 20 mg, Losartan and amlodipine. LABORATORY DATA: White count on admission 37,000; currently 15.8, hematocrit 34.1, platelet count 561, creatinine 0.6, total bilirubin 0.3, alkaline phosphatase 195, AST 10. Blood culture is negative. Sputum culture is pending. PHYSICAL EXAMINATION: General: She is awake and alert, seated in bed. She is not acutely toxic-appearing and her breathing is unlabored. Vital Signs: Temperature 98.4, pulse 95 and regular, blood pressure 126/66, respiratory rate 20 per minute. HEENT: Sclerae anicteric. Heart: Heart sounds S1, S2. Lungs: Diminished breath sounds throughout both lung emerson. No wheezes, rales or rhonchi. Abdomen: Soft. No tenderness elicited. Extremities: Negative for edema, negative Christy sign. IMPRESSION: 1. Community-acquired vs. atypical right upper lobe pneumonia. 2. Rule out sepsis secondary to pneumonia. 3. Acute exacerbation of COPD. 4. Marked leukocytosis, improved. 5. History of scleroderma on immunosuppressive therapy. PLAN: 1. Obtain sputum culture, urine Legionella and pneumococcal antigens and QuantiFERON. 2. Would obtain CT scan of the chest in light of the dense nature of the infiltrate and associated hilar adenopathy. 3. Continue empiric treatment with Zithromax and ceftriaxone. 4. The patient declined HIV testing. ZEKE EISENBERG M.D. [id number]
[2018-06-30] MEDS: traZODone HCL 50 MG TABLET (FP) PO SCH (21:58)
[2018-07-01] MEDS ORDERED: MELATONIN 5 MG TABLETS PO ONE (00:21)
[2018-07-01] MEDS: oxyCODONE HCL 5 MG TABLET PO PRN ×3 (04:48→16:05)
[2018-07-01] MEDS: ALBUTEROL SO4 2.5/IPRATROPIUM 0.5 INH SOL 3 ML VIAL.NEB. NEB PRN ×5 (05:08→23:50)
[2018-07-01] MEDS: GABAPENTIN 300 MG CAPSULE (FP) PO SCH ×3 (05:10→21:28)
--- NOTE | 2018-07-01 07:56 | PN ---
Physical Exam: SUBJECTIVE: She is complaining of the severe generalized body ache and states that the chest pain is constant with no pleuretic significance. She also states that she has nausea . SHe has also been evaluated by pulmonology service yesterday and s been treated for PNA OBJECTIVE: Vital Signs Period Temp Pulse Resp BP Sys/Hoyt Pulse Ox Last 24 Hr 98.1 F-98.6 F 95-98 20-20 121-127/66-74 GENERAL: The patient is awake, alert, and fully oriented, in no acute distress. but complains of being SOB and gasping for air while talking in full sentences with no use of accessory muscles, moves in bed and moves the joints with no complaints. HEAD: Normal with no signs of trauma. EYES: PERRL, extraocular movements intact, sclera anicteric, conjunctiva clear. No ptosis. ENT: Ears normal, nares patent, oropharynx clear without exudates, moist mucous membranes. NECK: Trachea midline, full range of motion, supple. LUNGS: Breath sounds equal, clear to auscultation bilaterally, no wheezes, no crackles, no accessory muscle use. no distress at all HEART: Regular rate and rhythm, S1, S2 without murmur, rub or gallop. ABDOMEN: Soft, nontender, nondistended, normoactive bowel sounds, no guarding, no rebound, EXTREMITIES: 2+ pulses, warm, well-perfused, no edema. NEUROLOGICAL: Cranial nerves II through XII grossly intact. Normal speech, gait not observed. PSYCH: Normal mood, normal affect. SKIN: Warm, dry, normal turgor, no rashes or lesions noted, has no rash over the chest , no bruises, skin is soft with no color change in the fingers. Laboratory Results - last 24 hr CBCD WBC 15.8 K/mm3 (4.0-10.0) H 06/30/18 06:00 RBC 3.81 M/mm3 (3.60-5.2) 06/30/18 06:00 Hgb 11.4 GM/dL (10.7-15.3) 06/30/18 06:00 Hct 34.1 % (32.4-45.2) 06/30/18 06:00 MCV 89.5 fl (80-96) 06/30/18 06:00 MCHC 33.3 g/dl (32.0-36.0) 06/30/18 06:00 RDW 15.0 % (11.6-15.6) 06/30/18 06:00 Plt Count 561 K/MM3 (134-434) H 06/30/18 06:00 MPV 8.7 fl (7.5-11.1) 06/30/18 06:00 CMP Sodium 142 mmol/L (136-145) 06/30/18 06:00 Potassium 4.1 mmol/L (3.5-5.1) 06/30/18 06:00 Chloride 106 mmol/L (98-107) 06/30/18 06:00 Carbon Dioxide 25 mmol/L (21-32) 06/30/18 06:00 Anion Gap 10 MMOL/L (8-16) 06/30/18 06:00 BUN 8 mg/dL (7-18) 06/30/18 06:00 Creatinine 0.6 mg/dL (0.55-1.3) 06/30/18 06:00 Creat Clearance w eGFR > 60 (>60) 06/30/18 06:00 Random Glucose 90 mg/dL (74-106) 06/30/18 06:00 Calcium 8.2 mg/dL (8.5-10.1) L 06/30/18 06:00 Total Bilirubin 0.3 mg/dL (0.2-1) 06/29/18 10:45 AST 10 U/L (15-37) L 06/29/18 10:45 ALT 15 U/L (13-61) 06/29/18 10:45 Alkaline Phosphatase 195 U/L (45-117) H 06/29/18 10:45 Total Protein 5.9 g/dl (6.4-8.2) L 06/29/18 10:45 Albumin 2.2 g/dl (3.4-5.0) L 06/29/18 10:45 CARDIAC ENZYMES Creatine Kinase 29 IU/L (26-192) 06/28/18 10:38 Troponin I < 0.02 ng/ml (0.00-0.05) 06/28/18 10:38 Active Medications Generic Name Dose Route Start Last Admin Trade Name Freq PRN Reason Stop Dose Admin Acetaminophen 1,000 mg 06/28/18 17:46 Tylenol - PO Q8H PRN FEVER Al Hydroxide/Mg Hydroxide 30 ml 06/29/18 14:53 06/30/18 03:35 Mylanta Oral Suspension - PO 30 ml Q6H PRN Administration DYSPEPSIA Albuterol/Ipratropium 1 amp 06/28/18 17:46 07/01/18 05:08 Duoneb - NEB 1 amp Q6H PRN Administration SHORTNESS OF BREATH Amlodipine Besylate 5 mg 06/29/18 10:00 06/30/18 09:19 Norvasc - PO 5 mg DAILY [facility] Administration Docusate Sodium 100 mg 06/28/18 17:45 Colace - PO Q8H PRN CONSTIPATION Gabapentin 300 mg 06/29/18 06:15 07/01/18 05:10 Neurontin - PO 300 mg TID [facility] Administration Heparin Sodium (Porcine) 5,000 unit 06/28/18 22:30 06/30/18 21:56 Heparin - SQ 5,000 unit BID [facility] Administration Azithromycin 500 mg in 250 mls @ 250 mls/hr 06/29/18 10:00 06/30/18 09:18 Zithromax 500mg Ivpb (Pre-Docked) IVPB 250 mls/hr DAILY [facility] Administration Ceftriaxone Sodium 1 gm/ 50 mls @ 100 mls/hr 06/29/18 10:00 06/30/18 09:19 Dextrose IVPB 100 mls/hr DAILY [facility] Administration Protocol Famotidine/Sodium Chloride 20 mg in 50 mls @ 100 mls/hr 06/28/18 22:00 21:56 Pepcid 20 Mg Premixed Ivpb - IVPB 100 mls/hr BID [facility] Administration Losartan Potassium 12.5 mg 06/29/18 13:00 06/30/18 09:19 Cozaar - PO 12.5 mg DAILY [facility] Administration Methotrexate Sodium 25 mg 07/04/18 10:00 Mexate Injection - IM Mo@1000 [facility] Metoclopramide HCl 10 mg 06/28/18 17:57 06/29/18 18:09 Reglan Injection - IVPUSH 10 mg Q8H PRN Administration NAUSEA AND/OR VOMITING Oxycodone HCl 15 mg 06/29/18 13:09 07/01/18 04:48 Roxicodone - PO 15 mg Q6H PRN Administration PAIN LEVEL 7 - 10 Senna 2 tab 06/28/18 17:45 Senna - PO HS PRN CONSTIPATION Trazodone HCl 50 mg 06/28/18 22:00 06/30/18 21:58 Desyrel - PO 50 mg HS [facility] Administration ASSESSMENT/PLAN: 62Y/O F W Emphysema, active smoker, scleroderma, chronic generalized pain for which she states she is on oxycodoen 20 mg q8h PRN, She came to the ED with feelign sick for couple of days, not tolerating po and feeling SOB and was found to have leukocytosis, new infiltrate on the CXR and has been treated for CAD. PNA in the patient with emphysema and scleroderma on immunsuppresents: she has been afebrile and WBC is improving she is not on home O2 but is on O2 NC here, will check the sats off O2 and will walk the patient off the O2 and will document them As she is complaining of SOB while she is in no obvious distress, will give prednison 40 mg for 2 days and will likely be able to DC after that She is on albuteorl atrovent PRN. pending urine leg, PN as well as sputom CX, Quantiferon she has refused HIV testing Will C/W ceftriaxone and azithromycin pending the urine tests. HTN: well controlled Will C/W amlodipien, losartan Chronic body ache: states that it is chronic and she takes oxycodone which will continue at this time but has to be evaluated by pain management as out patient. She also gets gabapenting which can be increased. she is on bowel regime nausea: EKG checked she has no abnormal finding concerning of arrythmia at this time. Sceleroderma: she is on methotheroxate which stopping is not going to stop the effects while on treatment for PNA DVT ppx: HEPARIN SQ Diet: cardiac cardiovascular risk factors: considering that patient is in constant state of inflamation she is higher risk for CAD and will need to be on statin and ASA which sheould be discussed with the patient as O/P Dispo: likely home on Wednesday, pending O2 sat while walking. Visit type - Emergency Visit Emergency Visit: No - New Patient This patient is new to me today: No - Critical Care Critical Care patient: No - Discharge Referral Referred to [facility] No
[2018-07-01] MEDS ORDERED: DEXTROSE 5%-WATER - 50 ML IVPB ONE (09:01)
[2018-07-01] MEDS ORDERED: cefTRIAXone SODIUM 1 GM VIAL ONE (09:01)
[2018-07-01] MEDS: LOSARTAN POTASSIUM 25 MG TABLET PO SCH (09:09)
[2018-07-01] MEDS: HEPARIN NA (PORCINE) 5,000 UNITS/ML 1ML VIAL SQ SCH ×2 (09:10→21:36)
[2018-07-01] MEDS: CEFTRIAXONE 1 GM in DEXTROSE 5%-WATER - 50 ML IVPB SCH (09:10)
[2018-07-01] MEDS: amLODIPine BESYLATE 5 MG TABLET (FP) PO SCH (09:10)
[2018-07-01] MEDS: predniSONE 20 MG TABLET (UD) PO SCH (10:09)
[2018-07-01] MEDS: ONDANSETRON *ODT* 4 MG TABLET SL PRN ×2 (10:09→22:23)
[2018-07-01] MEDS: FAMOTIDINE 20 MG/50 ML IVPB 20 MG/50 ML MG IVPB SCH ×2 (10:10→21:27)
[2018-07-01] MEDS: AZITHROMYCIN IVPB 500 MG/250 ML BAG IVPB SCH (10:44)
[2018-07-01] MEDS ORDERED: PT OWN MED DRAWER 7, Y5N ONE (20:52)
[2018-07-01] MEDS: traZODone HCL 50 MG TABLET (FP) PO SCH (21:28)
[2018-07-01] MEDS: MAG HYDROX/AL HYDROX/SIMETH 30 ML UNIT-DOSE CUP PO PRN (21:37)
[2018-07-02] MEDS: oxyCODONE HCL 5 MG TABLET PO PRN ×4 (00:11→21:58)
[2018-07-02] MEDS ORDERED: ACETAMINOPHEN 1000 MG/100 ML VIAL (NON FORMULARY) IVPB ONE (03:46)
[2018-07-02] MEDS ORDERED: diphenhydrAMINE HCL 25 MG CAPSULE (FP) PO ONE (06:23)
[2018-07-02] MEDS: GABAPENTIN 300 MG CAPSULE (FP) PO SCH ×3 (06:40→21:43)
[2018-07-02] MEDS ORDERED: cefTRIAXone SODIUM 1 GM VIAL ONE (09:36)
[2018-07-02] MEDS ORDERED: DEXTROSE 5%-WATER - 50 ML IVPB ONE (09:37)
[2018-07-02] MEDS: predniSONE 20 MG TABLET (UD) PO SCH (09:42)
[2018-07-02] MEDS: amLODIPine BESYLATE 5 MG TABLET (FP) PO SCH (09:42)
[2018-07-02] MEDS: LOSARTAN POTASSIUM 25 MG TABLET PO SCH (09:43)
[2018-07-02] MEDS: FAMOTIDINE 20 MG/50 ML IVPB 20 MG/50 ML MG IVPB SCH ×2 (09:43→21:43)
[2018-07-02] MEDS: CEFTRIAXONE 1 GM in DEXTROSE 5%-WATER - 50 ML IVPB SCH (09:44)
[2018-07-02] MEDS: HEPARIN NA (PORCINE) 5,000 UNITS/ML 1ML VIAL SQ SCH ×2 (09:45→21:43)
[2018-07-02] MEDS: AZITHROMYCIN IVPB 500 MG/250 ML BAG IVPB SCH (11:09)
[2018-07-02 11:48] LABS: ANION GAP 7 MMOL/L (8-16); BLOOD UREA NITROGEN 9 mg/dL (7-18); CALCIUM 8.8 mg/dL (8.5-10.1); CHLORIDE 107 mmol/L (98-107); CO2 28 mmol/L (21-32); CREATININE 0.8 mg/dL (0.55-1.3); GLUCOSE,RANDOM 119 mg/dL (74-106); MAGNESIUM 2.2 mg/dL (1.8-2.4); SODIUM 142 mmol/L (136-145)
[2018-07-02] MEDS: ALBUTEROL SO4 2.5/IPRATROPIUM 0.5 INH SOL 3 ML VIAL.NEB. NEB PRN (14:31)
--- NOTE | 2018-07-02 14:33 | HOSP ---
Subjective - Review of Symptoms Events since last encounter: she feels better less sob and wheezing her energy level is better no distress she ate well today General: Yes: Fatigue HEENT: No: Head Aches, Visual Changes, Eye Pain, Ear Pain, Dysphasia, Sinus Congestion, Post Nasal Drip, Sore Throat, Other Pulmonary: Yes: Cough Cardiovascular: No: Chest Pain, Palpitations, Orthopnea, Paroxysmal Noc. Dyspnea , Edema, Light Headedness, Other Gastrointestinal: No: Nausea, NOSYM, Vomiting, Abdominal Pain, Diarrhea, Constipation, Melena, Hematochezia, Other Genitourinary: No: Dysuria, NOSYM, Frequency, Incontinence, Hematuria, Retention , Other Musculoskeletal: No: No Symptoms, Back Pain, Crepitus, Decreased ROM, Extremity Pain, Joint Pain, Joint Swelling, Muscle Pain, Muscle Cramps, Muscle Weakness, Other Neurological: No: Weakness, Numbness, Incoordination, Change in speech, Confusion, Seizures, Other Physical Examination Vital Signs: Vital Signs Temperature 98.3 F 07/02/18 10:00 Pulse Rate 98 H 07/02/18 10:00 Respiratory Rate 20 07/02/18 10:00 Blood Pressure 139/87 07/02/18 10:00 O2 Sat by Pulse Oximetry (%) 97 07/02/18 09:00 Constitutional: Yes: No Distress, Calm Eyes: Yes: Conjunctiva Clear HENT: Yes: Atraumatic Neck: Yes: WNL Respiratory: Yes: Regular, Wheezes Gastrointestinal: Yes: Normal Bowel Sounds Edema: No Neurological: Yes: WNL Labs: CBC, BMP 06/30/18 06:00 07/02/18 11:05 Hospitalist Encounter Assessment: Current Medications Acetaminophen (Tylenol -) 1,000 mg PO Q8H PRN PRN Reason: FEVER Al Hydroxide/Mg Hydroxide (Mylanta Oral Suspension -) 30 ml PO Q6H PRN PRN Reason: DYSPEPSIA Last Admin: 07/01/18 21:37 Dose: 30 ml Albuterol/Ipratropium (Duoneb -) 1 amp NEB Q6H PRN PRN Reason: SHORTNESS OF BREATH Last Admin: 07/01/18 23:50 Dose: 1 amp Amlodipine Besylate (Norvasc -) 5 mg PO DAILY [facility] Last Admin: 07/02/18 09:42 Dose: 5 mg Docusate Sodium (Colace -) 100 mg PO Q8H PRN PRN Reason: CONSTIPATION Gabapentin (Neurontin -) 300 mg PO TID [facility] Last Admin: 07/02/18 14:25 Dose: 300 mg Heparin Sodium (Porcine) (Heparin -) 5,000 unit SQ BID [facility] Last Admin: 07/02/18 09:45 Dose: 5,000 unit Azithromycin (Zithromax 500mg Ivpb (Pre-Docked)) 500 mg in 250 mls @ 250 mls/ hr IVPB DAILY [facility] Last Admin: 07/02/18 11:09 Dose: 250 mls/hr Ceftriaxone Sodium 1 gm/ (Dextrose) 50 mls @ 100 mls/hr IVPB DAILY [facility]; Protocol Last Admin: 07/02/18 09:44 Dose: 100 mls/hr Famotidine/Sodium Chloride (Pepcid 20 Mg Premixed Ivpb -) 20 mg in 50 mls @ 100 mls/hr IVPB BID [facility] Last Admin: 07/02/18 09:43 Dose: 100 mls/hr Losartan Potassium (Cozaar -) 12.5 mg PO DAILY [facility] Last Admin: 07/02/18 09:43 Dose: 12.5 mg Methotrexate Sodium (Mexate Injection -) 25 mg IM Mo@1000 [facility] Metoclopramide HCl (Reglan Injection -) 10 mg IVPUSH Q8H PRN PRN Reason: NAUSEA AND/OR VOMITING Last Admin: 06/29/18 18:09 Dose: 10 mg Ondansetron HCl (Zofran Odt -) 4 mg SL Q8H PRN PRN Reason: NAUSEA Last Admin: 07/01/18 22:23 Dose: 4 mg Oxycodone HCl (Roxicodone -) 15 mg PO Q6H PRN PRN Reason: PAIN LEVEL 7 - 10 Last Admin: 07/02/18 08:29 Dose: 15 mg Prednisone (Deltasone -) 40 mg PO DAILY [facility] Stop: 07/03/18 23:59 Last Admin: 07/02/18 09:42 Dose: 40 mg Senna (Senna -) 2 tab PO HS PRN PRN Reason: CONSTIPATION Trazodone HCl (Desyrel -) 50 mg PO HS [facility] Last Admin: 07/01/18 21:28 Dose: 50 mg ASSESSMENT/PLAN: 62Y/O F W Emphysema, active smoker, scleroderma, chronic generalized pain for which , new infiltrate on the CXR and has been treated for CAD. Pneumonia with emphysema and scleroderma on immunsuppresents: she has been afebrile and WBC is improving she is not on home O2 but is on O2 NC here, will check the sats off O2 and will walk the patient off the O2 and will document them As she is complaining of SOB while she is in no obvious distress, he ct report noted ceftriaxone and azithromycin pending the urine tests HTN: well controlled Will C/W amlodipien, losartan Chronic body ache: states that it is chronic and she takes oxycodone which will continue at this time but has to be evaluated by pain management as out patient. She also gets gabapenting which can be increased. Sceleroderma: she is on methotheroxate which stopping is not going to stop the effects while on treatment for PNA DVT ppx: HEPARIN SQ activity start pt 530 pm pt is c/o pain in her rt side of chest and pain is inc by breathing and by pressing on her chest no sob no h/o new trauma no fever I got a stat cxr and it is unchanged on review and ekg no tachycardia and no st ot t changes ap chest pains possible pleuretic pain plan add celebrex 200 dialy and inc oxycodonne to20 q 6hrs prn
[2018-07-02] MEDS ORDERED: CELECOXIB 200 MG CAPSULE PO ONE (17:25)
[2018-07-02] MEDS: ONDANSETRON *ODT* 4 MG TABLET SL PRN (21:43)
[2018-07-02] MEDS: traZODone HCL 50 MG TABLET (FP) PO SCH (21:43)
[2018-07-03] MEDS: ALBUTEROL SO4 2.5/IPRATROPIUM 0.5 INH SOL 3 ML VIAL.NEB. NEB PRN ×3 (03:32→08:30)
[2018-07-03] MEDS: GABAPENTIN 300 MG CAPSULE (FP) PO SCH ×3 (05:05→21:20)
[2018-07-03] MEDS: oxyCODONE HCL 5 MG TABLET PO PRN ×3 (05:05→21:21)
[2018-07-03] MEDS ORDERED: cefTRIAXone SODIUM 1 GM VIAL ONE (08:42)
[2018-07-03] MEDS ORDERED: DEXTROSE 5%-WATER - 50 ML IVPB ONE (08:42)
[2018-07-03] MEDS: predniSONE 20 MG TABLET (UD) PO SCH (09:00)
[2018-07-03] MEDS: HEPARIN NA (PORCINE) 5,000 UNITS/ML 1ML VIAL SQ SCH ×2 (09:01→21:20)
[2018-07-03] MEDS: FAMOTIDINE 20 MG/50 ML IVPB 20 MG/50 ML MG IVPB SCH (09:01)
[2018-07-03] MEDS: amLODIPine BESYLATE 5 MG TABLET (FP) PO SCH (09:01)
[2018-07-03] MEDS: LOSARTAN POTASSIUM 25 MG TABLET PO SCH (09:01)
[2018-07-03] MEDS: CEFTRIAXONE 1 GM in DEXTROSE 5%-WATER - 50 ML IVPB SCH (09:01)
--- NOTE | 2018-07-03 09:37 | PN ---
Physical Exam: SUBJECTIVE: Patient seen and examined she is much better and has no more chest pains and her shortness of breath is better and she has no fever or chill she is c/o mild acid reflux OBJECTIVE: Vital Signs Period Temp Pulse Resp BP Sys/Hoyt Pulse Ox Last 24 Hr 97.7 F-98.4 F 82-98 20-24 115-150/62-87 96 GENERAL: The patient is awake, alert, and fully oriented, in no acute distress. HEAD: Normal with no signs of trauma. EYES: PERRL, extraocular movements intact, sclera anicteric, conjunctiva clear. No ptosis. ENT: Ears normal, nares patent, oropharynx clear without exudates, moist mucous membranes. NECK: Trachea midline, full range of motion, supple. LUNGS: Breath sounds equal, wheezes, no crackles, no accessory muscle use. HEART: Regular rate and rhythm, S1, S2 without murmur, rub or gallop. ABDOMEN: Soft, nontender, nondistended, normoactive bowel sounds, no guarding, no rebound, no hepatosplenomegaly, no masses. EXTREMITIES: 2+ pulses, warm, well-perfused, no edema. NEUROLOGICAL: Cranial nerves II through XII grossly intact. Normal speech, gait not observed. PSYCH: Normal mood, normal affect. SKIN: Warm, dry, normal turgor, no rashes or lesions noted Laboratory Results - last 24 hr 07/02/18 11:05 Sodium 142 Potassium 4.0 Chloride 107 Carbon Dioxide 28 Anion Gap 7 L BUN 9 Creatinine 0.8 Creat Clearance w eGFR > 60 Random Glucose 119 H Calcium 8.8 Magnesium 2.2 Active Medications Generic Name Dose Route Start Last Admin Trade Name Freq PRN Reason Stop Dose Admin Acetaminophen 1,000 mg 06/28/18 17:46 Tylenol - PO Q8H PRN FEVER Al Hydroxide/Mg Hydroxide 30 ml 06/29/18 14:53 07/01/18 21:37 Mylanta Oral Suspension - PO 30 ml Q6H PRN Administration DYSPEPSIA Albuterol/Ipratropium 1 amp 06/28/18 17:46 07/03/18 04:09 Duoneb - NEB 1 amp Q6H PRN Administration SHORTNESS OF BREATH Amlodipine Besylate 5 mg 06/29/18 10:00 07/03/18 09:01 Norvasc - PO 5 mg DAILY [facility] Administration Docusate Sodium 100 mg 06/28/18 17:45 Colace - PO Q8H PRN CONSTIPATION Gabapentin 300 mg 06/29/18 06:15 07/03/18 05:05 Neurontin - PO 300 mg TID [facility] Administration Heparin Sodium (Porcine) 5,000 unit 06/28/18 22:30 07/03/18 09:01 Heparin - SQ 5,000 unit BID [facility] Administration Azithromycin 500 mg in 250 mls @ 250 mls/hr 06/29/18 10:00 07/02/18 11:09 Zithromax 500mg Ivpb (Pre-Docked) IVPB 250 mls/hr DAILY [facility] Administration Ceftriaxone Sodium 1 gm/ 50 mls @ 100 mls/hr 06/29/18 10:00 07/03/18 09:01 Dextrose IVPB 100 mls/hr DAILY [facility] Administration Protocol Famotidine/Sodium Chloride 20 mg in 50 mls @ 100 mls/hr 06/28/18 22:00 09:01 Pepcid 20 Mg Premixed Ivpb - IVPB 100 mls/hr BID [facility] Administration Losartan Potassium 12.5 mg 06/29/18 13:00 07/03/18 09:01 Cozaar - PO 12.5 mg DAILY [facility] Administration Methotrexate Sodium 25 mg 07/04/18 10:00 Mexate Injection - IM Mo@1000 [facility] Metoclopramide HCl 10 mg 06/28/18 17:57 06/29/18 18:09 Reglan Injection - IVPUSH 10 mg Q8H PRN Administration NAUSEA AND/OR VOMITING Ondansetron HCl 4 mg 07/01/18 09:14 07/02/18 21:43 Zofran Odt - SL 4 mg Q8H PRN Administration NAUSEA Oxycodone HCl 20 mg 07/02/18 17:25 07/03/18 05:05 Roxicodone - PO 20 mg Q6H PRN Administration PAIN LEVEL 7 - 10 Prednisone 40 mg 07/01/18 10:00 07/03/18 09:00 Deltasone - PO 07/03/18 23:59 40 mg DAILY [facility] Administration Senna 2 tab 06/28/18 17:45 Senna - PO HS PRN CONSTIPATION Trazodone HCl 50 mg 06/28/18 22:00 07/02/18 21:43 Desyrel - PO 50 mg HS [facility] Administration ASSESSMENT/PLAN: Pneumonia with emphysema and scleroderma on immunsuppresents: she has been afebrile and WBC is improving inhalled bronchodilators and steroids and lower the dose of prednisone to 30 daily ceftriaxone and azithromycin pending the urine tests will stop the pepcid and start on protonox inc activity level HTN: well controlled Will C/W amlodipien, losartan Chronic body ache: states that it is chronic and she takes oxycodone which will continue at this time but has to be evaluated by pain management as out patient. She also gets gabapenting which can be increased. chest pain better Sceleroderma: she is on methotheroxate which stopping is not going to stop the effects while on treatment for PNA
[2018-07-03] MEDS ORDERED: predniSONE 20 MG TABLET (UD) PO SCH (09:38)
[2018-07-03] MEDS: AZITHROMYCIN IVPB 500 MG/250 ML BAG IVPB SCH (11:05)
[2018-07-03] MEDS: PANTOPRAZOLE 40 MG TABLET (FP) PO SCH (12:19)
[2018-07-03] MEDS: ONDANSETRON *ODT* 4 MG TABLET SL PRN (15:39)
[2018-07-03] MEDS: CELECOXIB 200 MG CAPSULE PO SCH (15:39)
--- NOTE | 2018-07-03 19:07 | EKG ---
Test Reason : Blood Pressure : / mmHG Vent. Rate : 087 BPM Atrial Rate : 087 BPM P-R Int : 142 ms QRS Dur : 090 ms QT Int : 374 ms P-R-T Axes : 071 034 063 degrees QTc Int : 450 ms NORMAL SINUS RHYTHM POSSIBLE LEFT ATRIAL ENLARGEMENT ANTEROSEPTAL INFARCT (CITED ON OR BEFORE 07-SEP-2017) ABNORMAL ECG WHEN COMPARED WITH ECG OF 28-JUN-2018 10:07, VENT. RATE HAS DECREASED Confirmed by ANDRÉS MCLAUGHLIN MD ([id number]) on 07/03/2018 7:06:48 PM Referred By: ALMA GILLETTE Confirmed By:ANDRÉS MCLAUGHLIN MD
[2018-07-03] MEDS: traZODone HCL 50 MG TABLET (FP) PO SCH (21:20)
[2018-07-03] MEDS: MAG HYDROX/AL HYDROX/SIMETH 30 ML UNIT-DOSE CUP PO PRN (22:00)
[2018-07-04] MEDS: ALBUTEROL SO4 2.5/IPRATROPIUM 0.5 INH SOL 3 ML VIAL.NEB. NEB PRN ×2 (00:55→15:56)
[2018-07-04] MEDS: oxyCODONE HCL 5 MG TABLET PO PRN ×4 (05:47→23:52)
[2018-07-04] MEDS: GABAPENTIN 300 MG CAPSULE (FP) PO SCH ×3 (05:47→21:42)
[2018-07-04] MEDS: MAG HYDROX/AL HYDROX/SIMETH 30 ML UNIT-DOSE CUP PO PRN ×2 (05:51→23:53)
[2018-07-04] MEDS ORDERED: predniSONE 10 MG TABLET (UD) ONE (08:37)
[2018-07-04] MEDS ORDERED: predniSONE 20 MG TABLET (UD) ONE (08:37)
[2018-07-04] MEDS ORDERED: cefTRIAXone SODIUM 1 GM VIAL ONE (08:38)
[2018-07-04] MEDS ORDERED: DEXTROSE 5%-WATER - 50 ML IVPB ONE (08:39)
[2018-07-04] MEDS ORDERED: PT OWN MED DRAWER 7, Y5N ONE (08:56)
[2018-07-04] MEDS: CEFTRIAXONE 1 GM in DEXTROSE 5%-WATER - 50 ML IVPB SCH (09:10)
[2018-07-04] MEDS: HEPARIN NA (PORCINE) 5,000 UNITS/ML 1ML VIAL SQ SCH ×2 (09:11→21:42)
[2018-07-04] MEDS: AZITHROMYCIN IVPB 500 MG/250 ML BAG IVPB SCH (09:11)
[2018-07-04] MEDS: PANTOPRAZOLE 40 MG TABLET (FP) PO SCH (09:12)
[2018-07-04] MEDS: LOSARTAN POTASSIUM 25 MG TABLET PO SCH (09:12)
[2018-07-04] MEDS: amLODIPine BESYLATE 5 MG TABLET (FP) PO SCH (09:12)
[2018-07-04] MEDS: CELECOXIB 200 MG CAPSULE PO SCH (09:12)
[2018-07-04] MEDS ORDERED: predniSONE 10 MG, predniSONE 20 MG PO SCH (10:00)
[2018-07-04] MEDS ORDERED: METHOTREXATE SODIUM/PF 25 MG/ML VIAL IM SCH (10:00)
--- NOTE | 2018-07-04 12:17 | PN ---
Progress Note, Physician History of Present Illness: 24 hr events: -AM CXr with worse, progressive right pulmonary and pleural changes. WBC down to 15, pt continued on ceftriaxone and azithromycin - Current Medication List Current Medications: Active Medications Acetaminophen (Tylenol -) 1,000 mg PO Q8H PRN PRN Reason: FEVER Al Hydroxide/Mg Hydroxide (Mylanta Oral Suspension -) 30 ml PO Q6H PRN PRN Reason: DYSPEPSIA Last Admin: 07/04/18 05:51 Dose: 30 ml Albuterol/Ipratropium (Duoneb -) 1 amp NEB Q6H PRN PRN Reason: SHORTNESS OF BREATH Last Admin: 07/04/18 00:55 Dose: 1 amp Amlodipine Besylate (Norvasc -) 5 mg PO DAILY [facility] Last Admin: 07/04/18 09:12 Dose: Not Given Celecoxib (Celebrex -) 200 mg PO DAILY [facility] Last Admin: 07/04/18 09:12 Dose: 200 mg Docusate Sodium (Colace -) 100 mg PO Q8H PRN PRN Reason: CONSTIPATION Last Admin: 07/03/18 13:01 Dose: 100 mg Gabapentin (Neurontin -) 300 mg PO TID [facility] Last Admin: 07/04/18 05:47 Dose: 300 mg Heparin Sodium (Porcine) (Heparin -) 5,000 unit SQ BID [facility] Last Admin: 07/04/18 09:11 Dose: 5,000 unit Azithromycin (Zithromax 500mg Ivpb (Pre-Docked)) 500 mg in 250 mls @ 250 mls/ hr IVPB DAILY [facility] Last Admin: 07/04/18 09:11 Dose: 250 mls/hr Ceftriaxone Sodium 1 gm/ (Dextrose) 50 mls @ 100 mls/hr IVPB DAILY [facility]; Protocol Last Admin: 07/04/18 09:10 Dose: 100 mls/hr Losartan Potassium (Cozaar -) 12.5 mg PO DAILY [facility] Last Admin: 07/04/18 09:12 Dose: Not Given Melatonin (Melatonin) 5 mg PO HS PRN PRN Reason: INSOMNIA Methotrexate Sodium (Mexate Injection -) 25 mg IM Mo@1000 [facility] Last Admin: 07/04/18 09:12 Dose: 25 mg Metoclopramide HCl (Reglan Injection -) 10 mg IVPUSH Q8H PRN PRN Reason: NAUSEA AND/OR VOMITING Last Admin: 06/29/18 18:09 Dose: 10 mg Ondansetron HCl (Zofran Odt -) 4 mg SL Q8H PRN PRN Reason: NAUSEA Last Admin: 07/03/18 15:39 Dose: 4 mg Oxycodone HCl (Roxicodone -) 20 mg PO Q6H PRN PRN Reason: PAIN LEVEL 7 - 10 Last Admin: 07/04/18 11:54 Dose: 20 mg Pantoprazole Sodium (Protonix -) 40 mg PO DAILY [facility] Last Admin: 07/04/18 09:12 Dose: 40 mg Prednisone 10 mg/ Prednisone (20 mg) 30 mg PO DAILY [facility] Last Admin: 07/04/18 09:12 Dose: 30 mg Senna (Senna -) 2 tab PO HS PRN PRN Reason: CONSTIPATION Trazodone HCl (Desyrel -) 50 mg PO HS [facility] Last Admin: 07/03/18 21:20 Dose: 50 mg - Objective Vital Signs: Vital Signs Temperature 97.6 F 07/04/18 10:00 Pulse Rate 70 07/04/18 10:00 Respiratory Rate 07/04/18 10:00 Blood Pressure 106/68 07/04/18 10:00 O2 Sat by Pulse Oximetry (%) 100 07/04/18 09:00 Constitutional: Yes: Well Nourished, No Distress, Calm Eyes: Yes: Conjunctiva Clear HENT: Yes: Atraumatic, Normocephalic Neck: Yes: Supple, Trachea Midline Cardiovascular: Yes: Regular Rate and Rhythm Respiratory: Yes: Wheezes (scattered expiratory) ...Rectal Exam: Yes: Deferred Musculoskeletal: Yes: Joint Stiffness, Muscle Pain Extremities: Yes: WNL Edema: No Peripheral Pulses WNL: Yes Peripheral Pulses: Left Radial: 2+, Right Radial: 2+, Left Doralis Pedis: 2+, Right Dorsalis Pedis: 2+ Integumentary: Yes: WNL Neurological: Yes: Alert, Oriented ...Motor Strength: WNL Psychiatric: Yes: Alert, Oriented Labs: CBC, BMP 06/30/18 06:00 07/02/18 11:05 INR, PTT INR 1.29 (0.83-1.09) H 06/28/18 10:39 - ....Imaging Chest X-ray: Report Reviewed (CXR 07/04/2018 Impression: worse, progressive right pulmonary and pleural changes. Questionable changes left base.) Problem List - Problems (1) Pneumonia Assessment/Plan: ID following azithromycin 500mg daily ceftriaxone 1gm q24hrs ID requests legionella and pneumococcal sputm Ag, pt unable to give sputum. Will send urine studies quantiferon cancelled, will repeat trend WBC and temp curve CXR worse, pulm consulted for assistance with management Code(s): J18.9 - PNEUMONIA, UNSPECIFIED ORGANISM Qualifiers: Pneumonia type: due to unspecified organism Laterality: right Lung location: unspecified part of lung Qualified Code(s): J18.9 - Pneumonia, unspecified organism (2) COPD (chronic obstructive pulmonary disease) Assessment/Plan: nebs q6hrs IC OOB to chair Chest PT decrease pred from 30mg to 20mg today Code(s): J44.9 - CHRONIC OBSTRUCTIVE PULMONARY DISEASE, UNSPECIFIED (3) GERD (gastroesophageal reflux disease) Assessment/Plan: pepcid BID PRN maalox Code(s): K21.9 - GASTRO-ESOPHAGEAL REFLUX DISEASE WITHOUT ESOPHAGITIS (4) Hypertension Assessment/Plan: norvasc 5mg daily cardiac diet Cozaar 12.5mg daily Code(s): I10 - ESSENTIAL (PRIMARY) HYPERTENSION Qualifiers: Hypertension type: essential hypertension Qualified Code(s): I10 - Essential (primary) hypertension (5) Scleroderma Assessment/Plan: pain control with PRN oxycodone and APAP celebrex 200mg BID Metothrexate 25mg once weekly neurontin 300mg TID Code(s): M34.9 - SYSTEMIC SCLEROSIS, UNSPECIFIED Impression/Plan Impression/Plan: Bowel regimen with senna and colace, reglan PRN nausea Anxiety: trazodone 50mg qhs DVT PPX: SC heparin Insomnia: PRN melatonin Full code Visit type - Emergency Visit Emergency Visit: Yes ED Registration Date: 06/28/18 Care time: The patient presented to the Emergency Department on the above date and was hospitalized for further evaluation of their emergent condition. - New Patient This patient is new to me today: No - Critical Care Critical Care patient: No - Discharge Referral Referred to [facility] No
--- NOTE | 2018-07-04 15:10 | CON.PULM ---
Consult Consult Specialty:: PULMONARY Referred by:: RENÉ Reason for Consultation:: PNEUMONIA - History of Present Illness Chief Complaint: SOB History of Present Illness: 62 year old F with h/o scleroderma, HTN, and emphysema presents to the emergency department 6 days ago with myalgias, N/V, and upper back pain with SOB. 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 Pt had infiltrate on CXR and leukocytosis. Pt started on ceftriaxone and azithromycin in ED. We have been asked to evaluate patient after 6 days of hospitalization with report of a new RLL infiltrate. Pt is an active smoker. She reports nausea with vomiting last PM and also has dysphonia. 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 No: O2 Dependent Gastrointestinal: Yes: GERD, Peptic Ulcer Disease Hepatobiliary: No: Cirrhosis Renal/: No: Renal Failure Reproductive: Yes: Postmenopausal ...LMP Comment: yrs ago ...: No Heme/Onc: Yes: Anemia Psych: Yes: Anxiety Musculoskeletal: Yes: Chronic low back pain Rheumatology: Yes: Other (scleroderma) Dermatology: Yes: Other - Past Surgical History Past Surgical History: Yes: None - Alcohol/Substance Use Hx Alcohol Use: No History of Substance Use: reports: Marijuana Date of Last Use: 06/27/18 - Smoking History Smoking history: Current every day smoker Have you smoked in the past 12 months: Yes Aproximately how many cigarettes per day: 2 If you are a former smoker, when did you quit?: t-10 - Social History ADL: Independent Occupation: on disability Place of : [facility] History of Recent Travel: No Home Medications - Allergies Allergies/Adverse Reactions: Allergies Allergy/AdvReac Type Severity Reaction Status Date / Time aspirin Allergy Mild n/v Verified 06/28/18 09:39 - Home Medications Home Medications: Ambulatory Orders Amlodipine Besylate 5 mg PO DAILY 06/28/18 Gabapentin 300 mg PO TID 06/28/18 Losartan Potassium 12.5 mg PO DAILY 06/28/18 Methocarbamol 750 mg PO TID 06/28/18 Methotrexate Sodium/Pf [Methotrexate 25 mg/ml Vial] 25 mg IJ WEEKLY 06/28/18 Omeprazole 40 mg PO DAILY 06/28/18 Ondansetron [Zofran *Odt*] 8 mg SL TID PRN 06/28/18 Oxycodone HCl [Roxicodone] 20 mg PO ASDIR 06/28/18 Umeclidinium [place] [Incruse Ellipta] 1 puff IH DAILY 06/28/18 traMADol HCL [Ultram] 50 mg PO Q8H PRN 06/28/18 traZODone HCL [Trazodone HCl] 50 mg PO HS 06/28/18 Family Disease History - Family Disease History Family Disease History: Diabetes: Mother ( 50 HTN), Other: Father ( 60s HTN), Mother, Sister (alive HTN, DMII) Other Family History: sister alive 60s HTN, DMII Review of Systems - Review of Systems Constitutional: denies: Fever Eyes: denies: Blurred Vision HENT: denies: Difficult Swallowing Neck: denies: Decreased ROM Cardiovascular: denies: Chest Pain Respiratory: reports: Cough, Exercise Intolerance, SOB on Exertion. denies: Hemoptysis, Wheezing Gastrointestinal: denies: Abdominal Pain Genitourinary: denies: Burning Breasts: reports: No Symptoms Reported Musculoskeletal: reports: No Symptoms Integumentary: reports: No Symptoms Neurological: reports: No Symptoms Physical Exam Vital Sings: Vital Signs Temperature 98.2 F 07/04/18 13:49 Pulse Rate 85 07/04/18 13:49 Respiratory Rate 20 07/04/18 13:49 Blood Pressure 95/59 L 07/04/18 13:49 O2 Sat by Pulse Oximetry (%) 100 07/04/18 09:00 Constitutional: Yes: Calm Eyes: Yes: EOM Intact HENT: Yes: Normocephalic Neck: Yes: Trachea Midline Cardiovascular: Yes: Regular Rate and Rhythm Respiratory: Yes: Diminished (bibasilar) Gastrointestinal: Yes: Normal Bowel Sounds Edema: No Integumentary: Yes: WNL Neurological: Yes: WNL Psychiatric: Yes: Alert Labs: CBC, BMP 06/30/18 06:00 07/02/18 11:05 rest reviewed Imaging - Results Chest X-ray: Report Reviewed, Image Reviewed Cat Scan: Report Reviewed, Image Reviewed Problem List - Problems (1) Pneumonia Code(s): J18.9 - PNEUMONIA, UNSPECIFIED ORGANISM Qualifiers: Pneumonia type: due to unspecified organism Laterality: right Lung location: unspecified part of lung Qualified Code(s): J18.9 - Pneumonia, unspecified organism (2) COPD (chronic obstructive pulmonary disease) Code(s): J44.9 - CHRONIC OBSTRUCTIVE PULMONARY DISEASE, UNSPECIFIED (3) GERD (gastroesophageal reflux disease) Code(s): K21.9 - GASTRO-ESOPHAGEAL REFLUX DISEASE WITHOUT ESOPHAGITIS (4) Nausea and vomiting in adult Code(s): R11.2 - NAUSEA WITH VOMITING, UNSPECIFIED (5) Scleroderma Code(s): M34.9 - SYSTEMIC SCLEROSIS, UNSPECIFIED Assessment/Plan ADMITTED 6 DAYS PRIOR WITH RUL PNEUMONIA/LEUKOCYTOSIS AND SOB SUBJECTIVE IMPROVEMENT BUT VOMITED LAST PM AND HAS NEW RLL INFILTRATE LIKLEY ASPIRATED RUL INFILTRATE HAS IMPROVED ON CXR DYSPHONIA SCLERODERMA ON METHOTREXATE GERD EMPHYSEMA WILL REPEAT CT CHEST NO CONTRAST ABS TO COVER FOR ASPIRATION/ID FOLLOW UP O2 /BRONCHODILATORS NEEDED TAPER PREDNISONE ENT EVAL TO VC WITH LARYNGOSCOPY MAY NEED SWALLOW EVAL GIVEN SCLERODERMA CHECK O2 SAT ON R/A POST AMB WILL FOLLOW THANK YOU Moni VALLE MD
[2018-07-04] MEDS: traZODone HCL 50 MG TABLET (FP) PO SCH (21:42)
[2018-07-04] MEDS: MELATONIN 5 MG TABLETS PO PRN (21:42)
[2018-07-05] MEDS: ALBUTEROL SO4 2.5/IPRATROPIUM 0.5 INH SOL 3 ML VIAL.NEB. NEB PRN ×3 (03:54→22:02)
[2018-07-05] MEDS: GABAPENTIN 300 MG CAPSULE (FP) PO SCH ×3 (06:33→21:42)
[2018-07-05] MEDS: ONDANSETRON *ODT* 4 MG TABLET SL PRN (07:12)
[2018-07-05 07:53] LABS: MCH 29.2 pg (25.7-33.7); MCHC 32.5 g/dl (32.0-36.0); MEAN CELL VOLUME 89.7 fl (80-96); PLATELET COUNT 697 K/MM3 (134-434); RBC 4.45 M/mm3 (3.60-5.2); RDW 15.5 % (11.6-15.6)
[2018-07-05 08:16] LABS: ALK PHOS 178 U/L (45-117); ANION GAP 10 MMOL/L (8-16); BILIRUBIN,TOTAL 0.3 mg/dL (0.2-1); BLOOD UREA NITROGEN 16 mg/dL (7-18); CALCIUM 9.4 mg/dL (8.5-10.1); CHLORIDE 100 mmol/L (98-107); CO2 31 mmol/L (21-32); CREATININE 0.7 mg/dL (0.55-1.3); GLUCOSE,RANDOM 100 mg/dL (74-106); POTASSIUM 4.7 mmol/L (3.5-5.1); SGOT/AST 21 U/L (15-37); SGPT/ALT 31 U/L (13-61); SODIUM 140 mmol/L (136-145); TOT PROT 6.8 g/dl (6.4-8.2)
[2018-07-05] MEDS: METOCLOPRAMIDE HCL INJECTION 10 MG/2 ML VIAL IVPUSH PRN ×2 (08:17→21:41)
--- NOTE | 2018-07-05 09:38 | PN ---
Progress Note (short form) - Note Progress Note: [place] like her food was stuck in her esophagus early this AM and forced herself to vomit the food out for relief. Some dry cough. No hemoptysis. Intake & Output 07/02/18 07/03/18 07/04/18 07/05/18 23:59 23:59 23:59 23:59 Intake Total 2429 977 0659 0 Balance 0930 879 2154 0 Weight 149 lb 5 oz 148 lb 6 oz 151 lb 1.6 oz Last Vital Signs Temp Pulse Resp BP Pulse Ox 98.4 F 84 18 118/65 98 07/05/18 06:00 07/05/18 06:00 07/05/18 06:00 07/05/18 06:00 07/04/18 21:00 Active Medications Acetaminophen (Tylenol -) 1,000 mg PO Q8H PRN PRN Reason: FEVER Al Hydroxide/Mg Hydroxide (Mylanta Oral Suspension -) 30 ml PO Q6H PRN PRN Reason: DYSPEPSIA Last Admin: 07/04/18 23:53 Dose: 30 ml Albuterol/Ipratropium (Duoneb -) 1 amp NEB Q6H PRN PRN Reason: SHORTNESS OF BREATH Last Admin: 07/05/18 03:54 Dose: 1 amp Amlodipine Besylate (Norvasc -) 5 mg PO DAILY [facility] Last Admin: 07/04/18 09:12 Dose: Not Given Celecoxib (Celebrex -) 200 mg PO DAILY [facility] Last Admin: 07/04/18 09:12 Dose: 200 mg Docusate Sodium (Colace -) 100 mg PO Q8H PRN PRN Reason: CONSTIPATION Last Admin: 07/03/18 13:01 Dose: 100 mg Gabapentin (Neurontin -) 300 mg PO TID [facility] Last Admin: 07/05/18 06:33 Dose: 300 mg Heparin Sodium (Porcine) (Heparin -) 5,000 unit SQ BID [facility] Last Admin: 07/04/18 21:42 Dose: 5,000 unit Azithromycin (Zithromax 500mg Ivpb (Pre-Docked)) 500 mg in 250 mls @ 250 mls/ hr IVPB DAILY [facility] Last Admin: 07/04/18 09:11 Dose: 250 mls/hr Ceftriaxone Sodium 1 gm/ (Dextrose) 50 mls @ 100 mls/hr IVPB DAILY [facility]; Protocol Last Admin: 07/04/18 09:10 Dose: 100 mls/hr Lactobacillus Acidophilus (Bacid -) 1 tab PO DAILY [facility] Losartan Potassium (Cozaar -) 12.5 mg PO DAILY [facility] Last Admin: 07/04/18 09:12 Dose: Not Given Melatonin (Melatonin) 5 mg PO HS PRN PRN Reason: INSOMNIA Last Admin: 07/04/18 21:42 Dose: 5 mg Methotrexate Sodium (Mexate Injection -) 25 mg IM Mo@1000 [facility] Last Admin: 07/04/18 09:12 Dose: 25 mg Metoclopramide HCl (Reglan Injection -) 10 mg IVPUSH Q8H PRN PRN Reason: NAUSEA AND/OR VOMITING Last Admin: 07/05/18 08:17 Dose: 10 mg Ondansetron HCl (Zofran Odt -) 4 mg SL Q8H PRN PRN Reason: NAUSEA Last Admin: 07/05/18 07:12 Dose: 4 mg Oxycodone HCl (Roxicodone -) 20 mg PO Q6H PRN PRN Reason: PAIN LEVEL 7 - 10 Last Admin: 07/04/18 23:52 Dose: 20 mg Pantoprazole Sodium (Protonix -) 40 mg PO DAILY [facility] Last Admin: 07/04/18 09:12 Dose: 40 mg Prednisone (Deltasone -) 20 mg PO DAILY [facility] Senna (Senna -) 2 tab PO HS PRN PRN Reason: CONSTIPATION Trazodone HCl (Desyrel -) 50 mg PO HS [facility] Last Admin: 07/04/18 21:42 Dose: 50 mg Constitutional: Yes: Anxious, NAD Eyes: Yes: EOM Intact HENT: Yes: Normocephalic Neck: Yes: Trachea Midline Cardiovascular: Yes: Regular Rate and Rhythm Respiratory: Yes: few scattered rhonchi Gastrointestinal: Yes: Normal Bowel Sounds Edema: No Integumentary: Yes: WNL Neurological: Yes: WNL Psychiatric: Yes: Alert Labs: Laboratory Results - last 24 hr 07/05/18 07/05/18 06:30 06:30 WBC 13.0 H RBC 4.45 Hgb 13.0 Hct 40.0 D MCV 89.7 MCH 29.2 MCHC 32.5 RDW 15.5 Plt Count 697 H D MPV 8.0 Sodium 140 Potassium 4.7 Chloride 100 Carbon Dioxide 31 Anion Gap 10 BUN 16 Creatinine 0.7 Creat Clearance w eGFR > 60 Random Glucose 100 Calcium 9.4 Total Bilirubin 0.3 AST 21 ALT 31 Alkaline Phosphatase 178 H Total Protein 6.8 Albumin 3.0 L Problem List - Problems (1) Pneumonia Code(s): J18.9 - PNEUMONIA, UNSPECIFIED ORGANISM Qualifiers: Pneumonia type: due to unspecified organism Laterality: right Lung location: unspecified part of lung Qualified Code(s): J18.9 - Pneumonia, unspecified organism (2) COPD (chronic obstructive pulmonary disease) Code(s): J44.9 - CHRONIC OBSTRUCTIVE PULMONARY DISEASE, UNSPECIFIED (3) GERD (gastroesophageal reflux disease) Code(s): K21.9 - GASTRO-ESOPHAGEAL REFLUX DISEASE WITHOUT ESOPHAGITIS (4) Nausea and vomiting in adult Code(s): R11.2 - NAUSEA WITH VOMITING, UNSPECIFIED (5) Scleroderma Code(s): M34.9 - SYSTEMIC SCLEROSIS, UNSPECIFIED Assessment/Plan SUSPECTED RECURRENT ASPIRATION DUE TO ESOPHAGEAL DYSMOTILITY DUE TO SCLERODERMA RUL PNEUMONIA LEUKOCYTOSIS SOB DYSPHONIA SCLERODERMA ON METHOTREXATE GERD EMPHYSEMA SPEECH AND SWALLOW EVALUATION ABX PER ID O2 /BRONCHODILATORS NEEDED PREDNISONE WILL NEED REPEAT IMAGING 6 WEEKS AFTER D/C TO DOCUMENT RESOLUTION OF INFILTRATES DR OLVERA
--- NOTE | 2018-07-05 11:25 | PN ---
Physical Exam: SUBJECTIVE: Patient seen and examined at the bedside. reports difficulty swallowing and food getting stuck. she had to force her self to vomit this morning. OBJECTIVE: had mbs; recommendations noted. pt to have ensure throughout the day, no solids for now gi consulted for esophageal immobility Vital Signs Period Temp Pulse Resp BP Sys/Hoyt Pulse Ox Last 24 Hr 97.6 F-98.4 F 74-85 18-20 95-118/59-78 98 GENERAL: The patient is awake, alert, and fully oriented, in no acute distress. HEAD: Normal with no signs of trauma. EYES: PERRL, extraocular movements intact, sclera anicteric, conjunctiva clear. No ptosis. ENT: Ears normal, nares patent, oropharynx clear without exudates, moist mucous membranes. NECK: Trachea midline, full range of motion, supple. LUNGS: Breath sounds equal, diminished bilaterally HEART: Regular rate and rhythm. ABDOMEN: Soft, nontender, nondistended, normoactive bowel sounds, no guarding EXTREMITIES: no edema. NEUROLOGICAL: Normal speech, gait not observed. PSYCH: Normal mood, normal affect. SKIN: Warm, dry, normal turgor, no rashes or lesions noted Laboratory Results - last 24 hr 07/05/18 07/05/18 06:30 06:30 WBC 13.0 H RBC 4.45 Hgb 13.0 Hct 40.0 D MCV 89.7 MCH 29.2 MCHC 32.5 RDW 15.5 Plt Count 697 H D MPV 8.0 Sodium 140 Potassium 4.7 Chloride 100 Carbon Dioxide 31 Anion Gap 10 BUN 16 Creatinine 0.7 Creat Clearance w eGFR > 60 Random Glucose 100 Calcium 9.4 Total Bilirubin 0.3 AST 21 ALT 31 Alkaline Phosphatase 178 H Total Protein 6.8 Albumin 3.0 L Active Medications Generic Name Dose Route Start Last Admin Trade Name Freq PRN Reason Stop Dose Admin Acetaminophen 1,000 mg 06/28/18 17:46 Tylenol - PO Q8H PRN FEVER Al Hydroxide/Mg Hydroxide 30 ml 06/29/18 14:53 07/04/18 23:53 Mylanta Oral Suspension - PO 30 ml Q6H PRN Administration DYSPEPSIA Albuterol/Ipratropium 1 amp 06/28/18 17:46 07/05/18 03:54 Duoneb - NEB 1 amp Q6H PRN Administration SHORTNESS OF BREATH Amlodipine Besylate 5 mg 06/29/18 10:00 07/04/18 09:12 Norvasc - PO Not Given DAILY [facility] Celecoxib 200 mg 07/03/18 15:30 07/04/18 09:12 Celebrex - PO 200 mg DAILY [facility] Administration Docusate Sodium 100 mg 06/28/18 17:45 07/03/18 13:01 Colace - PO 100 mg Q8H PRN Administration CONSTIPATION Gabapentin 300 mg 06/29/18 06:15 07/05/18 06:33 Neurontin - PO 300 mg TID [facility] Administration Heparin Sodium (Porcine) 5,000 unit 06/28/18 22:30 07/04/18 21:42 Heparin - SQ 5,000 unit BID [facility] Administration Azithromycin 500 mg in 250 mls @ 250 mls/hr 06/29/18 10:00 07/04/18 09:11 Zithromax 500mg Ivpb (Pre-Docked) IVPB 250 mls/hr DAILY [facility] Administration Ceftriaxone Sodium 1 gm/ 50 mls @ 100 mls/hr 06/29/18 10:00 07/04/18 09:10 Dextrose IVPB 100 mls/hr DAILY [facility] Administration Protocol Lactobacillus Acidophilus 1 tab 07/05/18 10:00 Bacid - PO DAILY [facility] Losartan Potassium 12.5 mg 06/29/18 13:00 07/04/18 09:12 Cozaar - PO Not Given DAILY [facility] Melatonin 5 mg 07/03/18 23:17 07/04/18 21:42 Melatonin PO 5 mg HS PRN Administration INSOMNIA Methotrexate Sodium 25 mg 07/04/18 10:00 07/04/18 09:12 Mexate Injection - IM 25 mg Mo@1000 [facility] Administration Metoclopramide HCl 10 mg 06/28/18 17:57 07/05/18 08:17 Reglan Injection - IVPUSH 10 mg Q8H PRN Administration NAUSEA AND/OR VOMITING Ondansetron HCl 4 mg 07/01/18 09:14 07/05/18 07:12 Zofran Odt - SL 4 mg Q8H PRN Administration NAUSEA Oxycodone HCl 20 mg 07/02/18 17:25 07/04/18 23:52 Roxicodone - PO 20 mg Q6H PRN Administration PAIN LEVEL 7 - 10 Pantoprazole Sodium 40 mg 07/03/18 10:00 07/04/18 09:12 Protonix - PO 40 mg DAILY [facility] Administration Prednisone 20 mg 07/05/18 10:00 Deltasone - PO DAILY [facility] Senna 2 tab 06/28/18 17:45 Senna - PO HS PRN CONSTIPATION Trazodone HCl 50 mg 06/28/18 22:00 07/04/18 21:42 Desyrel - PO 50 mg HS [facility] Administration ASSESSMENT/PLAN: Patient is a 62 year old female with a significant past medical history of scleroderma, HTN, and emphysema. She presents to the emergency department with myalgias, N/V, and upper back pain with associative SOB. Symptoms have progressively worsening over the course of 1 week and she decided to present to ED for evaluation due to persistent nausea/vomiting. Imaging: CT 07/04/18 imaging consistent with pneumonia. chest xray 07/04/2018: progressive right pulmonary and pleural changes. Pulmonary: Pneumonia COPD ID following. On Azithromycin 500mg daily, and ceftriaxone 1 gram q 24 hours Legionella with pneumococcal sputum ag ordered Urine legionella pending quanteferon ordered and pending WBC 37.6>13 in the setting of an immnocompromised patient Chest xray 07/04/18 with worsening pleural findings GI: Esophageal immobility/difficulty swallowing. Reports difficulty with swallowing with associated weight loss (10 lbs in apx 1 month) MBS swallow completed, recommendations noted Ensure sips, no solids. GI consulted for further recommendations GERD. on PPI. Card: Hypertension. controlled on Norvasc, Cozaar. Autoimmune disease: Scleroderma pain control with PRN oxycodone celebrex 200mg BID Metothrexate 25mg once weekly neurontin 300mg TID fen ensure sips, no solids monitor electrolytes npo, can have ensure and sips of water. can give meds prophy; heparin bid Visit type - Emergency Visit Emergency Visit: Yes ED Registration Date: 06/28/18 Care time: The patient presented to the Emergency Department on the above date and was hospitalized for further evaluation of their emergent condition. - New Patient This patient is new to me today: Yes Date on this admission: 07/05/18 - Critical Care Critical Care patient: No - Discharge Referral Referred to [facility] Med P.C.: No
[2018-07-05] MEDS ORDERED: PT OWN MED DRAWER 7, Y5N ONE (12:20)
[2018-07-05] MEDS ORDERED: cefTRIAXone SODIUM 1 GM VIAL ONE (12:21)
[2018-07-05] MEDS ORDERED: DEXTROSE 5%-WATER - 50 ML IVPB ONE (12:21)
[2018-07-05] MEDS: oxyCODONE HCL 5 MG TABLET PO PRN ×2 (12:29→18:28)
[2018-07-05] MEDS: AZITHROMYCIN IVPB 500 MG/250 ML BAG IVPB SCH (12:30)
[2018-07-05] MEDS: MAG HYDROX/AL HYDROX/SIMETH 30 ML UNIT-DOSE CUP PO PRN ×2 (12:33→21:41)
[2018-07-05] MEDS: CEFTRIAXONE 1 GM in DEXTROSE 5%-WATER - 50 ML IVPB SCH (12:33)
[2018-07-05] MEDS: PANTOPRAZOLE 40 MG TABLET (FP) PO SCH (12:33)
[2018-07-05] MEDS: LOSARTAN POTASSIUM 25 MG TABLET PO SCH (12:33)
[2018-07-05] MEDS: predniSONE 20 MG TABLET (UD) PO SCH (12:35)
[2018-07-05] MEDS: CELECOXIB 200 MG CAPSULE PO SCH (12:35)
[2018-07-05] MEDS: amLODIPine BESYLATE 5 MG TABLET (FP) PO SCH (12:35)
[2018-07-05] MEDS: LACTOBACILLUS ACIDOPHILUS 1 TABLET PO SCH (12:35)
[2018-07-05] MEDS: HEPARIN NA (PORCINE) 5,000 UNITS/ML 1ML VIAL SQ SCH ×2 (12:35→21:42)
--- NOTE | 2018-07-05 12:45 | PN ---
Progress Note, HEALTH CARE SPECIALIST - Note Progress Note: Per EMR: 62 year old F with h/o scleroderma, HTN, and emphysema presents to the emergency department with myalgias, N/V, and upper back pain with associative SOB. Symptoms have progressively worsening over the course of 1 week and she decided to present to ED for evaluation due to persistent nausea/vomiting Per Pulmonary- RUL PNEUMONIA/LEUKOCYTOSIS AND SOB SUBJECTIVE IMPROVEMENT BUT VOMITED LAST PM AND HAS NEW RLL INFILTRATE LIKLEY ASPIRATED RUL INFILTRATE HAS IMPROVED ON CXR DYSPHONIA SCLERODERMA ON METHOTREXATE GERD EMPHYSEMA [place] like her food was stuck in her esophagus early this AM and forced herself to vomit the food out for relief. Some dry cough. Was on reg diet, now on soft diet. Selected Entries 07/01/18 07/01/18 07/01/18 06:00 10:00 11:05 Breakfast 50% Lunch Supper Temperature 98.1 F 98.7 F 07/01/18 07/01/18 07/01/18 15:25 19:01 22:00 Breakfast Lunch 50% Supper Temperature 98.4 F 98.2 F 98 F 07/02/18 07/02/18 07/02/18 06:42 10:00 10:19 Breakfast 75% Lunch Supper Temperature 97.7 F 98.3 F 07/02/18 07/02/18 07/02/18 14:57 18:00 22:00 Breakfast Lunch 75% Supper Temperature 98.2 F 98.1 F 98.4 F 07/03/18 07/03/18 07/03/18 05:49 08:56 09:15 Breakfast 75% Lunch Supper Temperature 97.7 F 98 F 07/03/18 07/03/18 07/03/18 15:07 18:00 22:00 Breakfast Lunch 75% Supper 100% Temperature 98.1 F 97.7 F 97.9 F 07/04/18 07/04/18 07/04/18 05:56 10:00 10:23 Breakfast 100% Lunch Supper Temperature 98.3 F 97.6 F 07/04/18 07/04/18 07/04/18 13:49 19:07 22:00 Breakfast Lunch 100% Supper Temperature 98.2 F 98.4 F 97.6 F 07/05/18 07/05/18 06:00 11:58 Breakfast 0 Lunch Supper Temperature 98.4 F Laboratory Tests 07/05/18 06:30 WBC 13.0 H This is my first consult with this pt.
--- NOTE | 2018-07-05 12:52 | CONSULT ---
Admitting History and Physical - Primary Care Physician PCP: Don Don - Admission History of Present Illness: Per EMR: 62 year old F with h/o scleroderma, HTN, and emphysema presents to the emergency department with myalgias, N/V, and upper back pain with associative SOB. Symptoms have progressively worsening over the course of 1 week and she decided to present to ED for evaluation due to persistent nausea/vomiting Per Pulmonary- RUL PNEUMONIA/LEUKOCYTOSIS AND SOB SUBJECTIVE IMPROVEMENT BUT VOMITED LAST PM AND HAS NEW RLL INFILTRATE LIKLEY ASPIRATED RUL INFILTRATE HAS IMPROVED ON CXR DYSPHONIA SCLERODERMA ON METHOTREXATE GERD EMPHYSEMA [place] like her food was stuck in her esophagus early this AM and forced herself to vomit the food out for relief. Some dry cough. Was on reg diet, now on soft diet. Selected Entries 07/01/18 07/01/18 07/01/18 06:00 10:00 11:05 Breakfast 50% Lunch Supper Temperature 98.1 F 98.7 F 07/01/18 07/01/18 07/01/18 15:25 19:01 22:00 Breakfast Lunch 50% Supper Temperature 98.4 F 98.2 F 98 F 07/02/18 07/02/18 07/02/18 06:42 10:00 10:19 Breakfast 75% Lunch Supper Temperature 97.7 F 98.3 F 07/02/18 07/02/18 07/02/18 14:57 18:00 22:00 Breakfast Lunch 75% Supper Temperature 98.2 F 98.1 F 98.4 F 07/03/18 07/03/18 07/03/18 05:49 08:56 09:15 Breakfast 75% Lunch Supper Temperature 97.7 F 98 F 07/03/18 07/03/18 07/03/18 15:07 18:00 22:00 Breakfast Lunch 75% Supper 100% Temperature 98.1 F 97.7 F 97.9 F 07/04/18 07/04/18 07/04/18 05:56 10:00 10:23 Breakfast 100% Lunch Supper Temperature 98.3 F 97.6 F 07/04/18 07/04/18 07/04/18 13:49 19:07 22:00 Breakfast Lunch 100% Supper Temperature 98.2 F 98.4 F 97.6 F 07/05/18 07/05/18 06:00 11:58 Breakfast 0 Lunch Supper Temperature 98.4 F Laboratory Tests 07/05/18 06:30 WBC 13.0 H Pt reports bringing up thick white foam after eating, frequently,2-3 times every day, for at least 3 years. She is followed by [facility] and has had an EGD but does not recall esophagram/UGI. They have her drink Jevity by mouth, which she dislikes because it mcgill but modifies it with vanilla/sugar so it is more palatable. Sometimes she is afraid to eat. Her weight is down but varies. She had PNA 2 years ago. She feels dysphonia is from present PNA. This is my first consult with this pt. 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 No: O2 Dependent Gastrointestinal: Yes: GERD, Peptic Ulcer Disease Hepatobiliary: No: Cirrhosis Renal/: No: Renal Failure ...LMP Comment: yrs ago ...: No ...Para: 4 Heme/Onc: Yes: Anemia Psych: Yes: Anxiety Musculoskeletal: Yes: Chronic low back pain Rheumatology: Yes: Other (scleroderma) Dermatology: Yes: Other - Past Surgical History Past Surgical History: Yes: None - Smoking History Smoking history: Current every day smoker Have you smoked in the past 12 months: Yes Aproximately how many cigarettes per day: 2 If you are a former smoker, when did you quit?: t-10 - Alcohol/Substance Use Hx Alcohol Use: No History of Substance Use: reports: Marijuana Date of Last Use: 06/27/18 - Social History ADL: Independent Occupation: on disability History of Recent Travel: No History - Admission Reason For Visit: PNEUMONIA - Diagnostics X-ray: Report Reviewed - General Mental Status: Alert and Oriented, Awake and Alert, Able to Follow Commands Attention: Intact Ability to Follow Directions: Excellent Head/Neck Control: WFL - Hearing Hearing: Normal Hearing Aide: No Speech Evaluation - Communication Primary Language: IRISH Communication: Yes: Within Normal Limits - Speech Production Able to Make Needs Known: Yes: WNL Intelligibility: Yes: WNL - Speech Characteristics Voice Loudness: Mildly Soft/Quiet Voice Pitch: Yes: Normal Voice Phonatory-based Quality: Yes: Hoarse, Weak, Dysphonia Speech Clarity: < 100% Nasal Resonance: Normal Articulation: Yes: Precise - Language/Auditory Comprehension Follows: Yes: 2 Stage Simple Commands - Language/Verbal Expression Able to Respond to Simple Queries: Yes: WNL Able to Communicate Wants and Needs: Yes: WNL Functional Communication Status: Yes: WNL - Memory/Perception director industrial museum Memory: Yes: WNL Short Term Memory: Yes: WNL - Swallow Evaluation/Bedside Assessment Current Nutritional Intake: Regular, Thin Liquids Dentition: Yes: Adequate Facial Symmetry at Rest: Symmetrical Facial Symmetry on Retraction: Symmetrical Sensation: Normal Against Resistance Opening: Normal Against Resistance Closing: Normal Pucker Lips: Normal Smile: Normal Lingual Movement: Normal, Symmetric Lingual Speed of Movement: Normal Lingual Movement Strgth Against Opposition: Normal Lingual Movement Characteristics: Normal Laryngeal Movement: Able to Palpate Timing of Swallow: WFL Recommendations - Speech Evaluation, Impression/Plan Impression: r/o impaired esophageal emptying with retrograde aspiration. - Dysphagia Impressions/Plan Swallowing Skills: Impaired Dysphagia Impressions: Ongoing Evaluation *Silent aspiration: cannot be R/O at bedside Recommendations: LORNA hdez Esophagus
[2018-07-05] MEDS: traZODone HCL 50 MG TABLET (FP) PO SCH (21:42)
[2018-07-06] MEDS: oxyCODONE HCL 5 MG TABLET PO PRN ×3 (00:26→21:13)
[2018-07-06] MEDS: ALBUTEROL SO4 2.5/IPRATROPIUM 0.5 INH SOL 3 ML VIAL.NEB. NEB PRN ×3 (03:45→20:40)
[2018-07-06] MEDS: GABAPENTIN 300 MG CAPSULE (FP) PO SCH ×3 (06:22→21:14)
[2018-07-06] MEDS ORDERED: DEXTROSE 5%-WATER - 50 ML IVPB ONE (08:37)
[2018-07-06] MEDS ORDERED: cefTRIAXone SODIUM 1 GM VIAL ONE (08:37)
[2018-07-06] MEDS: AZITHROMYCIN IVPB 500 MG/250 ML BAG IVPB SCH (09:44)
[2018-07-06] MEDS: CEFTRIAXONE 1 GM in DEXTROSE 5%-WATER - 50 ML IVPB SCH (09:45)
[2018-07-06] MEDS: LACTOBACILLUS ACIDOPHILUS 1 TABLET PO SCH (09:46)
[2018-07-06] MEDS: predniSONE 20 MG TABLET (UD) PO SCH (09:46)
[2018-07-06] MEDS: PANTOPRAZOLE 40 MG TABLET (FP) PO SCH (09:46)
[2018-07-06] MEDS: LOSARTAN POTASSIUM 25 MG TABLET PO SCH (09:46)
[2018-07-06] MEDS: CELECOXIB 200 MG CAPSULE PO SCH (09:46)
[2018-07-06] MEDS: HEPARIN NA (PORCINE) 5,000 UNITS/ML 1ML VIAL SQ SCH ×2 (09:47→21:14)
[2018-07-06] MEDS: amLODIPine BESYLATE 5 MG TABLET (FP) PO SCH (09:56)
[2018-07-06] MEDS: MAG HYDROX/AL HYDROX/SIMETH 30 ML UNIT-DOSE CUP PO PRN (10:08)
[2018-07-06 10:44] LABS: BASO % 0.7 % (0-2.0); EOS % 1.5 % (0-4.5); HEMATOCRIT 41.3 % (32.4-45.2); HEMOGLOBIN 13.4 GM/dL (10.7-15.3); MCH 29.3 pg (25.7-33.7); MCHC 32.5 g/dl (32.0-36.0); MEAN PLT VOLUME 7.8 fl (7.5-11.1); MONO % 4.6 % (3.8-10.2); NEUT % 56.2 % (42.8-82.8); PLATELET COUNT 682 K/MM3 (134-434); RBC 4.58 M/mm3 (3.60-5.2); RDW 15.5 % (11.6-15.6); WHITE BLOOD COUNT 10.6 K/mm3 (4.0-10.0)
[2018-07-06 11:12] LABS: BLOOD UREA NITROGEN 18 mg/dL (7-18); CHLORIDE 101 mmol/L (98-107); CO2 31 mmol/L (21-32); CREATININE 0.9 mg/dL (0.55-1.3); GLUCOSE,RANDOM 107 mg/dL (74-106); POTASSIUM 4.7 mmol/L (3.5-5.1); SODIUM 140 mmol/L (136-145)
[2018-07-06 11:13] LABS: ALBUMIN 3.1 g/dl (3.4-5.0); ALK PHOS 170 U/L (45-117); ANION GAP 8 MMOL/L (8-16); BILIRUBIN,TOTAL 0.4 mg/dL (0.2-1); CALCIUM 9.4 mg/dL (8.5-10.1); MAGNESIUM 2.5 mg/dL (1.8-2.4); SGOT/AST 20 U/L (15-37); SGPT/ALT 37 U/L (13-61); TOT PROT 6.9 g/dl (6.4-8.2)
--- NOTE | 2018-07-06 13:18 | PN ---
Progress Note, LICENSED PESTICIDE APPLICATOR - Note Progress Note: Pt receiving ensure, keeping it down without vomiting frothy phlegm.Also tolerated a yogurt this am. Trial of dysphagia puree, thinned out with extra gravy, and thin liquid. oob in chair, alternate puree with liquids, eat slowly, walk around, allow time for esoph to clear. Pt asked to inform staff if foamy phlegm continues or if she vomits up esoph residue. GI consult.
[2018-07-06 14:32] VITALS: BMI 24.3
--- NOTE | 2018-07-06 15:39 | PN ---
Progress Note, Physician History of Present Illness: PULMONARY ALERT,FEELING BETTER,-SOB ,LESS COUGH - Current Medication List Current Medications: Active Medications Acetaminophen (Tylenol -) 1,000 mg PO Q8H PRN PRN Reason: FEVER Al Hydroxide/Mg Hydroxide (Mylanta Oral Suspension -) 30 ml PO Q6H PRN PRN Reason: DYSPEPSIA Last Admin: 07/06/18 10:08 Dose: 30 ml Albuterol/Ipratropium (Duoneb -) 1 amp NEB Q6H PRN PRN Reason: SHORTNESS OF BREATH Last Admin: 07/06/18 03:45 Dose: 1 amp Amlodipine Besylate (Norvasc -) 5 mg PO DAILY [facility] Last Admin: 07/06/18 09:56 Dose: 5 mg Celecoxib (Celebrex -) 200 mg PO DAILY [facility] Last Admin: 07/06/18 09:46 Dose: 200 mg Docusate Sodium (Colace -) 100 mg PO Q8H PRN PRN Reason: CONSTIPATION Last Admin: 07/03/18 13:01 Dose: 100 mg Gabapentin (Neurontin -) 300 mg PO TID [facility] Last Admin: 07/06/18 06:22 Dose: 300 mg Heparin Sodium (Porcine) (Heparin -) 5,000 unit SQ BID [facility] Last Admin: 07/06/18 09:47 Dose: Not Given Azithromycin (Zithromax 500mg Ivpb (Pre-Docked)) 500 mg in 250 mls @ 250 mls/ hr IVPB DAILY [facility] Last Admin: 07/06/18 09:44 Dose: 250 mls/hr Ceftriaxone Sodium 1 gm/ (Dextrose) 50 mls @ 100 mls/hr IVPB DAILY [facility]; Protocol Last Admin: 07/06/18 09:45 Dose: 100 mls/hr Lactobacillus Acidophilus (Bacid -) 1 tab PO DAILY [facility] Last Admin: 07/06/18 09:46 Dose: 1 tab Losartan Potassium (Cozaar -) 12.5 mg PO DAILY [facility] Last Admin: 07/06/18 09:46 Dose: 12.5 mg Melatonin (Melatonin) 5 mg PO HS PRN PRN Reason: INSOMNIA Last Admin: 07/04/18 21:42 Dose: 5 mg Methotrexate Sodium (Mexate Injection -) 25 mg IM Mo@1000 [facility] Last Admin: 07/04/18 09:12 Dose: 25 mg Metoclopramide HCl (Reglan Injection -) 10 mg IVPUSH Q8H PRN PRN Reason: NAUSEA AND/OR VOMITING Last Admin: 07/05/18 21:41 Dose: 10 mg Ondansetron HCl (Zofran Odt -) 4 mg SL Q8H PRN PRN Reason: NAUSEA Last Admin: 07/05/18 07:12 Dose: 4 mg Oxycodone HCl (Roxicodone -) 20 mg PO Q6H PRN PRN Reason: PAIN LEVEL 7 - 10 Last Admin: 07/06/18 12:27 Dose: 20 mg Pantoprazole Sodium (Protonix -) 40 mg PO DAILY [facility] Last Admin: 07/06/18 09:46 Dose: 40 mg Prednisone (Deltasone -) 20 mg PO DAILY [facility] Last Admin: 07/06/18 09:46 Dose: 20 mg Senna (Senna -) 2 tab PO HS PRN PRN Reason: CONSTIPATION Trazodone HCl (Desyrel -) 50 mg PO HS [facility] Last Admin: 07/05/18 21:42 Dose: 50 mg - Objective Vital Signs: Vital Signs Temperature 98.4 F 07/06/18 15:07 Pulse Rate 90 07/06/18 15:07 Respiratory Rate 20 07/06/18 15:07 Blood Pressure 145/84 07/06/18 15:07 O2 Sat by Pulse Oximetry (%) 100 07/06/18 09:00 Constitutional: Yes: Well Nourished, Calm Eyes: Yes: WNL HENT: Yes: WNL Neck: Yes: WNL Cardiovascular: Yes: Regular Rate and Rhythm, S1, S2 Respiratory: Yes: Diminished Gastrointestinal: Yes: Normal Bowel Sounds, Soft Extremities: Yes: WNL Edema: No Labs: CBC, BMP 07/06/18 10:10 07/06/18 10:10 INR, PTT INR 1.29 (0.83-1.09) H 06/28/18 10:39 Assessment/Plan Problem List - Problems (1) Pneumonia Code(s): J18.9 - PNEUMONIA, UNSPECIFIED ORGANISM Qualifiers: Pneumonia type: due to unspecified organism Laterality: right Lung location: unspecified part of lung Qualified Code(s): J18.9 - Pneumonia, unspecified organism (2) COPD (chronic obstructive pulmonary disease) Code(s): J44.9 - CHRONIC OBSTRUCTIVE PULMONARY DISEASE, UNSPECIFIED (3) GERD (gastroesophageal reflux disease) Code(s): K21.9 - GASTRO-ESOPHAGEAL REFLUX DISEASE WITHOUT ESOPHAGITIS (4) Nausea and vomiting in adult Code(s): R11.2 - NAUSEA WITH VOMITING, UNSPECIFIED (5) Scleroderma Code(s): M34.9 - SYSTEMIC SCLEROSIS, UNSPECIFIED Assessment/Plan SUSPECTED RECURRENT ASPIRATION DUE TO ESOPHAGEAL DYSMOTILITY DUE TO SCLERODERMA RUL PNEUMONIA LEUKOCYTOSIS SOB DYSPHONIA SCLERODERMA ON METHOTREXATE GERD EMPHYSEMA ABX PER ID O2 /BRONCHODILATORS NEEDED PREDNISONE WILL NEED REPEAT IMAGING 6 WEEKS AFTER D/C TO DOCUMENT RESOLUTION OF INFILTRATES DR GALLEGO
[2018-07-06] MEDS: ACETAMINOPHEN 500 MG TABLET (FP) PO PRN (15:43)
--- NOTE | 2018-07-06 16:55 | CON.GI ---
Consult Consult Specialty:: GI Referred by:: Hospatalist Team Reason for Consultation:: Dysphagia - History of Present Illness History of Present Illness: Patient with longstanding slceroderma with esophageal involvement for 7-8 years by her reoprt. Has had waxing and waning symptoms of dysphagia/esophageal dysmotility with intermittent weight loss, pooerly contolled heartburn despite high dose oral PPI's as an outpatient, and intermittent regurgitation. Admitted with vomiting and pneumonia (possible aspiration). Tolerating oral liquids including earlier this morning. Followed by rheumatology team at [facility]. Uncertain as to whether she's seen a revenue research analyst or has undergone either an EGD or esophageal motility testing in past. - Past Medical History RING STRIKER: No: Alzheimer's Cardio/Vascular: Yes: HTN Pulmonary: Yes: COPD, Pneumonia, Other (emphysematous type). No: O2 Dependent Gastrointestinal: Yes: GERD, Peptic Ulcer Disease Hepatobiliary: No: Cirrhosis Renal/: No: Renal Failure ...LMP Comment: yrs ago ...: No Psych: Yes: Anxiety Musculoskeletal: Yes: Chronic low back pain Rheumatology: Yes: Other (scleroderma) Dermatology: Yes: Other - Past Surgical History Past Surgical History: Yes: None - Alcohol/Substance Use Hx Alcohol Use: No History of Substance Use: reports: Marijuana Date of Last Use: 06/27/18 - Smoking History Smoking history: Current every day smoker Have you smoked in the past 12 months: Yes Aproximately how many cigarettes per day: 2 If you are a former smoker, when did you quit?: t-10 - Social History ADL: Independent Occupation: on disability History of Recent Travel: No Home Medications - Allergies Allergies/Adverse Reactions: Allergies Allergy/AdvReac Type Severity Reaction Status Date / Time aspirin Allergy Mild n/v Verified 06/28/18 09:39 - Home Medications Home Medications: Ambulatory Orders Amlodipine Besylate 5 mg PO DAILY 06/28/18 Gabapentin 300 mg PO TID 06/28/18 Losartan Potassium 12.5 mg PO DAILY 06/28/18 Methocarbamol 750 mg PO TID 06/28/18 Methotrexate Sodium/Pf [Methotrexate 25 mg/ml Vial] 25 mg IJ WEEKLY 06/28/18 Omeprazole 40 mg PO DAILY 06/28/18 Ondansetron [Zofran *Odt*] 8 mg SL TID PRN 06/28/18 Oxycodone HCl [Roxicodone] 20 mg PO ASDIR 06/28/18 Umeclidinium [place] [Incruse Ellipta] 1 puff IH DAILY 06/28/18 traMADol HCL [Ultram] 50 mg PO Q8H PRN 06/28/18 traZODone HCL [Trazodone HCl] 50 mg PO HS 06/28/18 Family Disease History - Family Disease History Family Disease History: Diabetes: Mother ( 50 HTN), Other: Father ( 60s HTN), Mother, Sister (alive HTN, DMII) Other Family History: sister alive 60s HTN, DMII Review of Systems - Review of Systems Constitutional: reports: Unintentional Wgt. Loss, Weakness. denies: Chills, Diaphoresis, Lethargy Cardiovascular: denies: Chest Pain, Shortness of Breath Gastrointestinal: reports: Constipation, Dysphagia, Indigestion, Vomiting. denies: Abdominal Pain, Bloating, Diarrhea, Melena, Nausea, Rectal Bleeding, Vomiting Blood Physical Exam-GI Vital Signs: Vital Signs Temperature 98.4 F 07/06/18 15:07 Pulse Rate 90 07/06/18 15:07 Respiratory Rate 20 07/06/18 15:07 Blood Pressure 145/84 07/06/18 15:07 O2 Sat by Pulse Oximetry (%) 100 07/06/18 09:00 Constitutional: Yes: Well Nourished, No Distress Neck: Yes: WNL, Trachea Midline Cardiovascular: Yes: Regular Rate and Rhythm, S1, S2. No: S4 Gastrointestinal Inspection: Yes: WNL ...Auscultate: Yes: Normoactive Bowel Sounds ...Palpate: No: Hepatomegaly, Splenomegaly, Tenderness Labs: CBC, BMP 07/06/18 10:10 07/06/18 10:10 INR, PTT INR 1.29 (0.83-1.09) H 06/28/18 10:39 Imaging - Results Cat Scan: Report Reviewed (Air-fluid level in mid-chest noted.) Assessment/Plan Esophageal dysmotility consistent with known scleroderma. Favor EGD once stable from pulmonary perspective as diagnostic and not therapeutic in nature. Would continue with PPI for now and limit diet to liquids. Would minimize narcotic analgesics given general GI slowing.
--- NOTE | 2018-07-06 19:01 | PN ---
Physical Exam: SUBJECTIVE: Patient seen and examined at the bedside. taking in sips of ensure without difficulty. OBJECTIVE: Vital Signs Period Temp Pulse Resp BP Sys/Hoyt Pulse Ox Last 24 Hr 98 F-98.5 F 80-93 18-20 101-145/47-84 100-100 GENERAL: The patient is awake, alert, and fully oriented, in no acute distress. HEAD: Normal with no signs of trauma. EYES: PERRL, extraocular movements intact, sclera anicteric, conjunctiva clear. No ptosis. ENT: Ears normal, nares patent, oropharynx clear without exudates, moist mucous membranes. NECK: Trachea midline, full range of motion, supple. LUNGS: Breath sounds equal, diminished bilaterally HEART: Regular rate and rhythm. ABDOMEN: Soft, nontender, nondistended, normoactive bowel sounds, no guarding EXTREMITIES: no edema. NEUROLOGICAL: Normal speech, gait not observed. PSYCH: Normal mood, normal affect. SKIN: Warm, dry, normal turgor, no rashes or lesions noted Laboratory Results - last 24 hr 07/06/18 07/06/18 10:10 10:10 WBC 10.6 H RBC 4.58 Hgb 13.4 Hct 41.3 MCV 90.0 MCH 29.3 MCHC 32.5 RDW 15.5 Plt Count 682 H MPV 7.8 Absolute Neuts (auto) 6.0 Neutrophils % 56.2 D Lymphocytes % 37.0 D Monocytes % 4.6 Eosinophils % 1.5 Basophils % 0.7 Nucleated RBC % 0 Sodium 140 Potassium 4.7 Chloride 101 Carbon Dioxide 31 Anion Gap 8 BUN 18 Creatinine 0.9 Creat Clearance w eGFR > 60 Random Glucose 107 H Calcium 9.4 Magnesium 2.5 H Total Bilirubin 0.4 AST 20 ALT 37 Alkaline Phosphatase 170 H Total Protein 6.9 Albumin 3.1 L Active Medications Generic Name Dose Route Start Last Admin Trade Name Freq PRN Reason Stop Dose Admin Acetaminophen 1,000 mg 06/28/18 17:46 07/06/18 15:43 Tylenol - PO 1,000 mg Q8H PRN Administration FEVER Al Hydroxide/Mg Hydroxide 30 ml 06/29/18 14:53 07/06/18 10:08 Mylanta Oral Suspension - PO 30 ml Q6H PRN Administration DYSPEPSIA Albuterol/Ipratropium 1 amp 06/28/18 17:46 07/06/18 15:40 Duoneb - NEB 1 amp Q6H PRN Administration SHORTNESS OF BREATH Amlodipine Besylate 5 mg 06/29/18 10:00 07/06/18 09:56 Norvasc - PO 5 mg DAILY [facility] Administration Celecoxib 200 mg 07/03/18 15:30 07/06/18 09:46 Celebrex - PO 200 mg DAILY [facility] Administration Docusate Sodium 100 mg 06/28/18 17:45 07/03/18 13:01 Colace - PO 100 mg Q8H PRN Administration CONSTIPATION Gabapentin 300 mg 06/29/18 06:15 07/06/18 15:39 Neurontin - PO 300 mg TID [facility] Administration Heparin Sodium (Porcine) 5,000 unit 06/28/18 22:30 07/06/18 09:47 Heparin - SQ Not Given BID [facility] Azithromycin 500 mg in 250 mls @ 250 mls/hr 06/29/18 10:00 07/06/18 09:44 Zithromax 500mg Ivpb (Pre-Docked) IVPB 250 mls/hr DAILY [facility] Administration Ceftriaxone Sodium 1 gm/ 50 mls @ 100 mls/hr 06/29/18 10:00 07/06/18 09:45 Dextrose IVPB 100 mls/hr DAILY [facility] Administration Protocol Lactobacillus Acidophilus 1 tab 07/05/18 10:00 07/06/18 09:46 Bacid - PO 1 tab DAILY [facility] Administration Losartan Potassium 12.5 mg 06/29/18 13:00 07/06/18 09:46 Cozaar - PO 12.5 mg DAILY [facility] Administration Melatonin 5 mg 07/03/18 23:17 07/04/18 21:42 Melatonin PO 5 mg HS PRN Administration INSOMNIA Methotrexate Sodium 25 mg 07/04/18 10:00 07/04/18 09:12 Mexate Injection - IM 25 mg Mo@1000 [facility] Administration Metoclopramide HCl 10 mg 06/28/18 17:57 07/05/18 21:41 Reglan Injection - IVPUSH 10 mg Q8H PRN Administration NAUSEA AND/OR VOMITING Ondansetron HCl 4 mg 07/01/18 09:14 07/05/18 07:12 Zofran Odt - SL 4 mg Q8H PRN Administration NAUSEA Oxycodone HCl 20 mg 07/02/18 17:25 07/06/18 12:27 Roxicodone - PO 20 mg Q6H PRN Administration PAIN LEVEL 7 - 10 Pantoprazole Sodium 40 mg 07/03/18 10:00 07/06/18 09:46 Protonix - PO 40 mg DAILY [facility] Administration Prednisone 20 mg 07/05/18 10:00 07/06/18 09:46 Deltasone - PO 20 mg DAILY [facility] Administration Senna 2 tab 06/28/18 17:45 Senna - PO HS PRN CONSTIPATION Trazodone HCl 50 mg 06/28/18 22:00 07/05/18 21:42 Desyrel - PO 50 mg HS [facility] Administration ASSESSMENT/PLAN: Patient is a 62 year old female with a significant past medical history of scleroderma, HTN, and emphysema. She presents to the emergency department with myalgias, N/V, and upper back pain with associative SOB. Symptoms have progressively worsening over the course of 1 week and she decided to present to ED for evaluation due to persistent nausea/vomiting. Imaging: CT 07/04/18 imaging consistent with pneumonia. chest xray 07/04/2018: progressive right pulmonary and pleural changes. Pulmonary: Pneumonia/COPD On Azithromycin 500mg daily, and ceftriaxone 1 gram q 24 hours Legionella with pneumococcal sputum ag ordered Urine legionella pending quantiferon ordered and pending WBC 37.6>10 in the setting of an immnocompromised patient Chest xray 07/04/18 with worsening pleural findings Currently she is tolerating room air, but requires supplemental oxygen with exertion. GI: Esophageal immobility/difficulty swallowing. Reports difficulty with swallowing with associated weight loss (10 lbs in apx 1 month) MBS swallow completed, recommendations noted. started on dysphagia diet with ensure supplements GI consulted for further recommendations, and possible EGD GERD. on PPI. Card: Hypertension. controlled on Norvasc, Cozaar. Autoimmune disease: Scleroderma pain control with PRN oxycodone celebrex 200mg BID Metothrexate 25mg once weekly neurontin 300mg TID fen ensure sips, dysphagia diet monitor electrolytes prophy; heparin bid Visit type - Emergency Visit Emergency Visit: Yes ED Registration Date: 06/28/18 Care time: The patient presented to the Emergency Department on the above date and was hospitalized for further evaluation of their emergent condition. - New Patient This patient is new to me today: No - Critical Care Critical Care patient: No - Discharge Referral Referred to [facility] Med P.C.: No
[2018-07-06] MEDS: traZODone HCL 50 MG TABLET (FP) PO SCH (21:14)
[2018-07-07] MEDS: ALBUTEROL SO4 2.5/IPRATROPIUM 0.5 INH SOL 3 ML VIAL.NEB. NEB PRN ×3 (02:00→19:51)
[2018-07-07] MEDS: oxyCODONE HCL 5 MG TABLET PO PRN ×3 (05:16→20:01)
[2018-07-07] MEDS: GABAPENTIN 300 MG CAPSULE (FP) PO SCH ×3 (05:29→23:58)
[2018-07-07 07:18] LABS: BASO % 0.5 % (0-2.0); EOS % 1.2 % (0-4.5); HEMATOCRIT 40.1 % (32.4-45.2); HEMOGLOBIN 13.1 GM/dL (10.7-15.3); LYMPH % 21.2 % (8-40); MCH 29.4 pg (25.7-33.7); MCHC 32.7 g/dl (32.0-36.0); MEAN PLT VOLUME 7.8 fl (7.5-11.1); NEUT % 70.1 % (42.8-82.8); PLATELET COUNT 640 K/MM3 (134-434); RBC 4.45 M/mm3 (3.60-5.2); RDW 15.8 % (11.6-15.6); WHITE BLOOD COUNT 13.2 K/mm3 (4.0-10.0)
[2018-07-07 07:39] LABS: INR 0.97 (0.83-1.09); PROTHROMBIN TIME (PATIENT) 11.5 SEC (9.7-13.0)
[2018-07-07 07:46] LABS: ALK PHOS 180 U/L (45-117); ANION GAP 9 MMOL/L (8-16); BILIRUBIN,TOTAL 0.2 mg/dL (0.2-1); BLOOD UREA NITROGEN 22 mg/dL (7-18); CALCIUM 9.5 mg/dL (8.5-10.1); CHLORIDE 99 mmol/L (98-107); CO2 31 mmol/L (21-32); CREATININE 0.8 mg/dL (0.55-1.3); GLUCOSE,RANDOM 108 mg/dL (74-106); POTASSIUM 5.4 mmol/L (3.5-5.1); SGOT/AST 29 U/L (15-37); SGPT/ALT 49 U/L (13-61); SODIUM 138 mmol/L (136-145); TOT PROT 6.7 g/dl (6.4-8.2)
--- NOTE | 2018-07-07 08:51 | PN ---
Progress Note (short form) - Note Progress Note: Breathing feels a little better today. For EGD today. No acute events overnight. No hemoptysis. Intake & Output 07/04/18 07/05/18 07/06/18 07/07/18 23:59 23:59 23:59 23:59 Intake Total 9295 536 9402 0 Balance 3269 848 3446 0 Weight 151 lb 1.6 oz 148 lb 4.8 oz Last Vital Signs Temp Pulse Resp BP Pulse Ox 98.2 F 79 18 116/86 98 07/07/18 05:03 07/07/18 05:03 07/07/18 05:03 07/07/18 05:03 07/06/18 21:00 Active Medications Acetaminophen (Tylenol -) 1,000 mg PO Q8H PRN PRN Reason: FEVER Last Admin: 07/06/18 15:43 Dose: 1,000 mg Al Hydroxide/Mg Hydroxide (Mylanta Oral Suspension -) 30 ml PO Q6H PRN PRN Reason: DYSPEPSIA Last Admin: 07/06/18 10:08 Dose: 30 ml Albuterol/Ipratropium (Duoneb -) 1 amp NEB Q6H PRN PRN Reason: SHORTNESS OF BREATH Last Admin: 07/07/18 07:49 Dose: 1 amp Amlodipine Besylate (Norvasc -) 5 mg PO DAILY [facility] Last Admin: 07/06/18 09:56 Dose: 5 mg Celecoxib (Celebrex -) 200 mg PO DAILY [facility] Last Admin: 07/06/18 09:46 Dose: 200 mg Docusate Sodium (Colace -) 100 mg PO Q8H PRN PRN Reason: CONSTIPATION Last Admin: 07/03/18 13:01 Dose: 100 mg Gabapentin (Neurontin -) 300 mg PO TID [facility] Last Admin: 07/07/18 05:29 Dose: 300 mg Heparin Sodium (Porcine) (Heparin -) 5,000 unit SQ BID [facility] Last Admin: 07/06/18 21:14 Dose: Not Given Azithromycin (Zithromax 500mg Ivpb (Pre-Docked)) 500 mg in 250 mls @ 250 mls/ hr IVPB DAILY [facility] Last Admin: 07/06/18 09:44 Dose: 250 mls/hr Ceftriaxone Sodium 1 gm/ (Dextrose) 50 mls @ 100 mls/hr IVPB DAILY [facility]; Protocol Last Admin: 07/06/18 09:45 Dose: 100 mls/hr Lactobacillus Acidophilus (Bacid -) 1 tab PO DAILY [facility] Last Admin: 07/06/18 09:46 Dose: 1 tab Losartan Potassium (Cozaar -) 12.5 mg PO DAILY [facility] Last Admin: 07/06/18 09:46 Dose: 12.5 mg Melatonin (Melatonin) 5 mg PO HS PRN PRN Reason: INSOMNIA Last Admin: 07/04/18 21:42 Dose: 5 mg Methotrexate Sodium (Mexate Injection -) 25 mg IM Mo@1000 [facility] Last Admin: 07/04/18 09:12 Dose: 25 mg Metoclopramide HCl (Reglan Injection -) 10 mg IVPUSH Q8H PRN PRN Reason: NAUSEA AND/OR VOMITING Last Admin: 07/05/18 21:41 Dose: 10 mg Ondansetron HCl (Zofran Odt -) 4 mg SL Q8H PRN PRN Reason: NAUSEA Last Admin: 07/05/18 07:12 Dose: 4 mg Oxycodone HCl (Roxicodone -) 20 mg PO Q6H PRN PRN Reason: PAIN LEVEL 7 - 10 Last Admin: 07/07/18 05:16 Dose: 20 mg Pantoprazole Sodium (Protonix -) 40 mg PO DAILY [facility] Last Admin: 07/06/18 09:46 Dose: 40 mg Prednisone (Deltasone -) 20 mg PO DAILY [facility] Last Admin: 07/06/18 09:46 Dose: 20 mg Senna (Senna -) 2 tab PO HS PRN PRN Reason: CONSTIPATION Trazodone HCl (Desyrel -) 50 mg PO HS [facility] Last Admin: 07/06/18 21:14 Dose: 50 mg Constitutional: Yes: Anxious, NAD Eyes: Yes: EOM Intact HENT: Yes: Normocephalic Neck: Yes: Trachea Midline Cardiovascular: Yes: Regular Rate and Rhythm Respiratory: Yes: few scattered rhonchi Gastrointestinal: Yes: Normal Bowel Sounds Edema: No Integumentary: Yes: WNL Neurological: Yes: WNL Psychiatric: Yes: Alert Labs: Laboratory Results - last 24 hr 07/06/18 07/06/18 07/07/18 10:10 10:10 06:30 WBC 10.6 H 13.2 H RBC 4.58 4.45 Hgb 13.4 13.1 Hct 41.3 40.1 MCV 90.0 90.0 MCH 29.3 29.4 MCHC 32.5 32.7 RDW 15.5 15.8 H Plt Count 682 H 640 H MPV 7.8 7.8 Absolute Neuts (auto) 6.0 9.2 H Neutrophils % 56.2 D 70.1 D Lymphocytes % 37.0 D 21.2 D Monocytes % 4.6 7.0 Eosinophils % 1.5 1.2 Basophils % 0.7 0.5 Nucleated RBC % 0 0 PT with INR INR Sodium 140 Potassium 4.7 Chloride 101 Carbon Dioxide 31 Anion Gap 8 BUN 18 Creatinine 0.9 Creat Clearance w eGFR > 60 Random Glucose 107 H Calcium 9.4 Magnesium 2.5 H Total Bilirubin 0.4 AST 20 ALT 37 Alkaline Phosphatase 170 H Total Protein 6.9 Albumin 3.1 L 07/07/18 07/07/18 06:30 06:30 WBC RBC Hgb Hct MCV MCH MCHC RDW Plt Count MPV Absolute Neuts (auto) Neutrophils % Lymphocytes % Monocytes % Eosinophils % Basophils % Nucleated RBC % PT with INR 11.50 INR 0.97 Sodium 138 Potassium 5.4 H Chloride 99 Carbon Dioxide 31 Anion Gap 9 BUN 22 H Creatinine 0.8 Creat Clearance w eGFR > 60 Random Glucose 108 H Calcium 9.5 Magnesium Total Bilirubin 0.2 AST 29 ALT 49 Alkaline Phosphatase 180 H Total Protein 6.7 Albumin 3.0 L Problem List - Problems (1) Pneumonia Code(s): J18.9 - PNEUMONIA, UNSPECIFIED ORGANISM Qualifiers: Pneumonia type: due to unspecified organism Laterality: right Lung location: unspecified part of lung Qualified Code(s): J18.9 - Pneumonia, unspecified organism (2) COPD (chronic obstructive pulmonary disease) Code(s): J44.9 - CHRONIC OBSTRUCTIVE PULMONARY DISEASE, UNSPECIFIED (3) GERD (gastroesophageal reflux disease) Code(s): K21.9 - GASTRO-ESOPHAGEAL REFLUX DISEASE WITHOUT ESOPHAGITIS (4) Nausea and vomiting in adult Code(s): R11.2 - NAUSEA WITH VOMITING, UNSPECIFIED (5) Scleroderma Code(s): M34.9 - SYSTEMIC SCLEROSIS, UNSPECIFIED Assessment/Plan SUSPECTED RECURRENT ASPIRATION DUE TO ESOPHAGEAL DYSMOTILITY DUE TO SCLERODERMA RUL PNEUMONIA LEUKOCYTOSIS SOB DYSPHONIA SCLERODERMA ON METHOTREXATE GERD EMPHYSEMA RECOMMENDATIONS PER SPEECH AND SWALLOW ABX PER ID O2 /BRONCHODILATORS NEEDED PREDNISONE WILL NEED REPEAT IMAGING 6 WEEKS AFTER D/C TO DOCUMENT RESOLUTION OF INFILTRATES THERE IS NO PULMONARY CONTRAINDICATION FOR EGD / ANESTHESIA DR OLVERA
[2018-07-07] MEDS: amLODIPine BESYLATE 5 MG TABLET (FP) PO SCH (09:01)
[2018-07-07] MEDS: PANTOPRAZOLE 40 MG TABLET (FP) PO SCH (09:01)
[2018-07-07] MEDS: LOSARTAN POTASSIUM 25 MG TABLET PO SCH (09:01)
[2018-07-07] MEDS: LACTOBACILLUS ACIDOPHILUS 1 TABLET PO SCH (09:01)
[2018-07-07] MEDS: predniSONE 20 MG TABLET (UD) PO SCH (09:01)
[2018-07-07] MEDS: CELECOXIB 200 MG CAPSULE PO SCH (09:01)
[2018-07-07] MEDS: CEFTRIAXONE 1 GM in DEXTROSE 5%-WATER - 50 ML IVPB SCH (09:02)
[2018-07-07] MEDS: HEPARIN NA (PORCINE) 5,000 UNITS/ML 1ML VIAL SQ SCH ×2 (09:02→22:33)
[2018-07-07] MEDS: AZITHROMYCIN IVPB 500 MG/250 ML BAG IVPB SCH (09:02)
[2018-07-07] MEDS ORDERED: LIDOCAINE VISCOUS 2% ORAL/TOP 20 ML UNIT-DOSE CUP ONE (11:05)
[2018-07-07] MEDS ORDERED: TETRACAINE/BENZOCAINE/BUTAMBEN 20 GM SPR TP ONE (11:05)
[2018-07-07] MEDS ORDERED: MIDAZOLAM HCL 2 MG/2 ML SINGLE DOSE VIAL ONE (11:07)
--- NOTE | 2018-07-07 11:34 | PN ---
Progress Note (short form) - Note Progress Note: EGD complete. Procedure report left in procedural section of physical chart and to be scanned into [employer]
--- NOTE | 2018-07-07 13:53 | PN ---
Progress Note, LABELING SPECIALIST - Note Progress Note: EGD reviewed with GI.Diana.HH, GERD, Distal area spasm that relaxes at times? Trial of dysphagia puree, thinned out with extra gravy, and thin liquid. oob in chair, alternate puree with liquids, eat slowly, walk around, allow time for esoph to clear. Pt asked to inform staff if foamy phlegm continues or if she vomits up esoph residue.
[2018-07-07] MEDS ORDERED: ACETAMINOPHEN 1000 MG/100 ML VIAL (NON FORMULARY) IVPB ONE (14:54)
[2018-07-07] MEDS ORDERED: FLUCONAZOLE 100 MG TABLET (UD) PO ONE (17:00)
[2018-07-07] MEDS ORDERED: SODIUM POLYSTYRENE SULFONATE 15 GM/60 ML BOTTLE PO ONE (17:00)
--- NOTE | 2018-07-07 17:02 | PN ---
Physical Exam: SUBJECTIVE: Patient seen and examined, having some abdominal discomfort. OBJECTIVE: s/p egd with biopsy K 5.4, given kayexalate Period Temp Pulse Resp BP Sys/Hoyt Pulse Ox Last 24 Hr 98 F-99 F 76-90 15-20 97-126/50-86 95-100 GENERAL: The patient is awake, alert, and fully oriented, in no acute distress. HEAD: Normal with no signs of trauma. EYES: PERRL, extraocular movements intact, sclera anicteric, conjunctiva clear. No ptosis. ENT: Ears normal, nares patent, oropharynx clear without exudates, moist mucous membranes. NECK: Trachea midline, full range of motion, supple. LUNGS: Breath sounds equal, diminished bilaterally HEART: Regular rate and rhythm. ABDOMEN: Soft, nontender, nondistended, normoactive bowel sounds, no guarding EXTREMITIES: no edema. NEUROLOGICAL: Normal speech, gait not observed. PSYCH: Normal mood, normal affect. SKIN: Warm, dry, normal turgor, no rashes or lesions noted Laboratory Results - last 24 hr 07/01/18 07/04/18 07/07/18 06:00 13:40 06:30 WBC 13.2 H RBC 4.45 Hgb 13.1 Hct 40.1 MCV 90.0 MCH 29.4 MCHC 32.7 RDW 15.8 H Plt Count 640 H MPV 7.8 Absolute Neuts (auto) 9.2 H Neutrophils % 70.1 D Lymphocytes % 21.2 D Monocytes % 7.0 Eosinophils % 1.2 Basophils % 0.5 Nucleated RBC % 0 PT with INR INR Sodium Potassium Chloride Carbon Dioxide Anion Gap BUN Creatinine Creat Clearance w eGFR Random Glucose Calcium Total Bilirubin AST ALT Alkaline Phosphatase Total Protein Albumin TB Test (QFT) Nil 0.23 0.01 TB Test (QFT) Mitogen >10.00 >10.00 TB Test (QFT) Antigen 0.45 0.01 TB Positive Criteria 07/07/18 07/07/18 07/07/18 06:30 06:30 14:45 WBC RBC Hgb Hct MCV MCH MCHC RDW Plt Count MPV Absolute Neuts (auto) Neutrophils % Lymphocytes % Monocytes % Eosinophils % Basophils % Nucleated RBC % PT with INR 11.50 INR 0.97 Sodium 138 Potassium 5.4 H 5.3 H Chloride 99 Carbon Dioxide 31 Anion Gap 9 BUN 22 H Creatinine 0.8 Creat Clearance w eGFR > 60 Random Glucose 108 H Calcium 9.5 Total Bilirubin 0.2 AST 29 ALT 49 Alkaline Phosphatase 180 H Total Protein 6.7 Albumin 3.0 L TB Test (QFT) Nil TB Test (QFT) Mitogen TB Test (QFT) Antigen TB Positive Criteria Active Medications Generic Name Dose Route Start Last Admin Trade Name Freq PRN Reason Stop Dose Admin Acetaminophen 1,000 mg 06/28/18 17:46 07/06/18 15:43 Tylenol - PO 1,000 mg Q8H PRN Administration FEVER Al Hydroxide/Mg Hydroxide 30 ml 06/29/18 14:53 07/06/18 10:08 Mylanta Oral Suspension - PO 30 ml Q6H PRN Administration DYSPEPSIA Albuterol/Ipratropium 1 amp 06/28/18 17:46 07/07/18 07:49 Duoneb - NEB 1 amp Q6H PRN Administration SHORTNESS OF BREATH Amlodipine Besylate 5 mg 06/29/18 10:00 07/07/18 09:01 Norvasc - PO 5 mg DAILY ALEXIS Administration Celecoxib 200 mg 07/03/18 15:30 07/07/18 09:01 Celebrex - PO 200 mg DAILY ALEXIS Administration Docusate Sodium 100 mg 06/28/18 17:45 07/03/18 13:01 Colace - PO 100 mg Q8H PRN Administration CONSTIPATION Fluconazole 100 mg 07/08/18 10:00 Diflucan - PO DAILY ALEXIS Gabapentin 300 mg 06/29/18 06:15 07/07/18 13:02 Neurontin - PO 300 mg TID ALEXIS Administration Heparin Sodium (Porcine) 5,000 unit 06/28/18 22:30 07/07/18 09:02 Heparin - SQ Not Given BID [facility] Azithromycin 500 mg in 250 mls @ 250 mls/hr 06/29/18 10:00 07/07/18 09:02 Zithromax 500mg Ivpb (Pre-Docked) IVPB Not Given DAILY [facility] Ceftriaxone Sodium 1 gm/ 50 mls @ 100 mls/hr 06/29/18 10:00 07/07/18 09:02 Dextrose IVPB Not Given DAILY [facility] Protocol Lactobacillus Acidophilus 1 tab 07/05/18 10:00 07/07/18 09:01 Bacid - PO 1 tab DAILY ALEXIS Administration Losartan Potassium 12.5 mg 06/29/18 13:00 07/07/18 09:01 Cozaar - PO 12.5 mg DAILY ALEXIS Administration Melatonin 5 mg 07/03/18 23:17 07/04/18 21:42 Melatonin PO 5 mg HS PRN Administration INSOMNIA Methotrexate Sodium 25 mg 07/04/18 10:00 07/04/18 09:12 Mexate Injection - IM 25 mg Mo@1000 ALEXIS Administration Ondansetron HCl 4 mg 07/01/18 09:14 07/05/18 07:12 Zofran Odt - SL 4 mg Q8H PRN Administration NAUSEA Oxycodone HCl 20 mg 07/02/18 17:25 07/07/18 13:02 Roxicodone - PO 20 mg Q6H PRN Administration PAIN LEVEL 7 - 10 Pantoprazole Sodium 40 mg 07/03/18 10:00 07/07/18 09:01 Protonix - PO 40 mg DAILY ALEXIS Administration Prednisone 20 mg 07/05/18 10:00 07/07/18 09:01 Deltasone - PO 20 mg DAILY ALEXIS Administration Senna 2 tab 06/28/18 17:45 Senna - PO HS PRN CONSTIPATION Trazodone HCl 50 mg 06/28/18 22:00 07/06/18 21:14 Desyrel - PO 50 mg HS ALEXIS Administration ASSESSMENT/PLAN: Patient is a 62 year old female with a significant past medical history of scleroderma, HTN, and emphysema. She presents to the emergency department with myalgias, N/V, and upper back pain with associative SOB. Symptoms have progressively worsening over the course of 1 week and she decided to present to ED for evaluation due to persistent nausea/vomiting. Imaging: CT 07/04/18 imaging consistent with pneumonia. chest xray 07/04/2018: progressive right pulmonary and pleural changes. Pulmonary: Pneumonia/COPD, improving On Azithromycin 500mg daily, and ceftriaxone 1 gram q 24 hours Legionella with pneumococcal sputum ag ordered Urine legionella pending quantiferon ordered and pending WBC 37.6>13 in the setting of an immnocompromised patient Currently she is tolerating room air, but requires supplemental oxygen with exertion. GI: Esophageal immobility/difficulty swallowing. s/p egd with biopsy. recommendations appreciated. diflucan 200x1, then diflucan 100mg daily on PPI Card: Hypertension. controlled on Norvasc, Cozaar. Autoimmune disease: Scleroderma pain control with PRN oxycodone fen ensure sips, dysphagia diet monitor electrolytes prophy; heparin bid Visit type - Emergency Visit Emergency Visit: Yes ED Registration Date: 06/28/18 Care time: The patient presented to the Emergency Department on the above date and was hospitalized for further evaluation of their emergent condition. - New Patient This patient is new to me today: No - Critical Care Critical Care patient: No - Discharge Referral Referred to [facility] Med P.C.: No
[2018-07-07] MEDS: traZODone HCL 50 MG TABLET (FP) PO SCH (22:32)
[2018-07-07] MEDS: MELATONIN 5 MG TABLETS PO PRN (22:32)
[2018-07-07] MEDS: MAG HYDROX/AL HYDROX/SIMETH 30 ML UNIT-DOSE CUP PO PRN (22:32)
[2018-07-08] MEDS: ALBUTEROL SO4 2.5/IPRATROPIUM 0.5 INH SOL 3 ML VIAL.NEB. NEB PRN ×2 (04:45→13:15)
[2018-07-08] MEDS: GABAPENTIN 300 MG CAPSULE (FP) PO SCH ×2 (05:03→13:23)
[2018-07-08] MEDS: oxyCODONE HCL 5 MG TABLET PO PRN ×3 (05:03→17:41)
[2018-07-08] MEDS ORDERED: AZITHROMYCIN 250 MG TABLET PO ONE (08:15)
[2018-07-08] MEDS ORDERED: CEFUROXIME AXETIL 500 MG TABLET PO ONE (08:16)
[2018-07-08] MEDS: LACTOBACILLUS ACIDOPHILUS 1 TABLET PO SCH (09:45)
[2018-07-08] MEDS: PANTOPRAZOLE 40 MG TABLET (FP) PO SCH (09:45)
[2018-07-08] MEDS: amLODIPine BESYLATE 5 MG TABLET (FP) PO SCH (09:45)
[2018-07-08] MEDS: CELECOXIB 200 MG CAPSULE PO SCH (09:45)
[2018-07-08] MEDS: LOSARTAN POTASSIUM 25 MG TABLET PO SCH (09:46)
[2018-07-08] MEDS: HEPARIN NA (PORCINE) 5,000 UNITS/ML 1ML VIAL SQ SCH (09:46)
[2018-07-08] MEDS: predniSONE 20 MG TABLET (UD) PO SCH (09:46)
[2018-07-08] MEDS: ACETAMINOPHEN 500 MG TABLET (FP) PO PRN (09:47)
[2018-07-08] MEDS: CEFTRIAXONE 1 GM in DEXTROSE 5%-WATER - 50 ML IVPB SCH (09:54)
[2018-07-08] MEDS: AZITHROMYCIN IVPB 500 MG/250 ML BAG IVPB SCH (09:54)
[2018-07-08] MEDS ORDERED: FLUCONAZOLE 100 MG TABLET (UD) PO SCH (10:00)
[2018-07-08 10:34] LABS: BASO % 1.3 % (0-2.0); HEMATOCRIT 41.1 % (32.4-45.2); HEMOGLOBIN 13.9 GM/dL (10.7-15.3); LYMPH % 28.5 % (8-40); MCH 30.5 pg (25.7-33.7); MCHC 33.9 g/dl (32.0-36.0); MEAN CELL VOLUME 90.2 fl (80-96); MONO % 4.1 % (3.8-10.2); NEUT % 64.1 % (42.8-82.8); PLATELET COUNT 585 K/MM3 (134-434); RBC 4.56 M/mm3 (3.60-5.2); RDW 15.6 % (11.6-15.6); WHITE BLOOD COUNT 15.3 K/mm3 (4.0-10.0)
[2018-07-08 11:10] LABS: ALBUMIN 3.4 g/dl (3.4-5.0); ALK PHOS 175 U/L (45-117); ANION GAP 7 MMOL/L (8-16); BILIRUBIN,TOTAL 0.2 mg/dL (0.2-1); BLOOD UREA NITROGEN 19 mg/dL (7-18); CALCIUM 9.4 mg/dL (8.5-10.1); CHLORIDE 97 mmol/L (98-107); CO2 33 mmol/L (21-32); GLUCOSE,RANDOM 144 mg/dL (74-106); MAGNESIUM 2.4 mg/dL (1.8-2.4); POTASSIUM 4.4 mmol/L (3.5-5.1); SGOT/AST 20 U/L (15-37); SGPT/ALT 42 U/L (13-61); SODIUM 136 mmol/L (136-145); TOT PROT 7.1 g/dl (6.4-8.2)
--- NOTE | 2018-07-08 11:43 | PN ---
GI Progress Note Subjective: No abdominal pain Tolerating pureed diet - Objective Vital Signs: Vital Signs Temperature 97.7 F 07/08/18 10:00 Pulse Rate 86 07/08/18 10:00 Respiratory Rate 18 07/08/18 10:00 Blood Pressure 111/75 07/08/18 10:00 O2 Sat by Pulse Oximetry (%) 96 07/08/18 09:00 Constitutional: Calm Eyes: No: Sclera Icterus Cardiovascular: Yes: Regular Rate and Rhythm Respiratory: Yes: CTA Bilaterally Gastrointestinal Inspection: No: Distention ...Auscultate: Yes: Normoactive Bowel Sounds ...Palpate: Yes: Tenderness. No: Hepatomegaly, Splenomegaly ...Percussion: No: Tympanitic Edema: No (No LE edema) Neurological: Yes: Alert Labs: CBC, BMP 07/08/18 10:05 07/08/18 10:05 INR, PTT INR 0.97 (0.83-1.09) 07/07/18 06:30 Problem List - Problems (1) Dysphagia Assessment/Plan: Likely multifactorial as outlined in EGD report from 07/07/17: Pureed diet, sitting upright with meals Duflucan therapy x 20 days Aspiration precautions Protonix 40mg once daily Code(s): R13.10 - DYSPHAGIA, UNSPECIFIED
--- NOTE | 2018-07-08 15:19 | PN ---
Progress Note, [facility] SPECIALIST - Note Progress Note: Pt tolerating pureed diet so far. Swallowing compensatory strategies reviewed with pt. Lucrecia being treated with Diflucan. Reviewed dietary needs with pt/Dietary dept. Continue supplements.
[2018-07-08 15:31] VITALS: BP 128/86; PULSE 104; TEMP 98.4
--- NOTE | 2018-07-08 15:43 | PN ---
Progress Note (short form) - Note Progress Note: PULMONARY SUBJECTIVE IMPROVEMENT WANTS TO GO HOME STABLE POST EGD Constitutional: Yes: Anxious, NAD Eyes: Yes: EOM Intact HENT: Yes: Normocephalic Neck: Yes: Trachea Midline Cardiovascular: Yes: Regular Rate and Rhythm Respiratory: Yes: few scattered rhonchi Gastrointestinal: Yes: Normal Bowel Sounds Edema: No Integumentary: Yes: WNL Neurological: Yes: WNL Psychiatric: Yes: Alert Labs: REVIEWED Problem List - Problems (1) Pneumonia Code(s): J18.9 - PNEUMONIA, UNSPECIFIED ORGANISM Qualifiers: Pneumonia type: due to unspecified organism Laterality: right Lung location: unspecified part of lung Qualified Code(s): J18.9 - Pneumonia, unspecified organism (2) COPD (chronic obstructive pulmonary disease) Code(s): J44.9 - CHRONIC OBSTRUCTIVE PULMONARY DISEASE, UNSPECIFIED (3) GERD (gastroesophageal reflux disease) Code(s): K21.9 - GASTRO-ESOPHAGEAL REFLUX DISEASE WITHOUT ESOPHAGITIS (4) Nausea and vomiting in adult Code(s): R11.2 - NAUSEA WITH VOMITING, UNSPECIFIED (5) Scleroderma Code(s): M34.9 - SYSTEMIC SCLEROSIS, UNSPECIFIED Assessment/Plan ASPIRATION DUE TO ESOPHAGEAL DYSMOTILITY DUE TO SCLERODERMA RUL PNEUMONIA LEUKOCYTOSIS SOB DYSPHONIA SCLERODERMA ON METHOTREXATE GERD EMPHYSEMA RECOMMENDATIONS PER SPEECH AND SWALLOW WELFARE AIDE ABX PER ID O2 /BRONCHODILATORS NEEDED TAPER PREDNISONE WILL NEED REPEAT IMAGING 6 WEEKS AFTER D/C TO DOCUMENT RESOLUTION OF INFILTRATES DISCHARGE PLANNING R LEONARD PATEL Problem List - Problems (1) Pneumonia Code(s): J18.9 - PNEUMONIA, UNSPECIFIED ORGANISM Qualifiers: Pneumonia type: due to unspecified organism Laterality: right Lung location: unspecified part of lung Qualified Code(s): J18.9 - Pneumonia, unspecified organism (2) COPD (chronic obstructive pulmonary disease) Code(s): J44.9 - CHRONIC OBSTRUCTIVE PULMONARY DISEASE, UNSPECIFIED (3) GERD (gastroesophageal reflux disease) Code(s): K21.9 - GASTRO-ESOPHAGEAL REFLUX DISEASE WITHOUT ESOPHAGITIS (4) Nausea and vomiting in adult Code(s): R11.2 - NAUSEA WITH VOMITING, UNSPECIFIED (5) Scleroderma Code(s): M34.9 - SYSTEMIC SCLEROSIS, UNSPECIFIED
--- NOTE | 2018-07-08 15:44 | DS ---
Physical Exam: SUBJECTIVE: Patient seen and examined at the bedside. Denies shortness of breath, breathing improved. OBJECTIVE: Vital Signs Period Temp Pulse Resp BP Sys/Hoyt Pulse Ox Last 24 Hr 97.7 F-98.6 F 86-105 18-18 109-130/64-86 94-99 PHYSICAL EXAM GENERAL: The patient is awake, alert, and fully oriented, in no acute distress. HEAD: Normal with no signs of trauma. EYES: PERRL, extraocular movements intact, sclera anicteric, conjunctiva clear. No ptosis. ENT: Ears normal, nares patent, oropharynx clear without exudates, moist mucous membranes. NECK: Trachea midline, full range of motion, supple. LUNGS: Breath sounds equal, diminished bilaterally HEART: Regular rate and rhythm. ABDOMEN: Soft, nontender, nondistended, normoactive bowel sounds, no guarding EXTREMITIES: no edema. NEUROLOGICAL: Normal speech, gait not observed. PSYCH: Normal mood, normal affect. SKIN: Warm, dry, normal turgor, no rashes or lesions noted LABS Laboratory Results - last 24 hr 07/07/18 07/08/18 07/08/18 14:45 10:05 10:05 WBC 15.3 H RBC 4.56 Hgb 13.9 Hct 41.1 MCV 90.2 MCH 30.5 MCHC 33.9 RDW 15.6 Plt Count 585 H MPV 8.0 Absolute Neuts (auto) 9.9 H Neutrophils % 64.1 Lymphocytes % 28.5 D Monocytes % 4.1 Eosinophils % 2.0 Basophils % 1.3 Nucleated RBC % 0 Sodium 136 Potassium 5.3 H 4.4 Chloride 97 L Carbon Dioxide 33 H Anion Gap 7 L BUN 19 H Creatinine 1.0 Creat Clearance w eGFR 56.56 Random Glucose 144 H Calcium 9.4 Magnesium 2.4 Total Bilirubin 0.2 AST 20 ALT 42 Alkaline Phosphatase 175 H Total Protein 7.1 Albumin 3.4 Date of Admission:06/28/18 Date of Discharge: 07/08/18 Patient is a 62 year old female with a significant past medical history of scleroderma, HTN, and emphysema. She presents to the emergency department with myalgias, N/V, and upper back pain with associative SOB. Symptoms have progressively worsening over the course of 1 week and she decided to present to ED for evaluation due to persistent nausea/vomiting. HOSPITAL COURSE BY PROBLEM LIST: Imaging: CT 07/04/18 imaging consistent with pneumonia. chest xray 07/04/2018: progressive right pulmonary and pleural changes. Pulmonary: Pneumonia/COPD, improving Patient will be sent home with 5 more days of Augmentin 500mg bid and prednisone taper WBC 37.6>15 in the setting of an immnocompromised patient. She remains afebrile, blood and urine cultures negative. Denies any shortness of breath with physical exertion. Given referral for outpatient follow up with pulmonary. Pre and post shows that patient does not require home oxygen GI: Esophageal immobility/difficulty swallowing. s/p egd with biopsy on 07/07/2018 Patient to continue Diflucan 100mg daily x 20 days. continue Protonix 40mg daily Outpatient followup with GI for results of the biopsy. Card: Hypertension. controlled on Norvasc, Cozaar. Autoimmune disease: Scleroderma pain control with PRN oxycodone. Patient to follow up with rheumatoloigist outpatient. Discharge home. Minutes to complete discharge: 60 Discharge Summary Reason For Visit: PNEUMONIA Current Active Problems Dysphagia (Acute) Pneumonia (Acute) Condition: Improved - Instructions Diet, Activity, Other Instructions: Mrs Tavarez: You were admitted to [facility] on 06/28/2018 for pneumonia. You also had a swallow test and an EGD. During your stay you were treated for a pneumonia. You were seen by our pulmonary and infectious disease teams and treating with antibiotics and medications to support your breathing. We discharging you home with the following recommendations: Pneumonia You had a chest CT image that should that you have some infiltrates as well as emphysema. We recommend that you have a repeat of chest CT in 6 weeks to assure that your infiltrates have resolved. We tested your oxygen levels during admission and we found that you do not need home oxygen. YOU WILL NEED REPEAT IMAGING 6 WEEKS AN OUTPATIENT TO DOCUMENT RESOLUTION OF INFILTRATES. Please see your primary care physician so that this can be arranged. New medications: Prednisone 20mg, take 2 pills by mouth once a day (they are 10mg each pill), for the next three days (07/09-07/12) - then stop. Augmentin 500mg twice daily for 5 more days. Then you will complete the full course of the antibiotics. Duonebs, 1 amp by nebulizer four times a day, until your breathing improves Diflucan 100mg daily for 20 days total (07/08/18 through July 27 2018). Difficulty swallowing: We performed an EGD on 07/07/2018 with biopsy. Please follow up with Dr. Langley for the results of the biopsy. (his office phone number is listed in the discharge packet) Further You will continue Diflucan 100mg daily for 20 days total (07/08/18 through July 27 2018). Take Protonix 40mg daily Continue a pureed diet and sit upright with meals and avoid laying flat 2-3 hours after eating Scleroderma Continue your home medications. Follow up with your animal nutrition consultant. Follow-ups: Please follow-up with your primary care physician in one week. Please call their office to schedule an appointment. If you require a referral for a primary care physician, contact information has been provided for the resident clinic with Dr. Duffy. Please follow up with your coastal and estuary specialist (Dr. Germain). His information is enclosed. YOU WILL NEED REPEAT IMAGING (CHEST XRAY) IN 6 WEEKS AN OUTPATIENT TO DOCUMENT RESOLUTION OF INFILTRATES. Follow up with your animal nutrition consultant to further manage and control the symptoms of your scleroderma. Thank you for allowing us to care for you. Sujata Luanne [place] MEDICAL COST CONSULTANT [facility] [phone] Referrals: Fito Germain MD [Staff Physician] - (rim fire priming operator) Tc Langley DO [Staff Physician] - 1 Week Declan Duffy MD [Staff Physician] - Disposition: HOME - Home Medications Comprehensive Discharge Medication List: Ambulatory Orders Amlodipine Besylate 5 mg PO DAILY 06/28/18 Gabapentin 300 mg PO TID 06/28/18 Losartan Potassium 12.5 mg PO DAILY 06/28/18 Methocarbamol 750 mg PO TID 06/28/18 Methotrexate Sodium/Pf [Methotrexate 25 mg/ml Vial] 25 mg IJ WEEKLY 06/28/18 Ondansetron [Zofran *Odt*] 8 mg SL TID PRN 06/28/18 Oxycodone HCl [Roxicodone] 20 mg PO ASDIR 06/28/18 Umeclidinium [place] [Incruse Ellipta] 1 puff IH DAILY 06/28/18 traMADol HCL [Ultram -] 50 mg PO Q8H PRN 06/28/18 traZODone HCL [Trazodone HCl] 50 mg PO HS 06/28/18 Amox-Tr/K Cl [Augmentin - 500Mg Tablet] 1 tab PO BID #10 tab 07/08/18 Fluconazole [Diflucan -] 100 mg PO DAILY #20 tablet 07/08/18 Pantoprazole Sodium [Protonix -] 40 mg PO DAILY #30 tablet.ec 07/08/18 Prednisone 20 mg PO DAILY #10 tab.ds.pk 07/08/18 This patient is new to me today: Yes Date on this admission: 07/08/18 Emergency Visit: No Critical Care patient: No - Discharge Referral Referred to [facility] No
--- NOTE | 2018-07-08 20:32 | PATH ---
Cytology Non-Gynecological Report Patient Name: MICAELA BRISENO Med. Rec. #: [id number] /Age/Gender: 1955 (Age: 62) / F Account: [id number] Location: [facility] MED/SURG Taken: 07/07/2018 Received: 07/07/2018 Reported: 07/08/2018 Physicians: Yuliana Bernal Specimen(s) Received ESOPHAGEAL BRUSH Clinical History Lucrecia esophagitis Final Diagnosis ESOPHAGEAL BRUSHING FOR CYTOLOGY: SATISFACTORY FOR EVALUATION. SQUAMOUS CELLS WITH REACTIVE CELLULAR CHANGES. LUCRECIA SPECIES. SCATTERED SQUAMOUS CELLS WITH REACTIVE CELLULAR CHANGES NOTED. FUNGAL FORMS MORPHOLOGICALLY CONSISTENT WITH LUCRECIA SPECIES HIGHLIGHTED BY PAS SPECIAL STAIN PRESENT. Electronically Signed Geeta Chávez M.D. Gross Description Received brush and slide fixed in 95% alcohol. One additional smear prepared and Pap stained. One cellblock prepared.
--- NOTE | 2018-07-11 09:49 | PATH ---
Surgical Pathology Report Patient Name: MICAELA BRISENO Med. Rec. #: [id number] /Age/Gender: 1955 (Age: 62) / F Account: [id number] Location: [facility] MED/SURG Taken: 07/07/2018 Received: 07/07/2018 Reported: 07/11/2018 Physicians: Angeles Cuello F.N.P. Specimen(s) Received BX ESOPHAGEAL STRICTURE AT 36CM Clinical History Dysphagia, vomiting Postoperative diagnosis: Lucrecia esophagitis, esophageal stricture, hiatal hernia Final Diagnosis ESOPHAGEAL STRICTURE, 36 CM, BIOPSY: SQUAMOUS MUCOSA WITH MODERATE BASAL CELL HYPERPLASIA AND FOCAL ACUTE INFLAMMATION. PAS STAIN HIGHLIGHTS RARE FUNGAL FORMS. Comment: See concurrent cytology ([id number]). Electronically Signed Geeta Chávez M.D. Gross Description Received in formalin, labeled "biopsy esophageal stricture at 36 cm" are 4 herrera, irregular portions of soft tissue ranging from 0.2-0.5 cm. in greatest dimension. The specimens are submitted in toto in one cassette. /07/07/2018 saudi07/07/2018
== END 2018-07-08 18:19 | disposition home or self-care (01) | DRG 137 ==
LOC: JER 09:29 → JERBED 14:10 → J7W 06-29 14:45
PROVIDERS: ATTEND Nurse Practitioner Family
PROC: 0D728ZZ Dilation of Middle Esophagus, Via Natural or Artificial Opening Endoscopic (ICD-10-PCS; 2018-07-07)
PROC: 0DD28ZX Extraction of Middle Esophagus, Via Natural or Artificial Opening Endoscopic, Diagnostic (ICD-10-PCS; principal; 2018-07-07 10:00)
DX: J69.0 Pneumonitis due to inhalation of food and vomit (principal); R00.0 Tachycardia, unspecified; I10 Essential (primary) hypertension; M34.9 Systemic sclerosis, unspecified; K21.9 Gastro-esophageal reflux disease without esophagitis; Z87.11 Personal history of peptic ulcer disease; F41.9 Anxiety disorder, unspecified; M54.5 Low back pain; F17.210 Nicotine dependence, cigarettes, uncomplicated; J44.9 Chronic obstructive pulmonary disease, unspecified; R11.2 Nausea with vomiting, unspecified; D72.829 Elevated white blood cell count, unspecified; I25.10 Atherosclerotic heart disease of native coronary artery without angina pectoris; D64.9 Anemia, unspecified; R13.10 Dysphagia, unspecified; B37.81 Candidal esophagitis; K44.9 Diaphragmatic hernia without obstruction or gangrene; K22.2 Esophageal obstruction; R49.0 Dysphonia
CPT/HCPCS: 36415; 71045-TC-FY; 71046-TC-FY; 71250-TC; 74230-TC-FY; 80048; 80053; 82550; 83690; 83735; 84100; 84132; 84484; 85025; 85027; 85610; 85730; 86480; 87040; 87899; 88104; 88305-TC; 92611-GN; 93005; 93010; 93971-TC; 94640; 94761; 97116-GP; 97162-GP; 99285-25; J0131; J1644; J7030; J9260; Q0162

== ENCOUNTER 2023-05-05 13:30 | Inpatient (IN) | payer OTHER ==
[2023-05-05] MEDS ORDERED: ONDANSETRON 4 MG/2 ML VIAL IVPUSH ONE (14:00)
[2023-05-05] MEDS ORDERED: SODIUM CHLORIDE 0.9% 500 ML INFUS.BAG IV ONE ×2 (14:00→17:37)
[2023-05-05] MEDS ORDERED: ACETAMINOPHEN 1000 MG/100 ML BAG IVPB ONE (14:00)
[2023-05-05] MEDS ORDERED: ONDANSETRON 4 MG/2 ML VIAL ONE (15:48)
[2023-05-05] MEDS ORDERED: ACETAMINOPHEN INJECTION 100 ML IVPB ONE (15:48)
[2023-05-05] MEDS ORDERED: morphine SULFATE 4 MG/ML VIAL ONE ×2 (15:48→17:08)
[2023-05-05] MEDS ORDERED: morphine CARPU-JECT 4 MG/1 ML DISP.SYRIN IVPUSH ONE ×2 (16:04→17:02)
[2023-05-05 16:25] LABS: INR 1.13 (0.83-1.09); PROTHROMBIN TIME (PATIENT) 13.1 SEC (9.7-13.0)
[2023-05-05 16:27] LABS: ACTIVATED PTT 31.9 SECONDS (25.2-36.5)
[2023-05-05 16:30] LABS: POTASSIUM 3.7 mmol/L (3.5-5.1)
[2023-05-05 16:32] LABS: CALCIUM 9.9 mg/dL (8.5-10.1)
[2023-05-05 16:33] LABS: MAGNESIUM 1.9 mg/dL (1.8-2.4)
[2023-05-05 16:36] LABS: CREATININE 0.9 mg/dL (0.55-1.3); PHOSPHOROUS 2.7 mg/dL (2.5-4.9)
[2023-05-05 16:37] LABS: BILIRUBIN,TOTAL 0.7 mg/dL (0.2-1)
[2023-05-05 17:06] LABS: BASO % 1.1 % (0-2.0); EOS % 0.2 % (0-4.5); HEMATOCRIT 47.8 % (32.4-45.2); HEMOGLOBIN 14.7 GM/dL (10.7-15.3); LYMPH % 10.7 % (8-40); MCH 24.7 pg (25.7-33.7); MCHC 30.7 g/dl (32.0-36.0); MEAN CELL VOLUME 80.4 fl (80-96); MEAN PLT VOLUME 8.4 fl (7.5-11.1); MONO % 2.5 % (3.8-10.2); NEUT % 85.5 % (42.8-82.8); PLATELET COUNT 430 10^3/uL (134-434); RBC 5.95 M/mm3 (3.60-5.2); RDW 19.5 % (11.6-15.6); WHITE BLOOD COUNT 10.4 K/mm3 (4.0-10.0)
[2023-05-05] MEDS ORDERED: CEFTRIAXONE 1,000 MG in DEXTROSE 5%-WATER - 50 ML IVPB ONE (18:58)
[2023-05-05] MEDS ORDERED: AZITHROMYCIN IVPB 500 MG in DEXTROSE 5%-WATER - 250 ML IVPB ONE (18:59)
[2023-05-05] MEDS ORDERED: CEFTRIAXONE 1 GM/50 ML BAG ONE (19:25)
[2023-05-05] MEDS ORDERED: AZITHROMYCIN IVPB 500 MG/250 ML BAG IVPB ONE (20:20)
[2023-05-05] MEDS ORDERED: GABAPENTIN 300 MG CAPSULE PO SCH (22:00)
[2023-05-05] MEDS ORDERED: LOSARTAN POTASSIUM 25 MG TABLET ONE (22:00)
[2023-05-05] MEDS ORDERED: DOXYCYCLINE HYCLATE 100 MG VIAL ONE (22:01)
[2023-05-05] MEDS ORDERED: LOSARTAN POTASSIUM 50 MG TABLET ONE (22:01)
[2023-05-05] MEDS ORDERED: GABAPENTIN 300 MG CAPSULE ONE (22:01)
[2023-05-05] MEDS ORDERED: LOSARTAN POTASSIUM 50 MG TABLET PO ONE (22:15)
[2023-05-05] MEDS: DOXYCYCLINE INJECTION 100 MG in DEXTROSE 5%-WATER 100 ML IVPB SCH (22:23)
[2023-05-05] MEDS: traZODone HCL 50 MG TABLET (FP) PO SCH (22:23)
[2023-05-06] MEDS ORDERED: PANTOPRAZOLE SODIUM 40 MG VIAL IVPUSH ONE (00:39)
[2023-05-06] MEDS ORDERED: GABAPENTIN 300 MG CAPSULE PO SCH ×2 (02:48→10:00)
[2023-05-06] MEDS: oxyCODONE HCL 5 MG TABLET PO PRN ×2 (04:19→12:15)
[2023-05-06 07:19] LABS: POTASSIUM 3.6 mmol/L (3.5-5.1)
[2023-05-06 07:28] LABS: BLOOD UREA NITROGEN 5.9 mg/dL (7-18); CALCIUM 9.7 mg/dL (8.5-10.1)
[2023-05-06 07:29] LABS: ALBUMIN 3.9 g/dl (3.4-5.0)
[2023-05-06 07:31] LABS: CREATININE 0.8 mg/dL (0.55-1.3); PHOSPHOROUS 3.5 mg/dL (2.5-4.9)
[2023-05-06 07:32] LABS: BILIRUBIN,TOTAL 0.7 mg/dL (0.2-1)
[2023-05-06] MEDS: FOLIC ACID 1 MG TABLET (FP) PO SCH (09:08)
[2023-05-06] MEDS: DOXYCYCLINE INJECTION 100 MG in DEXTROSE 5%-WATER 100 ML IVPB SCH (09:08)
[2023-05-06] MEDS: ENOXAPARIN NA (PORCINE) 40 MG/0.4 ML DISP.SYRIN SQ SCH (09:09)
[2023-05-06] MEDS ORDERED: ACETAMINOPHEN 1000 MG/100 ML BAG IVPB ONE (09:30)
[2023-05-06] MEDS ORDERED: DOXYCYCLINE INJECTION 100 MG in DEXTROSE 5%-WATER 100 ML IVPB SCH (10:00)
[2023-05-06] MEDS ORDERED: LOSARTAN POTASSIUM 25 MG TABLET PO SCH (10:00)
[2023-05-06] MEDS ORDERED: PANTOPRAZOLE SODIUM 40 MG VIAL IVPUSH SCH (10:00)
[2023-05-06] MEDS: TIOTROPIUM BROMIDE 2.5 MCG (SPIRIVA) RESPIMAT INHALER IH SCH ×2 (10:40→12:00)
[2023-05-06] MEDS ORDERED: hydrALAZINE HCL 20 MG/ML VIAL IVPUSH ONE (12:00)
[2023-05-06] MEDS ORDERED: LOSARTAN POTASSIUM 50 MG TABLET PO ONE (12:00)
[2023-05-06 13:00] LABS: HEMOGLOBIN 16.8 GM/dL (10.7-15.3); MCH 25.3 pg (25.7-33.7); MCHC 32.4 g/dl (32.0-36.0); MEAN CELL VOLUME 78.1 fl (80-96); MEAN PLT VOLUME 8.2 fl (7.5-11.1); PLATELET COUNT 463 10^3/uL (134-434); RBC 6.66 M/mm3 (3.60-5.2); RDW 19.9 % (11.6-15.6); WHITE BLOOD COUNT 11.1 K/mm3 (4.0-10.0)
[2023-05-06] MEDS ORDERED: ONDANSETRON 4 MG/2 ML VIAL IVPB PRN (14:56)
[2023-05-06 15:17] LABS: EPI CELLS 24 /uL (0-25.1); HYALINE CASTS 1 /uL (0-3.1); URINE APPEARANCE CLEAR; URINE BACTERIA 18 /uL (0-1359); URINE BILIRUBIN NEGATIVE (NEGATIVE); URINE COLOR YELLOW; URINE GLUCOSE (UA) NEGATIVE (NEGATIVE); URINE KETONE 1+ (NEGATIVE); URINE LEUK ESTERASE NEGATIVE (NEGATIVE); URINE NITRITE NEGATIVE (NEGATIVE); URINE PROTEIN 4+ (NEGATIVE); URINE RBC 32 /uL (0-23.9); URINE UROBILINOGEN 0.2 mg/dL (0.2-1.0); URINE WBC 32 /uL (0-25.8)
[2023-05-06 15:41] LABS: YEAST NONE SEEN (NEGATIVE)
[2023-05-06] MEDS ORDERED: SODIUM CHLORIDE 1,000 ML IV SCH (18:30)
[2023-05-06] MEDS: ACETAMINOPHEN 1000 MG/100 ML BAG IVPB PRN (18:58)
[2023-05-06] MEDS: PANTOPRAZOLE SODIUM 40 MG VIAL IVPUSH SCH (21:59)
[2023-05-06] MEDS: GABAPENTIN 300 MG CAPSULE PO SCH (21:59)
[2023-05-06] MEDS: traZODone HCL 50 MG TABLET (FP) PO SCH (21:59)
[2023-05-07] MEDS: oxyCODONE HCL 5 MG TABLET PO PRN ×3 (01:45→20:15)
[2023-05-07] MEDS: GABAPENTIN 300 MG CAPSULE PO SCH ×3 (06:14→21:37)
[2023-05-07] MEDS: ACETAMINOPHEN 1000 MG/100 ML BAG IVPB PRN (08:29)
[2023-05-07] MEDS ORDERED: PANTOPRAZOLE SODIUM 40 MG VIAL IVPUSH SCH (10:00)
[2023-05-07] MEDS: LOSARTAN POTASSIUM 50 MG TABLET PO SCH (10:32)
[2023-05-07] MEDS: FOLIC ACID 1 MG TABLET (FP) PO SCH (10:32)
[2023-05-07] MEDS: PANTOPRAZOLE SODIUM 40 MG VIAL IVPUSH SCH ×2 (10:33→21:37)
[2023-05-07] MEDS: ENOXAPARIN NA (PORCINE) 40 MG/0.4 ML DISP.SYRIN SQ SCH (10:33)
[2023-05-07] MEDS: TIOTROPIUM BROMIDE 2.5 MCG (SPIRIVA) RESPIMAT INHALER IH SCH (11:55)
[2023-05-07 12:47] LABS: BASO % 0.8 % (0-2.0); EOS % 0.6 % (0-4.5); HEMATOCRIT 54.9 % (32.4-45.2); LYMPH % 21.2 % (8-40); MCH 24.8 pg (25.7-33.7); MEAN PLT VOLUME 8.6 fl (7.5-11.1); MONO % 9.2 % (3.8-10.2); NEUT % 68.2 % (42.8-82.8); PLATELET COUNT 533 10^3/uL (134-434); RBC 6.86 M/mm3 (3.60-5.2); RDW 19.7 % (11.6-15.6); WHITE BLOOD COUNT 13.4 K/mm3 (4.0-10.0)
[2023-05-07 13:10] LABS: POTASSIUM 3.6 mmol/L (3.5-5.1)
[2023-05-07 13:12] LABS: CALCIUM 9.5 mg/dL (8.5-10.1)
[2023-05-07 13:13] LABS: ALBUMIN 3.8 g/dl (3.4-5.0); BLOOD UREA NITROGEN 16.3 mg/dL (7-18); MAGNESIUM 1.9 mg/dL (1.8-2.4)
[2023-05-07 13:16] LABS: CREATININE 1.1 mg/dL (0.55-1.3); PHOSPHOROUS 2.9 mg/dL (2.5-4.9)
[2023-05-07 13:17] LABS: BILIRUBIN,TOTAL 0.7 mg/dL (0.2-1); TOT PROT 8.3 g/dl (6.4-8.2)
[2023-05-07 16:13] LABS: N-TERMINAL BNP 3717.7 pg/ml (5-125)
[2023-05-07 16:35] VITALS: BMI 22.6
[2023-05-07] MEDS: AMINO ACIDS/PROTEIN HYDROLYS 30 ML LIQUID.PKT PO SCH (18:15)
[2023-05-07] MEDS: MELATONIN 5 MG TABLETS PO PRN (21:37)
[2023-05-07] MEDS: traZODone HCL 50 MG TABLET (FP) PO SCH (21:37)
[2023-05-07] MEDS: BUDESONIDE/FORMETEROL FUMARATE 160/4.5 mcg INHALER IH SCH (21:38)
[2023-05-08] MEDS: GABAPENTIN 300 MG CAPSULE PO SCH ×3 (05:46→21:12)
[2023-05-08] MEDS: oxyCODONE HCL 5 MG TABLET PO PRN ×2 (06:25→21:12)
[2023-05-08 08:53] LABS: POTASSIUM 3.8 mmol/L (3.5-5.1)
[2023-05-08 08:58] LABS: CALCIUM 9.3 mg/dL (8.5-10.1)
[2023-05-08 08:59] LABS: ALBUMIN 3.5 g/dl (3.4-5.0)
[2023-05-08 09:01] LABS: CREATININE 2.1 mg/dL (0.55-1.3)
[2023-05-08 09:02] LABS: BILIRUBIN,TOTAL 0.6 mg/dL (0.2-1); TOT PROT 7.7 g/dl (6.4-8.2)
[2023-05-08 09:17] LABS: BASO % 0.3 % (0-2.0); EOS % 1.2 % (0-4.5); HEMATOCRIT 51.8 % (32.4-45.2); HEMOGLOBIN 16.6 GM/dL (10.7-15.3); LYMPH % 32.1 % (8-40); MCH 25.1 pg (25.7-33.7); MCHC 32.1 g/dl (32.0-36.0); MEAN CELL VOLUME 78.1 fl (80-96); MEAN PLT VOLUME 8.4 fl (7.5-11.1); MONO % 13.5 % (3.8-10.2); NEUT % 52.9 % (42.8-82.8); PLATELET COUNT 478 10^3/uL (134-434); RBC 6.63 M/mm3 (3.60-5.2); RDW 19.8 % (11.6-15.6); WHITE BLOOD COUNT 11.1 K/mm3 (4.0-10.0)
[2023-05-08] MEDS: BUDESONIDE/FORMETEROL FUMARATE 160/4.5 mcg INHALER IH SCH ×2 (10:30→21:13)
[2023-05-08] MEDS: FOLIC ACID 1 MG TABLET (FP) PO SCH (10:30)
[2023-05-08] MEDS: TIOTROPIUM BROMIDE 2.5 MCG (SPIRIVA) RESPIMAT INHALER IH SCH (10:30)
[2023-05-08] MEDS: ENOXAPARIN NA (PORCINE) 40 MG/0.4 ML DISP.SYRIN SQ SCH (10:31)
[2023-05-08] MEDS: LOSARTAN POTASSIUM 50 MG TABLET PO SCH (10:31)
[2023-05-08] MEDS: AMINO ACIDS/PROTEIN HYDROLYS 30 ML LIQUID.PKT PO SCH ×2 (10:31→18:07)
[2023-05-08] MEDS: PANTOPRAZOLE SODIUM 40 MG VIAL IVPUSH SCH ×2 (10:31→21:13)
[2023-05-08] MEDS: metoPROLOL SUCCINATE 25 MG TAB.SR.24H (FP) PO SCH (10:31)
[2023-05-08] MEDS ORDERED: ACETAMINOPHEN 325 MG TABLET (FP) PO PRN (12:34)
[2023-05-08] MEDS ORDERED: ARTIFICIAL TEARS OPHTHALMIC DROPS OU PRN (12:35)
[2023-05-08] MEDS ORDERED: POLYETHYLENE GLYCOL (HEALTHYLAX) 3350 17 GM PACKET PO PRN (13:14)
[2023-05-08] MEDS: SODIUM CHLORIDE 1,000 ML IV SCH (18:07)
[2023-05-08] MEDS: SIMETHICONE 80 MG TAB.CHEW (FP) PO PRN ×2 (18:08→21:12)
[2023-05-08] MEDS: MELATONIN 5 MG TABLETS PO PRN (21:12)
[2023-05-08] MEDS: traZODone HCL 50 MG TABLET (FP) PO SCH (21:12)
[2023-05-09] MEDS: GABAPENTIN 300 MG CAPSULE PO SCH ×3 (06:05→21:38)
[2023-05-09 07:58] LABS: POTASSIUM 3.6 mmol/L (3.5-5.1)
[2023-05-09 08:00] LABS: CALCIUM 8.5 mg/dL (8.5-10.1)
[2023-05-09 08:01] LABS: BLOOD UREA NITROGEN 49.1 mg/dL (7-18)
[2023-05-09 08:04] LABS: CREATININE 2.3 mg/dL (0.55-1.3)
[2023-05-09 08:05] LABS: BILIRUBIN,TOTAL 0.5 mg/dL (0.2-1); TOT PROT 6.5 g/dl (6.4-8.2)
[2023-05-09] MEDS: AMINO ACIDS/PROTEIN HYDROLYS 30 ML LIQUID.PKT PO SCH ×2 (09:00→18:06)
[2023-05-09] MEDS: ENOXAPARIN NA (PORCINE) 40 MG/0.4 ML DISP.SYRIN SQ SCH (09:22)
[2023-05-09] MEDS: PANTOPRAZOLE SODIUM 40 MG VIAL IVPUSH SCH ×2 (09:23→21:39)
[2023-05-09] MEDS: metoPROLOL SUCCINATE 25 MG TAB.SR.24H (FP) PO SCH (09:24)
[2023-05-09] MEDS: amLODIPine BESYLATE 10 MG TABLET (FP) PO SCH (09:24)
[2023-05-09] MEDS: THIAMINE HCL 200 MG/2 ML VIAL IVPB SCH (09:24)
[2023-05-09] MEDS: FOLIC ACID 1 MG TABLET (FP) PO SCH (09:24)
[2023-05-09] MEDS: oxyCODONE HCL 5 MG TABLET PO PRN ×2 (09:25→21:37)
[2023-05-09] MEDS: BUDESONIDE/FORMETEROL FUMARATE 160/4.5 mcg INHALER IH SCH ×2 (09:37→21:58)
[2023-05-09] MEDS: TIOTROPIUM BROMIDE 2.5 MCG (SPIRIVA) RESPIMAT INHALER IH SCH (09:37)
[2023-05-09] MEDS: SIMETHICONE 80 MG TAB.CHEW (FP) PO PRN (13:50)
[2023-05-09] MEDS: SUCRALFATE 1 GM TABLET (FP) PO SCH ×2 (16:01→21:37)
[2023-05-09] MEDS: traZODone HCL 50 MG TABLET (FP) PO SCH (21:38)
[2023-05-09] MEDS: MELATONIN 5 MG TABLETS PO PRN (21:38)
[2023-05-10] MEDS: GABAPENTIN 300 MG CAPSULE PO SCH ×3 (06:57→21:10)
[2023-05-10] MEDS: SUCRALFATE 1 GM TABLET (FP) PO SCH ×2 (06:57→13:21)
[2023-05-10 07:33] LABS: HEMATOCRIT 38.6 % (32.4-45.2); HEMOGLOBIN 12.1 GM/dL (10.7-15.3); MCH 24.9 pg (25.7-33.7); MCHC 31.2 g/dl (32.0-36.0); MEAN CELL VOLUME 79.8 fl (80-96); MEAN PLT VOLUME 8.2 fl (7.5-11.1); PLATELET COUNT 318 10^3/uL (134-434); RBC 4.84 M/mm3 (3.60-5.2); WHITE BLOOD COUNT 13.3 K/mm3 (4.0-10.0)
[2023-05-10 07:46] LABS: POTASSIUM 3.5 mmol/L (3.5-5.1)
[2023-05-10 07:47] LABS: CALCIUM 8.1 mg/dL (8.5-10.1)
[2023-05-10 07:48] LABS: BLOOD UREA NITROGEN 37.3 mg/dL (7-18); MAGNESIUM 1.7 mg/dL (1.8-2.4)
[2023-05-10 07:51] LABS: CREATININE 1.4 mg/dL (0.55-1.3); PHOSPHOROUS 2.7 mg/dL (2.5-4.9)
[2023-05-10] MEDS ORDERED: ACETAMINOPHEN 1000 MG/100 ML BAG IVPB ONE (08:31)
[2023-05-10] MEDS: PANTOPRAZOLE SODIUM 40 MG VIAL IVPUSH SCH (09:58)
[2023-05-10] MEDS: SODIUM CHLORIDE 1,000 ML IV SCH (09:58)
[2023-05-10] MEDS: THIAMINE HCL 200 MG/2 ML VIAL IVPB SCH (09:59)
[2023-05-10] MEDS: amLODIPine BESYLATE 10 MG TABLET (FP) PO SCH (09:59)
[2023-05-10] MEDS: metoPROLOL SUCCINATE 25 MG TAB.SR.24H (FP) PO SCH (09:59)
[2023-05-10] MEDS: AMINO ACIDS/PROTEIN HYDROLYS 30 ML LIQUID.PKT PO SCH ×2 (10:00→18:19)
[2023-05-10] MEDS: FOLIC ACID 1 MG TABLET (FP) PO SCH (10:00)
[2023-05-10] MEDS ORDERED: METHOTREXATE SODIUM/PF 25 MG/ML VIAL SQ SCH (10:00)
[2023-05-10] MEDS: TIOTROPIUM BROMIDE 2.5 MCG (SPIRIVA) RESPIMAT INHALER IH SCH (10:01)
[2023-05-10] MEDS: BUDESONIDE/FORMETEROL FUMARATE 160/4.5 mcg INHALER IH SCH ×2 (10:01→21:11)
[2023-05-10] MEDS: oxyCODONE HCL 5 MG TABLET PO PRN ×2 (13:20→21:08)
[2023-05-10] MEDS: ENOXAPARIN NA (PORCINE) 40 MG/0.4 ML DISP.SYRIN SQ SCH (13:22)
[2023-05-10] MEDS ORDERED: MAGNESIUM SULF 50% (8.12 MEQ/2 ML-1 GM VIAL) IVPB ONE (19:25)
[2023-05-10] MEDS ORDERED: guaiFENesin 200 MG/10 ML 10 ML UNIT-DOSE CUPS PO PRN (20:25)
[2023-05-10] MEDS: traZODone HCL 50 MG TABLET (FP) PO SCH (21:10)
[2023-05-10] MEDS: MELATONIN 5 MG TABLETS PO PRN (21:10)
[2023-05-11 06:14] VITALS: RESP 18
[2023-05-11] MEDS: GABAPENTIN 300 MG CAPSULE PO SCH ×3 (06:51→16:47)
[2023-05-11] MEDS: oxyCODONE HCL 5 MG TABLET PO PRN (08:01)
[2023-05-11] MEDS ORDERED: POLYETHYLENE GLYCOL (HEALTHYLAX) 3350 17 GM PACKET PO SCH (10:00)
[2023-05-11] MEDS ORDERED: PANTOPRAZOLE 40 MG TABLET PO SCH (10:00)
[2023-05-11] MEDS: AMINO ACIDS/PROTEIN HYDROLYS 30 ML LIQUID.PKT PO SCH (11:24)
[2023-05-11] MEDS: FOLIC ACID 1 MG TABLET (FP) PO SCH (11:24)
[2023-05-11] MEDS: THIAMINE HCL 200 MG/2 ML VIAL IVPB SCH (11:25)
[2023-05-11] MEDS: metoPROLOL SUCCINATE 25 MG TAB.SR.24H (FP) PO SCH (11:25)
[2023-05-11] MEDS: BUDESONIDE/FORMETEROL FUMARATE 160/4.5 mcg INHALER IH SCH (11:26)
[2023-05-11] MEDS: TIOTROPIUM BROMIDE 2.5 MCG (SPIRIVA) RESPIMAT INHALER IH SCH (11:26)
[2023-05-11 13:09] LABS: BASO % 0.9 % (0-2.0); EOS % 7.2 % (0-4.5); HEMATOCRIT 38.6 % (32.4-45.2); HEMOGLOBIN 12.3 GM/dL (10.7-15.3); LYMPH % 23.1 % (8-40); MCH 25.3 pg (25.7-33.7); MCHC 31.8 g/dl (32.0-36.0); MEAN CELL VOLUME 79.6 fl (80-96); MEAN PLT VOLUME 8.1 fl (7.5-11.1); MONO % 10.6 % (3.8-10.2); NEUT % 58.2 % (42.8-82.8); PLATELET COUNT 327 10^3/uL (134-434); RBC 4.85 M/mm3 (3.60-5.2); RDW 19.4 % (11.6-15.6); WHITE BLOOD COUNT 6.6 K/mm3 (4.0-10.0)
[2023-05-11 13:28] LABS: POTASSIUM 3.7 mmol/L (3.5-5.1)
[2023-05-11 13:30] LABS: CALCIUM 8.4 mg/dL (8.5-10.1)
[2023-05-11 13:31] LABS: BLOOD UREA NITROGEN 13.9 mg/dL (7-18); MAGNESIUM 2.2 mg/dL (1.8-2.4)
[2023-05-11 13:32] LABS: ALBUMIN 2.6 g/dl (3.4-5.0)
[2023-05-11 13:33] LABS: CREATININE 0.9 mg/dL (0.55-1.3)
[2023-05-11 13:35] LABS: BILIRUBIN,TOTAL 0.3 mg/dL (0.2-1)
[2023-05-11 15:35] VITALS: BP 137/65; PULSE 85; TEMP 97.1
[2023-05-11] MEDS: ENOXAPARIN NA (PORCINE) 40 MG/0.4 ML DISP.SYRIN SQ SCH (16:45)
[2023-05-11] MEDS: amLODIPine BESYLATE 10 MG TABLET (FP) PO SCH (16:47)
== END 2023-05-11 16:46 | disposition home or self-care (01) | DRG 190 ==
LOC: JER 13:30 → JERBED 18:57 → OBSVTOIN 21:04 → J4W 22:54
PROVIDERS: ADMIT Internal Medicine; ATTEND Internal Medicine
DX: I21.A1 Myocardial infarction type 2 (principal); E86.0 Dehydration; I10 Essential (primary) hypertension; K21.9 Gastro-esophageal reflux disease without esophagitis; K44.9 Diaphragmatic hernia without obstruction or gangrene; J43.9 Emphysema, unspecified; N17.9 Acute kidney failure, unspecified; M34.9 Systemic sclerosis, unspecified; J44.1 Chronic obstructive pulmonary disease with (acute) exacerbation; I16.0 Hypertensive urgency; R10.13 Epigastric pain; K29.60 Other gastritis without bleeding; G89.29 Other chronic pain; D25.9 Leiomyoma of uterus, unspecified; F11.20 Opioid dependence, uncomplicated; K57.90 Diverticulosis of intestine, part unspecified, without perforation or abscess without bleeding; K80.20 Calculus of gallbladder without cholecystitis without obstruction; Z85.118 Personal history of other malignant neoplasm of bronchus and lung; Z87.11 Personal history of peptic ulcer disease; Z92.3 Personal history of irradiation
CPT/HCPCS: 0241U-QW; 36415; 71045-TC-FY; 71250-TC; 74177-TC; 74220-TC-FY; 74240-TC-FY; 80048; 80053; 80061; 81003; 82977; 83690; 83735; 83880; 84100; 84443; 84484; 85025; 85027; 85610; 85730; 86677; 87040; 93005; 93010; 93306-TC; 99285-25; G0378; Q9967

== ENCOUNTER 2023-11-10 08:39 | Inpatient (IN) | payer OTHER ==
[2023-11-10] MEDS: morphine CARPU-JECT 4 MG/1 ML DISP.SYRIN IVPUSH ONE (09:30)
[2023-11-10] MEDS: ONDANSETRON 4 MG/2 ML VIAL IVPUSH ONE ×2 (09:30→17:44)
[2023-11-10] MEDS: SODIUM CHLORIDE 1,000 ML IV STA ×2 (09:30→11:30)
[2023-11-10] MEDS ORDERED: ONDANSETRON 4 MG/2 ML VIAL ONE ×2 (09:32→17:38)
[2023-11-10] MEDS ORDERED: morphine SULFATE 4 MG/ML VIAL ONE (09:32)
[2023-11-10 09:54] LABS: BASO % 0.7 % (0-2.0); HEMATOCRIT 50.2 % (32.4-45.2); HEMOGLOBIN 16.3 GM/dL (10.7-15.3); LYMPH % 13.7 % (8-40); MCH 26.9 pg (25.7-33.7); MCHC 32.4 g/dl (32.0-36.0); MEAN CELL VOLUME 83.2 fl (80-96); MEAN PLT VOLUME 8.4 fl (7.5-11.1); MONO % 1.9 % (3.8-10.2); NEUT % 83.7 % (42.8-82.8); PLATELET COUNT 417 10^3/uL (134-434); RBC 6.04 M/mm3 (3.60-5.2); RDW 18.1 % (11.6-15.6); WHITE BLOOD COUNT 6.5 K/mm3 (4.0-10.0)
[2023-11-10 10:12] LABS: INR 1.04 (0.83-1.09); PROTHROMBIN TIME (PATIENT) 11.9 SEC (9.7-13.0)
[2023-11-10] MEDS ORDERED: METOCLOPRAMIDE HCL INJECTION 10 MG/2 ML VIAL ONE (10:15)
[2023-11-10 10:17] LABS: POTASSIUM 4.6 mmol/L (3.5-5.1)
[2023-11-10 10:19] LABS: ALBUMIN 4.6 g/dl (3.4-5.0); BLOOD UREA NITROGEN 15.9 mg/dL (7-18); CALCIUM 10.9 mg/dL (8.5-10.1); MAGNESIUM 2.4 mg/dL (1.8-2.4); VENOUS O2 SATURATION 83.2 % (70-80); VENOUS PCO2 28.6 mmHg (38-52); VENOUS PH 7.479 (7.310-7.410)
[2023-11-10 10:24] LABS: BILIRUBIN,TOTAL 0.6 mg/dL (0.2-1); TOT PROT 9.6 g/dl (6.4-8.2)
[2023-11-10 10:35] LABS: LACTIC ACID 2.2 mmol/L (0.4-2.0)
[2023-11-10] MEDS: METOCLOPRAMIDE HCL INJECTION 10 MG/2 ML VIAL IVPUSH ONE (11:10)
[2023-11-10] MEDS ORDERED: HYDROmorphone HCl 2 MG/ML VIAL ONE (11:15)
[2023-11-10] MEDS: HYDROmorphone HCl 2 MG/ML VIAL IVPB ONE (11:30)
[2023-11-10 12:00] LABS: EPI CELLS 34 /uL (0-25.1); HYALINE CASTS 0 /uL (0-3.1); PH,URINE 7.5 (5.0-8.0); URINE APPEARANCE CLOUDY; URINE BACTERIA 351 /uL (0-1359); URINE BILIRUBIN NEGATIVE (NEGATIVE); URINE COLOR YELLOW; URINE GLUCOSE (UA) NEGATIVE (NEGATIVE); URINE KETONE 1+ (NEGATIVE); URINE LEUK ESTERASE 2+ (NEGATIVE); URINE NITRITE NEGATIVE (NEGATIVE); URINE PROTEIN 2+ (NEGATIVE); URINE RBC 14 /uL (0-23.9); URINE UROBILINOGEN 0.2 mg/dL (0.2-1.0); URINE WBC 82 /uL (0-25.8)
[2023-11-10] MEDS ORDERED: FAMOTIDINE 10 MG/ML VIAL IVPB ONE (15:20)
[2023-11-10] MEDS: FAMOTIDINE 20 MG/50 ML IVPB 20 MG/50 ML MG IVPB ONE (15:28)
[2023-11-10] MEDS ORDERED: TRIMETHOBENZAMIDE HCL 200MG/2ML INJ IM ONE (17:17)
[2023-11-10] MEDS ORDERED: LOSARTAN POTASSIUM 25 MG TABLET ONE (17:22)
[2023-11-10] MEDS: TRIMETHOBENZAMIDE HCL 200MG/2ML INJ IM PRN (17:22)
[2023-11-10] MEDS ORDERED: amLODIPine BESYLATE 5 MG TABLET (FP) ONE (17:22)
[2023-11-10] MEDS ORDERED: oxyCODONE HCL 5 MG TABLET ONE (17:23)
[2023-11-10] MEDS: LOSARTAN POTASSIUM 25 MG TABLET PO SCH (17:44)
[2023-11-10] MEDS: amLODIPine BESYLATE 5 MG TABLET (FP) PO SCH (17:44)
[2023-11-10] MEDS ORDERED: hydrALAZINE HCL 20 MG/ML VIAL IVPUSH PRN (18:12)
[2023-11-10] MEDS ORDERED: hydrALAZINE HCL 20 MG/ML VIAL ONE (18:41)
[2023-11-10] MEDS: hydrALAZINE HCL 20 MG/ML VIAL IVPUSH ONE (18:45)
[2023-11-10] MEDS: LACTATED RINGERS SOLUTION 1,000 ML/1,000 ML INFUS.BAG IV SCH (19:43)
[2023-11-10] MEDS: oxyCODONE HCL 5 MG TABLET PO PRN (19:48)
[2023-11-10 20:36] VITALS: BMI 20.9
[2023-11-10] MEDS: GABAPENTIN 300 MG CAPSULE PO SCH (21:32)
[2023-11-10] MEDS: METOCLOPRAMIDE HCL 10 MG TABLET (FP) PO ONE (21:32)
[2023-11-10] MEDS ORDERED: APIXABAN 5 MG TABLET PO SCH (22:00)
[2023-11-10] MEDS: traZODone HCL 50 MG TABLET (FP) PO SCH (22:30)
[2023-11-10] MEDS: ACETAMINOPHEN 1000 MG/100 ML BAG IVPB PRN (22:47)
[2023-11-10] MEDS: BUDESONIDE/FORMETEROL FUMARATE 160/4.5 mcg INHALER IH SCH (22:48)
[2023-11-11 00:13] LABS: LACTIC ACID 3.2 mmol/L (0.4-2.0)
[2023-11-11] MEDS: SODIUM CHLORIDE 1,000 ML IV SCH ×2 (02:03→10:49)
[2023-11-11] MEDS ORDERED: ALBUTEROL SO4 HFA INHALER IH PRN (07:33)
[2023-11-11] MEDS ORDERED: ACETAMINOPHEN 325 MG TABLET (FP) PO PRN (07:37)
[2023-11-11] MEDS ORDERED: KETOROLAC TROMETHAMINE 15 MG/ML VIAL IVPUSH PRN (07:37)
[2023-11-11] MEDS ORDERED: oxyCODONE HCL 5 MG TABLET PO PRN (07:38)
[2023-11-11] MEDS: APIXABAN 5 MG TABLET PO SCH (09:41)
[2023-11-11] MEDS: PANTOPRAZOLE SODIUM 40 MG VIAL IVPUSH SCH (09:41)
[2023-11-11] MEDS: DEXAMETHASONE SOD PHOSPHATE 10 MG/1 ML VIAL IVPUSH ONE (09:42)
[2023-11-11] MEDS: FOLIC ACID 1 MG TABLET (FP) PO SCH (09:42)
[2023-11-11] MEDS: PANTOPRAZOLE 40 MG TABLET PO SCH (09:42)
[2023-11-11] MEDS: morphine SULFATE 4 MG/ML VIAL IVPUSH PRN (09:43)
[2023-11-11] MEDS ORDERED: PANTOPRAZOLE 40 MG TABLET PO SCH (10:00)
[2023-11-11] MEDS ORDERED: ENOXAPARIN NA (PORCINE) 40 MG/0.4 ML DISP.SYRIN SQ SCH ×2 (10:00)
[2023-11-11] MEDS: TIOTROPIUM BROMIDE 2.5 MCG (SPIRIVA) RESPIMAT INHALER IH SCH (10:49)
[2023-11-11 14:01] LABS: METHADONE, UR NEGATIVE (NEGATIVE); PHENCYCLIDINE,URINE NEGATIVE (NEGATIVE); URINE BENZODIAZEPINES NEGATIVE (NEGATIVE)
[2023-11-11 14:03] LABS: COCAINE, UR POSITIVE (NEGATIVE); OPIATES, URI POSITIVE (NEGATIVE); URINE AMPHETAMINES NEGATIVE (NEGATIVE); URINE BARBITURATES NEGATIVE (NEGATIVE)
[2023-11-11] MEDS: ACETAMINOPHEN 1000 MG/100 ML BAG IVPB PRN (22:48)
[2023-11-12] MEDS: LOSARTAN POTASSIUM 25 MG TABLET PO SCH (09:22)
[2023-11-12 09:39] LABS: HEMATOCRIT 51.9 % (32.4-45.2); HEMOGLOBIN 17.2 GM/dL (10.7-15.3); MCHC 33.1 g/dl (32.0-36.0); MEAN CELL VOLUME 81.7 fl (80-96); MEAN PLT VOLUME 8.6 fl (7.5-11.1); PLATELET COUNT 383 10^3/uL (134-434); RBC 6.36 M/mm3 (3.60-5.2); RDW 18.5 % (11.6-15.6); WHITE BLOOD COUNT 17.5 K/mm3 (4.0-10.0)
[2023-11-12 09:58] LABS: POTASSIUM 4.2 mmol/L (3.5-5.1)
[2023-11-12 10:02] LABS: ALBUMIN 3.8 g/dl (3.4-5.0); BLOOD UREA NITROGEN 29.5 mg/dL (7-18); CALCIUM 9.3 mg/dL (8.5-10.1); MAGNESIUM 2.1 mg/dL (1.8-2.4)
[2023-11-12 10:04] LABS: CREATININE 1.1 mg/dL (0.55-1.3); PHOSPHOROUS 3.3 mg/dL (2.5-4.9)
[2023-11-12 10:06] LABS: BILIRUBIN,TOTAL 0.8 mg/dL (0.2-1); LACTIC ACID 2.2 mmol/L (0.4-2.0); TOT PROT 7.9 g/dl (6.4-8.2)
[2023-11-12] MEDS: KETOROLAC TROMETHAMINE 15 MG/ML VIAL IVPUSH PRN (12:42)
[2023-11-12] MEDS: DEXTROSE 5%-LACTATED RINGERS 1,000 ML IV SCH (15:49)
[2023-11-12] MEDS: FAMOTIDINE 20 MG TABLET PO ONE (18:46)
[2023-11-12] MEDS: METOCLOPRAMIDE HCL INJECTION 10 MG/2 ML VIAL IVPUSH PRN (21:38)
[2023-11-12] MEDS: ACETAMINOPHEN 1000 MG/100 ML BAG IVPB PRN (21:39)
[2023-11-12] MEDS: MELATONIN 5 MG TABLETS PO PRN (22:23)
[2023-11-13] MEDS: ARTIFICIAL TEARS OPHTHALMIC DROPS OU PRN (04:54)
[2023-11-13 08:52] LABS: HEMATOCRIT 50.2 % (32.4-45.2); HEMOGLOBIN 16.1 GM/dL (10.7-15.3); MCH 26.8 pg (25.7-33.7); MCHC 32.2 g/dl (32.0-36.0); MEAN CELL VOLUME 83.3 fl (80-96); MEAN PLT VOLUME 8.2 fl (7.5-11.1); PLATELET COUNT 340 10^3/uL (134-434); RBC 6.03 M/mm3 (3.60-5.2); RDW 17.8 % (11.6-15.6); WHITE BLOOD COUNT 12.4 K/mm3 (4.0-10.0)
[2023-11-13 09:21] LABS: POTASSIUM 3.7 mmol/L (3.5-5.1)
[2023-11-13 09:34] LABS: CALCIUM 9.5 mg/dL (8.5-10.1)
[2023-11-13 09:35] LABS: ALBUMIN 3.6 g/dl (3.4-5.0); BLOOD UREA NITROGEN 30.3 mg/dL (7-18); MAGNESIUM 2.4 mg/dL (1.8-2.4)
[2023-11-13 09:38] LABS: CREATININE 1.2 mg/dL (0.55-1.3); PHOSPHOROUS 2.9 mg/dL (2.5-4.9)
[2023-11-13 09:40] LABS: BILIRUBIN,TOTAL 0.8 mg/dL (0.2-1); TOT PROT 7.2 g/dl (6.4-8.2)
[2023-11-13] MEDS: oxyCODONE HCL 5 MG TABLET PO PRN (14:38)
[2023-11-14] MEDS: FAMOTIDINE 20 MG TABLET PO ONE (00:51)
[2023-11-14] MEDS ORDERED: oxyCODONE HCL 5 MG TABLET PO PRN (07:44)
[2023-11-14] MEDS: ACETAMINOPHEN 500 MG TABLET (FP) PO SCH (09:32)
[2023-11-14 09:44] LABS: BASO % 1.4 % (0-2.0); EOS % 3.6 % (0-4.5); HEMATOCRIT 46.1 % (32.4-45.2); HEMOGLOBIN 15.4 GM/dL (10.7-15.3); LYMPH % 27.2 % (8-40); MCH 27.5 pg (25.7-33.7); MCHC 33.4 g/dl (32.0-36.0); MEAN CELL VOLUME 82.3 fl (80-96); MEAN PLT VOLUME 8.8 fl (7.5-11.1); MONO % 9.2 % (3.8-10.2); NEUT % 58.6 % (42.8-82.8); PLATELET COUNT 304 10^3/uL (134-434); RDW 17.6 % (11.6-15.6); WHITE BLOOD COUNT 7.5 K/mm3 (4.0-10.0)
[2023-11-14 10:08] LABS: POTASSIUM 3.6 mmol/L (3.5-5.1)
[2023-11-14 10:15] LABS: ALBUMIN 3.4 g/dl (3.4-5.0)
[2023-11-14 10:16] LABS: BLOOD UREA NITROGEN 23.4 mg/dL (7-18)
[2023-11-14 10:17] LABS: MAGNESIUM 2.1 mg/dL (1.8-2.4)
[2023-11-14 10:19] LABS: PHOSPHOROUS 2.6 mg/dL (2.5-4.9)
[2023-11-14 10:20] LABS: TOT PROT 6.8 g/dl (6.4-8.2)
[2023-11-14] MEDS: ONDANSETRON 4 MG/2 ML VIAL IVPUSH ONE (10:36)
[2023-11-14] MEDS: oxyCODONE HCL 5 MG TABLET PO PRN (10:40)
[2023-11-14] MEDS: MAGNESIUM SULFATE 16 OZ CRYSTALS TP ONE (15:02)
[2023-11-15] MEDS: KETOROLAC TROMETHAMINE 15 MG/ML VIAL IVPUSH PRN (05:20)
[2023-11-15 09:02] VITALS: BP 123/54; PULSE 85; RESP 19; TEMP 99.2
[2023-11-15 09:08] LABS: BASO % 1.4 % (0-2.0); HEMATOCRIT 41.1 % (32.4-45.2); HEMOGLOBIN 13.4 GM/dL (10.7-15.3); LYMPH % 29.4 % (8-40); MCHC 32.7 g/dl (32.0-36.0); MEAN CELL VOLUME 82.7 fl (80-96); MEAN PLT VOLUME 8.6 fl (7.5-11.1); MONO % 9.9 % (3.8-10.2); NEUT % 53.3 % (42.8-82.8); PLATELET COUNT 283 10^3/uL (134-434); RBC 4.97 M/mm3 (3.60-5.2); RDW 17.7 % (11.6-15.6)
[2023-11-15 09:26] LABS: POTASSIUM 3.4 mmol/L (3.5-5.1)
[2023-11-15 09:31] LABS: BLOOD UREA NITROGEN 12.9 mg/dL (7-18)
[2023-11-15 09:32] LABS: ALBUMIN 3.2 g/dl (3.4-5.0); MAGNESIUM 1.9 mg/dL (1.8-2.4)
[2023-11-15 09:35] LABS: BILIRUBIN,TOTAL 0.6 mg/dL (0.2-1)
[2023-11-15 09:36] LABS: TOT PROT 5.9 g/dl (6.4-8.2)
[2023-11-15] MEDS ORDERED: METHOTREXATE SODIUM/PF 25 MG/ML VIAL SQ SCH (10:00)
[2023-11-15] MEDS: POTASSIUM CHLORIDE ORAL LIQUID 20 MEQ/15 ML PO ONE (12:46)
== END 2023-11-15 14:09 | disposition left against medical advice (07) | DRG 392 ==
LOC: JER 08:39 → INTOOBSV 16:15 → JERBED 16:15 → J5S 19:21 → OBSVTOIN 11-12 15:21
PROVIDERS: ADMIT Internal Medicine
DX: K52.89 Other specified noninfective gastroenteritis and colitis (principal); C34.90 Malignant neoplasm of unspecified part of unspecified bronchus or lung; K56.7 Ileus, unspecified; K29.60 Other gastritis without bleeding; K57.90 Diverticulosis of intestine, part unspecified, without perforation or abscess without bleeding; J44.9 Chronic obstructive pulmonary disease, unspecified; I10 Essential (primary) hypertension; K21.9 Gastro-esophageal reflux disease without esophagitis; F41.9 Anxiety disorder, unspecified; M54.9 Dorsalgia, unspecified; R51.9 Headache, unspecified; R11.2 Nausea with vomiting, unspecified; F12.10 Cannabis abuse, uncomplicated; F14.10 Cocaine abuse, uncomplicated; R13.10 Dysphagia, unspecified; K59.03 Drug induced constipation; T40.2X5A Adverse effect of other opioids, initial encounter
CPT/HCPCS: 0241U-QW; 36415; 70450-TC; 71045-TC-FY; 74177-TC; 76705-TC; 80053; 80307; 81003; 82803; 82962; 83605; 83690; 83735; 84100; 84484; 85025; 85027; 85379; 85610; 87086; 87324; 87449; 93005; 93010; 97116-GP; 97161-GP; 99285-25; G0378; J0131; J1100; Q9967

== ENCOUNTER 2024-06-27 16:22 | Inpatient (IN) | payer OTHER ==
[2024-06-27] MEDS ORDERED: METOCLOPRAMIDE HCL INJECTION 10 MG/2 ML VIAL ONE (17:40)
[2024-06-27] MEDS ORDERED: ACETAMINOPHEN INJECTION 100 ML ONE (17:41)
[2024-06-27] MEDS: METOCLOPRAMIDE HCL INJECTION 10 MG/2 ML VIAL IVPB ONE (18:16)
[2024-06-27] MEDS: ACETAMINOPHEN 1000 MG/100 ML BAG IVPB ONE (18:16)
[2024-06-27 18:21] LABS: VENOUS BASE EXCESS 4.5 mmol/L (-2-2); VENOUS O2 SATURATION 17.7 % (70-80); VENOUS PCO2 42.8 mmHg (38-52)
[2024-06-27 18:30] LABS: BASO % 0.3 % (0-2.0); HEMATOCRIT 54.9 % (32.4-45.2); HEMOGLOBIN 17.8 GM/dL (10.7-15.3); LYMPH % 9.3 % (8-40); MCH 27.6 pg (25.7-33.7); MCHC 32.4 g/dl (32.0-36.0); MEAN CELL VOLUME 85.4 fl (80-96); MEAN PLT VOLUME 8.6 fl (7.5-11.1); MONO % 2.8 % (3.8-10.2); NEUT % 87.6 % (42.8-82.8); PLATELET COUNT 320 10^3/uL (134-434); RBC 6.43 M/mm3 (3.60-5.2); RDW 17.3 % (11.6-15.6); WHITE BLOOD COUNT 9.5 K/mm3 (4.0-10.0)
[2024-06-27 18:36] LABS: POTASSIUM 3.6 mmol/L (3.5-5.1)
[2024-06-27 18:38] LABS: ALBUMIN 4.7 g/dl (3.4-5.0); BLOOD UREA NITROGEN 12.7 mg/dL (7-18); CALCIUM 10.5 mg/dL (8.5-10.1)
[2024-06-27 18:39] LABS: MAGNESIUM 2.3 mg/dL (1.8-2.4)
[2024-06-27 18:42] LABS: CREATININE 1.1 mg/dL (0.55-1.3)
[2024-06-27 18:44] LABS: BILIRUBIN,TOTAL 0.6 mg/dL (0.2-1); TOT PROT 9.2 g/dl (6.4-8.2)
[2024-06-27] MEDS ORDERED: oxyCODONE HCL 5 MG TABLET ONE (19:52)
[2024-06-27] MEDS: ONDANSETRON 4 MG/2 ML VIAL IVPB ONE (21:18)
[2024-06-27] MEDS ORDERED: ONDANSETRON 4 MG/2 ML VIAL ONE (21:19)
[2024-06-27] MEDS: oxyCODONE HCL 5 MG TABLET PO ONE (21:58)
[2024-06-28] MEDS ORDERED: morphine SULFATE 4 MG/ML VIAL ONE (02:16)
[2024-06-28] MEDS: morphine CARPU-JECT 4 MG/1 ML DISP.SYRIN IVPUSH ONE (02:31)
[2024-06-28] MEDS ORDERED: KETOROLAC TROMETHAMINE 30 MG/1 ML VIAL IM PRN (05:25)
[2024-06-28] MEDS ORDERED: KETOROLAC TROMETHAMINE 15 MG/ML VIAL IVPUSH PRN (05:29)
[2024-06-28 06:15] LABS: HEMOGLOBIN 18.3 GM/dL (10.7-15.3); MCH 27.3 pg (25.7-33.7); MCHC 31.5 g/dl (32.0-36.0); MEAN CELL VOLUME 86.7 fl (80-96); MEAN PLT VOLUME 8.7 fl (7.5-11.1); PLATELET COUNT 332 10^3/uL (134-434); RBC 6.69 M/mm3 (3.60-5.2); RDW 18.2 % (11.6-15.6); WHITE BLOOD COUNT 13.5 K/mm3 (4.0-10.0)
[2024-06-28] MEDS: SODIUM CHLORIDE 0.45% 1,000 ML IV SCH (06:17)
[2024-06-28 06:24] LABS: POTASSIUM 3.3 mmol/L (3.5-5.1)
[2024-06-28 06:26] LABS: CALCIUM 10.6 mg/dL (8.5-10.1)
[2024-06-28 06:27] LABS: ALBUMIN 4.6 g/dl (3.4-5.0); BLOOD UREA NITROGEN 17.9 mg/dL (7-18); MAGNESIUM 2.2 mg/dL (1.8-2.4)
[2024-06-28 06:30] LABS: CREATININE 1.1 mg/dL (0.55-1.3); PHOSPHOROUS 3.7 mg/dL (2.5-4.9)
[2024-06-28 06:31] LABS: BILIRUBIN,TOTAL 0.8 mg/dL (0.2-1)
[2024-06-28] MEDS: morphine SULFATE 4 MG/ML VIAL IVPUSH PRN (08:07)
[2024-06-28] MEDS: APIXABAN 5 MG TABLET PO SCH (09:51)
[2024-06-28] MEDS: GABAPENTIN 300 MG CAPSULE PO SCH (09:51)
[2024-06-28] MEDS: ACETAMINOPHEN 500 MG TABLET (FP) PO ONE (09:51)
[2024-06-28] MEDS: amLODIPine BESYLATE 5 MG TABLET (FP) PO SCH (09:51)
[2024-06-28] MEDS: ONDANSETRON 4 MG/2 ML VIAL IVPUSH PRN (09:53)
[2024-06-28] MEDS: KETOROLAC TROMETHAMINE 30 MG/1 ML VIAL IVPUSH PRN (10:13)
[2024-06-28] MEDS: NICOTINE 7 MG/24 HOURS TOPICAL PATCH TD SCH (10:13)
[2024-06-28 10:28] LABS: LACTIC ACID 2.4 mmol/L (0.4-2.0)
[2024-06-28 11:12] LABS: EPI CELLS 35 /uL (0-25.1); HYALINE CASTS 5 /uL (0-3.1); PH,URINE 5.5 (5.0-8.0); URINE APPEARANCE CLOUDY; URINE BACTERIA 775 /uL (0-1359); URINE BILIRUBIN NEGATIVE (NEGATIVE); URINE COLOR YELLOW; URINE GLUCOSE (UA) NEGATIVE (NEGATIVE); URINE KETONE 1+ (NEGATIVE); URINE LEUK ESTERASE NEGATIVE (NEGATIVE); URINE NITRITE NEGATIVE (NEGATIVE); URINE PROTEIN 4+ (NEGATIVE); URINE RBC 45 /uL (0-23.9); URINE UROBILINOGEN 0.2 mg/dL (0.2-1.0)
[2024-06-28 11:12] LABS: URINE AMPHETAMINES NEGATIVE (NEGATIVE)
[2024-06-28 11:13] LABS: COCAINE, UR NEGATIVE (NEGATIVE); METHADONE, UR NEGATIVE (NEGATIVE); PHENCYCLIDINE,URINE NEGATIVE (NEGATIVE); URINE BENZODIAZEPINES NEGATIVE (NEGATIVE)
[2024-06-28 11:14] LABS: OPIATES, URI POSITIVE (NEGATIVE); URINE BARBITURATES NEGATIVE (NEGATIVE)
[2024-06-28] MEDS: KCL 10 MEQ IVPB 10 MEQ/100 ML INFUS.BAG IVPB SCH (11:38)
[2024-06-28 11:48] LABS: URINE WBC 1249.4 /uL (0-25.8)
[2024-06-28] MEDS: LOSARTAN POTASSIUM 25 MG TABLET PO SCH (14:16)
[2024-06-28] MEDS: MAG HYDROX/AL HYDROX/SIMETH 30 ML UNIT-DOSE CUP PO ONE (14:16)
[2024-06-28] MEDS: UMECLIDINIUM/VILANTEROL (ANORO) 62.5/25 MCG INHALER IH SCH (14:17)
[2024-06-28] MEDS: metroNIDAZOLE 250 MG TABLET PO SCH (14:18)
[2024-06-28] MEDS: POTASSIUM CHLORIDE 40 MEQ in DEXTROSE 5%-LACTATED RINGERS 980 ML IV ONE (14:24)
[2024-06-28] MEDS: CEFTRIAXONE 1 G/50 ML PREMIX 50 ML IVPB SCH (14:44)
[2024-06-28 14:52] LABS: LACTIC ACID 2.4 mmol/L (0.4-2.0)
[2024-06-28] MEDS: traZODone HCL 50 MG TABLET (FP) PO SCH (21:05)
[2024-06-28] MEDS: DEXTROSE 5%-LACTATED RINGERS 1,000 ML IV SCH (22:17)
[2024-06-29 10:08] LABS: BASO % 0.5 % (0-2.0); EOS % 0.5 % (0-4.5); HEMATOCRIT 50.5 % (32.4-45.2); HEMOGLOBIN 16.2 GM/dL (10.7-15.3); LYMPH % 21.2 % (8-40); MCH 27.5 pg (25.7-33.7); MCHC 32.2 g/dl (32.0-36.0); MEAN CELL VOLUME 85.5 fl (80-96); MEAN PLT VOLUME 8.7 fl (7.5-11.1); MONO % 7.9 % (3.8-10.2); NEUT % 69.9 % (42.8-82.8); PLATELET COUNT 300 10^3/uL (134-434); RBC 5.91 M/mm3 (3.60-5.2); RDW 17.3 % (11.6-15.6); WHITE BLOOD COUNT 14.6 K/mm3 (4.0-10.0)
[2024-06-29 10:30] LABS: CHLORIDE 106 mmol/L (98-107); POTASSIUM 3.8 mmol/L (3.5-5.1); SODIUM 139 mmol/L (136-145)
[2024-06-29 10:36] LABS: CALCIUM 9.6 mg/dL (8.5-10.1)
[2024-06-29 10:37] LABS: ANION GAP 5 mmol/L (4-13); CO2 28 mmol/L (21-32); GLUCOSE,RANDOM 108 mg/dL (74-106)
[2024-06-29 10:40] LABS: ALBUMIN 3.6 g/dl (3.4-5.0); SGOT/AST 19 U/L (15-37); SGPT/ALT 15 U/L (13-61)
[2024-06-29 10:41] LABS: TOT PROT 7.1 g/dl (6.4-8.2)
[2024-06-29 10:47] LABS: ALK PHOS 144 U/L (45-117)
[2024-06-29] MEDS: MAG HYDROX/AL HYDROX/SIMETH 30 ML UNIT-DOSE CUP PO PRN (13:39)
[2024-06-29] MEDS: oxyCODONE HCL 5 MG TABLET PO PRN (17:41)
[2024-06-29] MEDS: MELATONIN 5 MG TABLETS PO ONE (20:21)
[2024-06-30 08:31] LABS: HEMATOCRIT 54.4 % (32.4-45.2); HEMOGLOBIN 17.6 GM/dL (10.7-15.3); MCH 27.8 pg (25.7-33.7); MCHC 32.4 g/dl (32.0-36.0); MEAN CELL VOLUME 85.9 fl (80-96); MEAN PLT VOLUME 8.8 fl (7.5-11.1); PLATELET COUNT 272 10^3/uL (134-434); RBC 6.33 M/mm3 (3.60-5.2); RDW 17.7 % (11.6-15.6); WHITE BLOOD COUNT 12.5 K/mm3 (4.0-10.0)
[2024-06-30 08:57] LABS: POTASSIUM 3.9 mmol/L (3.5-5.1)
[2024-06-30 09:01] LABS: CALCIUM 9.8 mg/dL (8.5-10.1)
[2024-06-30 09:05] LABS: CREATININE 1.1 mg/dL (0.55-1.3)
[2024-06-30] MEDS: SODIUM CHLORIDE 1,000 ML IV SCH (14:08)
[2024-06-30] MEDS: morphine SULFATE 4 MG/ML VIAL IVPUSH ONE (14:08)
[2024-06-30] MEDS: VANCOMYCIN ORAL SOLUTION 125 MG/2.5 ML PO SCH (15:18)
[2024-06-30 16:16] VITALS: BMI 19.7
[2024-06-30] MEDS: morphine SULFATE 4 MG/ML VIAL IVPUSH SCH (17:31)
[2024-06-30] MEDS: PANTOPRAZOLE 40 MG TABLET PO ONE (18:09)
[2024-06-30] MEDS: MAG HYDROX/AL HYDROX/SIMETH 30 ML UNIT-DOSE CUP PO ONE (18:09)
[2024-07-01 09:30] LABS: HEMATOCRIT 46.2 % (32.4-45.2); HEMOGLOBIN 14.6 GM/dL (10.7-15.3); MCH 27.6 pg (25.7-33.7); MCHC 31.5 g/dl (32.0-36.0); MEAN CELL VOLUME 87.6 fl (80-96); MEAN PLT VOLUME 9.1 fl (7.5-11.1); PLATELET COUNT 240 10^3/uL (134-434); RBC 5.27 M/mm3 (3.60-5.2); RDW 17.4 % (11.6-15.6)
[2024-07-01 09:42] LABS: POTASSIUM 4.2 mmol/L (3.5-5.1)
[2024-07-01 09:53] LABS: BLOOD UREA NITROGEN 26.8 mg/dL (7-18); CALCIUM 8.6 mg/dL (8.5-10.1)
[2024-07-01] MEDS: PANTOPRAZOLE 40 MG TABLET PO SCH (10:13)
[2024-07-01] MEDS: oxyCODONE HCL 5 MG TABLET PO SCH (14:29)
[2024-07-01] MEDS: METOCLOPRAMIDE HCL INJECTION 10 MG/2 ML VIAL IVPUSH SCH (16:18)
[2024-07-02] MEDS: MELATONIN 5 MG TABLETS PO ONE (00:35)
[2024-07-02 09:57] LABS: BASO % 1.2 % (0-2.0); EOS % 8.8 % (0-4.5); HEMATOCRIT 46.6 % (32.4-45.2); HEMOGLOBIN 14.6 GM/dL (10.7-15.3); LYMPH % 32.3 % (8-40); MCH 27.6 pg (25.7-33.7); MCHC 31.3 g/dl (32.0-36.0); MEAN CELL VOLUME 88.2 fl (80-96); MEAN PLT VOLUME 8.6 fl (7.5-11.1); MONO % 7.5 % (3.8-10.2); NEUT % 50.2 % (42.8-82.8); PLATELET COUNT 210 10^3/uL (134-434); RBC 5.28 M/mm3 (3.60-5.2); RDW 17.5 % (11.6-15.6); WHITE BLOOD COUNT 5.3 K/mm3 (4.0-10.0)
[2024-07-02 10:10] LABS: POTASSIUM 3.4 mmol/L (3.5-5.1)
[2024-07-02 10:12] LABS: ALBUMIN 3.4 g/dl (3.4-5.0); BLOOD UREA NITROGEN 17.1 mg/dL (7-18); CALCIUM 8.5 mg/dL (8.5-10.1); MAGNESIUM 2.2 mg/dL (1.8-2.4)
[2024-07-02 10:15] LABS: CREATININE 1.1 mg/dL (0.55-1.3); PHOSPHOROUS 2.8 mg/dL (2.5-4.9)
[2024-07-02 10:17] LABS: BILIRUBIN,TOTAL 0.5 mg/dL (0.2-1); TOT PROT 6.1 g/dl (6.4-8.2)
[2024-07-02] MEDS: ARTIFICIAL TEARS OPHTHALMIC DROPS OU PRN (16:35)
[2024-07-02] MEDS: KCL 10 MEQ IVPB 10 MEQ/100 ML INFUS.BAG IVPB SCH (18:27)
[2024-07-02] MEDS: oxyCODONE HCL 5 MG TABLET PO SCH (19:22)
[2024-07-02] MEDS ORDERED: MELATONIN 5 MG TABLETS PO PRN (22:00)
[2024-07-03 08:28] VITALS: BP 129/74; PULSE 70; RESP 18; TEMP 98.3
[2024-07-03 09:34] LABS: HEMATOCRIT 48.5 % (32.4-45.2); HEMOGLOBIN 15.5 GM/dL (10.7-15.3); MCH 27.9 pg (25.7-33.7); MEAN CELL VOLUME 87.4 fl (80-96); MEAN PLT VOLUME 8.7 fl (7.5-11.1); PLATELET COUNT 215 10^3/uL (134-434); RBC 5.55 M/mm3 (3.60-5.2); RDW 17.7 % (11.6-15.6); WHITE BLOOD COUNT 5.3 K/mm3 (4.0-10.0)
[2024-07-03 09:45] LABS: POTASSIUM 3.9 mmol/L (3.5-5.1)
[2024-07-03 09:46] LABS: CALCIUM 9.1 mg/dL (8.5-10.1)
[2024-07-03 09:47] LABS: MAGNESIUM 1.9 mg/dL (1.8-2.4)
[2024-07-03 09:50] LABS: PHOSPHOROUS 2.5 mg/dL (2.5-4.9)
[2024-07-03 09:55] LABS: BLOOD UREA NITROGEN 8.8 mg/dL (7-18)
== END 2024-07-03 13:05 | disposition home or self-care (01) | DRG 248 ==
LOC: JER 16:22 → JERBED 06-28 03:19 → J6W 06-28 08:03 → OBSVTOIN 07-02 12:35
PROVIDERS: ADMIT Internal Medicine; ATTEND Internal Medicine
DX: A04.72 Enterocolitis due to Clostridium difficile, not specified as recurrent (principal); J44.9 Chronic obstructive pulmonary disease, unspecified; I10 Essential (primary) hypertension; M34.9 Systemic sclerosis, unspecified; F12.90 Cannabis use, unspecified, uncomplicated; A09 Infectious gastroenteritis and colitis, unspecified; C34.90 Malignant neoplasm of unspecified part of unspecified bronchus or lung; K31.84 Gastroparesis; K21.9 Gastro-esophageal reflux disease without esophagitis; Z88.0 Allergy status to penicillin; G89.4 Chronic pain syndrome; F17.200 Nicotine dependence, unspecified, uncomplicated; F41.9 Anxiety disorder, unspecified; I31.39 Other pericardial effusion (noninflammatory); E44.0 Moderate protein-calorie malnutrition; Z68.1 Body mass index [BMI] 19.9 or less, adult
CPT/HCPCS: 0241U-QW; 36415; 71045-TC-FY; 74177-TC; 80048; 80053; 80307; 81003; 82803; 82977; 83605; 83690; 83735; 84100; 84484; 85025; 85027; 86140; 87045; 87046; 87205; 87209; 87324; 87449; 87493; 93005; 93010; 93306-TC; 99285-25; G0378; J0131

== ENCOUNTER 2025-01-28 23:01 | Observation (INO) | payer OTHER ==
[2025-01-28 23:15] VITALS: BMI 23.3
[2025-01-28] MEDS ORDERED: ONDANSETRON 4 MG/2 ML VIAL ONE (23:35)
[2025-01-28] MEDS ORDERED: ACETAMINOPHEN INJECTION 100 ML ONE (23:35)
[2025-01-28] MEDS ORDERED: FAMOTIDINE 20 MG/50 ML IVPB 20 MG/50 ML MG IVPB ONE (23:36)
[2025-01-29] MEDS: ACETAMINOPHEN 1000 MG/100 ML BAG IVPB ONE (00:26)
[2025-01-29] MEDS: FAMOTIDINE 20 MG/50 ML IVPB 20 MG/50 ML MG IVPB ONE (00:26)
[2025-01-29] MEDS: LACTATED RINGERS SOLUTION 1000 ML INFUS.BAG IV ONE (00:26)
[2025-01-29] MEDS: ONDANSETRON 4 MG/2 ML VIAL IVPUSH ONE (00:27)
[2025-01-29 00:48] LABS: MCHC 31.3 g/dl (32.2-35.5); MEAN CELL VOLUME 90.4 fl (79.4-94.8); MEAN PLT VOLUME 10.0 fl (9.4-12.3); RDW 17.2 % (12.4-16.4)
[2025-01-29 00:59] LABS: INR 1.2 (0.83-1.09); PROTHROMBIN TIME (PATIENT) 13.1 SEC (9.7-13.0)
[2025-01-29 01:01] LABS: ACTIVATED PTT 34.4 SECONDS (25.2-36.5)
[2025-01-29] MEDS ORDERED: MORPHINE SULFATE 2 MG/ML SYRINGE ONE (01:12)
[2025-01-29 01:14] LABS: GLUCOSE,RANDOM 113 mg/dL (74-106); TOT PROT 7.9 g/dl (6.4-8.2)
[2025-01-29 01:15] LABS: CO2 27 mmol/L (21-32)
[2025-01-29 01:17] LABS: ALK PHOS 175 U/L (40-150)
[2025-01-29 01:20] LABS: CREATININE 0.92 mg/dL (0.55-1.3); SGOT/AST 40 U/L (5-34); SGPT/ALT 29 U/L (0-55)
[2025-01-29 01:37] LABS: HCV DIAGNOSTIC IN-HOUSE W/RFLX NON-REACTIVE (NONREACTIVE)
[2025-01-29 01:38] LABS: HIV INTERPRETATION NEGATIVE (NEGATIVE)
[2025-01-29] MEDS: morphine CARPU-JECT 2 MG/1 ML DISP.SYRIN IVPUSH ONE (02:25)
[2025-01-29] MEDS ORDERED: AZITHROMYCIN IVPB 500 MG/250 ML BAG IVPB ONE (04:25)
[2025-01-29] MEDS: AZITHROMYCIN IVPB 500 MG in DEXTROSE 5%-WATER - 250 ML IVPB ONE (04:34)
[2025-01-29] MEDS ORDERED: ONDANSETRON 4 MG/2 ML VIAL IVPUSH PRN (06:17)
[2025-01-29] MEDS: LACTATED RINGERS SOLUTION 1,000 ML/1,000 ML INFUS.BAG IV SCH (06:38)
[2025-01-29] MEDS: ACETAMINOPHEN 1000 MG/100 ML BAG IVPB PRN (06:44)
[2025-01-29] MEDS: GABAPENTIN 300 MG CAPSULE PO SCH (06:58)
[2025-01-29 07:30] VITALS: RESP 18
[2025-01-29] MEDS ORDERED: [UNRECOGNIZED DRUG - OTHER] SQ SCH (08:00)
[2025-01-29] MEDS ORDERED: METHOTREXATE SODIUM SQ SCH (08:00)
[2025-01-29 09:50] LABS: ABSOLUTE IMMATURE GRANULOCYTES 0.04 x10^3/uL (0.0-0.031); BASOPHILS # 0.04 x10^3/uL (0.01-0.08); EOSINOPHIL % 2.1 % (0.7-5.8); EOSINOPHILS # 0.16 x10^3/uL (0.04-0.36); MCHC 32.1 g/dl (32.2-35.5); MEAN CELL VOLUME 89.7 fl (79.4-94.8); MEAN PLT VOLUME 10.2 fl (9.4-12.3); MONOCYTE # 0.77 x10^3/uL (0.24-0.86); MONOCYTE % 10.3 % (4.7-12.5); RDW 16.3 % (12.4-16.4)
[2025-01-29] MEDS: UMECLIDINIUM/VILANTEROL (ANORO) 62.5/25 MCG INHALER IH SCH (10:00)
[2025-01-29] MEDS: PANTOPRAZOLE 40 MG TABLET PO SCH (10:00)
[2025-01-29] MEDS: amLODIPine BESYLATE 5 MG TABLET (FP) PO SCH (10:00)
[2025-01-29] MEDS: APIXABAN 5 MG TABLET PO SCH (10:00)
[2025-01-29] MEDS ORDERED: GABAPENTIN 300 MG CAPSULE PO SCH (10:00)
[2025-01-29 10:41] LABS: GLUCOSE,RANDOM 168.0 mg/dL (74-106); TOT PROT 6.1 g/dl (6.4-8.2)
[2025-01-29 10:42] LABS: CO2 25.0 mmol/L (21-32)
[2025-01-29 10:46] LABS: SGOT/AST 24.0 U/L (5-34); SGPT/ALT 19.0 U/L (0-55)
[2025-01-29 10:47] LABS: CREATININE 0.85 mg/dL (0.55-1.3)
[2025-01-29] MEDS: METOCLOPRAMIDE HCL 10 MG/10 ML UNIT DOSE CUP PO SCH (11:38)
[2025-01-29 11:40] LABS: ALK PHOS 131.0 U/L (40-150)
[2025-01-29] MEDS: NAPH,MB-DB/K PH,MBDB POWDER PACKET PO ONE (12:12)
[2025-01-29] MEDS ORDERED: ALBUTEROL SO4 2.5/IPRATROPIUM 0.5 INH SOL 3 ML VIAL.NEB. NEB ONE (15:30)
[2025-01-29 15:52] LABS: PHENCYCLIDINE,URINE NEGATIVE (NEGATIVE); URINE AMPHETAMINES NEGATIVE (NEGATIVE)
[2025-01-29 15:59] LABS: COCAINE, UR POSITIVE (NEGATIVE); OPIATES, URI POSITIVE (NEGATIVE); URINE BARBITURATES NEGATIVE (NEGATIVE); URINE BENZODIAZEPINES NEGATIVE (NEGATIVE)
[2025-01-29 16:00] LABS: METHADONE, UR NEGATIVE (NEGATIVE)
[2025-01-29] MEDS: METHOTREXATE SODIUM/PF 25 MG/ML VIAL SQ SCH (16:46)
[2025-01-29] MEDS: ALBUTEROL SO4 2.5/IPRATROPIUM 0.5 INH SOL 3 ML VIAL.NEB. NEB SCH (20:19)
[2025-01-29] MEDS: SENNOSIDES/DOCUSATE COMBO (SENNA PLUS) TABLET (UD) PO ONE (20:59)
[2025-01-29] MEDS: ARTIFICIAL TEARS OPHTHALMIC DROPS OU PRN (21:00)
[2025-01-29] MEDS: traZODone HCL 50 MG TABLET (FP) PO SCH (21:00)
[2025-01-29] MEDS: MELATONIN 5 MG TABLETS PO ONE (22:06)
[2025-01-30] MEDS: POLYETHYLENE GLYCOL (HEALTHYLAX) 3350 17 GM PACKET PO SCH (09:51)
[2025-01-30 10:40] LABS: ABSOLUTE IMMATURE GRANULOCYTES 0.02 x10^3/uL (0.0-0.031); BASOPHILS # 0.03 x10^3/uL (0.01-0.08); EOSINOPHIL % 2.6 % (0.7-5.8); EOSINOPHILS # 0.22 x10^3/uL (0.04-0.36); MCHC 31.4 g/dl (32.2-35.5); MEAN CELL VOLUME 91.3 fl (79.4-94.8); MEAN PLT VOLUME 10.3 fl (9.4-12.3); MONOCYTE # 0.90 x10^3/uL (0.24-0.86); MONOCYTE % 10.7 % (4.7-12.5); RDW 16.5 % (12.4-16.4)
[2025-01-30 11:02] LABS: GLUCOSE,RANDOM 108.0 mg/dL (74-106); TOT PROT 5.9 g/dl (6.4-8.2)
[2025-01-30 11:03] LABS: CO2 25.0 mmol/L (21-32)
[2025-01-30 11:05] LABS: ALK PHOS 126.0 U/L (40-150)
[2025-01-30 11:07] LABS: SGOT/AST 18.0 U/L (5-34); SGPT/ALT 15.0 U/L (0-55)
[2025-01-30 11:08] LABS: CREATININE 0.8 mg/dL (0.55-1.3)
[2025-01-30 12:50] VITALS: BP 117/59; PULSE 91; TEMP 98.2
== END 2025-01-30 11:48 | disposition home or self-care (01) ==
LOC: JER 23:01 → JERBED 01-29 04:36 → INTOOBSV 01-29 04:36 → UNDOADMOB 01-29 04:36 → JERBED 01-29 05:49 → J5S 01-29 05:49 → JERBED 01-29 11:40
PROVIDERS: ADMIT Internal Medicine; ATTEND Internal Medicine
PROC: 3E0F7GC Introduction of Other Therapeutic Substance into Respiratory Tract, Via Natural or Artificial Opening (ICD-10-PCS; principal; 2025-01-29)
PROC: 3E033NZ Introduction of Analgesics, Hypnotics, Sedatives into Peripheral Vein, Percutaneous Approach (ICD-10-PCS; 2025-01-29)
PROC: 3E03329 Introduction of Other Anti-infective into Peripheral Vein, Percutaneous Approach (ICD-10-PCS; 2025-01-29)
PROC: 3E033GC Introduction of Other Therapeutic Substance into Peripheral Vein, Percutaneous Approach (ICD-10-PCS; 2025-01-29)
DX: M34.9 Systemic sclerosis, unspecified (principal); K31.84 Gastroparesis; C34.90 Malignant neoplasm of unspecified part of unspecified bronchus or lung; F11.90 Opioid use, unspecified, uncomplicated; K21.9 Gastro-esophageal reflux disease without esophagitis; I10 Essential (primary) hypertension; Z88.0 Allergy status to penicillin
CPT/HCPCS: 36415; 71046-TC-FY; 71260-TC; 80053; 80307; 82550; 83690; 83735; 84100; 84484; 85025; 85027; 85610; 85730; 86803; 87389; 87899; 93005; 93010; 94640; 96361; 96365; 96368; 99285-25; G0378; J9260; Q9967